=== PATIENT | female | born 1950 | race Caucasian/White ===

== ENCOUNTER → 2017-07-01 13:29 | Outpatient (CLI) | payer MEDICARE, SELFPAY ==
--- NOTE | 2017-07-01 11:08 | HPBD_ITS ---
STUDY: DUAL ENERGY X-RAY ABSORPTIOMETRY / DXA REASON FOR EXAM: Female, 67 years old. The patient is postmenopausal. Loss of height. TECHNIQUE: Bone Mineral Density (BMD) measurements of lumbar spine and bilateral hips were obtained. COMPARISON: None. FINDINGS: Lumbar Spine (L1-L4): g/cm2 (1.145) / T-score (-0.3) / Z-score (1.4) Findings are suggestive of normal bone density with a low fracture risk. Left Femur Total: g/cm2 (0.936) / T-score (-0.6) / Z-score (0.8) Left Femoral Neck: g/cm2 (0.854) / T-score (-1.3) / Z-score (0.3) Right Femur Total: g/cm2 (0.902) / T-score (-0.8) / Z-score (0.6) Right Femoral Neck: g/cm2 (0.827) / T-score (-1.5) / Z-score (0.1) HPBD/Dexa Bone Density Study (HP) IMPRESSION: The patient is considered osteopenic as outlined below according to World Ha Organization (WHO) criteria with a moderate fracture risk. Reference Information: The T-score is the number of standard deviations above or below the standard which is normal for young adults at their peak bone mineral density. The World Health Organization (WHO) interprets the T-scores as follows: Above -1 Normal bone density Between -1 and -2.5 Osteopenia Equal to / or below -2.5 Osteoporosis As a practical clinical guideline, osteopenia may be graded as follows: Mild -1 through -1.5 Moderate -1.6 through -2.0 Severe -2.1 through -2.4 The Z-score is the number of standard deviations above or below age-matched controls. A Z-score of less than -1.5 would be considered abnormal. References: 1. NIH Osteoporosis and Related Bone Diseases http://www.osteo.org 2. International Society for Clinical Densitometry http://www.iscd.org 3. National Osteoporosis Foundation http://www.nof.org Electronically Signed: Mario Moura MD at 15:24 EST Tel [phone], Service support ,
--- OUTSIDE RECORDS SUMMARY | 2017-08-12 13:31 | XMS RPT_ITS ---
:1950 Author Organization OHIP Care Team Providers Name Role Phone HARINI MAHMOOD (BREAD AND PASTRY BAKER) Attending Unavailable Harini Mahmood MULE RIDER-C Attending Unavailable Talampas, Lalo Primary Care Unavailable TalampLalo cruz Attending Unavailable Talampas, Lalo Primary Care Unavailable Harini Mahmood MULE RIDER-C Attending Unavailable Talampas, Lalo Primary Care Unavailable Harini Mahmood MULE RIDER-C Attending Unavailable Malys, Annamarie Primary Care Unavailable PROBLEMS PROBLEMS DATE TYPE CONDITION / CODE ATTENDING STATUS SOURCE 08/12/2017 Unknown Z13.820 - Harini Mahmood Encounter for MULE RIDER-C Community screening for Hospital osteoporosis / Repository Z13.820(ICD-10) 08/12/2017 Unknown M81.0 - Harini Mahmood Age-related MULE RIDER-C Community osteoporosis Hospital without current Repository pathological fracture / M81.0(ICD-10) 08/06/2017 Unknown Z12.31 - Encounter Harini Mahmood for screening MULE RIDER-C Community mammogram for Hospital malignant neoplasm Repository of breast / Z12.31(ICD-10) 05/12/2017 Active Unknown / HARINI MHAMOOD Active [facility] UNK(Medicity (BREAD AND PASTRY BAKER) Main [place] Unknown) Repository PROCEDURES PROCEDURES No Procedure Records FoundRESULTS RESULTS DEXA BONE DENSITY Observed: 07/01/2017 Status: F Source: [place] STUDY () 11:09 AM [facility] REPOSITORY [facility] [id number] [place] [address]Ugrx Bone Density Study ()MR#: [id number] Acct: [id number]: STARR MATAMOROS Rep #: [id number]: 1950 F 67 From: Mario Moura MDPCP: Annamarie Bauman DO Status: PRE CLIStudy: Dexa Bone Density Study () Date of Exam: 07/01/17Exam# [id number] Ordering Dr: Harini Mahmood MULE RIDER-CSTUDY: DUAL ENERGY X-RAY ABSORPTIOMETRY / DXAREASON FOR EXAM: Female, 67 years old. The patient is postmenopausal.Loss of height.TECHNIQUE: Bone Mineral Density (BMD) measurements of lumbar spine andbilateral hips were obtained.COMPARISON: None. FINDINGS:Lumbar Spine (L1-L4): g/cm2 (1.145) / T-score (-0.3) / Z-score (1.4)Findings are suggestive of normal bone density with a low fracture risk.Left Femur Total: g/cm2 (0.936 ) / T-score (-0.6) / Z-score (0.8)Left Femoral Neck: g/cm2 (0.854) / T-score ( -1.3) / Z-score (0.3)Right Femur Total: g/cm2 (0.902) / T-score (-0.8) / Z- score (0.6)Right Femoral Neck: g/cm2 (0.827) / T-score (-1.5) / Z-score (0.1) ORDER #: [id number] HPBD/Dexa Bone Density Study ()IMPRESSION:The patient is considered osteopenic as outlined below according to WorldHeath Organization (WHO) criteria with a moderate fracture risk. Reference Information:The T-score is the number of standard deviations above or below thestandard which is normal for young adults at their peak bone mineraldensity. The World Health Organization (WHO) interprets the T-scores asfollows:Above -1 Normal bone densityBetween -1 and -2.5 OsteopeniaEqual to / or below -2.5 OsteoporosisAs a practical clinical guideline, osteopenia may be graded as follows:Mild -1 through -1.5Moderate - 1.6 through -2.0Severe -2.1 through -2.4The Z-score is the number of standard deviations above or below age-matchedcontrols. A Z-score of less than -1.5 would be considered abnormal.References:1. NIH Osteoporosis and Related Bone Diseases http://www.osteo.org2. International Society for Clinical Densitometry http://www.iscd.org3. National Osteoporosis Foundation http://www.nof.orgElectronically Signed:Mario Moura MD at 15: 24 ESTTe [phone], Service support , US: Harini Mahmood; Annamarie Bauman DO Plastics Spreading Machine Operator:Signed BREAST LIMITED Observed: 06/26/2017 Status: F Source: [place]AL 2:35 PM [facility] REPOSITORY [facility] [id number] [facility] [place], [place] [address]Asgtpr Limited UnilateralMR#: [id number] Acct: [id number]: STARR MATAMOROS Rep #: [id number]: 1950 F 67 From: Mario Moura MDPCP: Lalo Smith MD Status: REG CLIStudy: Breast Limited Unilateral Date of Exam: 06/26/17Exam# [id number] Ordering Dr: Lalo Smith MDSTUDY: ULTRASOUND BREAST - LEFTREASON FOR EXAM: Female, 67 years old. Abnormal mammogram.TECHNIQUE: Axial and longitudinal images of the LEFT breast wereperformed with a high resolution ultrasound transducer.COMPARISON: Comparison is made with prior mammogram dated June. FINDINGS:LEFT Breast:There is a 4 mm x 5 mm x 4 mm cyst at the 11:00 position in the breast at 2cm from the nipple. This corresponds to the mammographic finding. US/Breast Limited UnilateralIMPRESSION:The mammographic finding corresponds to a small cyst. Routine mammographicfollow-up is recommended. ASSESSMENT CATEGORY:BIRADS Category 2: Benign. A letter regarding these results will be sentto the patient by the facility within 30 days.Electronically Signed:Mario Moura MD at 15:27 ESTTel [phone], Service support , PS: Lalo Smith MD Plastics Spreading Machine Operator:Signed CNPLázaro Observed: 06/25/2017 Status: COMPLETED Source: [place] 12:00 AM [facility] REPOSITORY Telephone (INTMWS) ---------STARR MATAMOROS ([id number]) 1950 FDate Time Provider Xckqiqbjqn67/21/17 LALO SMITH INTLeandroWS During your visit today, we recorded the following information about you:Ofe Monk Cma 06/25/2017 9:52 AM AddendumResults received from [facility] at [facility] for review, [facility] states pt needs additionalimaging. Please advise.Order completed and ready for signature.Ofe Monk Cma 06/25/2017 10:22 AM SignedOrder signed and faxed.Allergies As of Date: 06/25/2017 Noted Allergy ReactionNIACIN 10/07 5 - Intolerance Comments: sweats and hot flashesSIMVASTATIN 03/26/2016 5 - Intolerance Comments: myalgias--severe; resolved after stopped but still with leg painDate Reviewed: 05/12/2017Reviewed by: Olga Mehta POWDERED SUGAR SUPERVISOR - Fully AssessedReason for Visit: Diagnostic mammogram [Other]Prescriptions as of 06/25/2017 Sig: BIOTIN 5 MG CAPSULE Take 5 mg by mouth once daily. VITAMIN B-12 ORAL Take 3,000 mg by mouth. PYRIDOXINE (VITAMIN B6) ER 20* Take by mouth. WOMEN'S DAILY MULTIVITAMIN OR* Take by mouth. IBUPROFEN 200 MG TABLET Take 800 mg by mouth every 6 * PROPRANOLOL XL 120 MG CAPSULE* Take 1 capsule by mouth once * CHOLECALCIFEROL (VITAMIN D3) * Take 1 capsule by mouth once * AMLODIPINE 10 MG TABLET Take 1 tablet by mouth once d* NORTRIPTYLINE 75 MG CAPSULE Take 1 capsule by mouth daily* EXCEDRIN MIGRAINE 250 MG-250 * as necessaryProblem List As Of Date 06/25/2017 Noted Resolved INGROWING NAIL [L60.0] INVALID FOR*11/16/2006 PALPITATIONS [R00.2] INVALID FOR*11/16/2006 Essential hypertension [I10] INVALID FOR* GENERAL OSTEOARTHROSIS [M15.9] MIXED HYPERLIPIDEMIA [E78.2] INVALID FOR* DIARRHEA NOS [R19.7] 11/16/2006 DIVERTICULOSIS OF COLON W/O BLEED [K57.30] TINNITUS NOS [H93.19] INVALID FOR* More... COMMON MIGRAINE INTRACTABLE [G43.019] INVALID FOR* PAIN IN JOINT, LOWER LEG [M25.569] INVALID FOR * ABDOMINAL PAIN OTHER SPEC SITE [R10.9] INVALID FOR* Calculus of Kidney [N20.0] INVALID FOR* Lumbar Spondylosis [M47.816] Status:Closed by OFE MONK CMA on 06/25/17 SCREENING MAMM (CAD), Observed: 06/23/2017 Status: F Source: [place] BIL 3:28 PM [facility] REPOSITORY [facility] [id number] [address]WPDEOLOYH MAMM (CAD), BILATMR#: [id number] Acct: [id number]: STARR MATAMOROS Rep #: [id number]: 1950 F 67 From: Mario Moura MDPCP: Lalo Smith MD Status: REG CLIStudy: SCREENING MAMM (CAD) , BILAT Date of Exam: 06/23/17Exam# [id number] Ordering Dr: Harini Mahmood MULE RIDER-CMAMMOGRAPHY - BILATERAL SCREENINGREASON FOR EXAM: Female, 67 years old. Routine annual screeningexamination.PERTINENT HISTORY: Sister with breast cancer. Remote left stereotacticbiopsy.TECHNIQUE: Digital bilateral breast byron (3D mammographic acquisition) inthe CC and MLO projections. 2-D mediolateral oblique (MLO) and craniocaudad(CC) views of both breasts were obtained. CAD: Full Field DigitalMammography with Computer Added Detection was performed.COMPARISON : Comparison is made with prior study dated February 26, 2015 andDecember 28, 2013. FINDINGS:Breast Composition: There are scattered areas of fibroglandular density.There is a 5.4 mm x 6.0 mm well- defined nodule in the superior retroareolarregion of the left breast. Correlation with ultrasound is recommended.Stable appearance of the benign axillary lymph nodes. A Sterotactic tissueclip marker is seen in the upper lateral portion of the left breast.No other significant abnormalities are identified. There has been nosignificant change since the prior study. HPBI/SCREENING MAMM (CAD), BILATIMPRESSION:Subcentimeter well- defined nodule in the left breast as described.Correlation with ultrasound is recommended. ASSESSMENT CATEGORY:BIRADS Category 0: Incomplete. Need additional imaging evaluation. Aletter regarding these results will be sent to the patient by the facilitywithin 30 days.Approximately 10% of breast cancers are not detected by mammography. Anormal mammogram should not delay biopsy of a clinically suspiciousabnormality.[id number] Signed:Mario Moura MD at 8:31 ESTTel [phone], Service support , XW: Harini Mahmood; Lalo Smith MD Plastics Spreading Machine Operator:Signed PROGRESS Observed: 05/12/2017 Status: COMPLETED Source: [place] 2:33 PM [facility] REPOSITORY HNO ID: [id number]: Harini (Thoracic Surgeon) JAKE MahmoodService: (none)Author Type: Nurse SpecialistType: Progress NotesFiled: 05/12/2017 3:28 PMNote Text:OUTPATIENT VISIT DATE May 12, 2017OUTPATIENT VISIT TYPEESTABLISHEDPRIMARY CARE PHYSICIAN:Lalo Smith [facility] COMPLAINT:Patient presents with:Follow Up: 8 monthsHistory of Present Illness:Starr Matamoros is a 67 year old female who was last seen July2015.She has been seen in the past forACTIVE PROBLEM LISTUnspecified Essential HypertensionGeneralized Osteoarthrosis, Unspecified SiteMixed HyperlipidemiaDiverticulosis of Colon (Without Mention of Hemorrhage)Unspecified TinnitusMigraine Without Aura, With Intractable Migraine , So Stated, WithoutMention of Status MigrainosusPain in Joint, Lower LegAbdominal Pain, Other Specified SiteCalculus of KidneyLumbar SpondylosisHEPATITIS C SCREENING due on 1992COLORECTAL CANCER SCREENING,SEE MODIFIER due on 10/10/2007ZOSTAVAX due on 2008TETANUS due on 12/07/2008MAMMOGRAM due on 10/22/2011ONE DENSITY due on 2013DULT PREVNAR-13 due on 2013PNEUMOVAX AGE 65 AND OVER WITH 5YR LOOKBACK(1) due on 2013INFLUENZA(1) due on 03/06/2017Since the last visit , she states that she's been her usual state ofhealth.She reports no chest pain shortness of breath dizziness lightheadednesspalpitations. Consistently taking medications for blood pressure. Theseare working well for her. No adverse effects noted.Reports activity is decreased since retiring.Has gained about 20 poundsChronic knee pain, has seen orthopedic doctor previously for this prefersnot to return to see her. Has also seen orthopedic physician for to pugh. She would like eventually to follow-up with this but nottoday.No recent hospital or ED visits.No new medical problems or medications.Able to obtain medications.No problems with taking medications or note side effects.PAST MEDICAL HISTORYDiagnosis Date- Achilles bursitis or tendinitis right shoulder- Acute peptic ulcer, unspecified site, without mention of hemorrhage,perforation, or obstruction 10/06- Diarrhea- Diverticulosis of colon (without mention of hemorrhage)- External hemorrhoids without mention of complication- Family history of malignant neoplasm of gastrointestinal tract family history of colon cancer- Fibrosclerosis of breast fibrocystic breast disease- Generalized osteoarthrosis, unspecified site- Hemorrhage of gastrointestinal tract, unspecified- Internal hemorrhoids without mention of complication- Lumbar spondylosis Dr. 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 Bearden at [facility]- Unspecified essential hypertension- Unspecified hemorrhoids without mention of complication internal and externaldjd- Unspecified tinnitus 11/16/2006 Left ear- Urinary calculus, unspecified Renal stonesPAST SURGICAL HISTORYProcedure Laterality Date- APPENDECTOMY- COLONOS VIA STOMA W/ ABLATION- COLONOSCOP W/ OR W/O [facility] SPEC 10/09/06- PAST SURGICAL HISTORY OF Ultrasound kidney stones- REMOVAL OF TONSILS,& lt;10 Y/O As child Tonsillectomy- SIGMOIDOSCOPY FLEX DIAG 10/13/02 Sigmoidoscopy, flexibleFAMILY HISTORYProblem Relation Age of Onset- Colon Cancer Mother of colon cancer- Breast Cancer Sister- Hypertension Father- Headache Mother- Headache Son migraine- Headache Daughter migraine- Headache Daughter migraineSocial HistorySubstance Use Topics- Smoking status: Former Smoker Years: 10.00 Quit date: 07/06/1979- Smokeless tobacco: Not on file- Alcohol use Yes Comment: rarelyALLERGIES:ALLERGIESAllergen Reactions- Niacin Intolerance sweats and hot flashes- Simvastatin Intolerance myalgias--severe; resolved after stopped but still with leg painMEDICATIONSPropranolol HCl 120 mg 24 hr capsule Take 1 capsule by mouth once daily.cholecalciferol, Vitamin D3, (VITAMIN D3) 50,000 unit cap capsule Take 1capsule by mouth once each week.amLODIPine (NORVASC) 10 mg tablet Take 1 tablet by mouth once daily.nortriptyline (PAMELOR) 75 mg capsule Take 1 capsule by mouth daily atbedtime.EXCEDRIN MIGRAINE 250 MG-250 MG-65 MG TAB as necessaryREVIEW OF SYSTEMS:GENERAL: Negative for: Weight loss or gain, Fever or Chills, Weakness andSleep difficulties.Physical Examination:BP 120/72 Pulse 72 Resp 16 Wt 213 lb (96.6kg) LMP 07/11/2003Extended Vitals not filed for this encounter.General appearance: Well appearing, alert, in no acute distress,well-hydrated, well nourished.Skin: Skin color, texture, turgor normal, no suspicious rashes or lesionsNeck: Supple, no adenopathy; thyroid symmetric, normal size, no bruitsLungs: Lungs clear to auscultation. No wheezing, rhonchi, ralesHeart: RRR without murmur, gallop, or rubs.Abdomen: Abdomen soft, non-tender. Bowel sounds normal. No masses,organomegalyExtremities: No d edema, skin discoloration, clubbing or cyanosis. Goodcapillary refill.Musculoskeletal: Hammertoe deformity left foot, swelling and inwardmisplacement bilateral kneesPeripheral pulses: NormalNeuro: Gait ataxic. Sensation grossly intact.Reviewed chart, outside records, testsI personally interviewed, confirmed and edited the above information ifobtained by others.TESTING:Glucose (mg/dL)Date Value05/16/2016 Test sent to [facility]. Potassium (mmol/L)Date Value05/16/2016 Test sent to [facility]. Sodium (mmol/L)Date Value05/16/2016 Test sent to [facility]. Chloride (mmol/L)Date Value05/16/2016 Test sent to [facility]. CO2 (mmol/L)Date Value05/16/2016 Test sent to [facility]. Creatinine (mg/dL)Date Value05/16/2016 Test sent to [facility]. BUN (mg/dL)Date Value05/16/2016 Test sent to [facility]. Anion Gap (mmol/L)Date Value05/16/2016 Test sent to [facility]. Calcium (mg/dL)Date Value05/16/2016 Test sent to [facility]. Glucose (mg/dL)Date Value05/16/2016 Test sent to [facility]. Potassium (mmol/L)Date Value05/16/2016 Test sent to [facility]. Sodium (mmol/L)Date Value2015 Test sent to [facility]. Chloride (mmol/L)Date Value2015 Test sent to [facility]. CO2 (mmol/L)Date Value2015 Test sent to [facility]. Creatinine (mg/dL)Date Value05/16/2016 Test sent to [facility]. BUN (mg/dL) Date Value05/16/2016 Test sent to [facility]. Anion Gap (mmol/L)Date Value05/16/2016 Test sent to [facility]. Calcium (mg/dL)Date Value05/16/2016 Test sent to [facility]. Protein, Total (g/dL)Date Value05/16/2016 Test sent to [facility]. Albumin (g/dL)Date Value05/16/2016 Test sent to [facility]. Bilirubin, Total (mg/dL)Date Value05/16/2016 Test sent to [facility]. Alkaline Phosphatase (U/L)Date Value05/16/2016 Test sent to [facility]. AST (U/L)Date Value05/16/2016 Test sent to [facility]. ALT (U/L)Date Value05/16/2016 Test sent to [facility]. Hemoglobin (g/dL)Date Value05/16/2016 Test sent to [facility]. Hematocrit (%)Date Value05/16/2016 Test sent to [facility]. WBC (k/uL)Date Value05/16/2016 Test sent to [facility]. Cholesterol (mg/dL)Date Value05/16/2016 Test sent to [facility]. HDL Cholesterol (mg/dL)Date Value05/16/2016 Test sent to [facility]. LDL Cholesterol (mg/dL)Date Value2015 Test sent to [facility]. Triglyceride (mg/dL)Date Value05/2016 Test sent to [facility]. No results found for: [id number] Fraction: No results foundIMPRESSION:Ms. Matamoros is a 67 year old woman presents for routine follow up.After my examination and review of data, I make the followingrecommendations.PLAN AND RECOMMENDATIONS:1. Need for vaccination - ICD9: V05.9, ICD10: Z23 (primary diagnosis)Prevnar 132. Visit for screening mammogram - ICD9: V76.12, ICD10: Z12.31Would like completed health point- MULU SCREENING3. Encounter for screening for osteoporosis - ICD9: V82.81, ICD10: Z13.820Would like completed health point- DXA-AXIAL SKELETON4. Pain of toe of left foot - ICD9: 729.5, ICD10: M79.675Hammertoe deformity, pain of toes, declines podiatry visit today- CONSULT TO PODIATRY5. Essential hypertension - ICD9: 401.9, ICD10: [id number]. Continue with medications unchanged.6. Arthritis of knee - ICD9: 716.96, ICD10: M17.10Follow-up with orthopedic when she so desires. Declines today. Pleaseconsult if she so desires. Prefers not to see previous physician.Advised to go to ER if develops chest pain, shortness of breath, or severeworsening of symptoms.Discussed risks, benefits, alternatives, and potential side effects ofmedications.Ms. Matamoros expressed understanding and agreed with the plan.JAKE Dugan CNOV Observed: 05/12/2017 Status: COMPLETED Source: [place] 2:20 PM [facility] REPOSITORY Office Visit (INTMWS) ---------STARR MATAMOROS ([id number]) 1950 [facility] Time Provider Umhawfocge57/7/17 2:20 PM HARINI MAHMOOD (JAKE) INTMWS During your visit today, we recorded the following information about you: Pulse Respiration Blood pressure Weight 72/minute 16/minute 120/72 96.6 kgJAKE Dugan, BREAD AND PASTRY BAKER 2016 3:28 PM SignedOUTPATIENT VISIT DATE May 12, 2017OUTPATIENT VISIT TYPEESTABLCHILTON [facility] CARE PHYSICIAN:Lalo Smith [facility] COMPLAINT:Patient presents with:Follow Up: 8 monthsHistory of Present Illness:Starr Matamoros is a 67 year old female who was last seen July 2015.She has been seen in the past forACTIVE PROBLEM LISTUnspecified Essential HypertensionGeneralized Osteoarthrosis, Unspecified SiteMixed HyperlipidemiaDiverticulosis of Colon (Without Mention of Hemorrhage) Unspecified TinnitusMigraine Without Aura, With Intractable Migraine, So Stated, Without Mention ofStatus MigrainosusPain in Joint, Lower LegAbdominal Pain, Other Specified SiteCalculus of KidneyLumbar SpondylosisHEPATITIS C SCREENING due on 1992COLORECTAL CANCER SCREENING,SEE MODIFIER due on 10/10/2007ZOSTAVAX due on 2008TETANUS due on 12/07/2008MAMMOGRAM due on 10/22/2011ONE DENSITY due on 2013DULT PREVNAR-13 due on 2013PNEUMOVAX AGE 65 AND OVER WITH 5YR LOOKBACK(1) due on 2012INFLUENZA(1) due on 03/06/2017Since the last visit, she states that she's been her usual state of health.She reports no chest pain shortness of breath dizziness lightheadednesspalpitations. Consistently taking medications for blood pressure. These areworking well for her. No adverse effects noted.Reports activity is decreased since retiring.Has gained about 20 poundsChronic knee pain, has seen orthopedic doctor previously for this prefers notto return to see her. Has also seen orthopedic physician for toe pain,to. She would like eventually to follow-up with this but not today.No recent hospital or ED visits.No new medical problems or medications.Able to obtain medications.No problems with taking medications or note side effects.PAST MEDICAL HISTORYDiagnosis Date- Achilles bursitis or tendinitis right shoulder- Acute peptic ulcer, unspecified site, without mention of hemorrhage,perforation, or obstruction 10/06- Diarrhea- Diverticulosis of colon (without mention of hemorrhage)- External hemorrhoids without mention of complication- Family history of malignant neoplasm of gastrointestinal tract family history of colon cancer- Fibrosclerosis of breast fibrocystic breast disease- Generalized osteoarthrosis, unspecified site- Hemorrhage of gastrointestinal tract, unspecified- Internal hemorrhoids without mention of complication- Lumbar spondylosis Dr. Bearden at [facility]- Migraine without aura- Obesity , unspecified- Osteopenia- Other and unspecified hyperlipidemia- PMH - PAST MEDICAL HISTORY OF Torn ligament in right hand of middle finger[facility]- Thoracic or lumbosacral neuritis or radiculitis, unspecified Dr. Bearden at [facility]- Unspecified essential hypertension- Unspecified hemorrhoids without mention of complication internal and externaldjd- Unspecified tinnitus 11/16/2006 Left ear- Urinary calculus, unspecified Renal stonesPAST SURGICAL HISTORYProcedure Laterality Date- APPENDECTOMY- COLONOS VIA STOMA W/ ABLATION- [facility]- PAST SURGICAL HISTORY OF Ultrasound kidney stones- REMOVAL OF TONSILS,ANDlt;10 Y/O As child Tonsillectomy- SIGMOIDOSCOPY FLEX DIAG 10/13/02 Sigmoidoscopy, flexibleFAMILY HISTORYProblem Relation Age of Onset- Colon Cancer Mother of colon cancer- Breast Cancer Sister- Hypertension Father- Headache Mother- Headache Son migraine- Headache Daughter migraine- Headache Daughter migraineSocial HistorySubstance Use Topics- Smoking status: Former Smoker Years: 10.00 Quit date: 07/06/1979- Smokeless tobacco: Not on file- Alcohol use Yes Comment: rarelyALLERGIES:ALLERGIESAllergen Reactions- Niacin Intolerance sweats and hot flashes- Simvastatin Intolerance myalgias--severe; resolved after stopped but still with leg painMEDICATIONSPropranolol HCl 120 mg 24 hr capsule Take 1 capsule by mouth once daily.cholecalciferol, Vitamin D3, (VITAMIN D3) 50,000 unit cap capsule Take 1capsule by mouth once each week.amLODIPine (NORVASC) 10 mg tablet Take 1 tablet by mouth once daily.nortriptyline (PAMELOR ) 75 mg capsule Take 1 capsule by mouth daily at bedtime.EXCEDRIN MIGRAINE 250 MG-250 MG-65 MG TAB as necessaryREVIEW OF SYSTEMS:GENERAL: Negative for: Weight loss or gain, Fever or Chills, Weakness and Sleepdifficulties.Physical Examination:BP 120/72 Pulse 72 Resp 16 Wt 213 lb (96.6kg) LMP 07/11/2003Extended Vitals not filed for this encounter.General appearance: Well appearing, alert, in no acute distress, well-hydrated,well nourished.Skin: Skin color, texture, turgor normal, no suspicious rashes or lesionsNeck: Supple, no adenopathy; thyroid symmetric, normal size, no bruitsLungs: Lungs clear to auscultation. No wheezing, rhonchi, ralesHeart: RRR without murmur, gallop , or rubs.Abdomen: Abdomen soft, non-tender. Bowel sounds normal. No masses, organomegalyExtremities: No d edema, skin discoloration, clubbing or cyanosis. Goodcapillary refill.Musculoskeletal: Hammertoe deformity left foot, swelling and inwardmisplacement bilateral kneesPeripheral pulses: NormalNeuro: Gait ataxic. Sensation grossly intact.Reviewed chart, outside records, testsI personally interviewed, confirmed and edited the above information ifobtained by others.TESTING:Glucose (mg/dL)Date Value05/16/2016 Test sent to [facility]. Potassium (mmol/L)Date Value05/16/2016 Test sent to [facility]. Sodium (mmol/L)Date Value05/16/2016 Test sent to [facility]. Chloride (mmol/L)Date Value05/16/2016 Test sent to [facility]. CO2 (mmol/L)Date Value05/16/2016 Test sent to [facility]. Creatinine (mg/dL)Date Value05/16/2016 Test sent to [facility]. BUN (mg/dL)Date Value05/16/2016 Test sent to [facility]. Anion Gap (mmol/L)Date Value05/16/2016 Test sent to [facility].------ ----Calcium (mg/dL)Date Value05/16/2016 Test sent to [facility]. Glucose (mg/ dL)Date Value05/16/2016 Test sent to [facility]. Potassium (mmol/L)Date Value2015 Test sent to [facility]. Sodium (mmol/L)Date Value05/16/2016 Test sent to [facility]. Chloride (mmol/L)Date Value05/16/2016 Test sent to [facility]. CO2 (mmol/L)Date Value05/16/2016 Test sent to [facility]. Creatinine (mg/dL)Date Value05/16/2016 Test sent to [facility]. BUN (mg/dL)Date Value05/16/2016 Test sent to [facility]. Anion Gap (mmol/L)Date Value05/16/2016 Test sent to [facility].------ ----Calcium (mg/dL)Date Value05/16/2016 Test sent to [facility]. Protein, Total (g/dL)Date Value05/16/2016 Test sent to [facility]. Albumin (g/dL )Date Value05/16/2016 Test sent to [facility]. Bilirubin, Total (mg/dL)Date Value05/16/2016 Test sent to [facility]. Alkaline Phosphatase (U/L)Date Value2015 Test sent to [facility]. AST (U/L)Date Value05/16/2016 Test sent to [facility]. ALT (U/L)Date Value05/16/2016 Test sent to [facility]. Hemoglobin (g/dL)Date Value05/16/2016 Test sent to [facility]. Hematocrit (%)Date Value05/16/2016 Test sent to [facility]. WBC (k/uL)Date Value05/16/2016 Test sent to [facility]. Cholesterol (mg/dL)Date Value05/16/2016 Test sent to [facility]. HDL Cholesterol (mg/dL)Date Value05/16/2016 Test sent to [facility]. LDL Cholesterol (mg/dL)Date Value05/16/2016 Test sent to [facility]. Triglyceride (mg/dL)Date Value05/16/2016 Test sent to [facility]. No results found for: ZMA3EWifmyury Fraction: No results foundIMPRESSION:Ms. Matamoros is a 67 year old woman presents for routine follow up.After my examination and review of data, I make the following recommendations.PLAN AND RECOMMENDATIONS:1. Need for vaccination - ICD9: V05.9, ICD10: Z23 (primary diagnosis)Prevnar 132. Visit for screening mammogram - ICD9: V76.12, ICD10: Z12.31Would like completed health point- MULU SCREENING3. Encounter for screening for osteoporosis - ICD9: V82.81, ICD10: Z13.820Would like completed health point- DXA-AXIAL SKELETON4. Pain of toe of left foot - ICD9: 729.5, ICD10: M79.675Hammertoe deformity, pain of toes, declines podiatry visit today - CONSULT TO PODIATRY5. Essential hypertension - ICD9: 401.9, ICD10: [id number]. Continue with medications unchanged.6. Arthritis of knee - ICD9: 716.96, ICD10: M17.10Follow-up with orthopedic when she so desires. Declines today. Please consultif she so desires. Prefers not to see previous physician.Advised to go to ER if develops chest pain, shortness of breath, or severeworsening of symptoms.Discussed risks, benefits, alternatives, and potential side effects ofmedications.Ms. Matamoros expressed understanding and agreed with the plan.Ryan Dugan, JAKE, BREAD AND PASTRY BAKER 05/12/2017 2:59 PM SignedBONE MINERAL DENSITY PATIENT INSTRUCTIONS Bone mineral density testing measures the amount of calcium in certain parts ofyour bones. This information determines how strong your bones are. The testis used to detect osteoporosis, a disease in which the bone's mineral contentand density are low, increasing a person's risk of fractures. The lumbar spine(lower back) and the hip are the skeletal sites usually examined.For the test, remember that:1. You cannot take this test if you are .2. Eat a normal diet on the day of the test.3. Take your medications as you normally would.4. DO NOT take calcium supplements (such as Tums) for 24 hours before the test.5. On the day of the test, leave valuables (jewelry or credit cards) at home.6. The test should be performed prior to oral , rectal or IV contrast studies,or at least 7 days after any of these studies.For the test, you may be asked to wear a hospital gown. You will lie on yourback, on a padded table, in a comfortable position. Generally, you can resumeyour usual activities immediately.Referring Provider: SELF [200] Allergies As of Date: 05/12/2017 Noted Allergy ReactionNIACIN 10/07/2010 5 - Intolerance Comments: sweats and hot flashesSIMVASTATIN 03/26/2016 5 - Intolerance Comments: myalgias--severe; resolved after stopped but still with leg painDate Reviewed: 05/12/2017Reviewed by: Olga Mehta LPN - Fully AssessedReason for Visit: Follow Up [171] Cmt: 8 months Imm/Inj [58] Cmt: Flu VaccineReason For Visit History RecordedPrimary Visit Diagnosis:Need for vaccination [Z23] Other Visit Diagnoses:Visit for screening mammogram [Z12.31] Encounter for screening for osteoporosis [Z13.820] Pain of toe of left foot [M79.675 ] Essential hypertension [I10] Arthritis of knee [M17.10] Order(s):PNEUMOCOCCAL-13 VACCINE PCV-13 [53644CJY] Order #: [id number] MULU SCREENING [[id number]] Order #: [id number] FUTURE DXA-AXIAL SKELETON [[id number]] Order #: [id number] FUTURE Propranolol HCl 120 mg 24 hr capsuleTake 1 capsule by mouth once daily.Disp: 30 capsuleRfl: 11 cholecalciferol, Vitamin D3, (VITAMIN D3) 50,000 unit cap capsuleTake 1 capsule by mouth once each week.Disp: 4 capsuleRfl: 11 amLODIPine (NORVASC) 10 mg tabletTake 1 tablet by mouth once daily.Disp: 30 tabletRfl: 11 nortriptyline (PAMELOR) 75 mg capsuleTake 1 capsule by mouth daily at bedtime.Disp: 30 capsuleRfl: 11 CONSULT TO PODIATRY [9034] Order #: [id number]: 1Prescriptions as of 05/12/2017 Sig: BIOTIN 5 MG CAPSULE Take 5 mg by mouth once daily. VITAMIN B-12 ORAL Take 3,000 mg by mouth. PYRIDOXINE (VITAMIN B6) ER 20* Take by mouth. WOMEN'S DAILY MULTIVITAMIN OR* Take by mouth. IBUPROFEN 200 MG TABLET Take 800 mg by mouth every 6 * PROPRANOLOL XL 120 MG CAPSULE* Take 1 capsule by mouth once * CHOLECALCIFEROL (VITAMIN D3) * Take 1 capsule by mouth once * AMLODIPINE 10 MG TABLET Take 1 tablet by mouth once d* NORTRIPTYLINE 75 MG CAPSULE Take 1 capsule by mouth daily* EXCEDRIN MIGRAINE 250 MG- 250 * as necessaryMedication notes this encounter EXCEDRIN MIGRAINE 250 MG-250 MG-65 MG TABLET >> Olga Mehta LPN 05/12/2017 2:33 PM >> OLGA MEHTA LPN May 12, 2017 2:33 PM Not takingProblem List As Of Date 05/12/2017 Noted Resolved INGROWING NAIL [L60.0] INVALID FOR*11/16/2006 PALPITATIONS [R00.2] INVALID FOR* Essential hypertension [I10] INVALID FOR* GENERAL OSTEOARTHROSIS [ M15.9] MIXED HYPERLIPIDEMIA [E78.2] INVALID FOR* DIARRHEA NOS [R19.7] 11/16/2006 DIVERTICULOSIS OF COLON W/O BLEED [K57.30] TINNITUS NOS [H93.19] INVALID FOR* More... COMMON MIGRAINE INTRACTABLE [G43.019] INVALID FOR* PAIN IN JOINT, LOWER LEG [M25.569] INVALID FOR* ABDOMINAL PAIN OTHER SPEC SITE [ R10.9] INVALID FOR* Calculus of Kidney [N20.0] INVALID FOR* Lumbar Spondylosis [M47.816] Other instructions from your clinician: BONE MINERAL DENSITY PATIENT INSTRUCTIONS Bone mineral density testing measures the amount of calcium in certain parts of your bones. This information determines how strong your bones are. The test is used to detect osteoporosis, a disease in which the bone's mineral content and density are low, increasing a person's risk of fractures. The lumbar spine (lower back) and the hip are the skeletal sites usually examined. For the test, remember that: 1. You cannot take this test if you are . 2. Eat a normal diet on the day of the test. 3. Take your medications as you normally would. 4. DO NOT take calcium supplements (such as Tums) for 24 hours before the test. 5. On the day of the test, leave valuables (jewelry or credit cards) at home. 6. The test should be performed prior to oral, rectal or IV contrast studies, or at least 7 days after any of these studies. For the test, you may be asked to wear a hospital gown. You will lie on your back, on a padded table, in a comfortable position. Generally, you can resume your usual activities immediately.Prescriptions ordered this encounter Disp Refills Start End PROPRANOLOL XL 120 MG CAPSULE,EXTEND* 30 c* 05/12/2017 Route: ORAL Sig: Take 1 capsule by mouth once daily. CHOLECALCIFEROL (VITAMIN D3) 50,000 * 4 ca* 05/12/2017 Route: ORAL Sig: Take 1 capsule by mouth once each week. AMLODIPINE 10 MG TABLET 30 t* 05/12/2017 Route: ORAL Sig: Take 1 tablet by mouth once daily. NORTRIPTYLINE 75 MG CAPSULE 30 c* 11 05/12/2017 Route : ORAL Sig: Take 1 capsule by mouth daily at bedtime.Medications Discontinued During This Encounter Propranolol HCl 120 mg 24 hr capsule 30 c* 3 04/14/2017 05/12/2017 Route: ORAL Sig: Take 1 capsule by mouth once daily. Disc: Reason for discontinue is not on file. cholecalciferol, Vitamin D3, (VITAMI* 4 ca* 3 04/14/2017 05/12/2017 Route: ORAL Sig: Take 1 capsule by mouth once each week. Disc: Reason for discontinue is not on file. amLODIPine (NORVASC) 10 mg tablet 30 t* 3 04/14/2017 05/12/2017 Route: ORAL Sig: Take 1 tablet by mouth once daily. Disc: Reason for discontinue is not on file. nortriptyline (PAMELOR) 75 mg capsule 30 c* 3 04/14/2017 05/12/2017 Route: ORAL Sig: Take 1 capsule by mouth daily at bedtime. Disc: Reason for discontinue is not on file. Status:Closed by HARINI ORONA on 05/12/17 ROGERS Observed: 04/17/2017 Status: COMPLETED Source: [place] 12:00 AM [facility] REPOSITORY Telephone (INTMWS) ---------STARR MATAMOROS ([id number]) 1950 [facility] Time Provider Aetikjyuby04/13/17 LALO SMITH INTMWS During your visit today, we recorded the following information about you:Giselle Goodson Psr 04/17/2017 1:09 PM Mihai is calling into the office to schedule a Mammogram. Please place theorder and then call patient to schedule. She would like to schedule at [facility]. Please call patient when the order has been sent..Ofe Monk Cma 06/24/2017 2:21 PM SignedOrder faxed.Allergies As of Date: 04/17/2017 Noted Allergy ReactionNIACIN 10/07/2010 5 - Intolerance Comments: sweats and hot flashesSIMVASTATIN 03/26/2016 5 - Intolerance Comments: myalgias--severe; resolved after stopped but still with leg painDate Reviewed: 07/23/2016Reviewed by: Pamela Lechuga Field Evidence Technician - Fully AssessedReason for Visit: mammorgram order [Other]Prescriptions as of 04/17/2017 Sig:X PROPRANOLOL XL 120 MG CAPSULE* Take 1 capsule by mouth once *X CHOLECALCIFEROL (VITAMIN D3) * Take 1 capsule by mouth once *X AMLODIPINE 10 MG TABLET Take 1 tablet by mouth once d*X NORTRIPTYLINE 75 MG CAPSULE Take 1 capsule by mouth daily* EXCEDRIN MIGRAINE 250 MG-250 * as necessaryProblem List As Of Date 04/17/2017 Noted Resolved INGROWING NAIL [L60.0] INVALID FOR*11/16/2006 PALPITATIONS [R00.2] INVALID FOR*11/16/2006 HYPERTENSION NOS [I10] INVALID FOR* GENERAL OSTEOARTHROSIS [M15.9] MIXED HYPERLIPIDEMIA [E78.2] INVALID FOR* DIARRHEA NOS [R19.7] 11/16 DIVERTICULOSIS OF COLON W/O BLEED [K57.30] TINNITUS NOS [H93.19] INVALID FOR* More... COMMON MIGRAINE INTRACTABLE [G43.019] INVALID FOR* PAIN IN JOINT, LOWER LEG [M25.569] INVALID FOR* ABDOMINAL PAIN OTHER SPEC SITE [R10.9] INVALID FOR* Calculus of Kidney [N20.0] INVALID FOR* Lumbar Spondylosis [M47.816] Status:Closed by GISELLE SEN on 04/30/17 CNCO Observed: 11/12/2016 Status: COMPLETED Source: [place] 12:00 AM [facility] REPOSITORY Letter TextPhone: Cyntnkechi Nassar [id number] [facility] [id number] #: [id number] ,Due to a change in the provider's schedule it has been necessary toreschedule your Appointment.Your original appointment was scheduled for 01/19/17 at 11:40 AM with .Your new appointment is now scheduled on 01/20/17 at 1:40 PM with Ruby.If this new appointment is not convenient for you, please contact our officeat [phone].Thank you for choosing the [facility] as your Healthcare Provider.Sincerely,Internal MedicineAppointment Office ALLERGIES ALLERGIES DATE TYPE / NAME / CODE REACTION SEVERITY SOURCE CODE 03/26/2016 DRUG SIMVASTATIN INTOLERANCE [address] [id number](SN Repository OMED CT) 08/01/2014 Drug No Known Unknown [place] Allergy/41 Allergies/[id number] [facility] [id number](SN 388(RXNORM) Hospital OMED [facility]) Repository 10/07/2010 DRUG NIACIN INTOLERANCE [address] [id number](SN Repository OMED CT) ENCOUNTERS ENCOUNTERS ADMIT/DISCHARGE ACCOUNT ADMITTING ENCOUNTER LOCATION SOURCE NUMBER CLASS 07/01/2017 [id number] [facility] ing:BD Repository 06/26/2017 [id number] [facility] ing:[facility] Repository 06/23/2017 [id number] [facility] ing:[place] Repository 06/23/2017 [id number] [facility] ing:BD Repository 05/12/2017/05/13/[id number] Repository PAYERS PAYERS ENCOUNTER GUARANTOR PAYER SUBSCRIBER SOURCE 07/01/2017 Starr L Primary Starr L [place] [id number] Insurance:ENOC Camara: [id number] Number: Repository [id number]: [phone] [id number] [phone] () Date:7133-83-20ZV [address] [place] [id number]: 07/01/2017 Secondary NOT GIVENUNK [place] Insurance:SELF PAY [facility] Number: Effective Repository Date:2017-06-23 06/26/2017 Starr L Primary Starr L [place] [id number] Insurance:ENOC NirB: [facility] [id number] Number: Repository [id number]: 330 [id number] [phone] () Date:7100-16-47XY [address] [place] [phone]: 06/26/2017 Secondary NOT GIVENUNK [place] Insurance:SELF PAY [facility] Number: Effective Repository Date:2017-06-25 06/23/2017 Starr L Primary Starr L [place] [id number] Insurance:MASSENA [facility] [id number] Number: Repository [id number]: [phone] [id number] [phone] () Date:1650-25-59[address] [phone]: 06/23/2017 Secondary NOT GIVENUNK [place] Insurance:SELF PAY [facility] Number: Effective Repository Date:2017-06-06 06/23/2017 Starr L Primary Starr L [place] [id number] Insurance:[facility]: [facility] [id number] Number: Repository [id number]: [phone] [id number] [phone] (HP) Date:7984-43-88HU [address] [phone]: 06/23/2017 Secondary NOT GIVENUNK [place] Insurance:SELF PAY [facility] Number: Effective Repository Date:2017-05-22
== END ==
PROVIDERS: Family Provider Internal Medicine; PCP Internal Medicine; Visit Provider Clinical Nurse Specialist
DX: Z13.820 Encounter for screening for osteoporosis (principal); Z78.0 Asymptomatic menopausal state; M85.80 Other specified disorders of bone density and structure, unspecified site
CPT/HCPCS: 77080

== ENCOUNTER → 2017-11-12 11:01 | Outpatient (CLI) | payer MEDICARE, SELFPAY ==
[2017-11-12 13:06] LABS: Anion Gap 11 (5-15); BUN 18 mg/dL (7-18); BUN/Creat Ratio 17.1 RATIO (10-20); Calcium,Total 9.2 mg/dL (8.5-10.1); Chloride 110 mmol/L (98-107); Cholesterol 207 mg/dL (200); Creatinine, Serum 1.05 mg/dL (0.55-1.02); EST Glomerular Filtration Rate 55 mL/min (>60); Est Glom Filt Rate - Afr Amer 67 mL/min (>60); Glucose 93 mg/dL (74-106); High Density Lipoprotein 62 mg/dL; Potassium 3.9 mmol/L (3.5-5.1); Sodium Level 143 mmol/L (136-145); Triglycerides 127 mg/dL; Very Low Density Lipoprotein 25 mg/dL (5-40)
== END ==
PROVIDERS: Family Provider Internal Medicine; PCP Internal Medicine; Visit Provider Internal Medicine
DX: Z79.899 Other long term (current) drug therapy (principal)
CPT/HCPCS: 36415; 80048; 80061

== ENCOUNTER 2018-03-12 14:00 | Outpatient (RCR) | payer MEDICARE, SELFPAY ==
--- NOTE | 2018-01-27 15:54 | HP.PTEVAL_ITS ---
Patient's Visit Information ELIU MATAMOROS is a 67 year old F referred to Physical Therapy by Kobi Hudson MD with a diagnosis of R TKA. Date of Evaluation: 01/27/18 Physical Therapist: Sd Tabor PT, - Visit Plan Frequency: 2-3x /Week Duration: 4-6 Weeks Plan: R knee PROM/mobs, stretching and strengthening, balance and proprio, core stab, nustep, and HEP - Subjective Subjective: DOS: 01/01/18. Pt reports a chronic Hx of R knee pain prior to having this surgery. Pt had R TKA performed at that time. Pt reports she is doing better now at this time. Pt notes she had to use a walker at first, but now only needs a cane. Pt reports No T or N in R LE except for her second toe. Pt reports she had sleep diff at first, but doesnt think so any more. Pt reports 2 stairs into house, which she negotiates 1 at a time. Pt notes she had home health after her surgery, but doesnt beleive it helped. 2/10 at rest, 7/10 at worst (trying to get comfortable at night time) - Pain R knee Pain Intensity (Out of 10): 2 Pain Intensity Range: 7 - Objective R knee girth at joint line: R knee 41 cm, L knee 44 cm. Neuro: B LE sensation is WNL to light touch. B achilles reflex= 1/5. Observation: Incision is still healing. No obvious signs of infection. ROM: R knee 0-8-88. MMT: L knee 4-/5 throughout. R knee 3/5 throughout. Gait: Pt was able to ambulate from the waiting room to treatment room approximately 120 until needing to rest. - Goals Goal 1:: Decrease R knee pain x 50% to aid with ambulation Goal Time Frame: 4-6 Weeks Goal 2:: Increase R knee ROM x 30 degrees to aid with restoring a more normal gait pattern Goal Time Frame: 4-6 Weeks Goal 3:: Increase R knee strength x 1 grade to aid with stair negotiation Goal Time Frame: 4-6 Weeks Goal 4:: I with HEP Goal Time Frame: 4-6 Weeks - Rehabilitation Potential Physical Therapy Diagnosis: R knee pain, weakness, and limited ROM secondary to R TKA Rehabilitation Potential: Good - Anticipated Interventions Patient/Client Instruction: Educate patient on: Condition, Plan of Care For the Purpose of:: To improve self management Therapeutic Exercise to Include: Strength training, Endurance training, Balance training, Flexibilty training, Gait and locomotor training, Passive ROM, Dynamic Lumbar Stabilization For the Purpose of:: To decrease pain, To increase ROM, To improve muscle performance and motor function Cryotherapy (ice pack, ice massage): Yes For the Purpose of:: To decrease pain Thank you for the opportunity to evaluate your patient. For Medicare and Medicare HMO plans, please review the plan of care and approve it. It will need to be FAXED BACK to us at [phone] for Medicare purposes. Please let me know if there are questions or concerns regarding this plan of care. Physician Signature: Date:
--- NOTE | 2018-03-12 14:40 | HP.PTDCSUM ---
HP - PT D/C Summary It has been my pleasure to treat ELIU MATAMOROS under orders from Kobi Hudson MD, for the diagnosis of R TKA for a total of 17 visit(s). Discharge Date: Please see the following information for a summary of their discharge status. - Subjective Subjective: No pain this date. Ready for discharge - Pain R knee Pain Intensity (Out of 10): 0 - Objective Objective/Function: R knee pain 0/10. R knee ROM: 0-10-110. R knee MMT: 5/5 throughout. I with HEP. Rx goals achieved - Goals Goal 1:: Decrease R knee pain x 50% to aid with ambulation Goal 2:: Increase R knee ROM x 30 degrees to aid with restoring a more normal gait pattern Goal 3:: Increase R knee strength x 1 grade to aid with stair negotiation Goal 4:: I with HEP - Plan Plan: discharge - D/C Information If there are questions or concerns regarding this patient's physical therapy, please feel free to call me at [phone]. Thank you for the referral of this patient. Sincerely, Sd Tabor, PT,
== END 2018-03-12 14:56 | disposition home or self-care (01) ==
LOC: PT 14:00
PROVIDERS: Family Provider Internal Medicine; PCP Internal Medicine; Visit Provider Orthopaedic Surgery
DX: M17.11 Unilateral primary osteoarthritis, right knee (principal); Z47.1 Aftercare following joint replacement surgery
CPT/HCPCS: 97110; 97161; 97530

== ENCOUNTER → 2018-05-26 10:21 | Outpatient (CLI) | payer MEDICARE, SELFPAY ==
[2018-05-26 12:25] LABS: Hematocrit 41.2 % (37-47); Hemoglobin 13.6 g/dl (12.0-15.0); Mean Corpuscular Hgb 33.5 pg (27.0-32.0); Mean Corpuscular Volume 101.5 fL (81-99); Mean Platelet Vol. 11.1 fl (6.2-12.0); Platelet Count 251 K/mm3 (150-450); RBC Distribution Width CV 13.7 % (11.6-14.6); RBC Distribution Width SD 50.5 fl (35.1-43.9); Red Blood Count 4.06 M/mm3 (4.2-5.4); White Blood Count 7.1 K/mm3 (4.4-11.0)
[2018-05-26 12:34] LABS: AST(SGOT) 24 U/L (15-37); Alanine Aminotransfer ALT/SGPT 31 U/L (13-56); Albumin, Serum 3.9 g/dL (3.2-5.0); Alkaline Phosphatase 76 U/L (45-117); Anion Gap 12 (5-15); BUN 15 mg/dL (7-18); BUN/Creat Ratio 13.9 RATIO (10-20); Calcium,Total 9.4 mg/dL (8.5-10.1); Chloride 108 mmol/L (98-107); Cholesterol 275 mg/dL (200); Creatinine, Serum 1.08 mg/dL (0.55-1.02); EST Glomerular Filtration Rate 53 mL/min (>60); Est Glom Filt Rate - Afr Amer 65 mL/min (>60); Globulin 3.8 g/dL (2.2-4.2); Glucose 91 mg/dL (74-106); High Density Lipoprotein 61 mg/dL; Potassium 3.7 mmol/L (3.5-5.1); Protein, Total 7.7 g/dL (6.4-8.2); Sodium Level 143 mmol/L (136-145); Triglycerides 235 mg/dL; Very Low Density Lipoprotein 47 mg/dL (5-40)
[2018-05-26 12:36] LABS: Scan Indicated on CBC? Y/N NO
[2018-05-26 12:40] LABS: Vitamin D,25 Hydroxy 36.4 ng/mL (29.95-100.01)
== END ==
PROVIDERS: Family Provider Internal Medicine; PCP Internal Medicine; Referring Provider Internal Medicine; Visit Provider Internal Medicine
DX: I10 Essential (primary) hypertension (principal); E78.2 Mixed hyperlipidemia; E55.9 Vitamin D deficiency, unspecified; Z79.899 Other long term (current) drug therapy
CPT/HCPCS: 36415; 80053; 80061; 82306; 85027

== ENCOUNTER → 2018-07-30 09:29 | Outpatient (CLI) | payer MEDICARE, SELFPAY ==
--- NOTE | 2018-07-30 09:31 | BI_ITS ---
MAMMOGRAPHY - BILATERAL SCREENING REASON FOR EXAM: Female, 68 years old. Routine annual screening examination. PERTINENT HISTORY: Sister with breast cancer. Remote left stereotactic and ultrasound breast biopsies. TECHNIQUE: Digital bilateral breast byron (3D mammographic acquisition) in the CC and MLO projections. 2-D mediolateral oblique (MLO) and craniocaudad (CC) views of both breasts were obtained. CAD: Full Field Digital Mammography with Computer Added Detection was performed. COMPARISON: Comparison is made with prior study dated June 23, 2017 and February 26, 2015. FINDINGS: Breast Composition: There are scattered areas of fibroglandular density. There are no dominant masses or suspicious calcifications. A tissue clip marker is once again seen in the upper lateral portion of the left breast. Stable 5 mm well-defined nodule in the superior retroareolar region of the left breast. Stable appearance of the bilateral axillary lymph nodes. No other significant abnormalities are identified. There has been no significant change since the prior study. BI/SCREENING MAMM (CAD), BILAT IMPRESSION: Stable bilateral screening mammogram. Yearly follow-up mammogram recommended. (A) ASSESSMENT CATEGORY: BIRADS Category 2: Benign. A letter regarding these results will be sent to the patient by the facility within 30 days. Approximately 10% of breast cancers are not detected by mammography. A normal mammogram should not delay biopsy of a clinically suspicious abnormality. [id number] Electronically Signed: Mario Moura MD at 10:57 EST , Service support ,
--- OUTSIDE RECORDS SUMMARY | 2018-09-28 16:21 | XMS RPT_ITS ---
:1950 Author Organization [facility] Address [address] [place] [address] [place] [address] Phone Care Team Providers Name Role Phone Becca MCGRATH, Kobi Reeves Unavailable Reason for Visit Reason For Visit Description Start Date Postop - subsequent visit Preliminary reason for visit data, not yet signed by the author as of right knee post right total knee arthroplasty on 01/01/2018 Preliminary reason for visit data, not yet signed by the author as of Chief Complaint Chief Complaint Description Start Date right knee post right total knee arthroplasty on 01/01/2018 Preliminary chief complaint data, not yet signed by the author as of Instructions Instruction Description Start Date Completed Plan of Care Type Date Detail Appointment 02:00 PM Kobi Hudson MD, [address] [facility], [address], [place], [address], Appointment 11:00 AM Elvis López PA-C, [address] [facility], [address], [place], [address], Medications Medication Instructions Start Stop Generic Name NDC Provider Date Date PERCOCET 5-325 one to two / OXYCODONE-ACETAMI [id number] Kobi M MG TABS tablets every 19 ANTOINETTE Hudson six hours as MD needed FLUCONAZOLE TABS one tablet / FLUCONAZOLE TABS [id number] Kobi M daily 07 [place] IBUPROFEN 200 MG as directed as / IBUPROFEN [id number] Terena Ross TABS needed 14 RN (sometimes 4 tablets daily) MULTI VITAMIN 1 tablet once / MULTIPLE VITAMIN 14296203910 Terena Ross TABS daily 14 RN BIOTIN 5000 MCG 1 tablet once / BIOTIN 43169979683 Terena Ross TABS daily 14 RN CALCIUM + D3 1 tablet once / CALCIUM 83016777512 Terena Ross TABS daily 14 CARB-CHOLECALCIFE RN ROL TABS B-6 100 MG TABS 1 tablet once / PYRIDOXINE HCL 66324527016 Terena Ross daily 14 RN B-12 5000 MCG 1 capsule once / CYANOCOBALAMIN 44524566097 Terena Ross CAPS daily 14 RN VITAMIN D3 92937 1 capsule once / CHOLECALCIFEROL 98317566760 Terena Ross UNIT CAPS weekly as 14 RN directed NORTRIPTYLINE 1 capsule once / NORTRIPTYLINE HCL 24385008061 Terena Ross HCL 75 MG CAPS daily 14 RN AMLODIPINE 1 tablet once / AMLODIPINE 81947749207 Terena Ross BESYLATE 10 MG daily 14 BESYLATE RN TABS PROPRANOLOL HCL 1 capsule once / PROPRANOLOL HCL 33144553294 Terena Ross ER 120 MG daily 14 RN [id number] Conditions or Problems Problem Name Problem Onset Status Entry Provider Comment Standard Annotate Code Date Date Description Aftercare Z47.1 Active Kobi Reeves Aftercare following joint (ICD-10-C /19 /19 Gradisar following replacement M) joint surgery replacement surgery Unilateral M17.11 Active Chance W Unilateral primary (ICD-10-C /17 /17 Mitan primary osteoarthritis M) PA-C osteoarthrit right knee is, right knee Allergies, Adverse Reactions, Alerts Observed no known allergies at Social History No information available. Vital Signs Date Name Value Unit Description BMI (Body Mass 38.92 kg/m2 Body Mass Index Index) [Ratio] Preliminary vital sign data, not yet signed by the author as of BP Diastolic 76 mm[Hg] blood pressure, diastolic Preliminary vital sign data, not yet signed by the author as of BP Systolic 123 mm[Hg] blood pressure, systolic Preliminary vital sign data, not yet signed by the author as of Heart Rate 77 /min pulse rate E&M Preliminary vital sign data, not yet signed by the author as of Height 62 [in_us] height E&M Preliminary vital sign data, not yet signed by the author as of Height 157 cm height in centimeters E&M Preliminary vital sign data, not yet signed by the author as of Weight Measured 212 [lb_av] weight E&M Preliminary vital sign data, not yet signed by the author as of Weight Measured 96 kg weight in kilograms E&M Preliminary vital sign data, not yet signed by the author as of Results Date Name Value Unit Range Flag Description Office Visit: Postop - subsequent visit, Rm: 5 MEDS REVIEW Done Documentation of current medications (procedure) Preliminary observation data, not yet signed by the author as of Preliminary observation data, not yet signed by the author as of Clinical Summary: [facility] OOP account number Procedures Code Procedure Name Date Entry Date CPT-01991 Physical Therapy G8730 Pain assessment documented as positive - follow-up documented G8427 Current medications documented 1036F Tobacco screening was negative - non user G8419 BMI outside of normal parameters - no follow-up plan/reason not given G8783 Blood pressure within normal parameters - no follow-up required 1006F Osteoarthritis symptoms and functional status assessed [facility]-[id number] Patient Encounter Medications Administered No information available. Immunizations No information available. Advance Directives There may be information available, but it has not been provided by the sender. Assessments There may be information available, but it has not been provided by the sender. Review of Systems There may be information available, but it has not been provided by the sender. Family History There may be information available, but it has not been provided by the sender. History of Past Illness There may be information available, but it has not been provided by the sender. History of Present Illness There may be information available, but it has not been provided by the sender.
--- OUTSIDE RECORDS SUMMARY | 2018-09-28 16:21 | XMS RPT_ITS ---
:1950 Author Organization OHIP Care Team Providers Name Role Phone LALO SMITH Attending Unavailable TALAMPAS, LALO D Referring Unavailable PODSEBASTIAN TURK (NAVY MATERIAL INSPECTOR) Attending Unavailable HARINI MAHMOOD (CORPORATE DEVELOPMENT MANAGER) Attending Unavailable PODLOGSEBASTIAN JANG (NAVY MATERIAL INSPECTOR) Attending Unavailable TALAMPAS, LALO D Attending Unavailable TALAMPAS, LALO D Referring Unavailable RAJESH HUITRON, DR. BEASLEY Attending Unavailable MARION HUITRON, DR. MAY Primary Care Unavailable Talampas, Lalo Attending Unavailable Talampas, Lalo Primary Care Unavailable Talampas, Lalo Referring Unavailable Talampas, Lalo Attending Unavailable Talampas, Lalo Primary Care Unavailable Talampas, Lalo Referring Unavailable Kobi Hudson Attending Unavailable Talampas, Lalo Primary Care Unavailable Kobi Hudson Referring Unavailable Talampas, Lalo Attending Unavailable Talampas, Lalo Referring Unavailable Talampas, Lalo Primary Care Unavailable PROBLEMS PROBLEMS DATE TYPE CONDITION / CODE ATTENDING STATUS SOURCE 07/30/2018 Unknown - Encounter Lalo Smith Active [place] for screening Community mammogram for [facility] malignant neoplasm Repository of breast / Z12.31(ICD-10) 03/12/2018 Unknown M17.11 - Unilateral Kobi Hudson Active [place] [facility] M17.11(ICD-10) 11/28/2017 Active Vitamin D LALO SMITH Active [place] deficiency, [facility] unspecified / [place] E55.9(ICD-10) Repository 05/12/2017 Active Essential (primary) TALAMPLALO HERMOSILLO Active [place] hypertension / [facility] I10(ICD-10) [place] Repository 08/03/2006 Active Mixed hyperlipidemia TALAMPASHUSSEINA Active [facility] / E78.2(ICD-10) [facility] [place] Repository 11/28/2017 Active Encounter for other TALAMPASLALO Active [place] preprocedural [facility] examination / [place] Z01.818(ICD-10) Repository 11/28/2017 Active Candidiasis of skin TALAMPAS, LALO Active [place] and nail / [facility] B37.2(ICD-10) [place] Repository 11/28/2017 Active Unilateral primary TALAMPHUSSEIN HERMOSILLOA Active [place] osteoarthritis, [facility] right knee / [place] M17.11(ICD-10) Repository 11/28/2017 Active Other group home TALAMPASLALO Active [place] (current) drug [facility] therapy / [place] Z79.899(ICD-10) Repository 11/28/2017 Active Other specified TALAMPAS LALO Active [place] disorders of bone [facility] density and [place] structure, Repository unspecified site / M85.80(ICD-10) PROCEDURES PROCEDURES No Procedure Records FoundRESULTS RESULTS SCREENING MAMM (CAD), Observed: 07/30/2018 Status: F Source: [facility]ON BILAT 9:31 AM [facility] REPOSITORY [facility] Imaging Services [address] [place] [address] SCREENING MAMM (CAD), BILAT MR#: [id number] Acct: [id number] Name: STARR MATAMOROS Rep #: [id number] : 1950 F 68 From: Mario Moura MD PCP: Lalo Smith MD Status: [facility] CLI Study: SCREENING MAMM (CAD), BILAT Date of Exam: 07/30/18 Exam# [id number] Ordering Dr: Lalo Smith MD MAMMOGRAPHY - BILATERAL SCREENING REASON FOR EXAM: Female, 68 years old. Routine annual screening examination. PERTINENT HISTORY: Sister with breast cancer. Remote left stereotactic and ultrasound breast biopsies. TECHNIQUE: Digital bilateral breast byron (3D mammographic acquisition) in the CC and MLO projections. 2-D mediolateral oblique (MLO) and craniocaudad (CC) views of both breasts were obtained. CAD: Full Field Digital Mammography with Computer Added Detection was performed. COMPARISON: Comparison is made with prior study dated June 23, 2017 and February 26, 2015. FINDINGS: Breast Composition: There are scattered areas of fibroglandular density. There are no dominant masses or suspicious calcifications. A tissue clip marker is once again seen in the upper lateral portion of the left breast. Stable 5 mm well-defined nodule in the superior retroareolar region of the left breast. Stable appearance of the bilateral axillary lymph nodes. No other significant abnormalities are identified. There has been no significant change since the prior study. BI/SCREENING MAMM (CAD), BILAT IMPRESSION: Stable bilateral screening mammogram. Yearly follow-up mammogram recommended. (A) ASSESSMENT CATEGORY: BIRADS Category 2: Benign. A letter regarding these results will be sent to the patient by the facility within 30 days. Approximately 10% of breast cancers are not detected by mammography. A normal mammogram should not delay biopsy of a clinically suspicious abnormality. [id number] Electronically Signed: Mario Moura MD at 10:57 EST , Service support , CC: Lalo Smith MD Insurance Account Assistant: Signed PROGRESS Observed: 06/02/2018 Status: COMPLETED Source: [place] 12:31 PM [facility] REPOSITORY HNO ID: [id number] Author: Lalo Smith Service: (none) Author Type: Physician Type: Progress Notes Filed: 06/20/2018 5:07 PM Note Text: Patient presents with: F/U 6 months SUBJECTIVE: Starr Matamoros is a 68 year old year old lady here today for 6 month follow up appointment for review of medical conditions. Wraps at night for CTS. Using for 30 years. Does work. No red flag symptoms.such as weakness or persistent pain or numbness. Declines flu shot. Labs done at [facility]. Blood pressure controlled without adverse effects from medications. PAST MEDICAL HISTORY Diagnosis Date - Achilles bursitis or tendinitis right shoulder - Acute peptic ulcer, unspecified site, without mention of hemorrhage, perforation, or obstruction 10/06 - Diarrhea - Diverticulosis of colon (without mention of hemorrhage) - External hemorrhoids without mention of complication - Family history of malignant neoplasm of gastrointestinal tract family history of colon cancer - Fibrosclerosis of breast fibrocystic breast disease - Generalized osteoarthrosis, unspecified site - Hemorrhage of gastrointestinal tract, unspecified - Internal hemorrhoids without mention of complication - Lumbar spondylosis Dr. 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 Bearden at [facility] - Unspecified essential hypertension - Unspecified hemorrhoids without mention of complication internal and externaldjd - Unspecified tinnitus 11/16/2006 Left ear - Urinary calculus, unspecified Renal stones Current Outpatient Prescriptions: amLODIPine (NORVASC) 10 mg tablet TAKE ONE TABLET BY MOUTH ONCE DAILY propranolol ER (INDERAL LA) 120 mg 24 hr capsule TAKE ONE CAPSULE BY MOUTH ONCE DAILY cholecalciferol, Vitamin D3, (VITAMIN D3) 50,000 unit cap capsule TAKE ONE CAPSULE BY MOUTH ONCE EACH WEEK nortriptyline (PAMELOR) 75 mg capsule TAKE ONE CAPSULE BY MOUTH DAILY AT BEDTIME ketoconazole (NIZORAL) 2 % cream Apply 1 application to affected area once daily. Continue to use 1 week after rash resolves then as needed biotin 5 mg caspule Take 5 mg by mouth once daily. CYANOCOBALAMIN, VITAMIN B-12, (VITAMIN B-12 ORAL) Take 3,000 mg by mouth. Pyridoxine HCl (VITAMIN B-6) 200 mg TbER Take by mouth. MULTIVIT WITH CALCIUM,IRON,MIN (WOMEN'S DAILY MULTIVITAMIN ORAL) Take by mouth. No current facility-administered medications for this visit. OBJECTIVE: BP 126/58 (BP Site: Left Arm, BP Position: Sitting, BP Cuff Size: Regular Adult) Pulse 72 Resp 8 Wt 98 kg (216 lb) LMP 07/11/2003 BMI 38.88 kg/m? Patient is alert, oriented times 3, no apparent distress, affect is bright, reactive. Heart: Regular rate, rhythm, no murmurs, gallops, rubs. Lungs: Clear to auscultation, bilaterally, breathing non labored. Ext: No cyanosis, clubbing, or edema. COMPREHENSIVE METABOLIC PROFIL Collected: 05/26/2018 10:42 AM Status: F Source: [facility] REPOSITORY TYPE CODE TESTS RESULT OUT OF RANGE REFERENCE UNITS LAB L501.0100 GLU 91 Normal 74-106 mg/dL Result Comment: Please note revised GLUCOSE reference range effective 2017. LAB L501.1000 BUN 15 Normal 7-18 mg/dL LAB L501.1100 CREAT,SERUM 1.08 High 0.55-1.02 mg/dL Result Comment: The validity of the calculated GFR AND GFRAA in patients over 70 years has not been determined. Clinical correlation is essential. LAB L501.1110 EST GFR 53 Low >60 mL/min Result Comment: Non- GFR Calc LAB L501.1115 EST GFR - AA 65 Normal >60 mL/min Result Comment: GFR Calc LAB L501.1300 BUN/CRE 13.9 Normal 10-20 RATIO LAB L501.1500 T PROT 7.7 Normal 6.4-8.2 g/dL LAB L501.1800 ALB 3.9 Normal 3.2-5.0 g/dL LAB L501.1950 GLOB 3.8 Normal 2.2-4.2 g/dL LAB L501.2000 A/G 1.0 Normal 0.9-2.4 RATIO LAB L501.2200 CA 9.4 Normal 8.5-10.1 mg/dL LAB L501.4100 AST 24 Normal 15-37 U/L LAB L501.4305 ALK P 76 Normal 45-117 U/L LAB L501.4405 ALT 31 Normal 13-56 U/L LAB L501.4600 T BILI 0.60 Normal 0.20-1.00 mg/dL LAB L501.5300 NA 143 Normal 136-145 mmol/L LAB L501.5600 K 3.7 Normal 3.5-5.1 mmol/L LAB L501.5900 CL 108 High 98-107 mmol/L LAB L501.6100 CO2 23.0 Normal 21.0-32.0 mmol/L LAB L501.6200 GAP 12 Normal 5-15 ? Performed By:#### L500.4050, L500.4100 #### [facility] [address] [place], [place], [id number] LIPID PROFILE Collected: 05/26/2018 10:42 AM Status: F Source: [facility] REPOSITORY TYPE CODE TESTS RESULT OUT OF RANGE REFERENCE UNITS LAB L501.4900 CHOL 275 High 200 mg/dL Result Comment: <200 mg/dL Desirable 200-240 mg/dL Borderline >240 mg/dL High Risk LAB L501.5000 TRIG 235 High ? mg/dL Result Comment: The drugs N-Acetylcysteine and Metamizole may falsely depress this assay. Serum Triglycerides Reference Interval Normal <150 mg/dL Borderline high 150 - 199 mg/dL High 200 - 499 mg/dL Very High > or = 500 mg/dL LAB L501.6400 HDL 61 Normal ? mg/dL Result Comment: The drugs N-Acetylcysteine and Metamizole may falsely depress this assay. Reference Range HDL <40 mg/dL Low HDL Cholesterol HDL >or= 60 mg/dL High HDL Cholesterol LAB L501.6500 LDL 167 High 0-130 mg/dL LAB L501.6600 VLDL 47 High 5-40 mg/dL Performed By:#### L500.4050, L500.4100 #### [facility] [address] [place], [address] CBC-COMPLETE BLOOD CNT NO DIFF Collected: 05/26/2018 10:42 AM Status: F Source: [facility] REPOSITORY TYPE CODE TESTS RESULT OUT OF RANGE REFERENCE UNITS LAB L100.1000 WBC 7.1 Normal 4.4-11.0 K/mm3 LAB L100.1200 RBC 4.06 Low 4.2-5.4 M/mm3 LAB L100.1300 HGB 13.6 Normal 12.0-15.0 g/dl LAB L100.1400 HCT 41.2 Normal 37-47 % LAB L100.1500 MCV 101.5 High 81-99 fL LAB L100.1600 MCH 33.5 High 27.0-32.0 pg LAB L100.1700 MCHC 33.0 Normal 32-36 g/gl LAB L100.1810 RDW CV 13.7 Normal 11.6-14.6 % LAB L100.1820 RDW SD 50.5 High 35.1-43.9 fl LAB L100.1900 PLT 251 Normal 150-450 K/mm3 LAB L100.2000 MPV 11.1 Normal 6.2-12.0 fl Performed By:#### L100.0500 #### [facility] [address] [place], [place] [address], [address] VITAMIN D,25 HYDROXY Collected: 05/26/2018 10:42 AM Status: F Source: [facility] REPOSITORY TYPE CODE TESTS RESULT OUT OF RANGE REFERENCE UNITS LAB L506.1000 Vitamin D 25-OH 36.4 Normal 29.95-100.01 ng/mL Result Comment: Vitamin D 25(OH) Status Range Deficiency <20 ng/mL (50nmol/L) Insuffciency 20 - 30 ng/mL (50 - 75 nmol/L) Sufficiency 30 - 100 ng/mL (75 - 250 nmol/L) Toxicity >100 ng/mL (>250 nmol/L) LIPID PROFILE Collected: 11/12/2017 11:07 AM Status: F Source: [facility] REPOSITORY TYPE CODE TESTS RESULT OUT OF RANGE REFERENCE UNITS LAB L501.4900 CHOL 207 High 200 mg/dL Result Comment: <200 mg/dL Desirable 200-240 mg/dL Borderline >240 mg/dL High Risk LAB L501.5000 TRIG 127 Normal ? mg/dL Result Comment: The drugs N-Acetylcysteine and Metamizole may falsely depress this assay. Serum Triglycerides Reference Interval Normal <150 mg/dL Borderline high 150 - 199 mg/dL High 200 - 499 mg/dL Very High > or = 500 mg/dL LAB L501.6400 HDL 62 Normal ? mg/dL Result Comment: The drugs N-Acetylcysteine and Metamizole may falsely depress this assay. Reference Range HDL <40 mg/dL Low HDL Cholesterol HDL >or= 60 mg/dL High HDL Cholesterol LAB L501.6500 LDL 120 Normal 0-130 mg/dL LAB L501.6600 VLDL 25 Normal 5-40 mg/dL Performed By:#### L500.2500, L500.4100 #### [facility] [address] [place], [address] ASSESSMENT AND PLAN: Encounter Diagnosis ICD-10-CM 1. Essential hypertension I10 COMP METABOLIC PANEL CBC 2. Mixed hyperlipidemia E78.2 LIPID PANEL BASIC 3. Class 2 obesity due to excess calories without serious comorbidity with body mass index (BMI) of 38.0 to 38.9 in adult E66.09 Z68.38 4. Vitamin D deficiency E55.9 VITAMIN D 25 HYDROXY 5. Need for vaccination Z23 PNEUMOCOCCAL IMMUNIZATION PPSV 23 6. Screening for breast cancer Z12.31 MULU SCREENING 7. Encounter for long-term current use of medication Z79.899 COMP METABOLIC PANEL CBC Above issues addressed with patient. Patient involved in shared decision making for management of medical issues. History and medications reviewed. Epic updated as needed Refills taken care of and meds adjusted as indicated after reviewed history, exam and labs. Health Maintenance reviewed. Updated record and/or ordered tests as recorded. Encouraged on efforts at healthy diet and regular exercise and adequate sleep. Needs to keep working on diet and exercise with lifestyle changes for effective weight loss as well as improved LDL and glucose and BP. Vitamin D level good. Continue present management. The majority of the visit was spent counseling and/or coordinating care for the patient. Ksrt-oc-zuny time was at least 25 minutes. Lalo Smith MD CNOV Observed: 06/02/2018 Status: COMPLETED Source: [place] 11:40 AM [facility] REPOSITORY Office Visit (INTMWS) STARR MATAMOROS ([id number]) 1950 F Date Time Provider Department 06/02/18 11:40 AM LALO SMITH During your visit today, we recorded the following information about you: Pulse Respiration Blood pressure Weight 72/minute 8/minute 126/58 98 kg Lalo Smith MD 06/20/2018 5:07 PM Signed Patient presents with: F/U 6 months SUBJECTIVE: Starr Matamoros is a 68 year old year old lady here today for 6 month follow up appointment for review of medical conditions. Wraps at night for CTS. Using for 30 years. Does work. No red flag symptoms.such as weakness or persistent pain or numbness. Declines flu shot. Labs done at [facility]. Blood pressure controlled without adverse effects from medications. PAST MEDICAL HISTORY Diagnosis Date - Achilles bursitis or tendinitis right shoulder - Acute peptic ulcer, unspecified site, without mention of hemorrhage, perforation, or obstruction 10/06 - Diarrhea - Diverticulosis of colon (without mention of hemorrhage) - External hemorrhoids without mention of complication - Family history of malignant neoplasm of gastrointestinal tract family history of colon cancer - Fibrosclerosis of breast fibrocystic breast disease - Generalized osteoarthrosis, unspecified site - Hemorrhage of gastrointestinal tract, unspecified - Internal hemorrhoids without mention of complication - Lumbar spondylosis Dr. 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 Bearden at [facility] - Unspecified essential hypertension - Unspecified hemorrhoids without mention of complication internal and externaldjd - Unspecified tinnitus 11/16/2006 Left ear - Urinary calculus, unspecified Renal stones Current Outpatient Prescriptions: amLODIPine (NORVASC) 10 mg tablet TAKE ONE TABLET BY MOUTH ONCE DAILY propranolol ER (INDERAL LA) 120 mg 24 hr capsule TAKE ONE CAPSULE BY MOUTH ONCE DAILY cholecalciferol, Vitamin D3, (VITAMIN D3) 50,000 unit cap capsule TAKE ONE CAPSULE BY MOUTH ONCE EACH WEEK nortriptyline (PAMELOR) 75 mg capsule TAKE ONE CAPSULE BY MOUTH DAILY AT BEDTIME ketoconazole (NIZORAL) 2 % cream Apply 1 application to affected area once daily. Continue to use 1 week after rash resolves then as needed biotin 5 mg caspule Take 5 mg by mouth once daily. CYANOCOBALAMIN, VITAMIN B-12, (VITAMIN B-12 ORAL) Take 3,000 mg by mouth. Pyridoxine HCl (VITAMIN B-6) 200 mg TbER Take by mouth. MULTIVIT WITH CALCIUM,IRON,MIN (WOMEN'S DAILY MULTIVITAMIN ORAL) Take by mouth. No current facility-administered medications for this visit. OBJECTIVE: BP 126/58 (BP Site: Left Arm, BP Position: Sitting, BP Cuff Size: Regular Adult) Pulse 72 Resp 8 Wt 98 kg (216 lb) LMP 07/11/2003 BMI 38.88 kg/m? Patient is alert, oriented times 3, no apparent distress, affect is bright, reactive. Heart: Regular rate, rhythm, no murmurs, gallops, rubs. Lungs: Clear to auscultation, bilaterally, breathing non labored. Ext: No cyanosis, clubbing, or edema. COMPREHENSIVE METABOLIC PROFIL Collected: 05/26/2018 10:42 AM Status: F Source: [facility] REPOSITORY TYPE CODE TESTS RESULT OUT OF RANGE REFERENCE UNITS LAB L501.0100 GLU 91 Normal 74-106 mg/dL Result Comment: Please note revised GLUCOSE reference range effective 2017. LAB L501.1000 BUN 15 Normal 7-18 mg/dL LAB L501.1100 CREAT,SERUM 1.08 High 0.55-1.02 mg/dL Result Comment: The validity of the calculated GFR AND GFRAA in patients over 70 years has not been determined. Clinical correlation is essential. LAB L501.1110 EST GFR 53 Low >60 mL/min Result Comment: Non- GFR Calc LAB L501.1115 EST GFR - AA 65 Normal >60 mL/min Result Comment: GFR Calc LAB L501.1300 BUN/CRE 13.9 Normal 10-20 RATIO LAB L501.1500 T PROT 7.7 Normal 6.4-8.2 g/dL LAB L501.1800 ALB 3.9 Normal 3.2-5.0 g/dL LAB L501.1950 GLOB 3.8 Normal 2.2-4.2 g/dL LAB L501.2000 A/G 1.0 Normal 0.9-2.4 RATIO LAB L501.2200 CA 9.4 Normal 8.5-10.1 mg/dL LAB L501.4100 AST 24 Normal 15-37 U/L LAB L501.4305 ALK P 76 Normal 45-117 U/L LAB L501.4405 ALT 31 Normal 13-56 U/L LAB L501.4600 T BILI 0.60 Normal 0.20-1.00 mg/dL LAB L501.5300 NA 143 Normal 136-145 mmol/L LAB L501.5600 K 3.7 Normal 3.5-5.1 mmol/L LAB L501.5900 CL 108 High 98-107 mmol/L LAB L501.6100 CO2 23.0 Normal 21.0-32.0 mmol/L LAB L501.6200 GAP 12 Normal 5-15 ? Performed By:#### L500.4050, L500.4100 #### [facility] [address], [address] LIPID PROFILE Collected: 05/26/2018 10:42 AM Status: F Source: [facility] REPOSITORY TYPE CODE TESTS RESULT OUT OF RANGE REFERENCE UNITS LAB L501.4900 CHOL 275 High 200 mg/dL Result Comment: <200 mg/dL Desirable 200-240 mg/dL Borderline >240 mg/dL High Risk LAB L501.5000 TRIG 235 High ? mg/dL Result Comment: The drugs N-Acetylcysteine and Metamizole may falsely depress this assay. Serum Triglycerides Reference Interval Normal <150 mg/dL Borderline high 150 - 199 mg/dL High 200 - 499 mg/dL Very High > or = 500 mg/dL LAB L501.6400 HDL 61 Normal ? mg/dL Result Comment: The drugs N-Acetylcysteine and Metamizole may falsely depress this assay. Reference Range HDL <40 mg/dL Low HDL Cholesterol HDL >or= 60 mg/dL High HDL Cholesterol LAB L501.6500 LDL 167 High 0-130 mg/dL LAB L501.6600 VLDL 47 High 5-40 mg/dL Performed By:#### L500.4050, L500.4100 #### [facility] [address] [place], [address] CBC-COMPLETE BLOOD CNT NO DIFF Collected: 05/26/2018 10:42 AM Status: F Source: [facility] REPOSITORY TYPE CODE TESTS RESULT OUT OF RANGE REFERENCE UNITS LAB L100.1000 WBC 7.1 Normal 4.4-11.0 K/mm3 LAB L100.1200 RBC 4.06 Low 4.2-5.4 M/mm3 LAB L100.1300 HGB 13.6 Normal 12.0-15.0 g/dl LAB L100.1400 HCT 41.2 Normal 37-47 % LAB L100.1500 MCV 101.5 High 81-99 fL LAB L100.1600 MCH 33.5 High 27.0-32.0 pg LAB L100.1700 MCHC 33.0 Normal 32-36 g/gl LAB L100.1810 RDW CV 13.7 Normal 11.6-14.6 % LAB L100.1820 RDW SD 50.5 High 35.1-43.9 fl LAB L100.1900 PLT 251 Normal 150-450 K/mm3 LAB L100.2000 MPV 11.1 Normal 6.2-12.0 fl Performed By:#### L100.0500 #### [facility] [address], [address] VITAMIN D,25 HYDROXY Collected: 05/26/2018 10:42 AM Status: F Source: [facility] REPOSITORY TYPE CODE TESTS RESULT OUT OF RANGE REFERENCE UNITS LAB L506.1000 Vitamin D 25-OH 36.4 Normal 29.95-100.01 ng/mL Result Comment: Vitamin D 25(OH) Status Range Deficiency <20 ng/mL (50nmol/L) Insuffciency 20 - 30 ng/mL (50 - 75 nmol/L) Sufficiency 30 - 100 ng/mL (75 - 250 nmol/L) Toxicity >100 ng/mL (>250 nmol/L) LIPID PROFILE Collected: 11/12/2017 11:07 AM Status: F Source: [facility] REPOSITORY TYPE CODE TESTS RESULT OUT OF RANGE REFERENCE UNITS LAB L501.4900 CHOL 207 High 200 mg/dL Result Comment: <200 mg/dL Desirable 200-240 mg/dL Borderline >240 mg/dL High Risk LAB L501.5000 TRIG 127 Normal ? mg/dL Result Comment: The drugs N-Acetylcysteine and Metamizole may falsely depress this assay. Serum Triglycerides Reference Interval Normal <150 mg/dL Borderline high 150 - 199 mg/dL High 200 - 499 mg/dL Very High > or = 500 mg/dL LAB L501.6400 HDL 62 Normal ? mg/dL Result Comment: The drugs N-Acetylcysteine and Metamizole may falsely depress this assay. Reference Range HDL <40 mg/dL Low HDL Cholesterol HDL >or= 60 mg/dL High HDL Cholesterol LAB L501.6500 LDL 120 Normal 0-130 mg/dL LAB L501.6600 VLDL 25 Normal 5-40 mg/dL Performed By:#### L500.2500, L500.4100 #### [facility] [address], [address] ASSESSMENT AND PLAN: Encounter Diagnosis ICD-10-CM 1. Essential hypertension I10 COMP METABOLIC PANEL CBC 2. Mixed hyperlipidemia E78.2 LIPID PANEL BASIC 3. Class 2 obesity due to excess calories without serious comorbidity with body mass index (BMI) of 38.0 to 38.9 in adult E66.09 Z68.38 4. Vitamin D deficiency E55.9 VITAMIN D 25 HYDROXY 5. Need for vaccination Z23 PNEUMOCOCCAL IMMUNIZATION PPSV 23 6. Screening for breast cancer Z12.31 MULU SCREENING 7. Encounter for long-term current use of medication Z79.899 COMP METABOLIC PANEL CBC Above issues addressed with patient. Patient involved in shared decision making for management of medical issues. History and medications reviewed. Epic updated as needed Refills taken care of and meds adjusted as indicated after reviewed history, exam and labs. Health Maintenance reviewed. Updated record and/or ordered tests as recorded. Encouraged on efforts at healthy diet and regular exercise and adequate sleep. Needs to keep working on diet and exercise with lifestyle changes for effective weight loss as well as improved LDL and glucose and BP. Vitamin D level good. Continue present management. The majority of the visit was spent counseling and/or coordinating care for the patient. Jfzo-fo-yded time was at least 25 minutes. Lalo Smith MD Referring Provider: LALO SMITH [[id number]] Allergies As of Date: 06/02/2018 Noted Allergy Reaction NIACIN 10/07/2010 5 - Intolerance Comments: sweats and hot flashes SIMVASTATIN 03/26/2016 5 - Intolerance Comments: myalgias--severe; resolved after stopped but still with leg pain Date Reviewed: 06/02/2018 Reviewed by: Asaf Ricardo - Fully Assessed Reason for Visit: F/U 6 months [1177] Primary Visit Diagnosis:Essential hypertension [I10] Other Visit Diagnoses:Mixed hyperlipidemia [E78.2] Class 2 obesity due to excess calories without serious comorbidity with body mass index (BMI) of 38.0 to 38.9 in adult [E66.09, Z68.38] Vitamin D deficiency [E55.9] Need for vaccination [Z23] Screening for breast cancer [Z12.31] Encounter for long-term current use of medication [Z79.899] Order(s):PNEUMOCOCCAL IMMUNIZATION PPSV 23 [[id number]] Order #: [id number] MULU SCREENING [[id number]] Order #: [id number] FUTURE LIPID PANEL BASIC [SQLIPB] Order #: [id number] FUTURE COMP METABOLIC PANEL [SQCMP] Order #: [id number] FUTURE CBC [SQCBC] Order #: [id number] FUTURE VITAMIN D 25 HYDROXY [SQVITD] Order #: [id number] FUTURE Prescriptions as of 06/02/2018 Sig: AMLODIPINE 10 MG TABLET TAKE ONE TABLET BY MOUTH ONCE* BIOTIN 5 MG CAPSULE Take 5 mg by mouth once daily. CHOLECALCIFEROL (VITAMIN D3) * TAKE ONE CAPSULE BY MOUTH ONC* VITAMIN B-12 ORAL Take 3,000 mg by mouth. KETOCONAZOLE 2 % TOPICAL CREAM Apply 1 application to affect* WOMEN'S DAILY MULTIVITAMIN OR* Take by mouth. NORTRIPTYLINE 75 MG CAPSULE TAKE ONE CAPSULE BY MOUTH LUCIA* PROPRANOLOL ER 120 MG CAPSULE* TAKE ONE CAPSULE BY MOUTH ONC* PYRIDOXINE (VITAMIN B6) ER 20* Take by mouth. Medication notes this encounter IBUPROFEN 200 MG TABLET >> Asaf Ricardo 06/02/2018 12:08 PM >> ASAF RICARDO ThuJun 02, 2018 12:08 PM Takes acetaminophen Problem List As Of Date 06/02/2018 Noted Resolved INGROWING NAIL [L60.0] INVALID FOR*11/16/2006 [...] Kidney [N20.0] INVALID FOR* Lumbar Spondylosis [M47.816] Vitamin D deficiency [E55.9] INVALID FOR* Status post total right knee replacement [Z96.6*INVALID FOR* Medications Discontinued During This Encounter EXCEDRIN MIGRAINE 250 MG-250 MG-65 M* 0 02/17/2006 06/02/2018 Class: Historical Med Route: ORAL Sig: as necessary Disc: Discontinued by Patient ibuprofen (MOTRIN) 200 mg tablet 06/02/2018 Class: Historical Med Route: ORAL Sig: Take 800 mg by mouth every 6 hours as needed. Disc: Patient chooses alternative therapy Disposition: Return in about 6 months (around 11/30/2018) for 6 months follow up. Follow-up and Disposition History Recorded Encounter Status:Closed by LALO SMITH MD on 06/20/18 COMPREHENSIVE METABOLIC Collected: 05/26/2018 Status: F Source: AJSON [place] 10:42 AM [facility] [place] REPOSITORY TYPE CODE TESTS RESULT OUT OF RANGE REFERENCE UNITS LAB L501.0100 74-106 mg/dL Normal GLU 91 Result Comment: Please note revised GLUCOSE reference range effective 2017. LAB L501.1000 7-18 mg/dL Normal BUN 15 LAB L501.1100 0.55-1.02 mg/dL High CREAT,SERUM 1.08 Result Comment: The validity of the calculated GFR AND GFRAA in patients over 70 years has not been determined. Clinical correlation is essential. LAB L501.1110 >60 mL/min Low EST GFR 53 Result Comment: Non- GFR Calc LAB L501.1115 >60 mL/min Normal EST GFR - AA 65 Result Comment: GFR Calc LAB L501.1300 10-20 RATIO Normal BUN/CRE 13.9 LAB L501.1500 6.4-8.2 g/dL T Normal PROT 7.7 LAB L501.1800 3.2-5.0 g/dL Normal ALB 3.9 LAB L501.1950 2.2-4.2 g/dL Normal GLOB 3.8 LAB L501.2000 0.9-2.4 RATIO Normal A/G 1.0 LAB L501.2200 8.5-10.1 mg/dL CA Normal 9.4 LAB L501.4100 15-37 U/L Normal AST 24 LAB L501.4305 45-117 U/L Normal ALK P 76 LAB L501.4405 13-56 U/L Normal ALT 31 LAB L501.4600 0.20-1.00 mg/dL T Normal BILI 0.60 LAB L501.5300 136-145 mmol/L NA Normal 143 LAB L501.5600 3.5-5.1 mmol/L K Normal 3.7 LAB L501.5900 98-107 mmol/L High CL 108 LAB L501.6100 21.0-32.0 mmol/L Normal CO2 23.0 LAB L501.6200 5-15 Normal GAP 12 Performed By: #### L500.4050, L500.4100 #### [facility] [address] [place], [place], [address] LIPID PROFILE Collected: 05/26/2018 Status: F Source: [place] 10:42 AM [facility] [place] REPOSITORY TYPE CODE TESTS RESULT OUT OF RANGE REFERENCE UNITS LAB L501.4900 200 mg/dL High CHOL 275 Result Comment: <200 mg/dL Desirable 200-240 mg/dL Borderline >240 mg/dL High Risk LAB L501.5000 mg/dL High TRIG 235 Result Comment: The drugs N-Acetylcysteine and Metamizole may falsely depress this assay. Serum Triglycerides Reference Interval Normal <150 mg/dL Borderline high 150 - 199 mg/dL High 200 - 499 mg/dL Very High > or = 500 mg/dL LAB L501.6400 mg/dL Normal HDL 61 Result Comment: The drugs N-Acetylcysteine and Metamizole may falsely depress this assay. Reference Range HDL <40 mg/dL Low HDL Cholesterol HDL >or= 60 mg/dL High HDL Cholesterol LAB L501.6500 0-130 mg/dL High LDL 167 LAB L501.6600 5-40 mg/dL High VLDL 47 Performed By: #### L500.4050, L500.4100 #### [facility] [address] [facility], [place], [address] CBC-COMPLETE BLOOD CNT Collected: 05/26/2018 Status: F Source: JASON NO DIFF 10:42 AM [facility] [place] REPOSITORY TYPE CODE TESTS RESULT OUT OF RANGE REFERENCE UNITS LAB L100.1000 4.4-11.0 K/mm3 Normal WBC 7.1 LAB L100.1200 4.2-5.4 M/mm3 Low RBC 4.06 LAB L100.1300 12.0-15.0 g/dl Normal HGB 13.6 LAB L100.1400 37-47 % Normal HCT 41.2 LAB L100.1500 81-99 fL High MCV 101.5 LAB L100.1600 27.0-32.0 pg High MCH 33.5 LAB L100.1700 32-36 g/gl Normal MCHC 33.0 LAB L100.1810 11.6-14.6 % Normal RDW CV 13.7 LAB L100.1820 35.1-43.9 fl High RDW SD 50.5 LAB L100.1900 150-450 K/mm3 Normal PLT 251 LAB L100.2000 6.2-12.0 fl Normal MPV 11.1 Performed By: #### L100.0500 #### [facility] [place], [place], [address] VITAMIN D,25 HYDROXY Collected: 05/26/2018 Status: F Source: JASON 10:42 AM [facility] [place] REPOSITORY TYPE CODE TESTS RESULT OUT OF RANGE REFERENCE UNITS LAB L506.1000 29.95-100.01 ng/mL Normal Vitamin D 36.4 25-OH Result Comment: Vitamin D 25(OH) Status Range Deficiency <20 ng/mL (50nmol/L) Insuffciency 20 - 30 ng/mL (50 - 75 nmol/L) Sufficiency 30 - 100 ng/mL (75 - 250 nmol/L) Toxicity >100 ng/mL (>250 nmol/L) Performed By: #### L506.1000 #### [facility] [address] [place], [address] PT D/C SUMMARY (1) Observed: 03/12/2018 Status: F Source: [place] 2:41 PM [facility] [place] REPOSITORY [facility] [address] [place] [address] Fax REHABILITATION SERVICES DISCHARGE SUMMARY MR#: [id number] Acct: [id number] Name: STARR MATAMOROS Rep #: [id number] : 1950 67 From: Sd Tabor PT, ATC Referring Dr.: Kobi Hudson MD Status: REG RCR Insurance: [place] [employer] SELF PAY INSURANCE HP - PT D/C Summary It has been my pleasure to treat STARR MATAMOROS under orders from Kobi Hudson MD, for the diagnosis of R TKA for a total of 17 visit(s). Discharge Date: Please see the following information for a summary of their discharge status. - Subjective Subjective: No pain this date. Ready for discharge - Pain R knee Pain Intensity (Out of 10): 0 - Objective Objective/Function: R knee pain 0/10. R knee ROM: 0-10-110. R knee MMT: 5/5 throughout. I with HEP. Rx goals achieved - Goals Goal 1:: Decrease R knee pain x 50% to aid with ambulation Goal 2:: Increase R knee ROM x 30 degrees to aid with restoring a more normal gait pattern Goal 3:: Increase R knee strength x 1 grade to aid with stair negotiation Goal 4:: I with HEP - Plan Plan: discharge - D/C Information If there are questions or concerns regarding this patient's physical therapy, please feel free to call me at [phone]. Thank you for the referral of this patient. Sincerely, Sd Tabor PT, <Electronically signed by Sd Tabor PT, ATC> 03/12/18 1441 CC: Kobi Hudson MD; Lalo Smith MD [facility] Signed PROGRESS Observed: 03/09/2018 Status: COMPLETED Source: [place] 2:47 PM [facility] [place] REPOSITORY HNO ID: [id number] Author: Sebastian (Jaswant) Podlogar Service: (none) Author Type: Nurse Practitioner Type: Progress Notes Filed: 03/10/2018 7:37 AM Note Text: 03/09/2018 Patient presents with: check spider bite: bacak of right knee SUBJECTIVE: This is a 67 year old that is here today for Above Complaints. On 02/26 felt sting to back of left calf. Was seen on 03/02/2018 by Eric Mahmood CNP. Advised to monitor for signs of infection. Returns today for follow-up. Concerned that redness continues and is getting larger. Has used OTC hydrocortisone cream for some mild inching. Denies tenderness, fever, chills, red streaking, drainage from area. positive for redness and warmth. Very concerned because had right knee replacement 2 month ago and doesn't want infection spreading to her knee. PAST MEDICAL HISTORY Diagnosis Date - Achilles bursitis or tendinitis right shoulder - Acute peptic ulcer, unspecified site, without mention of hemorrhage, perforation, or obstruction 10/06 - Diarrhea - Diverticulosis of colon (without mention of hemorrhage) - External hemorrhoids without mention of complication - Family history of malignant neoplasm of gastrointestinal tract family history of colon cancer - Fibrosclerosis of breast fibrocystic breast disease - Generalized osteoarthrosis, unspecified site - Hemorrhage of gastrointestinal tract, unspecified - Internal hemorrhoids without mention of complication - Lumbar spondylosis Dr. 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 Bearden at [facility] - Unspecified essential hypertension - Unspecified hemorrhoids without mention of complication internal and externaldjd - Unspecified tinnitus 11/16/2006 Left ear - Urinary calculus, unspecified Renal stones ALLERGIES Niacin; Simvastatin MEDICATIONS Current Outpatient Prescriptions: ketoconazole (NIZORAL) 2 % cream Apply 1 application to affected area once daily. Continue to use 1 week after rash resolves then as needed biotin 5 mg caspule Take 5 mg by mouth once daily. CYANOCOBALAMIN, VITAMIN B-12, (VITAMIN B-12 ORAL) Take 3,000 mg by mouth. Pyridoxine HCl (VITAMIN B-6) 200 mg TbER Take by mouth. MULTIVIT WITH CALCIUM,IRON,MIN (WOMEN'S DAILY MULTIVITAMIN ORAL) Take by mouth. ibuprofen (MOTRIN) 200 mg tablet Take 800 mg by mouth every 6 hours as needed. Propranolol HCl 120 mg 24 hr capsule Take 1 capsule by mouth once daily. cholecalciferol, Vitamin D3, (VITAMIN D3) 50,000 unit cap capsule Take 1 capsule by mouth once each week. amLODIPine (NORVASC) 10 mg tablet Take 1 tablet by mouth once daily. nortriptyline (PAMELOR) 75 mg capsule Take 1 capsule by mouth daily at bedtime. EXCEDRIN MIGRAINE 250 MG-250 MG-65 MG TAB as necessary No current facility-administered medications for this visit. Medications and allergies reviewed by this provider. SOCIAL HISTORY Social History Marital status: Spouse name: Years of education: Number of children: 3 Occupational History Occupation Employer Comment [employer] Social History Main Topics Smoking status: Former Smoker Packs/day: 0.00 Years: 10.00 Quit date: 07/06/1979 Smokeless tobacco: Never Used Alcohol use: Yes Comment: rarely Drug use: No Sexual activity: No REVIEW OF SYSTEMS All other reviewed and negative other than HPI. OBJECTIVE: BP 130/78 (BP Site: Left Arm, BP Position: Sitting, BP Cuff Size: Regular Adult) Pulse 74 Wt 96.2 kg (212 lb 1.3 oz) LMP 07/11/2003 SpO2 98% BMI 38.17 kg/m? . Vital signs reviewed by this provider. APPEARANCE Well appearing, alert, in no acute distress, well-hydrated, well nourished. HEART RRR with normal S1 and S2, no murmurs, no gallops, no JVD appreciated LUNG clear to auscultation EXTREMITIES No deformities, No edema and Normal pulses bilaterally. SKIN 3 inch X 2 inch erythematous area. No drainage, tenderness, or warmth. Are without fluctuance or induration. Healed incision line to right knee- without swelling, erythema, or warmth. No red streaking. ASSESSMENT/PLAN: 1. Cellulitis of skin - ICD9: 682.9, ICD10: L03.90 - no red flag symptoms - red flag symptoms discussed, verbalizes understanding - Begin treatment with doxycycline 100 mg twice daily - No lymphangetic streaking, this was defined for patient to watch for and to seek medical care immediately if appears - Area of cellulitis defined with pen, seek further attention if this area continues to enlarge - DOXYCYCLINE MONOHYDRATE 100 MG CAPSULE - follow-up with discussed symptoms, to ER with red flag symptoms, patient verbalizes understanding Sebastian Foley APRN.CNP Prescription instructions reviewed with patient as applicable. Patient advised if symptoms do not improve or if symptoms worsen sooner, to contact their primary care physician. Potential red flag symptoms discussed with the patient. Reviewed appropriate action plan to take if red flag symptoms occur. Patient agreeable to treatment plan. CNOV Observed: 03/09/2018 Status: COMPLETED Source: [place] 2:40 PM [facility] REPOSITORY [facility] STARR MATAM[facility]OS ([id number]) 1950 F Date Time Provider Department 03/09/18 2:40 PM SEBASTIAN FOLEY ([facility]WANT[facility] During your visit today, we recorded the following information about you: Pulse Blood pressure Weight 74/minute 130/78 96.2 kg Sebastain Foley APRN.CNP 03/10/2018 7:37 AM Signed 03/09/2018 Patient presents with: check spider bite: bacak of right knee SUBJECTIVE: This is a 67 year old that is here today for Above Complaints. On 02/26 felt sting to back of left calf. Was seen on 03/02/2018 by Eric Mahmood CNP. Advised to monitor for signs of infection. Returns today for follow-up. Concerned that redness continues and is getting larger. Has used OTC hydrocortisone cream for some mild inching. Denies tenderness, fever, chills, red streaking, drainage from area. positive for redness and warmth. Very concerned because had right knee replacement 2 month ago and doesn't want infection spreading to her knee. PAST MEDICAL HISTORY Diagnosis Date - Achilles bursitis or tendinitis right shoulder - Acute peptic ulcer, unspecified site, without mention of hemorrhage, perforation, or obstruction 10/06 - Diarrhea - Diverticulosis of colon (without mention of hemorrhage) - External hemorrhoids without mention of complication - Family history of malignant neoplasm of gastrointestinal tract family history of colon cancer - Fibrosclerosis of breast fibrocystic breast disease - Generalized osteoarthrosis, unspecified site - Hemorrhage of gastrointestinal tract, unspecified - Internal hemorrhoids without mention of complication - Lumbar spondylosis Dr. 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 Bearden at [facility] - Unspecified essential hypertension - Unspecified hemorrhoids without mention of complication internal and externaldjd - Unspecified tinnitus 11/16/2006 Left ear - Urinary calculus, unspecified Renal stones ALLERGIES Niacin; Simvastatin MEDICATIONS Current Outpatient Prescriptions: ketoconazole (NIZORAL) 2 % cream Apply 1 application to affected area once daily. Continue to use 1 week after rash resolves then as needed biotin 5 mg caspule Take 5 mg by mouth once daily. CYANOCOBALAMIN, VITAMIN B-12, (VITAMIN B-12 ORAL) Take 3,000 mg by mouth. Pyridoxine HCl (VITAMIN B-6) 200 mg TbER Take by mouth. MULTIVIT WITH CALCIUM,IRON,MIN (WOMEN'S DAILY MULTIVITAMIN ORAL) Take by mouth. ibuprofen (MOTRIN) 200 mg tablet Take 800 mg by mouth every 6 hours as needed. Propranolol HCl 120 mg 24 hr capsule Take 1 capsule by mouth once daily. cholecalciferol, Vitamin D3, (VITAMIN D3) 50,000 unit cap capsule Take 1 capsule by mouth once each week. amLODIPine (NORVASC) 10 mg tablet Take 1 tablet by mouth once daily. nortriptyline (PAMELOR) 75 mg capsule Take 1 capsule by mouth daily at bedtime. EXCEDRIN MIGRAINE 250 MG-250 MG-65 MG TAB as necessary No current facility-administered medications for this visit. Medications and allergies reviewed by this provider. SOCIAL HISTORY Social History Marital status: Spouse name: Years of education: Number of children: 3 Occupational History Occupation Employer Comment [employer] Social History Main Topics Smoking status: Former Smoker Packs/day: 0.00 Years: 10.00 Quit date: 07/06/1979 Smokeless tobacco: Never Used Alcohol use: Yes Comment: rarely Drug use: No Sexual activity: No REVIEW OF SYSTEMS All other reviewed and negative other than HPI. OBJECTIVE: BP 130/78 (BP Site: Left Arm, BP Position: Sitting, BP Cuff Size: Regular Adult) Pulse 74 Wt 96.2 kg (212 lb 1.3 oz) LMP 07/11/2003 SpO2 98% BMI 38.17 kg/m? . Vital signs reviewed by this provider. APPEARANCE Well appearing, alert, in no acute distress, well- hydrated, well nourished. HEART RRR with normal S1 and S2, no murmurs, no gallops, no JVD appreciated LUNG clear to auscultation EXTREMITIES No deformities, No edema and Normal pulses bilaterally. SKIN 3 inch X 2 inch erythematous area. No drainage, tenderness, or warmth. Are without fluctuance or induration. Healed incision line to right knee- without swelling, erythema, or warmth. No red streaking. ASSESSMENT/PLAN: 1. Cellulitis of skin - ICD9: 682.9, ICD10: L03.90 - no red flag symptoms - red flag symptoms discussed, verbalizes understanding - Begin treatment with doxycycline 100 mg twice daily - No lymphangetic streaking, this was defined for patient to watch for and to seek medical care immediately if appears - Area of cellulitis defined with pen, seek further attention if this area continues to enlarge - DOXYCYCLINE MONOHYDRATE 100 MG CAPSULE - follow-up with discussed symptoms, to ER with red flag symptoms, patient verbalizes understanding Sebastian Foley APRN.CNP Prescription instructions reviewed with patient as applicable. Patient advised if symptoms do not improve or if symptoms worsen sooner, to contact their primary care physician. Potential red flag symptoms discussed with the patient. Reviewed appropriate action plan to take if red flag symptoms occur. Patient agreeable to treatment plan. Sebastian Foley APRN.CNP 03/09/2018 2:58 PM Signed If you develop fever, chills, increased redness, swelling, or pain return to office If you develop red streaking go to ER Referring Provider: SELF [200] Allergies As of Date: 03/09/2018 Noted Allergy Reaction NIACIN 10/07/2010 5 - Intolerance Comments: sweats and hot flashes SIMVASTATIN 03/26/2016 5 - Intolerance Comments: myalgias--severe; resolved after stopped but still with leg pain Date Reviewed: 03/09/2018 Reviewed by: Davida Bonilla LPN - Fully Assessed Reason for Visit: check spider bite [Other] Cmt: bacak of right knee Primary Visit Diagnosis:Cellulitis of skin [L03.90] Order(s):doxycycline monohydrate (MONODOX) 100 mg capsuleTake 1 capsule by mouth twice daily for 7 days.Disp: 14 capsuleRfl: 0 Prescriptions as of 03/09/2018 Sig: DOXYCYCLINE MONOHYDRATE 100 M* Take 1 capsule by mouth twice* KETOCONAZOLE 2 % TOPICAL CREAM Apply 1 application to affect* BIOTIN 5 MG CAPSULE Take 5 mg [...] daily* EXCEDRIN MIGRAINE 250 MG-250 * as necessary Problem List As Of Date 03/09/2018 Noted Resolved INGROWING NAIL [L60.0] INVALID FOR*11/16/2006 [...] Kidney [N20.0] INVALID FOR* Lumbar Spondylosis [M47.816] Vitamin D deficiency [E55.9] INVALID FOR* Status post total right knee replacement [Z96.6*INVALID FOR* Other instructions from your clinician: If you develop fever, chills, increased redness, swelling, or pain return to office If you develop red streaking go to ER Prescriptions ordered this encounter Disp Refills Start End DOXYCYCLINE MONOHYDRATE 100 MG CAPSU* 14 c* 0 03/09/2018 03/16/2018 Route: ORAL Sig: Take 1 capsule by mouth twice daily for 7 days. Follow-up and Disposition History Recorded Encounter Status:Closed by SEBASTIAN FOLEY CNP on 03/10/18 [place] Observed: 03/02/2018 Status: COMPLETED Source: [place] 8:20 AM [facility] REPOSITORY Office Visit ([facility]) STARR MATAMOROS ([id number]) 1950 F Date Time Provider Department 03/02/18 8:20 AM HARINI MAHMOOD (JAKE) [facility] During your visit today, we recorded the following information about you: Pulse Respiration Blood pressure Weight 76/minute 16/minute 132/72 95.7 kg Harini Mahmood APRN.CNS 03/02/2018 8:57 AM Signed OUTPATIENT VISIT DATE March 02, 2018 OUTPATIENT VISIT TYPE ESTABLISHED PRIMARY CARE PHYSICIAN: Lalo Smith MD CHIEF COMPLAINT: Patient presents with: Insect Bite History of Present Illness: Starr Nassar Maitecinthia is a 67 year old female who was last seen 11/2017 by Lalo Smith MD. She has been seen in the past for ACTIVE PROBLEM LIST Essential Hypertension Generalized Osteoarthrosis, Unspecified Site Mixed Hyperlipidemia Diverticulosis of Colon (Without Mention of Hemorrhage) Unspecified Tinnitus Migraine Without Aura, With Intractable Migraine, So Stated, Without Mention of Status Migrainosus Pain in Joint, Lower Leg Abdominal Pain, Other Specified Site Calculus of Kidney Lumbar Spondylosis Vitamin D Deficiency Presents today for bug bite. She is status post total knee replacement and is concerned about possible infection. The area is currently red but no warmth or swelling. No drainage. Reports the area hurts at times. Is not pruritic. She thinks she may have been bitten by a horse fly here. She also has a mole on her right hip that she just recently noticed, wonders if she should see a safety advisor for this No recent hospital or ED visits. No new medical problems or medications. Able to obtain medications. No problems with taking medications or note side effects. PAST MEDICAL HISTORY Diagnosis Date - Achilles bursitis or tendinitis right shoulder - Acute peptic ulcer, unspecified site, without mention of hemorrhage, perforation, or obstruction 10/06 - Diarrhea - Diverticulosis of colon (without mention of hemorrhage) - External hemorrhoids without mention of complication - Family history of malignant neoplasm of gastrointestinal tract family history of colon cancer - Fibrosclerosis of breast fibrocystic breast disease - Generalized osteoarthrosis, unspecified site - Hemorrhage of gastrointestinal tract, unspecified - Internal hemorrhoids without mention of complication - Lumbar spondylosis Dr. 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 Bearden at [facility] - Unspecified essential hypertension - Unspecified hemorrhoids without mention of complication internal and externaldjd - Unspecified tinnitus 11/16/2006 Left ear - Urinary calculus, unspecified Renal stones PAST SURGICAL HISTORY Procedure Laterality Date - APPENDECTOMY - COLONOS VIA STOMA W/ ABLATION - COLONOSCOP W/ OR W/O [facility] SPEC 10/09/06 - PAST SURGICAL HISTORY OF Ultrasound kidney stones - REMOVAL OF TONSILS,<10 Y/O As child Tonsillectomy - SIGMOIDOSCOPY FLEX DIAG 10/13/02 Sigmoidoscopy, flexible FAMILY HISTORY Problem Relation Age of Onset - Colon Cancer Mother of colon cancer - Breast Cancer Sister - Hypertension Father - Headache Mother - Headache Son migraine - Headache Daughter migraine - Headache Daughter migraine Social History Substance Use Topics - Smoking status: Former Smoker Years: 10.00 Quit date: 07/06/1979 - Smokeless tobacco: Never Used - Alcohol use Yes Comment: rarely ALLERGIES: ALLERGIES Allergen Reactions - Niacin Intolerance sweats and hot flashes - Simvastatin Intolerance myalgias--severe; resolved after stopped but still with leg pain MEDICATIONS ketoconazole (NIZORAL) 2 % cream Apply 1 application to affected area once daily. Continue to use 1 week after rash resolves then as needed biotin 5 mg caspule Take 5 mg by mouth once daily. CYANOCOBALAMIN, VITAMIN B-12, (VITAMIN B-12 ORAL) Take 3,000 mg by mouth. Pyridoxine HCl (VITAMIN B-6) 200 mg TbER Take by mouth. MULTIVIT WITH CALCIUM,IRON,MIN (WOMEN'S DAILY MULTIVITAMIN ORAL) Take by mouth. Propranolol HCl 120 mg 24 hr capsule Take 1 capsule by mouth once daily. cholecalciferol, Vitamin D3, (VITAMIN D3) 50,000 unit cap capsule Take 1 capsule by mouth once each week. amLODIPine (NORVASC) 10 mg tablet Take 1 tablet by mouth once daily. nortriptyline (PAMELOR) 75 mg capsule Take 1 capsule by mouth daily at bedtime. ibuprofen (MOTRIN) 200 mg tablet Take 800 mg by mouth every 6 hours as needed. EXCEDRIN MIGRAINE 250 MG-250 MG-65 MG TAB as necessary REVIEW OF SYSTEMS: GENERAL: Negative for: Weight loss or gain, Fever or Chills, Weakness and Sleep difficulties. Physical Examination: BP 132/72 Pulse 76 Resp 16 Wt 211 lb (95.7kg) LMP 07/11/2003 General appearance: Well appearing, alert, in no acute distress, well-hydrated, well nourished. Skin: Skin color, texture, turgor normal, + erythema ~2 diameter posterior calf on right. No warmth, swelling or induration. Small mole right hip ~1/4 diameter, red in color with surrounding red halo. Musculoskeletal: Well healed incision TKR right Neuro: Gait normal. Sensation grossly intact. Reviewed chart, outside records, tests I personally interviewed, confirmed and edited the above information if obtained by others. TESTING: Glucose (mg/dL) Date Value 05/16/2016 Test sent to [facility]. Potassium (mmol/L) Date Value 05/16/2016 Test sent to [facility]. Sodium (mmol/L) Date Value 05/16/2016 Test sent to [facility]. Chloride (mmol/L) Date Value 05/16/2016 Test sent to [facility]. CO2 (mmol/L) Date Value 05/16/2016 Test sent to [facility]. Creatinine (mg/dL) Date Value 05/16/2016 Test sent to [facility]. BUN (mg/dL) Date Value 05/16/2016 Test sent to [facility]. Anion Gap (mmol/L) Date Value 05/16/2016 Test sent to [facility]. Calcium (mg/dL) Date Value 05/16/2016 Test sent to [facility]. Glucose (mg/dL) Date Value 05/16/2016 Test sent to [facility]. Potassium (mmol/L) Date Value 05/16/2016 Test sent to [facility]. Sodium (mmol/L) Date Value 05/16/2016 Test sent to [facility]. Chloride (mmol/L) Date Value 05/16/2016 Test sent to [facility]. CO2 (mmol/L) Date Value 05/16/2016 Test sent to [facility]. Creatinine (mg/dL) Date Value 05/16/2016 Test sent to [facility]. BUN (mg/dL) Date Value 05/16/2016 Test sent to [facility]. Anion Gap (mmol/L) Date Value 05/16/2016 Test sent to [facility]. Calcium (mg/dL) Date Value 05/16/2016 Test sent to [facility]. Protein, Total (g/dL) Date Value 05/16/2016 Test sent to [facility]. Albumin (g/dL) Date Value 05/16/2016 Test sent to [facility]. Bilirubin, Total (mg/dL) Date Value 05/16/2016 Test sent to [facility]. Alkaline Phosphatase (U/L) Date Value 05/16/2016 Test sent to [facility]. AST (U/L) Date Value 05/16/2016 Test sent to [facility]. ALT (U/L) Date Value 05/16/2016 Test sent to [facility]. Hemoglobin (g/dL) Date Value 05/16/2016 Test sent to [facility]. Hematocrit (%) Date Value 05/16/2016 Test sent to [facility]. WBC (k/uL) Date Value 05/16/2016 Test sent to [facility]. Cholesterol, Total (mg/dL) Date Value 05/16/2016 Test sent to [facility]. HDL Cholesterol (mg/dL) Date Value 05/16/2016 Test sent to [facility]. LDL Cholesterol (mg/dL) Date Value 05/16/2016 Test sent to [facility]. Triglyceride (mg/dL) Date Value 05/16/2016 Test sent to [facility]. No results found for: HBA1C Ejection Fraction: No results found IMPRESSION: Ms. Matamoros is a 67 year old woman presents with bug bite, skinlesion. After my examination and review of data, I make the following recommendations. PLAN AND RECOMMENDATIONS: 1. Skin lesion - ICD9: 709.9, ICD10: L98.9 (primary diagnosis) She will follow up with Dr. Hernández - CONSULT TO DERMATOLOGY 2. Bug bite, initial encounter - ICD9: 919.4, ICD10: W57.XXXA Not pruritic. Declines cream. 3. S/P TKR Discussed signs of infection to watch for Advised to go to ER if develops chest pain, shortness of breath, or severe worsening of symptoms. Discussed risks, benefits, alternatives, and potential side effects of medications. Ms. Matamoros expressed understanding and agreed with the plan. Harini Mahmood APRN.CORPORATE DEVELOPMENT MANAGER Referring Provider: SELF [[id number]] Allergies As of Date: 03/02/2018 Noted Allergy Reaction NIACIN 10/07/2010 5 - Intolerance Comments: sweats and hot flashes SIMVASTATIN 03/26/2016 5 - Intolerance Comments: myalgias--severe; resolved after stopped but still with leg pain Date Reviewed: 03/02/2018 Reviewed by: Olga Mehta LPN - Fully Assessed Reason for Visit: Insect Bite [929] Primary Visit Diagnosis:Skin lesion [L98.9] Other Visit Diagnoses:Bug bite, initial encounter [W57.XXXA] Status post total right knee replacement [Z96.651] Order(s):CONSULT TO DERMATOLOGY [9006] Order #: [id number]: 1 Prescriptions as of 03/02/2018 Sig: KETOCONAZOLE 2 % TOPICAL CREAM Apply 1 application to affect* BIOTIN 5 MG CAPSULE Take 5 mg by mouth once daily. VITAMIN B-12 ORAL Take 3,000 mg by mouth. PYRIDOXINE (VITAMIN B6) ER 20* Take by mouth. WOMEN'S DAILY MULTIVITAMIN OR* Take by mouth. PROPRANOLOL XL 120 MG CAPSULE* Take 1 capsule by mouth once * CHOLECALCIFEROL (VITAMIN D3) * Take 1 capsule by mouth once * AMLODIPINE 10 MG TABLET Take 1 tablet by mouth once d* NORTRIPTYLINE 75 MG CAPSULE Take 1 capsule by mouth daily* IBUPROFEN 200 MG TABLET Take 800 mg by mouth every 6 * EXCEDRIN MIGRAINE 250 MG-250 * as necessary Problem List As Of Date 03/02/2018 Noted Resolved INGROWING NAIL [L60.0] INVALID FOR*11/16/2006 [...] Kidney [N20.0] INVALID FOR* Lumbar Spondylosis [M47.816] Vitamin D deficiency [E55.9] INVALID FOR* Status post total right knee replacement [Z96.6*INVALID FOR* Encounter Status:Closed by HARINI ORONA on 03/02/18 PROGRESS Observed: 03/02/2018 Status: COMPLETED Source: [place] 7:44 AM [facility] REPOSITORY HNO ID: [id number] Author: Harini (Jake) Timoteo Service: (none) Author Type: Nurse Specialist Type: Progress Notes Filed: 03/02/2018 8:57 AM Note Text: OUTPATIENT VISIT DATE March 02, 2018 OUTPATIENT VISIT TYPE ESTABLISHED PRIMARY CARE PHYSICIAN: Lalo Smith MD CHIEF COMPLAINT: Patient presents with: Insect Bite History of Present Illness: Starr Matamoros is a 67 year old female who was last seen 11/2017 by Lalo Smith MD. She has been seen in the past for ACTIVE PROBLEM LIST Essential Hypertension Generalized Osteoarthrosis, Unspecified Site Mixed Hyperlipidemia Diverticulosis of Colon (Without Mention of Hemorrhage) Unspecified Tinnitus Migraine Without Aura, With Intractable Migraine, So Stated, Without Mention of Status Migrainosus Pain in Joint, Lower Leg Abdominal Pain, Other Specified Site Calculus of Kidney Lumbar Spondylosis Vitamin D Deficiency Presents today for bug bite. She is status post total knee replacement and is concerned about possible infection. The area is currently red but no warmth or swelling. No drainage. Reports the area hurts at times. Is not pruritic. She thinks she may have been bitten by a horse fly here. She also has a mole on her right hip that she just recently noticed, wonders if she should see a safety advisor for this No recent hospital or ED visits. No new medical problems or medications. Able to obtain medications. No problems with taking medications or note side effects. PAST MEDICAL HISTORY Diagnosis Date - Achilles bursitis or tendinitis right shoulder - Acute peptic ulcer, unspecified site, without mention of hemorrhage, perforation, or obstruction 10/06 - Diarrhea - Diverticulosis of colon (without mention of hemorrhage) - External hemorrhoids without mention of complication - Family history of malignant neoplasm of gastrointestinal tract family history of colon cancer - Fibrosclerosis of breast fibrocystic breast disease - Generalized osteoarthrosis, unspecified site - Hemorrhage of gastrointestinal tract, unspecified - Internal hemorrhoids without mention of complication - Lumbar spondylosis Dr. 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 Bearden at [facility] - Unspecified essential hypertension - Unspecified hemorrhoids without mention of complication internal and externaldjd - Unspecified tinnitus 11/16/2006 Left ear - Urinary calculus, unspecified Renal stones PAST SURGICAL HISTORY Procedure Laterality Date - APPENDECTOMY - COLONOS VIA STOMA W/ ABLATION - COLONOSCOP W/ OR W/O [facility] SPEC 10/09/06 - PAST SURGICAL HISTORY OF Ultrasound kidney stones - REMOVAL OF TONSILS,<10 Y/O As child Tonsillectomy - SIGMOIDOSCOPY FLEX DIAG 10/13/02 Sigmoidoscopy, flexible FAMILY HISTORY Problem Relation Age of Onset - Colon Cancer Mother of colon cancer - Breast Cancer Sister - Hypertension Father - Headache Mother - Headache Son migraine - Headache Daughter migraine - Headache Daughter migraine Social History Substance Use Topics - Smoking status: Former Smoker Years: 10.00 Quit date: 07/06/1979 - Smokeless tobacco: Never Used - Alcohol use Yes Comment: rarely ALLERGIES: ALLERGIES Allergen Reactions - Niacin Intolerance sweats and hot flashes - Simvastatin Intolerance myalgias--severe; resolved after stopped but still with leg pain MEDICATIONS ketoconazole (NIZORAL) 2 % cream Apply 1 application to affected area once daily. Continue to use 1 week after rash resolves then as needed biotin 5 mg caspule Take 5 mg by mouth once daily. CYANOCOBALAMIN, VITAMIN B-12, (VITAMIN B-12 ORAL) Take 3,000 mg by mouth. Pyridoxine HCl (VITAMIN B-6) 200 mg TbER Take by mouth. MULTIVIT WITH CALCIUM,IRON,MIN (WOMEN'S DAILY MULTIVITAMIN ORAL) Take by mouth. Propranolol HCl 120 mg 24 hr capsule Take 1 capsule by mouth once daily. cholecalciferol, Vitamin D3, (VITAMIN D3) 50,000 unit cap capsule Take 1 capsule by mouth once each week. amLODIPine (NORVASC) 10 mg tablet Take 1 tablet by mouth once daily. nortriptyline (PAMELOR) 75 mg capsule Take 1 capsule by mouth daily at bedtime. ibuprofen (MOTRIN) 200 mg tablet Take 800 mg by mouth every 6 hours as needed. EXCEDRIN MIGRAINE 250 MG-250 MG-65 MG TAB as necessary REVIEW OF SYSTEMS: GENERAL: Negative for: Weight loss or gain, Fever or Chills, Weakness and Sleep difficulties. Physical Examination: BP 132/72 Pulse 76 Resp 16 Wt 211 lb (95.7kg) LMP 07/11/2003 General appearance: Well appearing, alert, in no acute distress, well-hydrated, well nourished. Skin: Skin color, texture, turgor normal, + erythema ~2 diameter posterior calf on right. No warmth, swelling or induration. Small mole right hip ~1/4 diameter, red in color with surrounding red halo. Musculoskeletal: Well healed incision TKR right Neuro: Gait normal. Sensation grossly intact. Reviewed chart, outside records, tests I personally interviewed, confirmed and edited the above information if obtained by others. TESTING: Glucose (mg/dL) Date Value 05/16/2016 Test sent to [facility]. Potassium (mmol/L) Date Value 05/16/2016 Test sent to [facility]. Sodium (mmol/L) Date Value 05/16/2016 Test sent to [facility]. Chloride (mmol/L) Date Value 05/16/2016 Test sent to [facility]. CO2 (mmol/L) Date Value 05/16/2016 Test sent to [facility]. Creatinine (mg/dL) Date Value 05/16/2016 Test sent to [facility]. BUN (mg/dL) Date Value 05/16/2016 Test sent to [facility]. Anion Gap (mmol/L) Date Value 05/16/2016 Test sent to [facility]. Calcium (mg/dL) Date Value 05/16/2016 Test sent to [facility]. Glucose (mg/dL) Date Value 05/16/2016 Test sent to [facility]. Potassium (mmol/L) Date Value 05/16/2016 Test sent to [facility]. Sodium (mmol/L) Date Value 05/16/2016 Test sent to [facility]. Chloride (mmol/L) Date Value 05/16/2016 Test sent to [facility]. CO2 (mmol/L) Date Value 05/16/2016 Test sent to [facility]. Creatinine (mg/dL) Date Value 05/16/2016 Test sent to [facility]. BUN (mg/dL) Date Value 05/16/2016 Test sent to [facility]. Anion Gap (mmol/L) Date Value 05/16/2016 Test sent to [facility]. Calcium (mg/dL) Date Value 05/16/2016 Test sent to [facility]. Protein, Total (g/dL) Date Value 05/16/2016 Test sent to [facility]. Albumin (g/dL) Date Value 05/16/2016 Test sent to [facility]. Bilirubin, Total (mg/dL) Date Value 05/16/2016 Test sent to [facility]. Alkaline Phosphatase (U/L) Date Value 05/16/2016 Test sent to [facility]. AST (U/L) Date Value 05/16/2016 Test sent to [facility]. ALT (U/L) Date Value 05/16/2016 Test sent to [facility]. Hemoglobin (g/dL) Date Value 05/16/2016 Test sent to [facility]. Hematocrit (%) Date Value 05/16/2016 Test sent to [facility]. WBC (k/uL) Date Value 05/16/2016 Test sent to [facility]. Cholesterol, Total (mg/dL) Date Value 05/16/2016 Test sent to [facility]. HDL Cholesterol (mg/dL) Date Value 05/16/2016 Test sent to [facility]. LDL Cholesterol (mg/dL) Date Value 05/16/2016 Test sent to [facility]. Triglyceride (mg/dL) Date Value 05/16/2016 Test sent to [facility]. No results found for: HBA1C Ejection Fraction: No results found IMPRESSION: Ms. Matamoros is a 67 year old woman presents with bug bite, skinlesion. After my examination and review of data, I make the following recommendations. PLAN AND RECOMMENDATIONS: 1. Skin lesion - ICD9: 709.9, ICD10: L98.9 (primary diagnosis) She will follow up with Dr. Hernández - CONSULT TO DERMATOLOGY 2. Bug bite, initial encounter - ICD9: 919.4, ICD10: W57.XXXA Not pruritic. Declines cream. 3. S/P TKR Discussed signs of infection to watch for Advised to go to ER if develops chest pain, shortness of breath, or severe worsening of symptoms. Discussed risks, benefits, alternatives, and potential side effects of medications. Ms. Matamoros expressed understanding and agreed with the plan. Harini Mahmood APRN.CORPORATE DEVELOPMENT MANAGER INITAL EVALUATION (1) Observed: 01/27/2018 Status: F Source: [place] - PT 3:54 PM [facility] REPOSITORY [facility] [address] [place] [address]. [address] [place], [place] [address] Fax REHABILITATION SERVICES INITIAL EVALUATION MR#: [id number] Acct: [id number] Name: STARR MATAMOROS Rep #: [id number] : 1950 67 From: Sd Tabor PT, ATC Referring Dr.: Kobi Hudson MD Status: REG RCR Insurance: [facility] HMO SELF PAY INSURANCE Patient's Visit Information STARR MATAMOROS is a 67 year old F referred to Physical Therapy by Kobi Hudson MD with a diagnosis of R TKA. Date of Evaluation: 01/27/18 Physical Therapist: Sd Tabor PT, - Visit Plan Frequency: 2-3x /Week Duration: 4-6 Weeks Plan: R knee PROM/mobs, stretching and strengthening, balance and proprio, core stab, nustep, and HEP - Subjective Subjective: DOS: 01/01/18. Pt reports a chronic Hx of R knee pain prior to having this surgery. Pt had R TKA performed at that time. Pt reports she is doing better now at this time. Pt notes she had to use a walker at first, but now only needs a cane. Pt reports No T or N in R LE except for her second toe. Pt reports she had sleep diff at first, but doesnt think so any more. Pt reports 2 stairs into house, which she negotiates 1 at a time. Pt notes she had home health after her surgery, but doesnt beleive it helped. 2/10 at rest, 7/10 at worst (trying to get comfortable at night time) - Pain R knee Pain Intensity (Out of 10): 2 Pain Intensity Range: 7 - Objective R knee girth at joint line: R knee 41 cm, L knee 44 cm. Neuro: B LE sensation is WNL to light touch. B achilles reflex= 1/5. Observation: Incision is still healing. No obvious signs of infection. ROM: R knee 0-8-88. MMT: L knee 4-/5 throughout. R knee 3/5 throughout. Gait: Pt was able to ambulate from the waiting room to treatment room approximately 120 until needing to rest. - Goals Goal 1:: Decrease R knee pain x 50% to aid with ambulation Goal Time Frame: 4-6 Weeks Goal 2:: Increase R knee ROM x 30 degrees to aid with restoring a more normal gait pattern Goal Time Frame: 4-6 Weeks Goal 3:: Increase R knee strength x 1 grade to aid with stair negotiation Goal Time Frame: 4-6 Weeks Goal 4:: I with HEP Goal Time Frame: 4-6 Weeks - Rehabilitation Potential Physical Therapy Diagnosis: R knee pain, weakness, and limited ROM secondary to R TKA Rehabilitation Potential: Good - Anticipated Interventions Patient/Client Instruction: Educate patient on: Condition, Plan of Care For the Purpose of:: To improve self management Therapeutic Exercise to Include: Strength training, Endurance training, Balance training, Flexibilty training, Gait and locomotor training, Passive ROM, Dynamic Lumbar Stabilization For the Purpose of:: To decrease pain, To increase ROM, To improve muscle performance and motor function Cryotherapy (ice pack, ice massage): Yes For the Purpose of:: To decrease pain Thank you for the opportunity to evaluate your patient. For Medicare and Medicare HMO plans, please review the plan of care and approve it. It will need to be FAXED BACK to us at [phone] for Medicare purposes. Please let me know if there are questions or concerns regarding this plan of care. Physician Signature: Date: <Electronically signed by Sd Tabor PT, ATC> 01/27/18 1554 CC: Kobi Hudson MD; Lalo Smith MD [facility] Signed For Medicare only, by signing this I certify the plan of care. Physicians Signature Date PROGRESS Observed: 12/15/2017 Status: COMPLETED Source: [place] 2:46 PM [facility] REPOSITORY HNO ID: [id number] Author: Sebastian Garcia) Podlogar Service: (none) Author Type: Nurse Practitioner Type: Progress Notes Filed: 12/15/2017 4:28 PM Note Text: 12/15/2017 Patient presents with: Rash: recheck groin area still red SUBJECTIVE: This is a 67 year old that is here today for Above Complaints. Saw Dr. Smith on 11/28/2017 for preop clearance. At that time complained of rash to groin area. Was placed on Diflucan 100 mg for 5 days and ketoconazole cream. Rash persisted and patient reports she called in and was given additional 5 days worth of diflucan. Last dose of diflucan was on Thursday. Is still using cream. Today patient presents because she is concerned rash has not completely resolved. She is worried because she has total knee replacement surgery on 01/01 and believes they will not perform surgery with this rash. Patient report rash has much improved since treatment. Denies fever or chills. PAST MEDICAL HISTORY Diagnosis Date - Achilles bursitis or tendinitis right shoulder - Acute peptic ulcer, unspecified site, without mention of hemorrhage, perforation, or obstruction 10/06 - Diarrhea - Diverticulosis of colon (without mention of hemorrhage) - External hemorrhoids without mention of complication - Family history of malignant neoplasm of gastrointestinal tract family history of colon cancer - Fibrosclerosis of breast fibrocystic breast disease - Generalized osteoarthrosis, unspecified site - Hemorrhage of gastrointestinal tract, unspecified - Internal hemorrhoids without mention of complication - Lumbar spondylosis Dr. 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 Bearden at [facility] - Unspecified essential hypertension - Unspecified hemorrhoids without mention of complication internal and externaldjd - Unspecified tinnitus 11/16/2006 Left ear - Urinary calculus, unspecified Renal stones ALLERGIES Niacin; Simvastatin MEDICATIONS Current Outpatient Prescriptions: ketoconazole (NIZORAL) 2 % cream Apply 1 application to affected area once daily. Continue to use 1 week after rash resolves then as needed biotin 5 mg caspule Take 5 mg by mouth once daily. CYANOCOBALAMIN, VITAMIN B-12, (VITAMIN B-12 ORAL) Take 3,000 mg by mouth. Pyridoxine HCl (VITAMIN B-6) 200 mg TbER Take by mouth. MULTIVIT WITH CALCIUM,IRON,MIN (WOMEN'S DAILY MULTIVITAMIN ORAL) Take by mouth. ibuprofen (MOTRIN) 200 mg tablet Take 800 mg by mouth every 6 hours as needed. Propranolol HCl 120 mg 24 hr capsule Take 1 capsule by mouth once daily. cholecalciferol, Vitamin D3, (VITAMIN D3) 50,000 unit cap capsule Take 1 capsule by mouth once each week. amLODIPine (NORVASC) 10 mg tablet Take 1 tablet by mouth once daily. nortriptyline (PAMELOR) 75 mg capsule Take 1 capsule by mouth daily at bedtime. EXCEDRIN MIGRAINE 250 MG-250 MG-65 MG TAB as necessary No current facility-administered medications for this visit. Medications and allergies reviewed by this provider. SOCIAL HISTORY Social History Marital status: Spouse name: Years of education: Number of children: 3 Occupational History Occupation Employer Comment [employer]* Social History Main Topics Smoking status: Former Smoker Packs/day: 0.00 Years: 10.00 Quit date: 07/06/1979 Smokeless tobacco: Never Used Alcohol use: Yes Comment: rarely Drug use: No Sexual activity: No REVIEW OF SYSTEMS All other reviewed and negative other than HPI. OBJECTIVE: BP 130/62 (BP Site: Left Arm, BP Position: Sitting, BP Cuff Size: Regular Adult) Pulse 68 Resp 16 Wt 96.7 kg (213 lb 1.3 oz) LMP 07/11/2003 BMI 38.35 kg/m? . Vital signs reviewed by this provider. APPEARANCE Well appearing, alert, in no acute distress, well-hydrated, well nourished. SKIN: slightly pinked area to bilateral groins. Left with small amount of maceration. ASSESSMENT/PLAN: 1. Candidal intertrigo - ICD9: 112.3, ICD10: B37.2 - improving - no red flag exam findings - red flag symptoms discussed, patient verbalizes understanding - continue to keep area clean and dry. - Continue ketoconazole cream until clear, then 1 week after clearing - report to office if not resolving or becoming more reddened Sebastian Podlogar, ENGINEERING PROJECT DESIGNER.NAVY MATERIAL INSPECTOR Prescription instructions reviewed with patient as applicable. Patient advised if symptoms do not improve or if symptoms worsen sooner, to contact their primary care physician. Potential red flag symptoms discussed with the patient. Reviewed appropriate action plan to take if red flag symptoms occur. Patient agreeable to treatment plan. ROCAEL Observed: 12/15/2017 Status: COMPLETED Source: [place] 2:20 PM [facility] REPOSITORY [facility] STARR MATAMOROS ([id number]) 1950 F Date Time Provider Department 12/15/17 2:20 PM SEBASTIAN FOLEY ([facility] During your visit today, we recorded the following information about you: Pulse Respiration Blood pressure Weight 68/minute 16/minute 130/62 96.7 kg Sebastian Foley APRN.CNP 12/15/2017 4:28 PM Signed 12/15/2017 Patient presents with: Rash: recheck groin area still red SUBJECTIVE: This is a 67 year old that is here today for Above Complaints. Saw Dr. Smith on 11/28/2017 for preop clearance. At that time complained of rash to groin area. Was placed on Diflucan 100 mg for 5 days and ketoconazole cream. Rash persisted and patient reports she called in and was given additional 5 days worth of diflucan. Last dose of diflucan was on Thursday. Is still using cream. Today patient presents because she is concerned rash has not completely resolved. She is worried because she has total knee replacement surgery on 01/01 and believes they will not perform surgery with this rash. Patient report rash has much improved since treatment. Denies fever or chills. PAST MEDICAL HISTORY Diagnosis Date - Achilles bursitis or tendinitis right shoulder - Acute peptic ulcer, unspecified site, without mention of hemorrhage, perforation, or obstruction 10/06 - Diarrhea - Diverticulosis of colon (without mention of hemorrhage) - External hemorrhoids without mention of complication - Family history of malignant neoplasm of gastrointestinal tract family history of colon cancer - Fibrosclerosis of breast fibrocystic breast disease - Generalized osteoarthrosis, unspecified site - Hemorrhage of gastrointestinal tract, unspecified - Internal hemorrhoids without mention of complication - Lumbar spondylosis Dr. 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 Bearden at [facility] - Unspecified essential hypertension - Unspecified hemorrhoids without mention of complication internal and externaldjd - Unspecified tinnitus 11/16/2006 Left ear - Urinary calculus, unspecified Renal stones ALLERGIES Niacin; Simvastatin MEDICATIONS Current Outpatient Prescriptions: ketoconazole (NIZORAL) 2 % cream Apply 1 application to affected area once daily. Continue to use 1 week after rash resolves then as needed biotin 5 mg caspule Take 5 mg by mouth once daily. CYANOCOBALAMIN, VITAMIN B-12, (VITAMIN B-12 ORAL) Take 3,000 mg by mouth. Pyridoxine HCl (VITAMIN B-6) 200 mg TbER Take by mouth. MULTIVIT WITH CALCIUM,IRON,MIN (WOMEN'S DAILY MULTIVITAMIN ORAL) Take by mouth. ibuprofen (MOTRIN) 200 mg tablet Take 800 mg by mouth every 6 hours as needed. Propranolol HCl 120 mg 24 hr capsule Take 1 capsule by mouth once daily. cholecalciferol, Vitamin D3, (VITAMIN D3) 50,000 unit cap capsule Take 1 capsule by mouth once each week. amLODIPine (NORVASC) 10 mg tablet Take 1 tablet by mouth once daily. nortriptyline (PAMELOR) 75 mg capsule Take 1 capsule by mouth daily at bedtime. EXCEDRIN MIGRAINE 250 MG-250 MG-65 MG TAB as necessary No current facility-administered medications for this visit. Medications and allergies reviewed by this provider. SOCIAL HISTORY Social History Marital status: Spouse name: Years of education: Number of children: 3 Occupational History Occupation Employer Comment [employer]* Social History Main Topics Smoking status: Former Smoker Packs/day: 0.00 Years: 10.00 Quit date: 07/06/1979 Smokeless tobacco: Never Used Alcohol use: Yes Comment: rarely Drug use: No Sexual activity: No REVIEW OF SYSTEMS All other reviewed and negative other than HPI. OBJECTIVE: BP 130/62 (BP Site: Left Arm, BP Position: Sitting, BP Cuff Size: Regular Adult) Pulse 68 Resp 16 Wt 96.7 kg (213 lb 1.3 oz) LMP 07/11/2003 BMI 38.35 kg/m? . Vital signs reviewed by this provider. APPEARANCE Well appearing, alert, in no acute distress, well- hydrated, well nourished. SKIN: slightly pinked area to bilateral groins. Left with small amount of maceration. ASSESSMENT/PLAN: 1. Candidal intertrigo - ICD9: 112.3, ICD10: B37.2 - improving - no red flag exam findings - red flag symptoms discussed, patient verbalizes understanding - continue to keep area clean and dry. - Continue ketoconazole cream until clear, then 1 week after clearing - report to office if not resolving or becoming more reddened Sebastian Podlogar, ENGINEERING PROJECT DESIGNER.JASWANT Prescription instructions reviewed with patient as applicable. Patient advised if symptoms do not improve or if symptoms worsen sooner, to contact their primary care physician. Potential red flag symptoms discussed with the patient. Reviewed appropriate action plan to take if red flag symptoms occur. Patient agreeable to treatment plan. Sebastian Podlogar, ENGINEERING PROJECT DESIGNERRUFUS 12/15/2017 2:58 PM Signed Continue to keep area to clean and dry and use cream as ordered Referring Provider: SELF [[id number]] Allergies As of Date: 12/15/2017 Noted Allergy Reaction NIACIN 10/07/2010 5 - Intolerance Comments: sweats and hot flashes SIMVASTATIN 03/26/2016 5 - Intolerance Comments: myalgias--severe; resolved after stopped but still with leg pain Date Reviewed: 12/15/2017 Reviewed by: Fransisca Galdamez LPN - Fully Assessed Reason for Visit: Rash [1087] Cmt: recheck groin area still red Primary Visit Diagnosis:Candidal intertrigo [B37.2] Order(s):ketoconazole (NIZORAL) 2 % creamApply 1 application to affected area once daily. Continue to use 1 week after rash resolves then as neededDisp: 30 gRfl: 0 Prescriptions as of 12/15/2017 Sig: KETOCONAZOLE 2 % TOPICAL CREAM Apply 1 application to affect* BIOTIN 5 MG CAPSULE Take 5 mg [...] daily* EXCEDRIN MIGRAINE 250 MG-250 * as necessary Problem List As Of Date 12/15/2017 Noted Resolved INGROWING NAIL [L60.0] INVALID FOR*11/16/2006 [...] Kidney [N20.0] INVALID FOR* Lumbar Spondylosis [M47.816] Vitamin D deficiency [E55.9] INVALID FOR* Other instructions from your clinician: Continue to keep area to clean and dry and use cream as ordered Prescriptions ordered this encounter Disp Refills Start End KETOCONAZOLE 2 % TOPICAL CREAM 30 g 0 12/15/2017 Route: TOPICAL Sig: Apply 1 application to affected area once daily. Continue to use 1 week after rash resolves then as needed Medications Discontinued During This Encounter ketoconazole (NIZORAL) 2 % cream 30 g 0 11/28/2017 12/15/2017 Route: TOPICAL Sig: Apply 1 application to affected area once daily. Continue to use 1 week after rash resolves then as needed Disc: Reason for discontinue is not on file. Follow-up and Disposition History Recorded Encounter Status:Closed by PODLOGSEBASTIAN JANG CNP on 12/15/17 PROGRESS Observed: 11/28/2017 Status: COMPLETED Source: [place] 9:55 AM [facility] [place] REPOSITORY HNO ID: [id number] Author: Lalo Smith Service: (none) Author Type: Physician Type: Progress Notes Filed: 12/09/2017 12:31 AM Note Text: HISTORY Starr Matamoros is a 67 year old lady here for pre-op evaluation as requested by Dr. Hudson. Starr Matamoros has surgery scheduled on January 01 for right TKR at [place]. Will have PAT done prior to surgery. Biking--exercise bike 15 minutes daily. Rash noted in groin area. No other signs of infection. No problems with CP or signs of angina. PAST MEDICAL HISTORY Diagnosis Date - Achilles bursitis or tendinitis right shoulder - Acute peptic ulcer, unspecified site, without mention of hemorrhage, perforation, or obstruction 10/06 - Diarrhea - Diverticulosis of colon (without mention of hemorrhage) - External hemorrhoids without mention of complication - Family history of malignant neoplasm of gastrointestinal tract family history of colon cancer - Fibrosclerosis of breast fibrocystic breast disease - Generalized osteoarthrosis, unspecified site - Hemorrhage of gastrointestinal tract, unspecified - Internal hemorrhoids without mention of complication - Lumbar spondylosis Dr. 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 Bearden at [facility] - Unspecified essential hypertension - Unspecified hemorrhoids without mention of complication internal and externaldjd - Unspecified tinnitus 11/16/2006 Left ear - Urinary calculus, unspecified Renal stones PAST SURGICAL HISTORY Procedure Laterality Date - APPENDECTOMY - COLONOS VIA STOMA W/ ABLATION - COLONOSCOP W/ OR W/O [facility] SPEC 10/09/06 - PAST SURGICAL HISTORY OF Ultrasound kidney stones - REMOVAL OF TONSILS,<12 Y/O As child Tonsillectomy - SIGMOIDOSCOPY FLEX DIAG 10/13/02 Sigmoidoscopy, flexible ALLERGIES Allergen Reactions - Niacin Intolerance sweats and hot flashes - Simvastatin Intolerance myalgias--severe; resolved after stopped but still with leg pain Current Outpatient Prescriptions: biotin 5 mg caspule Take 5 mg by mouth once daily. CYANOCOBALAMIN, VITAMIN B-12, (VITAMIN B-12 ORAL) Take 3,000 mg by mouth. Pyridoxine HCl (VITAMIN B-6) 200 mg TbER Take by mouth. MULTIVIT WITH CALCIUM,IRON,MIN (WOMEN'S DAILY MULTIVITAMIN ORAL) Take by mouth. ibuprofen (MOTRIN) 200 mg tablet Take 800 mg by mouth every 6 hours as needed. Propranolol HCl 120 mg 24 hr capsule Take 1 capsule by mouth once daily. cholecalciferol, Vitamin D3, (VITAMIN D3) 50,000 unit cap capsule Take 1 capsule by mouth once each week. amLODIPine (NORVASC) 10 mg tablet Take 1 tablet by mouth once daily. nortriptyline (PAMELOR) 75 mg capsule Take 1 capsule by mouth daily at bedtime. EXCEDRIN MIGRAINE 250 MG-250 MG-65 MG TAB as necessary No current facility-administered medications for this visit. FAMILY HISTORY Problem Relation Age of Onset - Colon Cancer Mother of colon cancer - Breast Cancer Sister - Hypertension Father - Headache Mother - Headache Son migraine - Headache Daughter migraine - Headache Daughter migraine Social History Marital status: Spouse name: Years of education: Number of children: 3 Occupational History Occupation Employer Comment [employer]* Social History Main Topics Smoking status: Former Smoker Packs/day: 0.00 Years: 10.00 Quit date: 07/06/1979 Smokeless tobacco: Never Used Alcohol use: Yes Comment: rarely Drug use: No Sexual activity: No REVIEW OF SYSTEMS GENERAL: No weight loss, malaise or fevers HEENT: Negative for frequent or significant headaches, No changes in hearing or vision, no nose bleeds or other nasal problems NECK: Negative for lumps, goiter, pain and significant neck swelling RESPIRATORY: Negative for cough, hemoptysis, wheezing, COPD, dyspnea or shortness of breath CARDIOVASCULAR: Negative for chest pain, leg swelling, hypertension, CHF or palpitations GI: No nausea, vomiting, or diarrhea : No history of dysuria, frequency or incontinence FAST BRIM POUNCER: Negative for abnormal vaginal bleeding, abnormal vaginal discharge MUSCULOSKELETAL: Knee pain SKIN: See HPI HEMATOLOGY/LYMPHOLOGY: Negative for prolonged bleeding, bruising easily or swollen nodes ENDOCRINE: Negative for cold or heat intolerance, polyuria, polydipsia and goiter NEURO: No history of headaches, syncope, paralysis, seizures or tremors PHYSICAL EXAMINATION: Blood pressure 108/56, pulse 64, temperature 36.7 ?C (98.1 ?F), temperature source Temporal Artery, resp. rate 16, weight 96.6 kg (213 lb), last menstrual period 07/11/2003. Body mass index is 38.34 kg/m?. Last 5 Encounter BP Readings: Date: BP: 11/28/2017 108/56 05/12/2017 120/72 07/23/2016 118/78 07/14/2016 120/68 03/29/2016 110/62 Last 5 Encounter Wt Readings: Date: Wt: 11/28/2017 96.6 kg (213 lb) 05/12/2017 96.6 kg (213 lb) 07/14/2016 88.9 kg (196 lb) 03/29/2016 88 kg (194 lb) 03/26/2016 86.6 kg (191 lb) General appearance: well appearing, in no acute distress, well-hydrated, well nourished Skin: Skin color, texture, turgor normal. No significant rashes or lesions except red rash groin area medially with skin raw. Head: Normal Eyes: Anicteric sclera. Pupils are equally round and reactive to light. Extraocular movements are intact. Ears: External ears normal. Canals clear. TM's unremarkable. Nose/Sinuses: negative Oropharynx: Lips, mucosa, and tongue normal. Teeth and gums normal. Oropharynx normal. Neck: Neck supple, no adenopathy; thyroid symmetric, normal size, no bruits. Lungs: Lungs clear to auscultation Heart: negative. RRR without murmur, gallop, or rubs. No ectopy. Abdomen: Abdomen soft, non-tender. Bowel sounds normal. No masses, organomegaly Extremities: Extremities normal. No deformities, edema, or skin discoloration. Good capillary refill. Musculoskeletal: DJD changes bilateral knees. Peripheral pulses: Normal Neuro: Gait normal. Reflexes normal and symmetric. Sensation grossly intact. No gross focal neurological deficits. Labs from [facility] reviewed. BASIC METABOLIC PROFILE (BMP) Collected: 11/12/2017 11:07 AM Status: F Source: [facility] REPOSITORY TYPE CODE TESTS RESULT OUT OF RANGE REFERENCE UNITS LAB L501.0100 GLU 93 Normal 74-106 mg/dL Result Comment: Please note revised GLUCOSE reference range effective 2017. LAB L501.1000 BUN 18 Normal 7-18 mg/dL LAB L501.1100 CREAT,SERUM 1.05 High 0.55-1.02 mg/dL Result Comment: The validity of the calculated GFR AND GFRAA in patients over 70 years has not been determined. Clinical correlation is essential. LAB L501.1110 EST GFR 55 Low >60 mL/min Result Comment: Non- GFR Calc LAB L501.1115 EST GFR - AA 67 Normal >60 mL/min Result Comment: GFR Calc LAB L501.1300 BUN/CRE 17.1 Normal 10-20 RATIO LAB L501.2200 CA 9.2 Normal 8.5-10.1 mg/dL LAB L501.5300 NA 143 Normal 136-145 mmol/L LAB L501.5600 K 3.9 Normal 3.5-5.1 mmol/L LAB L501.5900 CL 110 High 98-107 mmol/L LAB L501.6100 CO2 22.0 Normal 21.0-32.0 mmol/L LAB L501.6200 GAP 11 Normal 5-15 ? Performed By: #### L500.2500, L500.4100 #### [facility] [address] [place], [address] LIPID PROFILE Collected: 11/12/2017 11:07 AM Status: F Source: [facility] REPOSITORY TYPE CODE TESTS RESULT OUT OF RANGE REFERENCE UNITS LAB L501.4900 CHOL 207 High 200 mg/dL Result Comment: <200 mg/dL Desirable 200-240 mg/dL Borderline >240 mg/dL High Risk LAB L501.5000 TRIG 127 Normal ? mg/dL Result Comment: The drugs N-Acetylcysteine and Metamizole may falsely depress this assay. Serum Triglycerides Reference Interval Normal <150 mg/dL Borderline high 150 - 199 mg/dL High 200 - 499 mg/dL Very High > or = 500 mg/dL LAB L501.6400 HDL 62 Normal ? mg/dL Result Comment: The drugs N-Acetylcysteine and Metamizole may falsely depress this assay. Reference Range HDL <40 mg/dL Low HDL Cholesterol HDL >or= 60 mg/dL High HDL Cholesterol LAB L501.6500 LDL 120 Normal 0-130 mg/dL LAB L501.6600 VLDL 25 Normal 5-40 mg/dL Performed By: #### L500.2500, L500.4100 #### [facility] [address] [place], [address] ASSESSMENT AND PLAN See diagnoses and orders. Encounter Diagnosis ICD-10-CM 1. Preop examination Z01.818 2. Candidal intertrigo B37.2 fluconazole (DIFLUCAN) 100 mg tablet 3. Essential hypertension I10 4. Mixed hyperlipidemia E78.2 5. Primary osteoarthritis of right knee M17.11 Patient stable for planned surgical procedure. She is considered at low risk for cardiac complications and having a procedure that is not considered high risk for cardiac complications. No indication for cardiac stress testing prior to surgery. Candidal intertrigo should be resolved prior to planned surgery--patient will contact me if not resolving so can make sure this has resolved. She is aware that obesity does place her at higher risk for complications. Needs to keep working on diet and exercise with lifestyle changes for effective weight loss. She knows to stop any NSAIDs and supplements as instructed by surgeon prior to surgery. Should stay on antihypertensives perioperatively. She may proceed with planned surgical procedure assuming PAT as planned through her orthopedist does not reveal any new issues that need addressed before having surgery as planned on January 01. Prevention of post op VTE to be managed by her orthopedist. Above issues addressed with patient. Patient involved in shared decision making for management of her medical issues. History and medications reviewed. Epic updated as needed Refills taken care of and meds adjusted as indicated after reviewed history, exam and labs. Health Maintenance reviewed. Updated record and/or ordered tests as recorded. Encouraged on efforts at healthy diet and regular exercise and adequate sleep. Will communicate preop evaluation recommendations with Dr. Hudson via fax of this HANDP as well as form from their office once we verify with patient that candidal intertrigo has resolved. Lalo Smith MD CNOV Observed: 11/28/2017 Status: COMPLETED Source: [place] 9:00 AM [facility] REPOSITORY Office Visit (INTMWS) STARR MATAMOROS ([id number]) 1950 F Date Time Provider Department 11/28/17 9:00 AM LALO SMITH During your visit today, we recorded the following information about you: Temperature Pulse Respiration Blood pressure 98.1 degrees 64/minute 16/minute 108/56 Weight 96.6 kg Lalo Smith MD 12/09/2017 12:31 AM Signed HISTORY Starr Matamoros is a 67 year old lady here for pre-op evaluation as requested by Dr. Hudson. Starr Matamoros has surgery scheduled on January 01 for right TKR at [facility]. Will have PAT done prior to surgery. Biking--exercise bike 15 minutes daily. Rash noted in groin area. No other signs of infection. No problems with CP or signs of angina. PAST MEDICAL HISTORY Diagnosis Date - Achilles bursitis or tendinitis right shoulder - Acute peptic ulcer, unspecified site, without mention of hemorrhage, perforation, or obstruction 10/06 - Diarrhea - Diverticulosis of colon (without mention of hemorrhage) - External hemorrhoids without mention of complication - Family history of malignant neoplasm of gastrointestinal tract family history of colon cancer - Fibrosclerosis of breast fibrocystic breast disease - Generalized osteoarthrosis, unspecified site - Hemorrhage of gastrointestinal tract, unspecified - Internal hemorrhoids without mention of complication - Lumbar spondylosis Dr. 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 Bearden at [facility] - Unspecified essential hypertension - Unspecified hemorrhoids without mention of complication internal and externaldjd - Unspecified tinnitus 11/16/2006 Left ear - Urinary calculus, unspecified Renal stones PAST SURGICAL HISTORY Procedure Laterality Date - APPENDECTOMY - COLONOS VIA STOMA W/ ABLATION - COLONOSCOP W/ OR W/O [facility] SPEC 10/09/06 - PAST SURGICAL HISTORY OF Ultrasound kidney stones - REMOVAL OF TONSILS,<10 Y/O As child Tonsillectomy - SIGMOIDOSCOPY FLEX DIAG 10/13/02 Sigmoidoscopy, flexible ALLERGIES Allergen Reactions - Niacin Intolerance sweats and hot flashes - Simvastatin Intolerance myalgias--severe; resolved after stopped but still with leg pain Current Outpatient Prescriptions: biotin 5 mg caspule Take 5 mg by mouth once daily. CYANOCOBALAMIN, VITAMIN B-12, (VITAMIN B-12 ORAL) Take 3,000 mg by mouth. Pyridoxine HCl (VITAMIN B-6) 200 mg TbER Take by mouth. MULTIVIT WITH CALCIUM,IRON,MIN (WOMEN'S DAILY MULTIVITAMIN ORAL) Take by mouth. ibuprofen (MOTRIN) 200 mg tablet Take 800 mg by mouth every 6 hours as needed. Propranolol HCl 120 mg 24 hr capsule Take 1 capsule by mouth once daily. cholecalciferol, Vitamin D3, (VITAMIN D3) 50,000 unit cap capsule Take 1 capsule by mouth once each week. amLODIPine (NORVASC) 10 mg tablet Take 1 tablet by mouth once daily. nortriptyline (PAMELOR) 75 mg capsule Take 1 capsule by mouth daily at bedtime. EXCEDRIN MIGRAINE 250 MG-250 MG-65 MG TAB as necessary No current facility-administered medications for this visit. FAMILY HISTORY Problem Relation Age of Onset - Colon Cancer Mother of colon cancer - Breast Cancer Sister - Hypertension Father - Headache Mother - Headache Son migraine - Headache Daughter migraine - Headache Daughter migraine Social History Marital status: Spouse name: Years of education: Number of children: 3 Occupational History Occupation Employer Comment [employer]* Social History Main Topics Smoking status: Former Smoker Packs/day: 0.00 Years: 10.00 Quit date: 07/06/1979 Smokeless tobacco: Never Used Alcohol use: Yes Comment: rarely Drug use: No Sexual activity: No REVIEW OF SYSTEMS GENERAL: No weight loss, malaise or fevers HEENT: Negative for frequent or significant headaches, No changes in hearing or vision, no nose bleeds or other nasal problems NECK: Negative for lumps, goiter, pain and significant neck swelling RESPIRATORY: Negative for cough, hemoptysis, wheezing, COPD, dyspnea or shortness of breath CARDIOVASCULAR: Negative for chest pain, leg swelling, hypertension, CHF or palpitations GI: No nausea, vomiting, or diarrhea : No history of dysuria, frequency or incontinence FAST BRIM POUNCER: Negative for abnormal vaginal bleeding, abnormal vaginal discharge MUSCULOSKELETAL: Knee pain SKIN: See HPI HEMATOLOGY/LYMPHOLOGY: Negative for prolonged bleeding, bruising easily or swollen nodes ENDOCRINE: Negative for cold or heat intolerance, polyuria, polydipsia and goiter NEURO: No history of headaches, syncope, paralysis, seizures or tremors PHYSICAL EXAMINATION: Blood pressure 108/56, pulse 64, temperature 36.7 ?C (98.1 ?F), temperature source Temporal Artery, resp. rate 16, weight 96.6 kg (213 lb), last menstrual period 07/11/2003. Body mass index is 38.34 kg/m?. Last 5 Encounter BP Readings: Date: BP: 11/28/2017 108/56 05/12/2017 120/72 07/23/2016 118/78 07/14/2016 120/68 03/29/2016 110/62 Last 5 Encounter Wt Readings: Date: Wt: 11/28/2017 96.6 kg (213 lb) 05/12/2017 96.6 kg (213 lb) 07/14/2016 88.9 kg (196 lb) 03/29/2016 88 kg (194 lb) 03/26/2016 86.6 kg (191 lb) General appearance: well appearing, in no acute distress, well-hydrated, well nourished Skin: Skin color, texture, turgor normal. No significant rashes or lesions except red rash groin area medially with skin raw. Head: Normal Eyes: Anicteric sclera. Pupils are equally round and reactive to light. Extraocular movements are intact. Ears: External ears normal. Canals clear. TM's unremarkable. Nose/Sinuses: negative Oropharynx: Lips, mucosa, and tongue normal. Teeth and gums normal. Oropharynx normal. Neck: Neck supple, no adenopathy; thyroid symmetric, normal size, no bruits. Lungs: Lungs clear to auscultation Heart: negative. RRR without murmur, gallop, or rubs. No ectopy. Abdomen: Abdomen soft, non-tender. Bowel sounds normal. No masses, organomegaly Extremities: Extremities normal. No deformities, edema, or skin discoloration. Good capillary refill. Musculoskeletal: DJD changes bilateral knees. Peripheral pulses: Normal Neuro: Gait normal. Reflexes normal and symmetric. Sensation grossly intact. No gross focal neurological deficits. Labs from [facility] reviewed. BASIC METABOLIC PROFILE (BMP) Collected: 11/12/2017 11:07 AM Status: F Source: [facility] REPOSITORY TYPE CODE TESTS RESULT OUT OF RANGE REFERENCE UNITS LAB L501.0100 GLU 93 Normal 74-106 mg/dL Result Comment: Please note revised GLUCOSE reference range effective 2017. LAB L501.1000 BUN 18 Normal 7-18 mg/dL LAB L501.1100 CREAT,SERUM 1.05 High 0.55-1.02 mg/dL Result Comment: The validity of the calculated GFR AND GFRAA in patients over 70 years has not been determined. Clinical correlation is essential. LAB L501.1110 EST GFR 55 Low >60 mL/min Result Comment: Non- GFR Calc LAB L501.1115 EST GFR - AA 67 Normal >60 mL/min Result Comment: GFR Calc LAB L501.1300 BUN/CRE 17.1 Normal 10-20 RATIO LAB L501.2200 CA 9.2 Normal 8.5-10.1 mg/dL LAB L501.5300 NA 143 Normal 136-145 mmol/L LAB L501.5600 K 3.9 Normal 3.5-5.1 mmol/L LAB L501.5900 CL 110 High 98-107 mmol/L LAB L501.6100 CO2 22.0 Normal 21.0-32.0 mmol/L LAB L501.6200 GAP 11 Normal 5-15 ? Performed By: #### L500.2500, L500.4100 #### [facility] [address] [place], [place], [address] LIPID PROFILE Collected: 11/12/2017 11:07 AM Status: F Source: [facility] REPOSITORY TYPE CODE TESTS RESULT OUT OF RANGE REFERENCE UNITS LAB L501.4900 CHOL 207 High 200 mg/dL Result Comment: <200 mg/dL Desirable 200-240 mg/dL Borderline >240 mg/dL High Risk LAB L501.5000 TRIG 127 Normal ? mg/dL Result Comment: The drugs N-Acetylcysteine and Metamizole may falsely depress this assay. Serum Triglycerides Reference Interval Normal <150 mg/dL Borderline high 150 - 199 mg/dL High 200 - 499 mg/dL Very High > or = 500 mg/dL LAB L501.6400 HDL 62 Normal ? mg/dL Result Comment: The drugs N-Acetylcysteine and Metamizole may falsely depress this assay. Reference Range HDL <40 mg/dL Low HDL Cholesterol HDL >or= 60 mg/dL High HDL Cholesterol LAB L501.6500 LDL 120 Normal 0-130 mg/dL LAB L501.6600 VLDL 25 Normal 5-40 mg/dL Performed By: #### L500.2500, L500.4100 #### [facility] [address] [place], [address] ASSESSMENT AND PLAN See diagnoses and orders. Encounter Diagnosis ICD-10-CM 1. Preop examination Z01.818 2. Candidal intertrigo B37.2 fluconazole (DIFLUCAN) 100 mg tablet 3. Essential hypertension I10 4. Mixed hyperlipidemia E78.2 5. Primary osteoarthritis of right knee M17.11 Patient stable for planned surgical procedure. She is considered at low risk for cardiac complications and having a procedure that is not considered high risk for cardiac complications. No indication for cardiac stress testing prior to surgery. Candidal intertrigo should be resolved prior to planned surgery--patient will contact me if not resolving so can make sure this has resolved. She is aware that obesity does place her at higher risk for complications. Needs to keep working on diet and exercise with lifestyle changes for effective weight loss. She knows to stop any NSAIDs and supplements as instructed by surgeon prior to surgery. Should stay on antihypertensives perioperatively. She may proceed with planned surgical procedure assuming PAT as planned through her orthopedist does not reveal any new issues that need addressed before having surgery as planned on January 01. Prevention of post op VTE to be managed by her orthopedist. Above issues addressed with patient. Patient involved in shared decision making for management of her medical issues. History and medications reviewed. Epic updated as needed Refills taken care of and meds adjusted as indicated after reviewed history, exam and labs. Health Maintenance reviewed. Updated record and/or ordered tests as recorded. Encouraged on efforts at healthy diet and regular exercise and adequate sleep. Will communicate preop evaluation recommendations with Dr. Hudson via fax of this HANDP as well as form from their office once we verify with patient that candidal intertrigo has resolved. MD Lalo Vang MD 11/28/2017 10:36 AM Addendum Check with insurance about coverage for TDAP ( tetanus shot with whooping cough coverage) and Shingrix (shingles vaccines--2 shots) Bone density showed osteopenia (T-score less than -1.0) DEXA BONE DENSITY STUDY (HP) Observed: 07/01/2017 11:09 AM Status: F Source: [facility] REPOSITORY [facility] Imaging Services [address] [place] [address] Dexa Bone Density Study (HP) MR#: [id number] Acct: [id number] Name: STARR MATAMOROS Rep #: [id number] : 1950 F 67 From: Mario Moura MD PCP: Annamarie Bauman DO Status: PRE CLI Study: Dexa Bone Density Study (HP) Date of Exam: 07/01/17 Exam# [id number] Ordering Dr: Harini Mahmood SCARFER OPERATOR-Howard STUDY: DUAL ENERGY X-RAY ABSORPTIOMETRY / DXA REASON FOR EXAM: Female, 67 years old. The patient is postmenopausal. Loss of height. TECHNIQUE: Bone Mineral Density (BMD) measurements of lumbar spine and bilateral hips were obtained. COMPARISON: None. FINDINGS: Lumbar Spine (L1-L4): g/cm2 (1.145) / T-score (-0.3) / Z-score (1.4) Findings are suggestive of normal bone density with a low fracture risk. Left Femur Total: g/cm2 (0.936) / T-score (-0.6) / Z-score (0.8) Left Femoral Neck: g/cm2 (0.854) / T-score (-1.3) / Z-score (0.3) Right Femur Total: g/cm2 (0.902) / T-score (-0.8) / Z-score (0.6) Right Femoral Neck: g/cm2 (0.827) / T-score (-1.5) / Z-score (0.1) HPBD/Dexa Bone Density Study (HP) IMPRESSION: The patient is considered osteopenic as outlined below according to World Ha Organization (WHO) criteria with a moderate fracture risk. Reference Information: The T-score is the number of standard deviations above or below the standard which is normal for young adults at their peak bone mineral density. The World Health Organization (WHO) interprets the T-scores as follows: Above -1 Normal bone density Between -1 and -2.5 Osteopenia Equal to / or below -2.5 Osteoporosis As a practical clinical guideline, osteopenia may be graded as follows: Mild -1 through -1.5 Moderate -1.6 through -2.0 Severe -2.1 through -2.4 The Z-score is the number of standard deviations above or below age-matched controls. A Z-score of less than -1.5 would be considered abnormal. References: 1. NIH Osteoporosis and Related Bone Diseases http://www.osteo.org 2. International Society for Clinical Densitometry http://www.iscd.org 3. National Osteoporosis Foundation http://www.nof.org Electronically Signed: Mario Moura MD at 15:24 EST Tel [phone], Service support , CC: Harini Mahmood; Annamarie Bauman DO Insurance Account Assistant: Signed Referring Provider: LALO SMITH [[id number]] Allergies As of Date: 11/28/2017 Noted Allergy Reaction NIACIN 10/07/2010 5 - Intolerance Comments: sweats and hot flashes SIMVASTATIN 03/26/2016 5 - Intolerance Comments: myalgias--severe; resolved after stopped but still with leg pain Date Reviewed: 05/12/2017 Reviewed by: Olga Mehta LPN - Fully Assessed Reason for Visit: Recheck [92] Primary Visit Diagnosis:Preop examination [Z01.818] Other Visit Diagnoses:Candidal intertrigo [B37.2] Essential hypertension [I10] Mixed hyperlipidemia [E78.2] Primary osteoarthritis of right knee [M17.11] Vitamin D deficiency [E55.9] Encounter for long-term current use of medication [Z79.899] Osteopenia, unspecified location [M85.80] Order(s):ketoconazole (NIZORAL) 2 % creamApply 1 application to affected area once daily. Continue to use 1 week after rash resolves then as neededDisp: 30 gRfl: 0 COMP METABOLIC PANEL [SQCMP] Order #: [id number] FUTURE CBC [SQCBC] Order #: [id number] FUTURE LIPID PANEL BASIC [SQLIPB] Order #: [id number] FUTURE VITAMIN D 25 HYDROXY [SQVITD] Order #: [id number] FUTURE Prescriptions as of 11/28/2017 Sig: BIOTIN 5 MG CAPSULE Take 5 [...] CAPSULE Take 1 capsule by mouth daily* KETOCONAZOLE 2 % TOPICAL CREAM Apply 1 application to affect* X FLUCONAZOLE 100 MG TABLET Take 1 tablet by mouth once d* EXCEDRIN MIGRAINE 250 MG-250 * as necessary Problem List As Of Date 11/28/2017 Noted Resolved INGROWING NAIL [L60.0] INVALID FOR*11/16/2006 [...] Kidney [N20.0] INVALID FOR* Lumbar Spondylosis [M47.816] Vitamin D deficiency [E55.9] INVALID FOR* Other instructions from your clinician: Check with insurance about coverage for TDAP ( tetanus shot with whooping cough coverage) and Shingrix (shingles vaccines--2 shots) Bone density showed osteopenia (T-score less than -1.0) DEXA BONE DENSITY STUDY () Observed: 07/01/2017 11:09 AM Status: F Source: [facility] REPOSITORY [facility] Imaging Services [address] [place] [address] Dexa Bone Density Study () MR#: [id number] Acct: [id number] Name: STARR MATAMOROS Rep #: [id number] : 1950 F 67 From: Mario Moura MD PCP: Annamarie Bauman DO Status: PRE CLI Study: Dexa Bone Density Study () Date of Exam: 07/01/17 Exam# [id number] Ordering Dr: Harini Mahmood SCARFER OPERATOR-C STUDY: DUAL ENERGY X-RAY ABSORPTIOMETRY / DXA REASON FOR EXAM: Female, 67 years old. The patient is postmenopausal. Loss of height. TECHNIQUE: Bone Mineral Density (BMD) measurements of lumbar spine and bilateral hips were obtained. COMPARISON: None. FINDINGS: Lumbar Spine (L1-L4): g/cm2 (1.145) / T-score (-0.3) / Z-score (1.4) Findings are suggestive of normal bone density with a low fracture risk. Left Femur Total: g/cm2 (0.936) / T-score (-0.6) / Z-score (0.8) Left Femoral Neck: g/cm2 (0.854) / T-score (-1.3) / Z-score (0.3) Right Femur Total: g/cm2 (0.902) / T-score (-0.8) / Z-score (0.6) Right Femoral Neck: g/cm2 (0.827) / T-score (-1.5) / Z-score (0.1) 0004 HPBD/Dexa Bone Density Study (HP) IMPRESSION: The patient is considered osteopenic as outlined below according to World Ha Organization (WHO) criteria with a moderate fracture risk. Reference Information: The T-score is the number of standard deviations above or below the standard which is normal for young adults at their peak bone mineral density. The World Health Organization (WHO) interprets the T-scores as follows: Above -1 Normal bone density Between -1 and -2.5 Osteopenia Equal to / or below -2.5 Osteoporosis As a practical clinical guideline, osteopenia may be graded as follows: Mild - 1 through -1.5 Moderate -1.6 through -2.0 Severe -2.1 through -2.4 The Z-score is the number of standard deviations above or below age-matched controls. A Z-score of less than -1.5 would be considered abnormal. References: 1. NIH Osteoporosis and Related Bone Diseases http://www.osteo.org 2. International Society for Clinical Densitometry http://www.iscd.org 3. National Osteoporosis Foundation http://www.nof.org Electronically Signed: Mario Moura MD at 15:24 EST Tel [phone], Service support , CC: Harini Bauman DO Insurance Account Assistant: Signed Prescriptions ordered this encounter Disp Refills Start End FLUCONAZOLE 100 MG TABLET 5 ta* 0 11/28/2017 12/02/2017 Route: ORAL Sig: Take 1 tablet by mouth once daily for 5 days. KETOCONAZOLE 2 % TOPICAL CREAM 30 g 0 11/28/2017 Route: TOPICAL Sig: Apply 1 application to affected area once daily. Continue to use 1 week after rash resolves then as needed Disposition: Return in about 6 months (around 05/31/2018) for 6 months follow up, With labs prior. Follow-up and Disposition History Recorded Encounter Status:Closed by LALO SMITH MD on 12/09/17 BASIC METABOLIC Collected: 11/12/2017 Status: F Source: [place] PROFILE (BMP) 11:07 AM [facility] REPOSITORY TYPE CODE TESTS RESULT OUT OF RANGE REFERENCE UNITS LAB L501.0100 74-106 mg/dL Normal GLU 93 Result Comment: Please note revised GLUCOSE reference range effective 2017. LAB L501.1000 7-18 mg/dL Normal BUN 18 LAB L501.1100 0.55-1.02 mg/dL High CREAT,SERUM 1.05 Result Comment: The validity of the calculated GFR AND GFRAA in patients over 70 years has not been determined. Clinical correlation is essential. LAB L501.1110 >60 mL/min Low EST GFR 55 Result Comment: Non- GFR Calc LAB L501.1115 >60 mL/min Normal EST GFR - AA 67 Result Comment: GFR Calc LAB L501.1300 10-20 RATIO Normal BUN/CRE 17.1 LAB L501.2200 8.5-10.1 mg/dL CA Normal 9.2 LAB L501.5300 136-145 mmol/L NA Normal 143 LAB L501.5600 3.5-5.1 mmol/L K Normal 3.9 LAB L501.5900 98-107 mmol/L High CL 110 LAB L501.6100 21.0-32.0 mmol/L Normal CO2 22.0 LAB L501.6200 5-15 Normal GAP 11 Performed By: #### L500.2500, L500.4100 #### [facility] [address] [place], [address] LIPID PROFILE Collected: 11/12/2017 Status: F Source: [place] 11:07 AM [facility] REPOSITORY TYPE CODE TESTS RESULT OUT OF RANGE REFERENCE UNITS LAB L501.4900 200 mg/dL High CHOL 207 Result Comment: <200 mg/dL Desirable 200-240 mg/dL Borderline >240 mg/dL High Risk LAB L501.5000 mg/dL Normal TRIG 127 Result Comment: The drugs N-Acetylcysteine and Metamizole may falsely depress this assay. Serum Triglycerides Reference Interval Normal <150 mg/dL Borderline high 150 - 199 mg/dL High 200 - 499 mg/dL Very High > or = 500 mg/dL LAB L501.6400 mg/dL Normal HDL 62 Result Comment: The drugs N-Acetylcysteine and Metamizole may falsely depress this assay. Reference Range HDL <40 mg/dL Low HDL Cholesterol HDL >or= 60 mg/dL High HDL Cholesterol LAB L501.6500 0-130 mg/dL Normal LDL 120 LAB L501.6600 5-40 mg/dL Normal VLDL 25 Performed By: #### L500.2500, L500.4100 #### [facility] [address] [place], [address] [facility] Observed: 09/29/2017 Status: COMPLETED Source: [place] 12:00 AM [facility] REPOSITORY Patient Outreach (INTMWH) STARR MATAMOROS ([id number]) 1950 F Date Time Provider Department 09/29/17 LALO SIMTH [facility] During your visit today, we recorded the following information about you: Allergies As of Date: 09/29/2017 Noted Allergy Reaction NIACIN 10/07/2010 5 - Intolerance Comments: sweats and hot flashes SIMVASTATIN 03/26/2016 5 - Intolerance Comments: myalgias--severe; resolved after stopped but still with leg pain Date Reviewed: 05/12/2017 Reviewed by: Olga Mehta LPN - Fully Assessed Visit Diagnosis:Medication management [Z79.899] Order(s):BASIC METABOLIC PNL [SQBMP] Order #: [id number] FUTURE LIPID PANEL BASIC [SQLIPB] Order #: [id number] FUTURE Prescriptions as of 09/29/2017 Sig: BIOTIN 5 MG CAPSULE Take 5 [...] daily* EXCEDRIN MIGRAINE 250 MG-250 * as necessary Problem List As Of Date 09/29/2017 Noted Resolved INGROWING NAIL [L60.0] INVALID FOR*11/16/2006 [...] Kidney [N20.0] INVALID FOR* Lumbar Spondylosis [M47.816] Encounter Status:Closed by Wheely, PRODUSER on 04/16/18 ALLERGIES ALLERGIES DATE TYPE / NAME / CODE REACTION SEVERITY SOURCE CODE 03/26/2016 DRUG SIMVASTATIN INTOLERANCE [facility]/[address] [place] [address] [id number](SN Repository OMED CT) 08/01/2014 Drug No Known Unknown [place] Allergy/41 Allergies/[id number] [facility] [id number]( 388(RXNORM) [facility] OMED CT) Repository 10/07/2010 DRUG NIACIN INTOLERANCE [address] [id number]( Repository OMED CT) ENCOUNTERS ENCOUNTERS ADMIT/DISCHARGE ACCOUNT NUMBER ADMITTING ENCOUNTER LOCATION SOURCE CLASS 07/30/2018 [id number] [facility] ding:OPBI Repository 06/02/2018/06/21/20 [id number] Ambulatory [address] Repository 05/26/2018 [id number] [facility] ding:MTLAB Repository 03/12/2018/03/12/[id number] ding:PT Repository 03/09/2018/03/10/20 [id number] Ambulatory [address] Repository 03/02/2018/03/03/20 [id number] Ambulatory [address] Repository 01/05/2018/01/23/20 [id number] Ambulatory RBuilding: [address] Repository 12/15/2017/12/18/19 [id number] Ambulatory [address] Repository 11/28/2017/12/10/19 [id number] Ambulatory [address] Repository 11/12/2017 [id number] Ambulatory [place] [facility] ding:LAB.FUT Repository URE PAYERS PAYERS ENCOUNTER GUARANTOR PAYER SUBSCRIBER SOURCE 07/30/2018 STARR L Primary STARR L Jason [id number] Insurance:ENOC [facility]: [address] Repository [address]Dnm: (330) Number: [phone] () [id number] Date:3928-86-72[address] [address]ZD: 07/30/2018 Secondary NOT GIVENUNK Jason Insurance:SELF PAY [facility] Number: Effective Repository Date:2018-07-27 05/26/2018 Starr L Primary Starr L Jason [id number] Insurance:ENOC [facility] [address] Repository [address]Qsr: (330) Number: [phone] () [id number] Date:3361-16-56[address], [place] [address]NI: 05/26/2018 Secondary NOT GIVENUNK [place] Insurance:SELF PAY [facility] Number: Effective Repository Date:2018-05-26 03/12/2018 Starr L Primary Starr L Jason [id number] Insurance:ENOC [facility] [address] Repository [address]Jdm: 330) Number: [phone] () [id number] Date:3719-82-18[address], [place] [address]AY: 03/12/2018 Secondary NOT GIVENUNK Jason Insurance:SELF PAY [facility] Number: Effective Repository Date:2018-01-21 01/05/2018 STARR L Primary [facility] L [facility]:SELF [facility]: [facility] [id number] [facility] Number: [id number] Repository [place], [place] Date:2018-01-04 - [place], [place] [address]Mvd: [phone]) [id number]: () Name:[phone] () () 11/12/2017 Starr L Primary Starr L Jason [id number] Insurance:[facility]: [id number] Rep[facility] [address]Jhm: 330) Number: [phone] () [id number] Date:7746-86-11[address], [place] [address]VF: 11/12/2017 Secondary NOT GIVENUNK [place] Insurance:SELF PAY [facility] Number: Effective Repository Date:2017-10-21
--- OUTSIDE RECORDS SUMMARY | 2018-09-28 16:21 | XMS RPT_ITS ---
:1950 Author Organization [facility] Address [facility] [facility] [place] [address] Phone Care Team Providers Name Role Phone Elvis López PA-C Unavailable Reason for Visit Reason For Visit [...] Plan of Care Type Date Detail Appointment 11:00 AM Elvis López PA-C, [address] [facility], [address], [place], [address], Appointment 01:00 PM Elvis López PA-C, [address] [facility], [address], [place], [address], Patient education \cps-[email or web address]\CPS_PtEducation\CD [email or web address].pdf Medications Medication Instructions Start Stop Generic Name NDC Provider Date Date PERCOCET 5-325 one to two / OXYCODONE-ACETAMI [id number] Kobi M MG TABS tablets every 19 NOPHEN Gradisar six hours as MD needed FLUCONAZOLE TABS one tablet / FLUCONAZOLE TABS 68060577581 Kobi M daily 07 Gradisar IBUPROFEN 200 MG as directed as 2018/05/ IBUPROFEN [id number] Terena Ross TABS needed 14 RN (sometimes 4 tablets daily) MULTI VITAMIN 1 tablet once / MULTIPLE VITAMIN 16978968460 Terena Ross TABS daily 14 RN BIOTIN 5000 MCG 1 tablet once / BIOTIN 54444569215 Terena Ross TABS daily 14 RN CALCIUM + D3 1 tablet once / CALCIUM 51135584197 Terena Ross TABS daily 14 CARB-CHOLECALCIFE RN ROL TABS B-6 100 MG TABS 1 tablet once / PYRIDOXINE HCL 91289243182 Terena Ross daily 14 RN B-12 5000 MCG 1 capsule once / CYANOCOBALAMIN 43974773041 Terena Ross CAPS daily 14 RN VITAMIN D3 43192 1 capsule once / CHOLECALCIFEROL 98747662542 Terena Ross UNIT CAPS weekly as 14 RN directed NORTRIPTYLINE 1 capsule once / NORTRIPTYLINE HCL 98060284380 Terena Ross HCL 75 MG CAPS daily 14 RN AMLODIPINE 1 tablet once / AMLODIPINE 46336774589 Terena Ross BESYLATE 10 MG daily 14 BESYLATE RN TABS PROPRANOLOL HCL 1 capsule once / PROPRANOLOL HCL 10856756446 Terena Ross ER 120 MG daily 14 RN [id number] Conditions or Problems Problem Name Problem Onset Status Entry Provider Comment Standard Annotate Code Date Date Description Presence of Z96.651 Active Chance W Presence of right artificial (ICD-10-C / Mitan right knee joint M) PA-C artificial knee joint Aftercare Z47.1 Active Kobi Reeves Aftercare following [...] by the author as of BP Diastolic 72 mm[Hg] blood pressure, diastolic Preliminary vital sign data, not yet signed by the author as of BP Systolic 104 mm[Hg] blood pressure, systolic Preliminary vital sign data, not yet signed by the author as of Heart Rate 81 /min pulse rate E&M Preliminary vital sign [...] Office Visit: Postop - subsequent visit, Rm: 19 MEDS REVIEW Done Documentation of current medications (procedure) Preliminary observation data, not yet signed by the author as of Preliminary observation data, not yet signed by the author as of Clinical Summary: HMSPatientID OOP account number Procedures Code Procedure Name Date Entry Date CPT-76337 XR KNEE 3VWS-RT G8731 Pain assessment documented as negative - follow-up not required G8427 Current medications documented 1036F Tobacco screening was negative - non user G8419 BMI outside of normal parameters - no follow-up plan/reason not given G8783 Blood pressure within normal parameters - no follow-up required 1006F Osteoarthritis symptoms and functional status assessed 1100F Fallen more than twice or injured themselves from a fall documented 3288F Falls risk assessment documented 0518F Falls plan of care documented [facility]-[id number] Patient Encounter Medications Administered No information available. [...]
== END ==
PROVIDERS: Family Provider Internal Medicine; PCP Internal Medicine; Referring Provider Internal Medicine; Visit Provider Internal Medicine
DX: Z12.31 Encounter for screening mammogram for malignant neoplasm of breast (principal)
CPT/HCPCS: 77063; 77067

== ENCOUNTER → 2018-12-08 11:12 | Outpatient (CLI) | payer MEDICARE, SELFPAY ==
[2018-12-08 14:17] LABS: Hematocrit 41.4 % (37-47); Hemoglobin 14.1 g/dl (12.0-15.0); Mean Corp Hgb Conc 34.1 g/gl (32-36); Mean Corpuscular Hgb 34.2 pg (27.0-32.0); Mean Corpuscular Volume 100.5 fL (81-99); Mean Platelet Vol. 11.4 fl (6.2-12.0); Platelet Count 191 K/mm3 (150-450); RBC Distribution Width CV 13.1 % (11.6-14.6); RBC Distribution Width SD 49.3 fl (35.1-43.9); Red Blood Count 4.12 M/mm3 (4.2-5.4); White Blood Count 4.2 K/mm3 (4.4-11.0)
[2018-12-08 14:21] LABS: Scan Indicated on CBC? Y/N NO
[2018-12-08 14:28] LABS: Vitamin D,25 Hydroxy 47.8 ng/mL (29.95-100.01)
[2018-12-08 14:36] LABS: ALB/GLOB Ratio 1.1 RATIO (0.9-2.4); AST(SGOT) 19 U/L (15-37); Alanine Aminotransfer ALT/SGPT 33 U/L (13-56); Alkaline Phosphatase 62 U/L (45-117); Anion Gap 10 (5-15); BUN 20 mg/dL (7-18); BUN/Creat Ratio 22.8 RATIO (10-20); Calcium,Total 9.2 mg/dL (8.5-10.1); Chloride 110 mmol/L (98-107); Cholesterol 218 mg/dL (200); Creatinine, Serum 0.88 mg/dL (0.55-1.02); EST Glomerular Filtration Rate 68 mL/min (>60); Est Glom Filt Rate - Afr Amer 82 mL/min (>60); Globulin 3.5 g/dL (2.2-4.2); Glucose 85 mg/dL (74-106); High Density Lipoprotein 63 mg/dL; Potassium 3.8 mmol/L (3.5-5.1); Protein, Total 7.5 g/dL (6.4-8.2); Sodium Level 145 mmol/L (136-145); Triglycerides 116 mg/dL; Very Low Density Lipoprotein 23 mg/dL (5-40)
== END ==
PROVIDERS: Family Provider Internal Medicine; PCP Internal Medicine; Referring Provider Internal Medicine; Visit Provider Internal Medicine
DX: I10 Essential (primary) hypertension (principal); E78.2 Mixed hyperlipidemia; E55.9 Vitamin D deficiency, unspecified; Z79.899 Other long term (current) drug therapy
CPT/HCPCS: 36415; 80053; 80061; 82306; 85027

== ENCOUNTER → 2018-12-24 10:58 | Outpatient (CLI) | payer MEDICARE, SELFPAY ==
--- NOTE | 2018-12-24 11:04 | CT_ITS ---
STUDY: CT ABDOMEN AND PELVIS WITH CONTRAST REASON FOR EXAM: Female, 68 years old. Pelvic mass on physical exam RADIATION DOSAGE (If Supplied By Facility): CTDIvol = ( 15.15 ) mGy, DLP = ( 873.05 ) mGycm TECHNIQUE: Transaxial images were obtained from the dome of the diaphragm to the symphysis pubis with oral contrast. 100ml ml of Isovue 300 contrast was administered. Sagittal and coronal images were reconstructed. Individualized dose optimization techniques were used for this CT. COMPARISON: None. FINDINGS: There is elevation of the right hemidiaphragm with overlying atelectasis. The visualized portions of the heart and pericardium are within normal limits. There are no calcified gallstones present. The liver is within normal limits. There are no suspicious hepatic lesions. The spleen is normal in size. The pancreas is within normal limits. The adrenal glands are within normal limits. There are no renal or ureteral stones. There is no hydronephrosis. There are no focal renal lesions. Normal visualized stomach. There is no bowel obstruction or inflammation. There is a large amount of stool in the colon, consistent with constipation. The patient is status post appendectomy. The uterus is prominent which may be due to fibroids. There is no abnormal soft tissue mass identified in the pelvis. The aorta is normal in caliber. There is no abdominal or pelvic free air, free fluid, fluid collection or lymphadenopathy. There are no destructive osseous lesions. CT/Abdomen/Pelvis WITH Contrast IMPRESSION: Prominent uterus for patient's age. This may be due to fibroids. If indicated, further evaluation with ultrasound can be performed. No abnormal soft tissue mass identified in the pelvis. No bowel obstruction or inflammation. Constipation. Elevation of the right hemidiaphragm with overlying atelectasis. Electronically Signed: Bear Grossman, at 14:26 EDT Tel , Service support ,
== END ==
PROVIDERS: Family Provider Internal Medicine; PCP Internal Medicine; Referring Provider Clinical Nurse Specialist; Visit Provider Clinical Nurse Specialist
DX: R19.00 Intra-abdominal and pelvic swelling, mass and lump, unspecified site (principal); R10.32 Left lower quadrant pain
CPT/HCPCS: 74177; Q9967

== ENCOUNTER → 2019-07-11 11:49 | Outpatient (CLI) | payer MEDICARE, SELFPAY ==
[2019-07-11 14:10] LABS: BUN 24 mg/dL (7-18); BUN/Creat Ratio 25.8 RATIO (10-20); Creatinine, Serum 0.93 mg/dL (0.55-1.30); Glucose 81 mg/dL (74-106)
[2019-07-11 14:11] LABS: Anion Gap 3 (5-15); Calcium,Total 9.3 mg/dL (8.5-10.1); Chloride 110 mmol/L (98-107); Cholesterol 237 mg/dL (200); Hemoglobin A1c 5.1 % (4.2-6.3); High Density Lipoprotein 62 mg/dL; Potassium 3.8 mmol/L (3.5-5.1); Sodium Level 140 mmol/L (136-145); Triglycerides 176 mg/dL; Very Low Density Lipoprotein 35 mg/dL (5-40)
== END ==
PROVIDERS: Family Provider Internal Medicine; PCP Internal Medicine; Referring Provider Internal Medicine; Visit Provider Internal Medicine
DX: R10.32 Left lower quadrant pain (principal); R19.00 Intra-abdominal and pelvic swelling, mass and lump, unspecified site; I10 Essential (primary) hypertension; E78.2 Mixed hyperlipidemia; Z79.899 Other long term (current) drug therapy
CPT/HCPCS: 36415; 80048; 80061; 83036

== ENCOUNTER → 2019-08-02 10:04 | Outpatient (CLI) | payer MEDICARE, SELFPAY ==
--- NOTE | 2019-08-02 10:06 | BI_ITS ---
MAMMOGRAPHY - BILATERAL SCREENING REASON FOR EXAM: Female, 69 years old. Routine annual screening examination. PERTINENT HISTORY: Non-contributory. TECHNIQUE: Digital bilateral breast christian (3D mammographic acquisition) in the CC and MLO projections. 2-D mediolateral oblique (MLO) and craniocaudad (CC) views of both breasts were obtained. CAD: Full Field Digital Mammography with Computer Added Detection was performed. COMPARISON: Comparison is made with prior examination dated July 30, 2018 and June 23, 2017. FINDINGS: Breast Composition: There are scattered areas of fibroglandular density. There are no dominant masses or suspicious calcifications. A tissue clip marker is once again seen in the upper lateral portion of the left breast. Stable 5 mm well-defined nodule in the superior retroareolar region of the left breast. Stable benign-appearing bilateral axillary lymph nodes. No other significant abnormalities are identified. There has been no significant change since the prior study. BI/SCREEN MAMM (CAD) W/CHRISTIAN BILAT IMPRESSION: Stable bilateral screening mammogram. Yearly follow-up mammogram recommended. (A) ASSESSMENT CATEGORY: BIRADS Category 2: Benign. A letter regarding these results will be sent to the patient by the facility within 30 days. Approximately 10% of breast cancers are not detected by mammography. A normal mammogram should not delay biopsy of a clinically suspicious abnormality. [id number] Electronically Signed: Mario Moura, at 11:17 EST , Service support ,
== END ==
PROVIDERS: Family Provider Internal Medicine; PCP Internal Medicine; Referring Provider Internal Medicine; Visit Provider Internal Medicine
DX: Z12.31 Encounter for screening mammogram for malignant neoplasm of breast (principal)
CPT/HCPCS: 77063; 77067

== ENCOUNTER 2020-05-21 02:04 | Observation (INO) | payer MEDICARE, SELFPAY ==
[2020-05-21 02:06] VITALS: BP 175/66; PULSE 73; RESP 14; TEMP 36.7; O2SAT 99; BMI 33.5
--- NOTE | 2020-05-21 02:15 | CT_ITS ---
STUDY: CT ABDOMEN AND PELVIS WITHOUT CONTRAST REASON FOR EXAM: Female, 70 years old. LT SIDED ABDOMEN PAIN,SIMILAR RECENT EPISODES -- HX:HLD,HTN,KIDNEY STONES WITH LITHOTRIPSY -- SURG:APPENDECTOMY, X 3 RADIATION DOSAGE (If Supplied By Facility): CTDIvol = ( 8.70 ) mGy, DLP = ( 469.50 ) mGycm TECHNIQUE: Transaxial images were obtained from the dome of the diaphragm to the symphysis pubis without oral contrast, and without intravenous contrast. Sagittal and coronal images were reconstructed. Individualized dose optimization techniques were used for this CT. COMPARISON: None. FINDINGS: Mild right basilar atelectasis. Borderline cardiomegaly with coronary artery calcifications. Normal liver. Normal gallbladder and extrahepatic biliary system. Normal spleen. Normal pancreas. Normal bilateral adrenal glands. Normal right kidney. Normal left kidney. Normal visualized stomach. Multiple loops of small bowel slightly distended within the distal portion with foamy debris which may indicate mild obstruction versus ileus. Size in diameter of distal ileal loops are for early small bowel obstruction not entirely excluded. Increased fecal debris within the colon suggestive of constipation. Surgical sutures at the level of the cecum with nonvisualized appendix suggestive of previous appendectomy. There is diffuse atherosclerotic calcification of the abdominal aorta, without a demonstrated aneurysm. Normal inferior vena cava. Normal retroperitoneum. Normal urinary bladder. The uterus is retroflexed. Normal abdominal wall. There are diffuse degenerative changes of the visualized lumbar spine. CT/Abdomen/Pelvis without Cont IMPRESSION: No obstruction versus small bowel ileus versus distal small bowel obstruction not entirely excluded. Clinical correlation recommended. Unremarkable abdominal viscera. Electronically Signed: Mallory Santiago MD at 2:57 EST , Service support ,
[2020-05-21] MEDS: Ondansetron 4 MG/2 ML Vial IV (02:22)
[2020-05-21] MEDS: Morphine 4 MG/ML Syringe IV (02:23)
[2020-05-21 02:27] LABS: Absolute Lymphocyte Count 2.26 X10^3/uL (0.83-4.51); Absolute Neutrophil Count 3.3 X10^3/uL (2.0-7.7); Basophil# 0.05 X10^3/uL; Basophil% 0.8 % (0-1); Eosinophil# 0.35 X10^3/uL; Eosinophils% 5.4 % (0-5); Hematocrit 43.1 % (37-47); Hemoglobin 14.1 g/dL (12.0-15.0); Lymphocyte # 2.26 X10^3/ul (4.0); Mean Corp Hgb Conc 32.7 g/dL (32-36); Mean Corpuscular Volume 106.9 fL (81-99); Monocyte# 0.47 X10^3/uL; Monocyte% 7.3 % (0-10); NRBC Flagged by Analyzer 0 % (0-5); Neutrophil # 3.31 X10^3/uL (2.7-7.7); Neutrophil % 51.3 % (47-70); Platelet Count 180 K/mm3 (150-450); RBC Distribution Width CV 12.9 % (11.6-14.6); RBC Distribution Width SD 50.9 fl (35.1-43.9); Red Blood Count 4.03 M/mm3 (4.2-5.4); White Blood Count 6.5 K/mm3 (4.4-11.0)
[2020-05-21 02:48] LABS: ALB/GLOB Ratio 1.1 RATIO (0.9-2.4); AST(SGOT) 24 U/L (15-37); Alanine Aminotransfer ALT/SGPT 36 U/L (13-56); Albumin, Serum 4.1 g/dL (3.2-5.0); Alkaline Phosphatase 66 U/L (45-117); Anion Gap 8 (5-15); BUN 22 mg/dL (7-18); BUN/Creat Ratio 25.5 RATIO (10-20); Calcium,Total 9.4 mg/dL (8.5-10.1); Chloride 107 mmol/L (98-107); Creatinine, Serum 0.86 mg/dL (0.55-1.02); EST Glomerular Filtration Rate 69 mL/min (>60); Est Glom Filt Rate - Afr Amer 83 mL/min (>60); Estimated Creatinine Clearance 44.62 ml/min; Globulin 3.6 g/dL (2.2-4.2); Glucose 104 mg/dL (74-106); Lipase 143 U/L (73-393); Protein, Total 7.7 g/dL (6.4-8.2); Sodium Level 141 mmol/L (136-145)
[2020-05-21 03:23] LABS: Bacteria 0 SEEN /hpf (None Seen); Mucous, Urine 0 SEEN /hpf (<or=2+); Red Blood Cells-Urine 0 SEEN /hpf (0-5); White Blood Cells 0 SEEN /hpf (0-5)
[2020-05-21 03:27] LABS: Color, Urine Yellow (Yellow); Glucose, Dipstick Normal (Normal); Ketone-Dipstick Negative (Negative); Leukocyte Esterase-Dipstick Negative /ul (Negative); Nitrite-Dipstick Negative (Negative); Occult Blood-Urine Negative /ul (Negative); Protein-Dipstick Negative (Negative); Urine Bilirubin Dipstick Negative (Negative); Urine Clarity Clear (Clear); Urine Urobilinogen Normal (Normal)
[2020-05-21 03:32] LABS: Squamous Epithelial Cells - UA 0-5 SEEN /hpf (5-10)
--- NOTE | 2020-05-21 03:42 | ED.DCSUM_ITS ---
- ER Visit Summary Date of Service: 05/21/20 Chief Complaint: Abdominal pain History of Present Illness: The patient is a 70 F with abdominal pain that started this evening. This is in her left lower quadrant. She has had this intermittently over the last several days. The pain is 10 out of 10. Does not radiate. Associated with constipation. History of C-sections and appendectomy. Physical Examination: Hypertensive but otherwise vitals unremarkable. Patient appears very uncomfortable. Heart regular. Lungs clear. Left lower quadrant tender to palpation without guarding or rebound. No distention. Normal bowel sounds. Skin appears normal without jaundice or pallor. Lower extremities unremarkable. Patient is alert and oriented, tearful. Test Results: CBC normal. CMP and lipase unremarkable. Urinalysis normal. CT of her abdomen and pelvis showed a mild obstruction versus ileus pattern with constipation. Emergency Department Course and Treatment: Patient treated with morphine, Zofran, IV fluids. Laboratory studies and urinalysis were unremarkable. CT did show mild obstruction versus ileus pattern. Because of her severe symptoms and her findings on CT, will contact the hospitalist for further care. At this point there is no indication for surgery. Treatment Plan: As above Disposition: Admission Impression: Abdominal pain, ileus This note was generated with [employer] dictation software. It may contain incorrect words, spelling, and punctuation that were not noted in review of the chart prior to signing ED Disposition - Plan for ED Patient: Referrals: Chandni Smith MD [Primary Care Provider] -
[2020-05-21 04:13] VITALS: BP 142/79; PULSE 74; RESP 16; TEMP 36.6; O2SAT 100
[2020-05-21 04:16] VITALS: BP 142/79
--- NOTE | 2020-05-21 04:27 | PCM.HP.STD ---
Problem List (1) Ileus Status: Acute (2) Hyperlipidemia Status: Chronic (3) Hypertension Status: Chronic History of Present Illness Date of Admission: 05/21/20 Chief Complaint: abdominal pain The patient is a 70 year old F with a significant history of hypertension; and depression who presents emergency department with sudden onset left lower quadrant pain that started when she was getting ready to sleep for the night. Her symptoms occurred night of 05/20/2020 to [employer] house [employer] 05/21/2020. She describes her pain as sharp and excruciating. She denies any ameliorating or aggravating factors to the pain. She denies any nausea or vomiting. In the last 24 hours she had 2 soft bowel movements. She reported her left lower quadrant abdominal pain has been going on for about 15 years but in the last 2 to 3 months it has worsened. Past Medical History Past Medical History (Chronic Problems): Chronic Problems Hypertension (Chronic) Hyperlipidemia (Chronic) Allergies No Known Allergies Allergy (Verified 05/21/20 02:04) Home Medications: Ambulatory Orders Medication Instructions Recorded Amlodipine [Norvasc] 5 mg PO DAILY 08/01/14 Nortriptyline HCl [Pamelor] 75 mg PO QHS 08/01/14 Atenolol 25 mg PO BID 05/21/20 Biotin 10,000 mcg PO DAILY 05/21/20 Calcium Phosphate Dibas/Vit D3 1 ea PO DAILY 05/21/20 [Vitamin C4-Ixntztg-Dghl Tablet] Melatonin 30 mg PO QHS 05/21/20 Multivitamin with Minerals 1 ea PO DAILY 05/21/20 [Multiple Vitamin] Psyllium Husk/Aspartame [Metamucil 283 gm PO BID 05/21/20 Sugar-Free Powder] Surgical History: - - Appendectomy, x3 Smoking Status: Former smoker Alcohol: Occasional - *Family History Maternal History Items: Cancer Paternal History Items: Stroke Review of Systems Constitutional: Denies: Chills, Fever, Weight Change HEENT: Denies: Head Aches, Sinus Congestion, Sinus Drainage Cardiovascular: Denies: Chest Pain, Palpitations Respiratory: Denies: Cough, Shortness of breath at rest, Sputum production Gastrointestinal: Reports: Abdominal Pain. Denies: Nausea, Vomiting Genitourinary: Denies: Dysuria Musculoskeletal: Denies: Joint Pain, Joint Tenderness Skin: Denies: Rash, Wounds Neurological: Denies: Numbness, Tingling, Focal weakness Psychiatric: Denies: Anxiety, Depression, Homicidal Ideations, Suicidal Ideations Hematologic/ Lymphatic: Denies: Easy Bruising, Easy Bleeding VTE Information - Inpt Only VTE Present on Admission: No VTE Mechan Device Prophylaxis: SCD's VTE Pharm Prophylaxis ordered?: No Patient Problems: Active and Suspected Problems Ileus (Acute) - Physical Exam Vitals/I&O's: Vital Signs Temp Pulse Resp BP Pulse Ox 98 F 74 16 142/79 H 100 05/21/20 04:13 05/21/20 04:13 05/21/20 04:13 05/21/20 04:16 05/21/20 04:13 Oxygen Delivery Method Room Air Weight: 80.5 kg Body Mass Index (BMI) 33.5 General: Alert, Oriented x3, Cooperative HEENT: Atraumatic, PERRLA, EOMI, Normocephalic Neck: Supple, No JVD, Negative Carotid Bruits Lungs: Clear to auscultation, Normal air movement Cardiovascular: Regular rate, No murmurs Abdomen: Bowel Sounds Present, Soft, Non Tender Extremities: No edema, Capillary Refill Less than 3 Seconds Skin: No rashes, No breakdown Musculoskeletal: No Tenderness to Palpation of Joints or Extremities Neurological: Cranial nerves II-XII grossly intact Psych/Mental Status: Normal Affect, Appropriate Laboratory Results 05/21/20 02:18: WBC 6.5, RBC 4.03 L, Hgb 14.1, Hct 43.1, MCV 106.9 H, MCH 35.0 H, MCHC 32.7, RDW Std Deviation 50.9 H, RDW Coeff of Dena 12.9, Plt Count 180, MPV 10.0, Immature Gran % (Auto) 0.200, Neut % (Auto) 51.3, Lymph % (Auto) 35.0, [place] % (Auto) 7.3, Eos % (Auto) 5.4 H, Baso % (Auto) 0.8, Absolute Neuts (auto) 3.3, Absolute Lymphs (auto) 2.26, Nucleated RBC % 0 05/21/20 02:18: Sodium 141, Potassium 4.0, Chloride 107, Carbon Dioxide 26.0, Anion Gap 8, BUN 22 H, Creatinine 0.86, Estim Creat Clear Calc 44.62, Est GFR (MDRD) Af Amer 83, Est GFR (MDRD) Non-Af 69, BUN/Creatinine Ratio 25.5 H, Glucose 104, Calcium 9.4, Total Bilirubin 0.50, AST 24, ALT 36, Alkaline Phosphatase 66, Total Protein 7.7, Albumin 4.1, Globulin 3.6, Albumin/Globulin Ratio 1.1, Lipase 143 05/21/20 03:10: Urine Color Yellow, Urine Clarity Clear, Urine pH 7.0, Ur Specific [place] 1.010, Urine Protein Negative, Urine Glucose (UA) Normal, Urine Ketones Negative, Urine Occult Blood Negative, Urine Nitrite Negative, Urine Bilirubin Negative, Urine Urobilinogen Normal, Ur Leukocyte Esterase Negative, Urine RBC 0 SEEN, Urine WBC 0 SEEN, Ur Squamous Epith Cells 0-5 SEEN, Urine Bacteria 0 SEEN, Urine Mucus 0 SEEN Assessment/Plan All Active Problems Ileus (Acute) Ileus Abdominal/pelvis CT of small bowel ileus versus distal small bowel obstruction not entirely excluded. Received morphine IV at emergency department. Morphine IV as needed ordered. Antiemetics IV as needed ordered. We will keep n.p.o. except medications with sips. Hold aspirin for now. General surgery consult. Hypertension Blood pressure was elevated on presentation. Likely pain contributing Atenolol and amlodipine continued As needed hydralazine ordered. Depression Yaima continued Insomnia Melatonin nightly continued. DVT Prophylaxis: SCD ordered while we follow the clinical course of her ileus. Miscellaneous: Patient has a follow-up appointment with her private wealth advisor at [place] and she is hoping to honor that appointment. Reportedly the appointment is for medications review. OBSV E&M: [id number] Initial observation care L2
[2020-05-21 04:35] VITALS: BMI 31.0
[2020-05-21 04:44] VITALS: BP 138/72; PULSE 67; RESP 16; TEMP 36.8; O2SAT 100
[2020-05-21 04:46] VITALS: BMI 31.0
[2020-05-21] MEDS: Lactated Ringers 1,000 ML 75 ML IV (05:18)
[2020-05-21] MEDS: 0.9% Saline Lock 10 ML Syringe IV (05:19)
--- NOTE | 2020-05-21 07:31 | CON.PCM_ITS ---
Problem List (1) Constipation Status: Acute Qualifiers: Constipation type: unspecified constipation type Qualified Code(s): K59.00 - Constipation, unspecified Reason for Consult Date of Consultation: 05/21/20 History of Present Illness: The patient is a 70 year old F who presented with abdominal pain yesterday. The patient reports that last night around midnight she started having extreme left lower quadrant pain. She has been having intermittent left lower quadrant pain for about a year. She reports her last colonoscopy was 1 year ago. She says it was normal. She says she has daily bowel movements and they are soft. Patient is not having any nausea or vomiting and this morning she is not having any pain. Past Medical History Past Medical History (Chronic Problems): Chronic Problems Hypertension (Chronic) Hyperlipidemia (Chronic) Allergies No Known Allergies Allergy (Verified 05/21/20 02:04) Home Medications: Ambulatory Orders Medication Instructions Recorded Amlodipine [Norvasc] 5 mg PO DAILY 08/01/14 Nortriptyline HCl [Pamelor] 75 mg PO QHS 08/01/14 Atenolol 25 mg PO BID 05/21/20 Biotin 10,000 mcg PO DAILY 05/21/20 Calcium Phosphate Dibas/Vit D3 1 ea PO DAILY 05/21/20 [Vitamin P4-Fkxdxto-Zwsl Tablet] Melatonin 30 mg PO QHS 05/21/20 Multivitamin with Minerals 1 ea PO DAILY 05/21/20 [Multiple Vitamin] Psyllium Husk/Aspartame [Metamucil 283 gm PO BID 05/21/20 Sugar-Free Powder] Surgical History: - - Appendectomy, x3 Smoking Status: Former smoker Alcohol: Occasional - *Family History Paternal History Items: Stroke Maternal History Items: Cancer Review of Systems Constitutional: Denies: Anorexia, Fever HEENT: Denies: Difficulty Swallowing Cardiovascular: Denies: Chest Pain Respiratory: Denies: Cough Gastrointestinal: Reports: Abdominal Pain. Denies: Diarrhea, Nausea, Vomiting Genitourinary: Denies: Dysuria Musculoskeletal: Denies: Joint Tenderness Neurological: Denies: Blurred vision Psychiatric: Denies: Anxiety, Depression Endocrine: Denies: Change in Body Habitus Hematologic/ Lymphatic: Denies: Adenopathy Patient Problems: Active and Suspected Problems Ileus (Acute) - Physical Exam Vitals/I&O's: Vital Signs Temp Pulse Resp BP Pulse Ox 98.2 F 67 16 138/72 H 100 05/21/20 04:44 05/21/20 04:44 05/21/20 04:44 05/21/20 04:44 05/21/20 04:44 Oxygen Delivery Method Room Air Weight: 164 lb 3.91 oz Body Mass Index (BMI) 31.0 Intake and Output for Last 24 Hours 05/19/20 05/20/20 05/21/20 23:59 23:59 23:59 Intake Total 500 / 500 Balance 500 / 500 General: Alert, Oriented x3 Neck: No JVD Lungs: Normal air movement Cardiovascular: Regular rate, Regular Rhythm Abdomen: Soft, Non Tender, Non-Distended Laboratory Results 05/21/20 02:18: WBC 6.5, RBC 4.03 L, Hgb 14.1, Hct 43.1, MCV 106.9 H, MCH 35.0 H , MCHC 32.7, RDW Std Deviation 50.9 H, RDW Coeff of Dena 12.9, Plt Count 180, MPV 10.0, Immature Gran % (Auto) 0.200, Neut % (Auto) 51.3, Lymph % (Auto) 35.0, [place] % (Auto) 7.3, Eos % (Auto) 5.4 H, Baso % (Auto) 0.8, Absolute Neuts (auto) 3.3, Absolute Lymphs (auto) 2.26, Nucleated RBC % 0 05/21/20 02:18: Sodium 141, Potassium 4.0, Chloride 107, Carbon Dioxide 26.0, Anion Gap 8, BUN 22 H, Creatinine 0.86, Estim Creat Clear Calc 44.62, Est GFR (MDRD) Af Amer 83, Est GFR (MDRD) Non-Af 69, BUN/Creatinine Ratio 25.5 H, Glucose 104, Calcium 9.4, Total Bilirubin 0.50, AST 24, ALT 36, Alkaline Phosphatase 66, Total Protein 7.7, Albumin 4.1, Globulin 3.6, Albumin/Globulin Ratio 1.1, Lipase 143 05/21/20 03:10: Urine Color Yellow, Urine Clarity Clear, Urine pH 7.0, Ur Specific [place] 1.010, Urine Protein Negative, Urine Glucose (UA) Normal, Urine Ketones Negative, Urine Occult Blood Negative, Urine Nitrite Negative, Urine Bilirubin Negative, Urine Urobilinogen Normal, Ur Leukocyte Esterase Negative, Urine RBC 0 SEEN, Urine WBC 0 SEEN, Ur Squamous Epith Cells 0-5 SEEN, Urine Bacteria 0 SEEN, Urine Mucus 0 SEEN Current Medications Amlodipine Besylate (Amlodipine 5 Mg Tablet) 5 mg PO DAILY [facility] Atenolol (Atenolol 25 Mg Tablet) 25 mg PO BID [facility] Bisacodyl (Bisacodyl 10 Mg Suppository) 10 mg RECTAL X1 ONE Stop: 05/21/20 07:27 Hydralazine HCl (Hydralazine 20 Mg/Ml Vial) 10 mg IV Q4H PRN PRN PRN Reason: SBP > 160 OR DBP > 120 Lactated Ringer's () 1,000 mls @ 75 mls/hr IV .[id number] [facility] Last Admin: 05/21/20 05:18 Dose: 75 mls/hr Documented by: Magnesium Citrate (Magnesium Citrate 300 Ml) 300 ml PO X1 ONE Stop: 05/21/20 07:27 Melatonin (Melatonin 10 Mg Tablet) 20 mg PO QHS [facility] Morphine Sulfate (Morphine 2 Mg/Ml Syringe) 2 mg IV Q3H PRN PRN PRN Reason: Pain Score 6-10 Nortriptyline HCl (Nortriptyline 25 Mg Capsule) 75 mg PO QHS [facility] Ondansetron HCl (Ondansetron 4 Mg/2 Ml Vial) 4 mg IV Q8H PRN PRN PRN Reason: NAUSEA/VOMITING Sodium Chloride (0.9% Saline Lock 10 Ml Syringe) 10 - 40 ml IV UD PRN PRN Reason: SALINE FLUSH Last Admin: 05/21/20 05:19 Dose: 10 ml Documented by: Assessment/Plan All Active Problems Ileus (Acute) Constipation (Acute) 70-year-old female with left lower quadrant pain 1. The patient had a CT scan which showed a large amount of stool in the colon. She has not had a bowel movement since CT scan. She reports had a bowel movement yesterday and she has been having daily bowel movements but she reports that she has not had much water intake over the last few days. I believe the pain might be related to constipation as there is a large amount of stool in the colon and no appreciable small bowel dilation. There is some mild dilation of the distal small bowel but this may be due to the constipation backing up stool. 2. I will start patient on clear liquid diet and order her magnesium citrate as well as Dulcolax suppository and see if this helps relieve the issue. The patient also be started on Colace and may need to go home on Colace. At this time there is no surgical indication. Niko Correia MD Pager: [facility] [address] [place] [address], [address] [place] [address] Office:
[2020-05-21] MEDS: Bisacodyl 10 MG Suppository RECTAL (07:54)
[2020-05-21] MEDS: Magnesium Citrate 300 ML PO (07:55)
[2020-05-21 08:02] VITALS: BP 115/62; PULSE 66; RESP 18; TEMP 37.1; O2SAT 98
--- NOTE | 2020-05-21 08:46 | PCM.PN.HOSP ---
Patient Problems: Active and Suspected Problems Ileus (Acute) Constipation (Acute) Reason for Visit: Abdominal pain secondary to obstipation Subjective: Patient is a 70-year-old lady who presented with abdominal pain CT of the abdomen was treated large amount of stool in the colon admitted to regular nursing floor for further management Objective: GENERAL: cooperative HEENT: Atraumatic; EYES; Anicteric, Normal Conjunctiva NECK; supple, normal thyroid, RESPIRATORY: Diminished to auscultation CARDIOVASCULAR: Regular S1 S2, GI: soft, normoactive bowel sounds, : No Renal angle tenderness; EXTREMITIES: No edema, no clubbing, MUSCULOSKELETAL: no muscle waisting NEURO: Awake; no lateralizing signs. SKIN: No Rash PSYCH; Flat affect Vitals/I&O's: Vital Signs Temp Pulse Resp BP Pulse Ox 98.8 F 66 18 115/62 98 05/21/20 08:02 05/21/20 08:02 05/21/20 08:02 05/21/20 08:02 05/21/20 08:02 Oxygen Delivery Method Room Air Weight: 74.5 kg Body Mass Index (BMI) 31.0 Intake and Output for Last 24 Hours 05/19/20 05/20/20 05/21/20 23:59 23:59 23:59 Intake Total 500 / 500 Balance 500 / 500 Laboratory Results 05/21/20 02:18: WBC 6.5, RBC 4.03 L, Hgb 14.1, Hct 43.1, MCV 106.9 H, MCH 35.0 H, MCHC 32.7, RDW Std Deviation 50.9 H, RDW Coeff of Dena 12.9, Plt Count 180, MPV 10.0, Immature Gran % (Auto) 0.200, Neut % (Auto) 51.3, Lymph % (Auto) 35.0, [place] % (Auto) 7.3, Eos % (Auto) 5.4 H, Baso % (Auto) 0.8, Absolute Neuts (auto) 3.3, Absolute Lymphs (auto) 2.26, Nucleated RBC % 0 05/21/20 02:18: Sodium 141, Potassium 4.0, Chloride 107, Carbon Dioxide 26.0, Anion Gap 8, BUN 22 H, Creatinine 0.86, Estim Creat Clear Calc 44.62, Est GFR (MDRD) Af Amer 83, Est GFR (MDRD) Non-Af 69, BUN/Creatinine Ratio 25.5 H, Glucose 104, Calcium 9.4, Total Bilirubin 0.50, AST 24, ALT 36, Alkaline Phosphatase 66, Total Protein 7.7, Albumin 4.1, Globulin 3.6, Albumin/Globulin Ratio 1.1, Lipase 143 05/21/20 03:10: Urine Color Yellow, Urine Clarity Clear, Urine pH 7.0, Ur Specific [place] 1.010, Urine Protein Negative, Urine Glucose (UA) Normal, Urine Ketones Negative, Urine Occult Blood Negative, Urine Nitrite Negative, Urine Bilirubin Negative, Urine Urobilinogen Normal, Ur Leukocyte Esterase Negative, Urine RBC 0 SEEN, Urine WBC 0 SEEN, Ur Squamous Epith Cells 0-5 SEEN, Urine Bacteria 0 SEEN, Urine Mucus 0 SEEN Current Medications Amlodipine Besylate (Amlodipine 5 Mg Tablet) 5 mg PO DAILY [facility] Atenolol (Atenolol 25 Mg Tablet) 25 mg PO BID [facility] Docusate Sodium (Docusate Sodium 100 Mg Capsule) 100 mg PO BID [facility] Hydralazine HCl (Hydralazine 20 Mg/Ml Vial) 10 mg IV Q4H PRN PRN PRN Reason: SBP > 160 OR DBP > 120 Lactated Ringer's () 1,000 mls @ 75 mls/hr IV .[id number] [facility] Last Admin: 05/21/20 05:18 Dose: 75 mls/hr Documented by: Melatonin (Melatonin 10 Mg Tablet) 20 mg PO QHS [facility] Morphine Sulfate (Morphine 2 Mg/Ml Syringe) 2 mg IV Q3H PRN PRN PRN Reason: Pain Score 6-10 Nortriptyline HCl (Nortriptyline 25 Mg Capsule) 75 mg PO QHS [facility] Ondansetron HCl (Ondansetron 4 Mg/2 Ml Vial) 4 mg IV Q8H PRN PRN PRN Reason: NAUSEA/VOMITING Sodium Chloride (0.9% Saline Lock 10 Ml Syringe) 10 - 40 ml IV UD PRN PRN Reason: SALINE FLUSH Last Admin: 05/21/20 05:19 Dose: 10 ml Documented by: STROKE Vital Signs/Narrative: Vital Signs Temp Pulse Resp BP Pulse Ox 05/21/20 08:02 98.8 F 66 18 115/62 98 Medical Necessity - Tobacco Use Smoking Status: Former smoker Assessment/Plan All Active Problems Ileus (Acute) Constipation (Acute) Patient is a 70-year-old lady who presented with abdominal pain CT of the abdomen was treated large amount of stool in the colon admitted to regular nursing floor for further management 1. Abdominal pain ?Secondary to obstipation ?Admitted to regular nursing floor for symptomatic treatment with consultation placed to general surgery 2. Hypertension - Blood pressure controlled, home medications continued with dose adjustment as needed 3. Depression ?On SSRI did continue 4. Insomnia patient is on melatonin at night 5. DVT prophylaxis ?SCDs Clinical Impression(s) from Imaging Studies Abdomen/Pelvis CT 05/21/20 02:15 IMPRESSION: No obstruction versus small bowel ileus versus distal small bowel obstruction not entirely excluded. Clinical correlation recommended. Unremarkable abdominal viscera. Electronically Signed: Mallory Santiago MD at 2:57 EST , Service support , OBSV E&M: [id number] Subsequent observation care L2
[2020-05-21] MEDS: Docusate Sodium 100 MG Capsule PO (10:13)
[2020-05-21] MEDS: Atenolol 25 MG Tablet PO (10:13)
--- NOTE | 2020-05-21 12:28 | DCINST_ITS ---
- Discharge Diagnoses Current Active Problems: Current Active and Chronic Problems Ileus (Acute) Constipation (Acute) Hypertension (Chronic) Hyperlipidemia (Chronic) You will use the following diet at home:: No restrictions Discharge Activity: Return to Normal Activity Allergies/Adverse Reactions: Allergies No Known Allergies Allergy (Verified 05/21/20 02:04) Medications to take at Discharge Amlodipine [Norvasc] 5 mg PO DAILY 08/01/14 Nortriptyline HCl [Pamelor] 75 mg PO QHS 08/01/14 Atenolol 25 mg PO BID 05/21/20 Biotin 10,000 mcg PO DAILY 05/21/20 Calcium Phosphate Dibas/Vit D3 [Vitamin T4-Tpvfzup-Fire Tablet] 1 ea PO DAILY 05/21/20 Docusate Sodium [Colace] 100 mg PO BID #120 cap 05/21/20 Melatonin 30 mg PO QHS 05/21/20 Multivitamin with Minerals [Multiple Vitamin] 1 ea PO DAILY 05/21/20 Psyllium Husk/Aspartame [Metamucil Sugar-Free Powder] 283 gm PO BID 05/21/20 The following prescriptions were given: Docusate Sodium [Colace] 100 mg PO BID #120 cap Transmission Status: Pending to [id number] Primary Care Physician: Chandni Smith MD [Primary Care Provider] - Please follow up with your Primary Care Physician in: in 1-2 weeks Test Results: Test results from this visit will be discussed in further detail at your follow- up appointment, if applicable. Proposed Discharge Date: 05/21/20
--- NOTE | 2020-05-21 12:30 | PCM.DC.SUM ---
Discharge Date and Diagnosis - Problem List Patient Problems: Active and Suspected Problems Ileus (Acute) Constipation (Acute) Date of Admission: 05/21/20 Date of Discharge: 05/21/20 - Primary Discharge Diagnosis Acute Problems: Active Problems Ileus (Acute) Constipation (Acute) - Secondary Discharge Diagnosis Chronic Problems: Chronic Problems Hypertension (Chronic) Hyperlipidemia (Chronic) Hospital Course and Treatment Imaging Results: Clinical Impression(s) from Imaging Studies Abdomen/Pelvis CT 05/21/20 02:15 IMPRESSION: No obstruction versus small bowel ileus versus distal small bowel obstruction not entirely excluded. Clinical correlation recommended. Unremarkable abdominal viscera. Electronically Signed: Mallory Santiago MD at 2:57 EST , Service support , Summary of Care Provided: Patient is a 70-year-old lady who presented with abdominal pain CT of the abdomen was treated large amount of stool in the colon admitted to regular nursing floor for further management 1. Abdominal pain ?Secondary to obstipation ?Admitted to regular nursing floor for symptomatic treatment with consultation placed to general surgery -Patient did respond to conservative management and she did request to be discharged once she had a bowel movement. Prescription was written for Colace and a milligram p.o. twice daily on discharge 2. Hypertension - Blood pressure controlled, home medications continued with dose adjustment as needed 3. Depression ?On SSRI did continue 4. Insomnia patient is on melatonin at night 5. DVT prophylaxis ?SCDs Patient Problems: Active and Suspected Problems Ileus (Acute) Constipation (Acute) Objective: GENERAL: cooperative HEENT: Atraumatic; EYES; Anicteric, Normal Conjunctiva NECK; supple, normal thyroid, RESPIRATORY: Diminished to auscultation CARDIOVASCULAR: Regular S1 S2, GI: soft, normoactive bowel sounds, : No Renal angle tenderness; EXTREMITIES: No edema, no clubbing, MUSCULOSKELETAL: no muscle waisting NEURO: Awake; no lateralizing signs. SKIN: No Rash PSYCH; Flat affect - Physical Exam Vitals/I&O's: Vital Signs Temp Pulse Resp BP Pulse Ox 98.8 F 66 18 115/62 98 05/21/20 08:02 05/21/20 08:02 05/21/20 08:02 05/21/20 08:02 05/21/20 08:02 Oxygen Delivery Method Room Air Weight: 74.5 kg Body Mass Index (BMI) 31.0 Intake and Output for Last 24 Hours 05/19/20 05/20/20 05/21/20 23:59 23:59 23:59 Intake Total 500 / 500 Balance 500 / 500 Laboratory Results 05/21/20 02:18: WBC 6.5, RBC 4.03 L, Hgb 14.1, Hct 43.1, MCV 106.9 H, MCH 35.0 H, MCHC 32.7, RDW Std Deviation 50.9 H, RDW Coeff of Dena 12.9, Plt Count 180, MPV 10.0, Immature Gran % (Auto) 0.200, Neut % (Auto) 51.3, Lymph % (Auto) 35.0, [place] % (Auto) 7.3, Eos % (Auto) 5.4 H, Baso % (Auto) 0.8, Absolute Neuts (auto) 3.3, Absolute Lymphs (auto) 2.26, Nucleated RBC % 0 05/21/20 02:18: Sodium 141, Potassium 4.0, Chloride 107, Carbon Dioxide 26.0, Anion Gap 8, BUN 22 H, Creatinine 0.86, Estim Creat Clear Calc 44.62, Est GFR (MDRD) Af Amer 83, Est GFR (MDRD) Non-Af 69, BUN/Creatinine Ratio 25.5 H, Glucose 104, Calcium 9.4, Total Bilirubin 0.50, AST 24, ALT 36, Alkaline Phosphatase 66, Total Protein 7.7, Albumin 4.1, Globulin 3.6, Albumin/Globulin Ratio 1.1, Lipase 143 05/21/20 03:10: Urine Color Yellow, Urine Clarity Clear, Urine pH 7.0, Ur Specific [place] 1.010, Urine Protein Negative, Urine Glucose (UA) Normal, Urine Ketones Negative, Urine Occult Blood Negative, Urine Nitrite Negative, Urine Bilirubin Negative, Urine Urobilinogen Normal, Ur Leukocyte Esterase Negative, Urine RBC 0 SEEN, Urine WBC 0 SEEN, Ur Squamous Epith Cells 0-5 SEEN, Urine Bacteria 0 SEEN, Urine Mucus 0 SEEN Current Medications Amlodipine Besylate (Amlodipine 5 Mg Tablet) 5 mg PO DAILY [facility] Last Admin: 05/21/20 10:16 Dose: Not Given Documented by: Atenolol (Atenolol 25 Mg Tablet) 25 mg PO BID [facility] Last Admin: 05/21/20 10:13 Dose: 25 mg Documented by: Docusate Sodium (Docusate Sodium 100 Mg Capsule) 100 mg PO BID [facility] Last Admin: 05/21/20 10:13 Dose: 100 mg Documented by: Hydralazine HCl (Hydralazine 20 Mg/Ml Vial) 10 mg IV Q4H PRN PRN PRN Reason: SBP > 160 OR DBP > 120 Lactated Ringer's () 1,000 mls @ 75 mls/hr IV .[id number] [facility] Last Admin: 05/21/20 05:18 Dose: 75 mls/hr Documented by: Melatonin (Melatonin 10 Mg Tablet) 20 mg PO QHS [facility] Morphine Sulfate (Morphine 2 Mg/Ml Syringe) 2 mg IV Q3H PRN PRN PRN Reason: Pain Score 6-10 Nortriptyline HCl (Nortriptyline 25 Mg Capsule) 75 mg PO QHS [facility] Ondansetron HCl (Ondansetron 4 Mg/2 Ml Vial) 4 mg IV Q8H PRN PRN PRN Reason: NAUSEA/VOMITING Sodium Chloride (0.9% Saline Lock 10 Ml Syringe) 10 - 40 ml IV UD PRN PRN Reason: SALINE FLUSH Last Admin: 05/21/20 05:19 Dose: 10 ml Documented by: Discharge Diet: No Restrictions Discharge Activity: Return to Normal Activity Home Medications: Medications to take at Discharge Amlodipine [Norvasc] 5 mg PO DAILY 08/01/14 Nortriptyline HCl [Pamelor] 75 mg PO QHS 08/01/14 Atenolol 25 mg PO BID 05/21/20 Biotin 10,000 mcg PO DAILY 05/21/20 Calcium Phosphate Dibas/Vit D3 [Vitamin I6-Bxzbbie-Ktwr Tablet] 1 ea PO DAILY 05/21/20 Docusate Sodium [Colace] 100 mg PO BID #120 cap 05/21/20 Melatonin 30 mg PO QHS 05/21/20 Multivitamin with Minerals [Multiple Vitamin] 1 ea PO DAILY 05/21/20 Psyllium Husk/Aspartame [Metamucil Sugar-Free Powder] 283 gm PO BID 05/21/20 Following Prescriptions Were Given to Patient: Docusate Sodium [Colace] 100 mg PO BID #120 cap Transmission Status: Pending to [id number] Primary Care Physician: Chandni Smith MD [Primary Care Provider] - Please follow up with your Primary Care Physician in: in 1-2 weeks Disposition: Home Minutes spent on discharge:: 35 Patient Condition:: Stable Medical Necessity - Tobacco Use Smoking Status: Former smoker Meaningful Use Info Meaningful Use Diagnoses (Choose all that apply): None applicable OBSV E&M: 97909 Observation care discharge
[2020-05-21 13:03] VITALS: BP 117/66; PULSE 67; RESP 18; TEMP 36.8; O2SAT 99
== END 2020-05-21 13:09 | disposition home or self-care (01) ==
LOC: ED 03:28 → MS3 04:22
PROVIDERS: Admitting Provider Hospitalist; Emergency Provider Emergency Medicine; PCP Internal Medicine; Visit Provider Internal Medicine
DX: K56.7 Ileus, unspecified (principal); I10 Essential (primary) hypertension; E78.5 Hyperlipidemia, unspecified; Z79.899 Other long term (current) drug therapy; F32.9 Major depressive disorder, single episode, unspecified; Z87.891 Personal history of nicotine dependence; G47.00 Insomnia, unspecified
CPT/HCPCS: 74176; 80053; 81001; 83690; 85025; 96361; 96374; 96375; 99218; 99284; J7040; J7120; A4216; G0378; J2405

== ENCOUNTER 2020-05-22 21:33 | Emergency (ER) | payer MEDICARE, SELFPAY ==
[2020-05-21 04:35] VITALS: BMI 31.0
[2020-05-22 21:34] VITALS: BP 173/94; PULSE 71; RESP 16; TEMP 36.3; O2SAT 100; BMI 32.1
--- NOTE | 2020-05-22 21:52 | CT_ITS ---
STUDY: CT ABDOMEN AND PELVIS WITH CONTRAST REASON FOR EXAM: Female, 70 years old. LLQ PAIN,CONSTIPATION,SEEN FOR SAME YESTERDAY -- HX:HLD,HTN,KIDNEY STONES WITH LITHOTRIPSY -- SURGERY:3 C-SECTIONS,APPENDECTOMY RADIATION DOSAGE (If Supplied By Facility): CTDIvol = ( 14.88 ) mGy, DLP = ( 1077.46 ) mGycm TECHNIQUE: Transaxial images were obtained from the dome of the diaphragm to the symphysis pubis without oral contrast. Oral and amp; IV Gastrografin and amp; 100mL Isovue-370 was administered. Sagittal and coronal images were reconstructed. Individualized dose optimization techniques were used for this CT. COMPARISON: 05/21/2020. FINDINGS: The visualized lung bases are unremarkable. The visualized portions of the heart are within normal limits. Normal liver. Normal gallbladder and extrahepatic biliary system. Normal spleen. Normal pancreas. Normal bilateral adrenal glands. Multiple small low-attenuation structures within the right kidney, largest seen within the lower pole and measuring 5 mm, too small to be characterize and statistically consistent with cysts. Otherwise normal right kidney. Small low-attenuation structure within the lower pole of the left kidney measuring 7 mm, too small to characterize and statistically consistent with a cyst. Otherwise normal left kidney. Normal visualized stomach. Few loops of small bowel mildly distended within the right abdomen, cannot exclude mild ileus. Increased fecal debris within the colon suggestive of constipation. There are surgical clips in the region of the appendix consistent with a prior appendectomy. Mild diverticulosis with no signs of diverticulitis. There is diffuse atherosclerotic calcification of the abdominal aorta, without a demonstrated aneurysm. Normal inferior vena cava. Normal retroperitoneum. Normal urinary bladder. Retroflexed uterus with calcification suggestive of sequela of calcified uterine fibroid. Normal abdominal wall. There are diffuse degenerative changes of the visualized lumbar spine. CT/Abdomen/Pelvis WITH Contrast IMPRESSION: Constipation. No focal inflammatory process rather gastrointestinal tract. No bowel obstruction. Small bilateral renal cysts, remainder of abdominal viscera are unremarkable. Electronically Signed: Mallory Santiago MD at 0:21 EST , Service support ,
--- NOTE | 2020-05-22 21:54 | ED.DCSUM_ITS ---
- ER Visit Summary Date of Service: 05/22/20 Chief Complaint: Abdominal pain History of Present Illness: The patient is a 70 F who presents with abdominal pain that became worse again today. Patient states she was seen here recently and was admitted to the hospital for observation. Patient states that she was feeling better after she had a bowel movement. Patient states that at that time they discharged her home. Patient states her pain came back today. Patient states she tried an zedb-kel-fzceoej enema. Patient states she had a moderate sized bowel movement but her pain has been persistent. Patient describes the pain as sharp and aching. Patient states the pain is over the left lower quadra nt. Patient states nothing makes the pain better or worse. Patient denies any nausea or vomiting. Patient denies any melena or hematochezia. Patient denies any dysuria or hematuria. Physical Examination: Vital signs are stable. Patient is afebrile. Patient is in no acute distress. Oral mucosa is pink and moist. Neck is supple. Trachea is midline. There is no JVD. Heart was regular rate and rhythm. Lungs are clear and equal bilaterally. Abdomen is soft. Bowel sounds are slightly hypoactive. There is left lower quadrant tenderness. There is some voluntary guarding noted. There is questionable rebound. Cranial nerves II through XII are intact. There are no focal motor or sensory deficits noted. Extremities are intact. There is no calf tenderness or edema. Test Results: CBC and comprehensive metabolic profile were obtained were within normal limits. Lipase was normal. Urinalysis does not show any evidence of urinary tract infection. CT scan of the abdomen and pelvis with oral and IV contrast was ordered. Emergency Department Course and Treatment: Patient was given IV fluids, Zofran, morphine, and Bentyl. Disposition: Care of the patient was turned over to the oncoming physician pending CT scanning of the abdomen pelvis. Impression: 1. Left lower quadrant abdominal pain This note was generated with [employer] dictation software. It may contain incorrect words, spelling, and punctuation that were not noted in review of the chart prior to signing ED Disposition - Plan for ED Patient: Referrals: Chandni Smith MD [Primary Care Provider] -
[2020-05-22] MEDS: Ondansetron 4 MG/2 ML Vial IV (22:00)
[2020-05-22] MEDS: Dicyclomine 20 MG/2 ML Vial IM (22:00)
[2020-05-22] MEDS: 0.9% Normal Saline 1,000 ML 1000 ML IV (22:00)
[2020-05-22] MEDS: Morphine 4 MG/ML Syringe IV (22:00)
[2020-05-22 22:13] LABS: Absolute Lymphocyte Count 2.04 X10^3/uL (0.83-4.51); Basophil# 0.04 X10^3/uL; Basophil% 0.6 % (0-1); Eosinophil# 0.21 X10^3/uL; Eosinophils% 3.1 % (0-5); Hematocrit 45.2 % (37-47); Hemoglobin 14.7 g/dL (12.0-15.0); Lymphocyte # 2.04 X10^3/ul (4.0); Lymphocyte % 29.9 % (19-41); Mean Corp Hgb Conc 32.5 g/dL (32-36); Mean Corpuscular Hgb 34.8 pg (27.0-32.0); Mean Corpuscular Volume 107.1 fL (81-99); Mean Platelet Vol. 10.4 fl (6.2-12.0); Monocyte# 0.49 X10^3/uL; Monocyte% 7.2 % (0-10); NRBC Flagged by Analyzer 0 % (0-5); Neutrophil # 4.04 X10^3/uL (2.7-7.7); Neutrophil % 59.1 % (47-70); Platelet Count 211 K/mm3 (150-450); RBC Distribution Width SD 51.5 fl (35.1-43.9); Red Blood Count 4.22 M/mm3 (4.2-5.4); White Blood Count 6.8 K/mm3 (4.4-11.0)
[2020-05-22 22:29] LABS: ALB/GLOB Ratio 1.3 RATIO (0.9-2.4); AST(SGOT) 24 U/L (15-37); Alanine Aminotransfer ALT/SGPT 37 U/L (13-56); Albumin, Serum 4.6 g/dL (3.2-5.0); Alkaline Phosphatase 70 U/L (45-117); Anion Gap 4 (5-15); BUN 21 mg/dL (7-18); BUN/Creat Ratio 20.8 RATIO (10-20); Calcium,Total 9.9 mg/dL (8.5-10.1); Chloride 105 mmol/L (98-107); Creatinine, Serum 1.01 mg/dL (0.55-1.02); EST Glomerular Filtration Rate 57 mL/min (>60); Est Glom Filt Rate - Afr Amer 69 mL/min (>60); Estimated Creatinine Clearance 37.99 ml/min; Globulin 3.6 g/dL (2.2-4.2); Glucose 107 mg/dL (74-106); Lipase 135 U/L (73-393); Potassium 4.4 mmol/L (3.5-5.1); Protein, Total 8.2 g/dL (6.4-8.2); Sodium Level 139 mmol/L (136-145)
[2020-05-22 22:37] VITALS: BP 153/73; PULSE 78; RESP 16; TEMP 36.3; O2SAT 98
[2020-05-22 22:48] LABS: Bacteria 0 SEEN /hpf (None Seen); Mucous, Urine 0 SEEN /hpf (<or=2+); Red Blood Cells-Urine 0 SEEN /hpf (0-5); White Blood Cells 0 SEEN /hpf (0-5)
[2020-05-22 22:51] LABS: Color, Urine Yellow (Yellow); Glucose, Dipstick Normal (Normal); Ketone-Dipstick Negative (Negative); Leukocyte Esterase-Dipstick Negative /ul (Negative); Nitrite-Dipstick Negative (Negative); Occult Blood-Urine Negative /ul (Negative); Protein-Dipstick Negative (Negative); Urine Bilirubin Dipstick Negative (Negative); Urine Clarity Sl. Cloudy (Clear); Urine Urobilinogen Normal (Normal)
[2020-05-22 23:01] LABS: Squamous Epithelial Cells - UA 0-5 SEEN /hpf (5-10)
--- NOTE | 2020-05-23 02:10 | DCINST.ED_ITS ---
ED Disposition - Plan for ED Patient: Disposition: Home or Assisted Living Diagnosis: LLQ abdominal pain, Constipation Instructions: ED Constipation Referrals: Chandni Smith MD [Primary Care Provider] - 3-5 Days if not improving Additional Instructions: In the morning, drink half the bottle of magnesium citrate. Make sure you drink plenty of water along with it. In at least 5 or 6 hours, it hopefully will r esult in a good bowel movement. If you do not have one after 24 hours, repeat with the other half of the bottle. In addition to this, take at least 1 capful of MiraLAX once daily in addition to plenty of water/beverage. Trying an occasional enema once or twice daily along with these treatments may also help you to get your colon cleaned out. Follow-up with your doctor.
[2020-05-23] MEDS: Magnesium Citrate 300 ML PO (02:27)
[2020-05-23 02:32] VITALS: BP 140/79; PULSE 90; RESP 18
== END 2020-05-23 02:32 | disposition home or self-care (01) ==
PROVIDERS: Emergency Provider Emergency Medicine; PCP Internal Medicine
DX: K59.00 Constipation, unspecified (principal); R10.32 Left lower quadrant pain; Z79.899 Other long term (current) drug therapy; Z87.11 Personal history of peptic ulcer disease
CPT/HCPCS: 74177; 80053; 81001; 83690; 85025; 96361; 96372; 96374; 96375; 99284; J7030; Q9967; A4216; J2405

== ENCOUNTER 2020-06-26 12:24 | Inpatient (IN) | payer MEDICARE, SELFPAY ==
[2020-06-26 12:26] VITALS: BP 142/79; PULSE 84; RESP 16; TEMP 37; O2SAT 100; BMI 32.1
--- NOTE | 2020-06-26 12:42 | CT_ITS ---
STUDY: CT ABDOMEN AND PELVIS WITHOUT CONTRAST REASON FOR EXAM: Female, 70 years old. ABD PAIN, IMPACTION, ILEUS, PREV APPY, X 3 RADIATION DOSAGE (If Supplied By Facility): CTDIvol = ( 10.10 ) mGy, DLP = ( 573.37 ) mGycm TECHNIQUE: Transaxial images were obtained from the dome of the diaphragm to the symphysis pubis without oral contrast, and without intravenous contrast. Sagittal and coronal images were reconstructed. Individualized dose optimization techniques were used for this CT. COMPARISON: Comparison is made with prior examination dated 05/22/2020. FINDINGS: Calcified right hilar lymph node. Coronary artery calcification. Normal liver. Questionable tiny gallstone in the neck of the gallbladder. Normal spleen. Normal pancreas. Normal bilateral adrenal glands. Normal right kidney. 1.2 cm cyst in the medial lower pole of the left kidney. Normal visualized stomach. There are dilated loops of the small intestine with a non-distended colon consistent with a small bowel obstruction. The transition point appears to be in the distal ileum. Normal colon. There are surgical clips in the region of the appendix consistent with a prior appendectomy. There is diffuse atherosclerotic calcification of the abdominal aorta, without a demonstrated aneurysm. Normal inferior vena cava. Normal retroperitoneum. Normal urinary bladder. Normal abdominal wall. There are degenerative changes of the visualized lumbar spine. Mild dextroscoliosis. CT/Abdomen/Pel W ORAL Cont Only IMPRESSION: Findings in keeping with a small bowel obstruction with the transition point in the distal portion of the ileum. Possible tiny gallstone in the neck of the gallbladder. Electronically Signed: Mario Moura, at 14:45 EST , Service support ,
[2020-06-26 13:10] LABS: Absolute Neutrophil Count 9.7 X10^3/uL (2.0-7.7); Basophil# 0.02 X10^3/uL; Basophil% 0.2 % (0-1); Hematocrit 50.3 % (37-47); Hemoglobin 17.1 g/dL (12.0-15.0); Lymphocyte % 6.4 % (19-41); Mean Corpuscular Hgb 35.1 pg (27.0-32.0); Mean Corpuscular Volume 103.3 fL (81-99); Mean Platelet Vol. 10.5 fl (6.2-12.0); Monocyte# 0.58 X10^3/uL; Monocyte% 5.3 % (0-10); NRBC Flagged by Analyzer 0 % (0-5); Neutrophil % 87.9 % (47-70); Platelet Count 242 K/mm3 (150-450); RBC Distribution Width SD 49.9 fl (35.1-43.9); Red Blood Count 4.87 M/mm3 (4.2-5.4)
[2020-06-26 13:23] LABS: ALB/GLOB Ratio 1.2 RATIO (0.9-2.4); AST(SGOT) 22 U/L (15-37); Alanine Aminotransfer ALT/SGPT 29 U/L (13-56); Albumin, Serum 4.8 g/dL (3.2-5.0); Alkaline Phosphatase 79 U/L (45-117); Anion Gap 14 (5-15); BUN 38 mg/dL (7-18); BUN/Creat Ratio 17.6 RATIO (10-20); Calcium,Total 11.1 mg/dL (8.5-10.1); Chloride 98 mmol/L (98-107); Creatinine, Serum 2.16 mg/dL (0.55-1.02); EST Glomerular Filtration Rate 24 mL/min (>60); Est Glom Filt Rate - Afr Amer 29 mL/min (>60); Estimated Creatinine Clearance 17.77 ml/min; Glucose 161 mg/dL (74-106); Lipase 109 U/L (73-393); Protein, Total 8.8 g/dL (6.4-8.2); Sodium Level 141 mmol/L (136-145)
[2020-06-26] MEDS: 0.9% Normal Saline 1,000 ML 125 ML IV ×2 (13:31→18:20)
[2020-06-26] MEDS: Ondansetron 4 MG/2 ML Vial IV (13:31)
[2020-06-26] MEDS: Morphine 4 MG/ML Syringe IV (13:31)
--- NOTE | 2020-06-26 15:01 | ED.DCSUM_ITS ---
- ER Visit Summary Date of Service: 06/26/20 Chief Complaint: [Abdominal pain] History of Present Illness: The patient is a 70 F [presents to the emergency department complaint of abdominal pain that started yesterday. Patient's had multiple episodes of vomiting. She had a small bowel movement this morning that was soft. Patient states that she has had similar pains in the past and last month apparently had 2 CAT scans of the abdomen and pelvis that she states showed impaction. Patient denies any fever. She denies any blood in her stool or black tarry stools. She denies urinary symptoms. Patient has history of hypertension and high cholesterol. Patient's had prior appendectomy.] Physical Examination: [HEENT-PERRLA, EOMI. Cranial nerves II through XII grossly intact. TMs clear. Mucous membranes moist. No adenopathy. Cardiovascular-regular rate and rhythm without murmur or ectopy Lungs-clear to auscultation, chest wall stable without crepitus or subcu emphysema Abdomen-normoactive bowel sounds, soft. Patient has diffuse tenderness palpation but seems to localize somewhat to the left lower quadrant with some guarding. No rebound rigidity or peritoneal signs noted. Extremities-intact ?4, normal range of motion, normal pulses, atraumatic] Test Results: [CBC with differential showed a white count 11.0, hemoglobin 17, hematocrit 50, placed 242. Chemistries unremarkable. BUN was 38 and creatinine 2.16. LFTs were normal. Lipase was 109. CT scan of the abdomen pelvis with p.o. contrast showed a small bowel obstruction with transition point in the distal ileum. Patient also had small gallstones noted.] Emergency Department Course and Treatment: [IV line established on arrival. Patient was medicated morphine and Zofran. After CT interpretation patient had an NG tube placed to low intermittent suction. I discussed case with hospitalist who asked that we consult the surgeon and admit to general surgery.] I spoke with who will admit patient to the hospital. Treatment Plan: [Admit] Disposition: [Admit] Impression: [Small bowel obstruction Acute kidney injury] This note was generated with [employer] dictation software. It may contain incorrect words, spelling, and punctuation that were not noted in review of the chart prior to signing ED Disposition - Plan for ED Patient: Referrals: Chandni Smith MD [Primary Care Provider] -
[2020-06-26 15:21] VITALS: BMI 32.1
--- NOTE | 2020-06-26 15:44 | RAD_ITS ---
STUDY: X-RAY - ABDOMEN/PELVIS REASON FOR EXAM: Female, 70 years old. NG placement TECHNIQUE: Frontal view COMPARISON: None. FINDINGS: Elevated right hemidiaphragm with basilar atelectasis. Mildly distended small bowel loops are noted in the upper abdomen with small air-fluid levels possibly due to a developing obstruction. There is no demonstrated free abdominal air. A nasogastric tube is noted with tip in the stomach. Normal soft tissue structures. Degenerative vertebral changes. RAD/Abdomen Single View (Portable) IMPRESSION: Possible small bowel obstruction. Nasogastric tube in the stomach. Electronically Signed: Lucio Madrigal DO at 16:15 EST Tel [phone], Service support ,
[2020-06-26 15:54] VITALS: BP 127/60; PULSE 79; RESP 16; TEMP 36.6; O2SAT 100
[2020-06-26 16:27] VITALS: BMI 32.1
[2020-06-26 16:30] VITALS: BP 148/66; PULSE 74; RESP 16; TEMP 36.7; O2SAT 98
--- NOTE | 2020-06-26 16:30 | PCS.PANDOC ---
PANDEMIC DOCUMENTATION INITIATED: Date: 06/26/2020 Time: 2665
[2020-06-26 16:42] LABS: Lactic Acid 5.2 mmol/L (0.4-1.9)
[2020-06-26] MEDS: 0.9% Normal Saline 1,000 ML 999 ML IV ×2 (16:44→18:20)
--- NOTE | 2020-06-26 17:17 | HP.PCM_ITS ---
History of Present Illness Date of Admission: 06/26/20 The patient is a 70 year old F presents to the ER due to abdominal pain nausea and vomiting. Patient states she started to have left mid abdomen abdominal pain about 1145 yesterday and just continued to get worse. Patient did have nausea and vomiting with this. Patient was previously admitted for hospitalization on May 21 CT scan at that time was reported constipation with extensive amount of stool throughout the colon. Patient did take get several enemas as well as magnesium citrate. Thus when she had the pain today she did try to take some MiraLAX with prune juice x3 also a bottle of magnesium citrate and an enema and only had a very small bowel movement with this. Previously patient was having bowel movements every day but she was also taking Colace as well as 200 magnesium citrate tablets twice daily as well. Patient states that she did start having this left lower quadrant pain for about 5 or 6 years but has gotten worse over time. Since May patient states she has had 7 attacks she has the pain at a 10/10 and will subside after about 5 to 7 hours she is not previously had nausea and vomiting with these. Patient had colonoscopy a couple years ago by Dr. Cisneros negative per patient her mom did have colon cancer metastatic diagnosed early 70s. Patient does get colonoscopies every [address] abdomen pelvis on admit to the ER shows diffusely dilated small bowel and gastric body, colon is decompressed called a small bowel obstruction likely transition the distal ileum per report. Upon looking at the CT there is noted to be incarcerated loop of bowel in the left spigelian hernia. This was reduced at bedside. Going back and looking at previous CTs from s and this began hernia was also there but there was only a small amount of fat. Past Medical History Past Medical History (Chronic Problems): Chronic Problems Hypertension (Chronic) Hyperlipidemia (Chronic) Allergies No Known Allergies Allergy (Verified 06/26/20 12:27) Home Medications: Ambulatory Orders Medication Instructions Recorded Nortriptyline HCl [Pamelor] 75 mg PO QHS 08/01/14 Atenolol 25 mg PO BID 05/21/20 Biotin 10,000 mcg PO DAILY 05/21/20 Calcium Phosphate Dibas/Vit D3 1 ea PO DAILY 05/21/20 [Vitamin P8-Chrykyj-Ngwt Tablet] Docusate Sodium [Colace] 100 mg PO BID #120 cap 05/21/20 Melatonin 30 mg PO QHS 05/21/20 Multivitamin with Minerals 1 ea PO DAILY 05/21/20 [Multiple Vitamin] Psyllium Husk/Aspartame [Metamucil 283 gm PO BID 05/21/20 Sugar-Free Powder] Amlodipine [Norvasc] 5 mg PO DAILY 06/26/20 Surgical History: - - Appendectomy, x3 Smoking Status: Never smoker Tobacco Use: Cigarettes - *Family History Paternal History Items: Stroke Maternal History Items: Cancer Review of Systems Constitutional: Reports: Anorexia VTE Information - Inpt Only VTE Present on Admission: Yes VTE Mechan Device Prophylaxis: SCD's - Physical Exam Vitals/I&O's: Vital Signs Temp Pulse Resp BP Pulse Ox 98.1 F 74 16 148/66 H 98 06/26/20 16:30 06/26/20 16:30 06/26/20 16:30 06/26/20 16:30 06/26/20 16:30 Oxygen Delivery Method Room Air Weight: 170 lb 1.6 oz Body Mass Index (BMI) 32.1 General: Alert, Oriented x3, Cooperative, No apparent distress HEENT: Atraumatic Lungs: Normal air movement Cardiovascular: Regular rate Abdomen: Soft, Non Tender, Tender, Hernia - To be a bulge in the left mid quadrant, this was able to be reduced at bedside with IV pain meds patient's pain was improved afterwards. Extremities: No clubbing, No cyanosis, No edema Neurological: Cranial nerves II-XII grossly intact Psych/Mental Status: Normal Affect Laboratory Results 06/26/20 12:56: WBC 11.0, RBC 4.87, Hgb 17.1 H, Hct 50.3 H, MCV 103.3 H, MCH 35.1 H, MCHC 34.0, RDW Std Deviation 49.9 H, RDW Coeff of Dena 13.0, Plt Count 242, MPV 10.5, Immature Gran % (Auto) 0.200, Neut % (Auto) 87.9 H, Lymph % (Auto) 6.4 L, Bent % (Auto) 5.3, Eos % (Auto) 0.0, Baso % (Auto) 0.2, Absolute Neuts (auto) 9.7 H, Absolute Lymphs (auto) 0.70 L, Nucleated RBC % 0 06/26/20 12:56: Sodium 141, Potassium 4.0, Chloride 98, Carbon Dioxide 29.0, Anion Gap 14, BUN 38 H, Creatinine 2.16 H, Estim Creat Clear Calc 17.77, Est GFR (MDRD) Af Amer 29 L, Est GFR (MDRD) Non-Af 24 L, BUN/Creatinine Ratio 17.6, Glucose 161 H, Calcium 11.1 H, Total Bilirubin 0.90, AST 22, ALT 29, Alkaline Phosphatase 79, Total Protein 8.8 H, Albumin 4.8, Globulin 4.0, Albumin/Globulin Ratio 1.2, Lipase 109 06/26/20 13:19: Lactic Acid Cancelled 06/26/20 14:00: Lactic Acid Cancelled 06/26/20 14:34: Lactic Acid 5.2 H* Current Medications Amlodipine Besylate (Amlodipine 5 Mg Tablet) 5 mg PO DAILY [facility] Atenolol (Atenolol 25 Mg Tablet) 25 mg PO BID [facility] Sodium Chloride () 1,000 mls @ 125 mls/hr IV .Q8H [facility] Last Admin: 06/26/20 13:31 Dose: 125 mls/hr Documented by: Sodium Chloride () 1,000 mls @ 999 mls/hr IV .Q1H1M [facility] Stop: 06/26/20 17:45 Pantoprazole Sodium 40 mg/ (Sodium Chloride) 110 mls @ 330 mls/hr IV X1 ONE Stop: 06/26/20 17:49 Morphine Sulfate (Morphine 2 Mg/Ml Syringe) 2 - 4 mg IV Q2H PRN PRN PRN Reason: Pain Score 1-10 Non-Formulary Medication (Melatonin) 30 mg PO QHS [facility] Nortriptyline HCl (Nortriptyline 25 Mg Capsule) 75 mg PO QHS [facility] Ondansetron HCl (Ondansetron 4 Mg/2 Ml Vial) 4 mg IV Q8H PRN PRN PRN Reason: NAUSEA Sodium Chloride (0.9% Saline Lock 10 Ml Syringe) 10 - 40 ml IV UD PRN PRN Reason: SALINE FLUSH Throat Lozenges (Benzocaine/Menthol 1 Lozenge) 1 lozenge MUCOUS MEM Q2H PRN PRN PRN Reason: dry mouth Assessment/Plan All Active Problems Ileus (Acute) Constipation (Acute) 70-year-old female with a left spigelian hernia causing small bowel obstruction 1. Left spigelian hernia was reduced at bedside. Patient's pain at that area has improved. Will nurses notify if that pain does recur throughout the night. Patient did start having multiple episodes of diarrhea after hernia was reduced, NG was removed. 2. We will plan for exploratory laparoscopic, repair of left spigelian hernia, possible mesh, possible open, possible small bowel resection tomorrow. Discussed procedure with the patient and her daughter including risk not limited to bleeding, infection, injury to another organ, and anesthesia. They have no further questions this time. 3. Acute kidney injury likely due to dehydration nausea and vomiting. Patient did receive IV fluids we will recheck labs in the morning. Franci Zaragoza M.D. Pager: [phone] [facility] [address] [place] [address] [address] [place] [address] Office: [phone] Procedure Criteria Procedure Type: Elective COVID Risk Discussion: The surgeon/proceduralist and patient have discussed in detail the risk of exposure to and/or potential harm posed by the COVID-19 virus with having a surgery/procedure at this time versus the risk of delaying the s urgery/procedure. It is not possible to know either the risk of delaying the surgery or procedure or chance of getting an infection with perfect accuracy, but a joint decision was made between the patient and the surgeon/proceduralist to proceed at this time with the scheduled surgery/procedure as indicated on the consent form.
[2020-06-26] MEDS: Morphine 2 MG/ML Syringe IV (18:19)
[2020-06-26 18:43] LABS: Reflex Lactate? Y
[2020-06-26 20:54] VITALS: BP 131/58; PULSE 79; RESP 16; TEMP 36.6; O2SAT 100
[2020-06-26] MEDS: Atenolol 25 MG Tablet PO (21:04)
[2020-06-26] MEDS: Nortriptyline 25 MG Capsule 75 MG PO (21:04)
--- NOTE | 2020-06-26 22:31 | NURSING ---
Covid 19 emergency charting in effect.
[2020-06-26 22:38] LABS: Bacteria 0 SEEN /hpf (None Seen); Mucous, Urine 0 SEEN /hpf (<or=2+); Red Blood Cells-Urine 0 SEEN /hpf (0-5)
[2020-06-26] MEDS: MELATONIN 10 MG TABLET 30 MG PO (22:50)
[2020-06-26 22:54] LABS: Color, Urine Yellow (Yellow); Glucose, Dipstick Normal (Normal); Ketone-Dipstick Negative (Negative); Leukocyte Esterase-Dipstick Negative /ul (Negative); Nitrite-Dipstick Negative (Negative); Occult Blood-Urine 10 /ul (Negative); Protein-Dipstick 30 mg/dl (Negative); Urine Bilirubin Dipstick Negative (Negative); Urine Clarity Clear (Clear); Urine Urobilinogen Normal (Normal)
[2020-06-26 23:05] LABS: Hyaline Cast 25-50 SEEN /lpf (0-5); Squamous Epithelial Cells - UA 0-5 SEEN /hpf (5-10); White Blood Cells 0-5 SEEN /hpf (0-5)
[2020-06-27] VITALS (12 sets, daily range): BP systolic 104–143; BP diastolic 50–71; PULSE 49–75; RESP 16–18; TEMP 36.3–36.8; O2SAT 91–99; BMI 31.6; BMI 32.1
[2020-06-27 04:56] LABS: Anion Gap 5 (5-15); BUN 35 mg/dL (7-18); BUN/Creat Ratio 33.3 RATIO (10-20); Chloride 108 mmol/L (98-107); Creatinine, Serum 1.05 mg/dL (0.55-1.02); EST Glomerular Filtration Rate 55 mL/min (>60); Est Glom Filt Rate - Afr Amer 67 mL/min (>60); Estimated Creatinine Clearance 36.55 ml/min; Glucose 104 mg/dL (74-106); Potassium 3.7 mmol/L (3.5-5.1); Sodium Level 141 mmol/L (136-145)
--- NOTE | 2020-06-27 05:00 | EKG12_ITS ---
Test Reason : PRE-OP Blood Pressure : / mmHG Vent. Rate : 074 BPM Atrial Rate : 074 BPM P-R Int : 186 ms QRS Dur : 088 ms QT Int : 394 ms P-R-T Axes : 040 029 004 degrees QTc Int : 437 ms Normal sinus rhythm with sinus arrhythmia Normal ECG When compared with ECG of 01-AUG-2014 15:43, Criteria for Inferior infarct are no longer Present Confirmed by RONNELL MCGRATH, NANCY ([id number]), metropolitan editor AMY NEVAREZ ([id number]) on 07/09/2020 9:37:59 AM Referred By: DR WALTERS Confirmed By:JOSE REYNAGA MD
[2020-06-27 05:20] LABS: Lactic Acid 1.1 mmol/L (0.4-1.9)
[2020-06-27 05:28] LABS: Absolute Lymphocyte Count 1.64 X10^3/uL (0.83-4.51); Absolute Neutrophil Count 6.2 X10^3/uL (2.0-7.7); Basophil# 0.03 X10^3/uL; Basophil% 0.3 % (0-1); Eosinophil# 0.14 X10^3/uL; Eosinophils% 1.6 % (0-5); Hematocrit 38.9 % (37-47); Hemoglobin 12.7 g/dL (12.0-15.0); Lymphocyte # 1.64 X10^3/ul (4.0); Lymphocyte % 18.9 % (19-41); Mean Corp Hgb Conc 32.6 g/dL (32-36); Mean Corpuscular Hgb 34.5 pg (27.0-32.0); Mean Corpuscular Volume 105.7 fL (81-99); Mean Platelet Vol. 10.3 fl (6.2-12.0); Monocyte# 0.65 X10^3/uL; Monocyte% 7.5 % (0-10); NRBC Flagged by Analyzer 0 % (0-5); Neutrophil % 71.5 % (47-70); Platelet Count 162 K/mm3 (150-450); RBC Distribution Width CV 13.3 % (11.6-14.6); Red Blood Count 3.68 M/mm3 (4.2-5.4); White Blood Count 8.7 K/mm3 (4.4-11.0)
--- NOTE | 2020-06-27 06:40 | PCM.PN.SRG ---
Subjective: Patient denies abdominal pain overnight did have multiple bowel movements after reducing the hernia NG was removed last night. - Physical Exam Vitals/I&O's: Vital Signs Temp Pulse Resp BP Pulse Ox 97.8 F 79 16 131/58 H 100 06/26/20 20:54 06/26/20 20:54 06/26/20 20:54 06/26/20 20:54 06/26/20 20:54 Oxygen Delivery Method Room Air Weight: 170 lb 1.6 oz Body Mass Index (BMI) 32.1 Intake and Output for Last 24 Hours 06/25/20 06/26/20 06/27/20 23:59 23:59 23:59 Intake Total 2712.08 / 2712.08 900 / 900 Output Total 250 / 250 Balance 2462.08 / 2462.08 900 / 900 General: Alert, Oriented x3, Cooperative, No apparent distress HEENT: Atraumatic Lungs: Clear to auscultation Cardiovascular: Regular rate Abdomen: Soft, Non Tender, Non-Distended Extremities: No clubbing, No cyanosis, No edema Microbiology Past 72 Hours 06/26/20 20:45 Mucosa - Nasopharyngeal SARS-CoV-2 Antigen (Rapid) - Final Laboratory Results 06/26/20 12:56: WBC 11.0, RBC 4.87, Hgb 17.1 H, Hct 50.3 H, MCV 103.3 H, MCH 35.1 H, MCHC 34.0, RDW Std Deviation 49.9 H, RDW Coeff of Dena 13.0, Plt Count 242, MPV 10.5, Immature Gran % (Auto) 0.200, Neut % (Auto) 87.9 H, Lymph % (Auto) 6.4 L, Becker % (Auto) 5.3, Eos % (Auto) 0.0, Baso % (Auto) 0.2, Absolute Neuts (auto) 9.7 H, Absolute Lymphs (auto) 0.70 L, Nucleated RBC % 0 06/26/20 12:56: Sodium 141, Potassium 4.0, Chloride 98, Carbon Dioxide 29.0, Anion Gap 14, BUN 38 H, Creatinine 2.16 H, Estim Creat Clear Calc 17.77, Est GFR (MDRD) Af Amer 29 L, Est GFR (MDRD) Non-Af 24 L, BUN/Creatinine Ratio 17.6, Glucose 161 H, Calcium 11.1 H, Total Bilirubin 0.90, AST 22, ALT 29, Alkaline Phosphatase 79, Total Protein 8.8 H, Albumin 4.8, Globulin 4.0, Albumin/Globulin Ratio 1.2, Lipase 109 06/26/20 13:19: Lactic Acid Cancelled 06/26/20 14:00: Lactic Acid Cancelled 06/26/20 14:34: Lactic Acid 5.2 H* 06/26/20 19:07: Lactic Acid 4.0 H* 06/26/20 22:28: Urine Color Yellow, Urine Clarity Clear, Urine pH 5.0, Ur Specific [place] 1.020, Urine Protein 30 H, Urine Glucose (UA) Normal, Urine Ketones Negative, Urine Occult Blood 10 H, Urine Nitrite Negative, Urine Bilirubin Negative, Urine Urobilinogen Normal, Ur Leukocyte Esterase Negative, Urine RBC 0 SEEN, Urine WBC 0-5 SEEN, Ur Squamous Epith Cells 0-5 SEEN, Urine Bacteria 0 SEEN, Hyaline Casts 25-50 SEEN, Urine Mucus 0 SEEN 06/27/20 03:30: WBC 8.7, RBC 3.68 L, Hgb 12.7, Hct 38.9, MCV 105.7 H, MCH 34.5 H, MCHC 32.6, RDW Std Deviation 52.0 H, RDW Coeff of Dena 13.3, Plt Count 162, MPV 10.3, Immature Gran % (Auto) 0.200, Neut % (Auto) 71.5 H, Lymph % (Auto) 18.9 L, Becker % (Auto) 7.5, Eos % (Auto) 1.6, Baso % (Auto) 0.3, Absolute Neuts (auto) 6.2, Absolute Lymphs (auto) 1.64, Nucleated RBC % 0 06/27/20 03:30: Sodium 141, Potassium 3.7, Chloride 108 H, Carbon Dioxide 28.0, Anion Gap 5, BUN 35 H, Creatinine 1.05 H, Estim Creat Clear Calc 36.55, Est GFR (MDRD) Af Amer 67, Est GFR (MDRD) Non-Af 55 L, BUN/Creatinine Ratio 33.3 H, Glucose 104, Calcium 8.0 L 06/27/20 03:30: Lactic Acid 1.1 Current Medications Amlodipine Besylate (Amlodipine 5 Mg Tablet) 5 mg PO DAILY FOR[facility]LY [facility], 1928[facility]1983 Atenolol (Atenolol 25 Mg Tablet) 25 mg PO BID FOR[facility]LY [facility], [facility]1983 Last Admin: 06/26/20 21:04 Dose: 25 mg Documented by: Sodium Chloride () 1,000 mls @ 125 mls/hr IV .Q8H FOR[facility], 1928–1983 Last Admin: 06/26/20 18:20 Dose: 125 mls/hr Documented by: Melatonin (Melatonin 10 Mg Tablet) 30 mg PO QHS [facility], [facility]1983 Last Admin: 06/26/20 22:50 Dose: 30 mg Documented by: Morphine Sulfate (Morphine 2 Mg/Ml Syringe) 2 - 4 mg IV Q2H PRN PRN PRN Reason: Pain Score 1-10 Last Admin: 06/26/20 18:19 Dose: 4 mg Documented by: Nortriptyline HCl (Nortriptyline 25 Mg Capsule) 75 mg PO QHS [facility], [facility]1983 Last Admin: 06/26/20 21:04 Dose: 75 mg Documented by: Ondansetron HCl (Ondansetron 4 Mg/2 Ml Vial) 4 mg IV Q8H PRN PRN PRN Reason: NAUSEA Sodium Chloride (0.9% Saline Lock 10 Ml Syringe) 10 - 40 ml IV UD PRN PRN Reason: SALINE FLUSH Throat Lozenges (Benzocaine/Menthol 1 Lozenge) 1 lozenge MUCOUS MEM Q2H PRN PRN PRN Reason: dry mouth Medical Necessity - Tobacco Use Smoking Status: Never smoker Tobacco Use: Cigarettes Assessment/Plan All Active Problems Ileus (Acute) Constipation (Acute) 70-year-old female with a left spigelian hernia causing small bowel obstruction?resolved 1. We will plan for exploratory laparoscopic, repair of left spigelian hernia, possible mesh, possible open, possible small bowel resection today. Patient had no further questions this time. Franci Zaragoza M.D. Pager: [phone] [facility] [address] [place] [address], [facility], [address] [place] [address] Office: [phone]
[2020-06-27] MEDS: 0.9% Normal Saline 1,000 ML 125 ML IV ×2 (06:46→16:06)
[2020-06-27] MEDS: Atenolol 25 MG Tablet PO (08:09)
--- NOTE | 2020-06-27 09:19 | NURSING ---
pt off unit at 0830 via bed
[2020-06-27] MEDS: Lactated Ringers 1,000 ML 75 ML IV ×3 (09:30→12:30)
--- NOTE | 2020-06-27 10:35 | HERN_PTH ---
PATIENT: ELIU MATAMOROS LOC: MS3 U#:[id number] AGE/SX: 70/F ROOM: ME322 RE06/27/[address]: Dr. Franci Zaragoza MD : [id number] BED: 1 DIS: 06/27/2020 SPEC #: [id number] RECD: 06/27/20 12:37 STATUS: BRIEN REAlejandro #: [id number] HAIDER: 06/27/20 10:[address]: Franci Zaragoza DEPT: SURGICAL PATHOLOGY RECD BY: Elyse Cunningham ENTERED: 06/27/20 13:41 SP TYPE: Hernia OTHR DR: Dr. Chandni Smith MD Tissues: HERNIA Procedures: Surgery Specimen Level II HEADER OPERATION: Exploratory laparoscopy, hernia repair PRE-OP DIAGNOSIS: Left Spigelian hernia causing small bowel obstruction TISSUE SUBMITTED: Hernia sac MICROSCOPIC DIAGNOSIS Hernia sac: A piece of adipose tissue, consistent with hernia sac. SJ:stefani 06/28/20 MICROSCOPIC DESCRIPTION Slides are reviewed. GROSS DESCRIPTION Received in fixative is one container labeled with the patient's name and designated hernia sac. The specimen consists of a piece of soft tissue measuring 6 x 4.5 x 2 cm. Sections do not reveal any mass lesion. Assembler Dc Field Ring sections are submitted in one cassette. / MILADIS:stefani 06/27/20 TC:5 CPT: 43805
[2020-06-27] MEDS: Bupiv/Epi 0.5% Mpf 30 ML Vial (11:00)
--- NOTE | 2020-06-27 11:51 | PCM.OPRPT ---
Report of Operation Date of Procedure: 06/27/20 Pre-Operative Diagnosis: Left spigelian hernia, previous causing SBO Post-Operative Diagnosis: same Surgery/Procedure Performed:: Laparoscopic repair of left spigelian hernia technical solutions consultant: Makenzie Garces Type of Anesthesia:: General/Supplemental Anesthesiologist: Danyel Baum Special Medications: Cefotetan 2 g IV x1 Specimen's removed: Hernia sac Estimated Blood Loss (mL): 10 cc Fluids Replaced: 1000 cc Description of Procedure: Indications this is a 70 year-old female who presented with a small bowel obstruction which CT did show incarcerated left spigelian hernia causing obstruction. This was able to be reduced at bedside. Exploratory laparoscopy, repair of left spigelian hernia was elected. Description procedure: The patient was placed on operating table in supine position. General Anesthesia was induced. A timeout was completed verifying correct patient, procedure, site, position and special equipment prior to beginning procedure. The abdomen was prepped and draped in usual sterile fashion. An incision was made in the natural skin line above the umbilicus. The fascia was elevated and incised. The peritoneum was elevated and incised. Entry into the peritoneum was confirmed visually and no bowel was noted in the vicinity of the incision. Sood trocar was placed. The abdomen was insufflated with carbon dioxide to a pressure of 12-15 mmHg. Patient tolerated insufflation well. The laparoscope was then inserted and abdomen inspected. No injuries from initial trocar placement were noted. Additional trochars were then inserted in the following locations 5 mm trocar in the right lower quadrant and other 5 mm trochars pubic. The left spigelian hernia was identified hernia. There were no other pelvic hernias such as femoral or inguinal. The hernia sac was reduced and excised using cautery and scissors. The abdominal pressure was reduced to 10 mmHg. The hernia was closed with interrupted 1-0 Prolene sutures x2 and the peritoneum was closed over the top with additional interrupted Prolene sutures. Secondary trochars removed under direct vision. No bleeding was noted the trocar sites. The laparoscope was withdrawn and umbilical trocar removed. The abdomen was allowed to collapse. The fascia of the 12 mm trocar was closed with a [id number] 0 Vicryl suture. The skin was closed with sutures of 4-0 Monocryl and Steri-Strips. The patient was extubated. The patient tolerated procedure well and was taken to the postanesthesia care unit in stable condition. - Complications none - Admit VTE Documentation VTE Present on Admission: Yes VTE Mechan Device Prophylaxis: SCD's
--- NOTE | 2020-06-27 11:58 | DCINST_ITS ---
Discharge Diet: Light diet - advance as tolerated Discharge Activity: May not drive while taking narcotic pain medications. May shower in (days): 1 Lifting Restrictions: No lifting greater than 20 pounds x 2 weeks Call your doctor if your incision/area has: Continuous Slow Oozing, Sudden Increased Bleeding, Increased Pain/ Swelling, Increased Redness, Foul Smelling Discharge, Swelling at the incision site Call your doctor if you observe: Fever of 101 or Higher Additional Dressing/Incision Instructions:: Okay to remove OpSite's tomorrow, okay to shower tomorrow. No baths or soaking in any body water for a few weeks. If Steri-Strips not follow-up in 7 to 10 days okay to remove. Allergies/Adverse Reactions: Allergies No Known Allergies Allergy (Verified 06/26/20 12:27) Medications to take at Discharge Nortriptyline HCl [Pamelor] 75 mg PO QHS 08/01/14 Atenolol 25 mg PO BID 05/21/20 Biotin 10,000 mcg PO DAILY 05/21/20 Calcium Phosphate Dibas/Vit D3 [Vitamin J8-Mbtrfzm-Fhiz Tablet] 1 ea PO DAILY 05/21/20 Docusate Sodium [Colace] 100 mg PO BID #120 cap 05/21/20 Melatonin 30 mg PO QHS 05/21/20 Multivitamin with Minerals [Multiple Vitamin] 1 ea PO DAILY 05/21/20 Psyllium Husk/Aspartame [Metamucil Sugar-Free Powder] 283 gm PO BID 05/21/20 Amlodipine [Norvasc] 5 mg PO DAILY 06/26/20 Oxycodone HCl/Acetaminophen [Percocet 5/325] 1 - 2 tablet PO Q6H PRN PRN 3 Days #15 tablet 06/27/20 Primary Care Physician: Chandni Smith MD [Primary Care Provider] - Test Results: Test results from this visit will be discussed in further detail at your follow- up appointment, if applicable. Please Follow Up With: Franci Zaragoza MD - After 5 PM and on the weekends call [phone] with any concerns When: Office for follow-up appointment 2 weeks. Proposed Discharge Date: 06/27/20
--- NOTE | 2020-06-27 13:07 | NURSING ---
RNCM Note: Went to patient bedside to complete initial assessment and patient currently not in room and in procedure. Will continue to follow. CARMELA Quevedo
--- NOTE | 2020-06-27 16:10 | NURSING ---
RN CM Assessment Introduced role of RN CM to patient.? Patient is alert, oriented and able?to participate in RN CM Assessment. ?Care providers, pharmacy, and demographics verified. Admit Dx: SBO, GERALDINE Re-Admit: No Admit Barriers/Issues: None PCP: Chandni Smith Specialists: Rayo- Ruben Mckeon Preferred Pharmacy: [facility] Insurance: [employer] Rx Benefit:?Yes ?LNOK: Dtr Donald Fantasma LW/HPOA: Believes she has both, HPOA dtr Donald Living Arrangements:? Lives alone with her two dogs in a H, 1 step to enter ADL?s: Independent with ambulation and ADLs Transportation: Patient drives, Dtr to transport upon DC DME: None HHC: Past, cannot recall agency SNF: None Goal: Home and does not think will have any needs. Patient states that she would like to get OOB and walk right now with the nurse, states she would like to go home today. On a Clear liq diet right now- tolerating. Denies any questions, issues, or concerns with DC planning at this time. Aware RNCM remains available for any emerging needs that may arise. DC PLAN: Home with no anticipated needs identified at this time. CARMELA Quevedo
[2020-06-27] MEDS: Acetaminophen 325 MG Tablet 650 MG PO (16:21)
== END 2020-06-27 18:53 | disposition home or self-care (01) | DRG 354 ==
LOC: ED 12:54 → MS3 15:25
PROVIDERS: Admitting Provider Surgery; Emergency Provider Emergency Medicine; PCP Internal Medicine; Visit Provider Surgery
PROC: 0WQF4ZZ Repair Abdominal Wall, Percutaneous Endoscopic Approach (ICD-10-PCS; CPT 44202; principal; 2020-06-27 10:15)
DX: K43.6 Other and unspecified ventral hernia with obstruction, without gangrene (principal); N17.9 Acute kidney failure, unspecified; E86.0 Dehydration; I10 Essential (primary) hypertension; E78.5 Hyperlipidemia, unspecified; Z79.899 Other long term (current) drug therapy
CPT/HCPCS: 74018; 74176; 80048; 80053; 81001; 83605; 83690; 85025; 87426; 88302; 93005; 99283; J7030; J7040; J7120; A4216; J2405

== ENCOUNTER → 2020-08-28 13:16 | Outpatient (CLI) | payer MEDICARE, SELFPAY ==
[2020-06-27 08:05] VITALS: BMI 31.6
--- NOTE | 2020-08-28 13:18 | BI_ITS ---
MAMMOGRAPHY - BILATERAL SCREENING REASON FOR EXAM: Female, 70 years old. Routine annual screening examination. PERTINENT HISTORY: Sister with breast cancer. Remote left stereotactic breast biopsy. TECHNIQUE: Digital bilateral breast christian (3D mammographic acquisition) in the CC and MLO projections. 2-D mediolateral oblique (MLO) and craniocaudad (CC) views of both breasts were obtained. CAD: Full Field Digital Mammography with Computer Added Detection was performed. COMPARISON: Comparison is made with prior study dated 07/25/2019 and 01/27/2019. FINDINGS: Breast Composition: There are scattered areas of fibroglandular density. There are no dominant masses or suspicious calcifications. Stable benign appearing bilateral axillary lymph nodes. A tissue clip marker is once again seen in the upper lateral portion of the left breast. Stable 5 mm well-defined nodule in the superior retroareolar region of the left breast. No other significant abnormalities are identified. There has been no significant change since the prior study. BI/SCRN MAMM (CAD)W/CHRISTIAN BILAT IMPRESSION: Stable bilateral screening mammogram. Yearly follow-up mammogram recommended. (A) ASSESSMENT CATEGORY: BIRADS Category 2: Benign. A letter regarding these results will be sent to the patient by the facility within 30 days. Approximately 10% of breast cancers are not detected by mammography. A normal mammogram should not delay biopsy of a clinically suspicious abnormality. [id number] Electronically Signed: Mario Moura MD at 14:45 EST , Service support ,
== END ==
PROVIDERS: PCP Internal Medicine; Referring Provider Internal Medicine; Visit Provider Internal Medicine
DX: Z12.31 Encounter for screening mammogram for malignant neoplasm of breast (principal)
CPT/HCPCS: 77063; 77067

== ENCOUNTER 2021-09-12 10:42 | Outpatient (CLI) | payer MEDICARE, SELFPAY ==
--- NOTE | 2021-09-12 10:48 | BI_ITS ---
MAMMOGRAPHY - BILATERAL SCREENING REASON FOR EXAM: Female, 71 years old. Routine annual screening examination. PERTINENT HISTORY: Sister with breast cancer. Remote left stereotactic breast biopsy. TECHNIQUE: Digital bilateral breast christian (3D mammographic acquisition) in the CC and MLO projections. 2-D mediolateral oblique (MLO) and craniocaudad (CC) views of both breasts were obtained. CAD: Full Field Digital Mammography with Computer Added Detection was performed. COMPARISON: Comparison is made with prior study dated 08/28/2020 and 08/02/2019. FINDINGS: Breast Composition: There are scattered areas of fibroglandular density. There are no dominant masses or suspicious calcifications. A tissue clip marker is once again seen in the upper lateral portion of the left breast stable 5 mm well-defined nodule in the superior retroareolar region of the left breast. Stable small benign-appearing bilateral axillary. No other significant abnormalities are identified. There has been no significant change since the prior study. BI/SCRN MAMM (CAD)W/CHRISTIAN BILAT IMPRESSION: Stable bilateral screening mammogram. Yearly follow-up mammogram recommended. (A) ASSESSMENT CATEGORY: BIRADS Category 2: Benign. A letter regarding these results will be sent to the patient by the facility within 30 days. Approximately 10% of breast cancers are not detected by mammography. A normal mammogram should not delay biopsy of a clinically suspicious abnormality. [id number] Electronically Signed: Mario Moura MD at 12:05 EST ,
== END 2021-09-12 23:59 | disposition home or self-care (01) ==
PROVIDERS: PCP Internal Medicine; Visit Provider Internal Medicine
DX: Z12.31 Encounter for screening mammogram for malignant neoplasm of breast (principal); Z80.3 Family history of malignant neoplasm of breast
CPT/HCPCS: 77063; 77067

== ENCOUNTER → 2022-09-16 | Outpatient (CLI) | payer MEDICARE, SELFPAY ==
--- NOTE | 2022-09-16 11:47 | BI_ITS ---
MAMMOGRAPHY - BILATERAL SCREENING 3-D TOMOSYNTHESIS REASON FOR EXAM: Female, 72 years old. Routine screening PERTINENT HISTORY: Sister with breast cancer.. TECHNIQUE: 2-D mammograms and 3-D Tomosynthesis of the breast (s) were performed. CAD was performed. COMPARISON: 09/12/2021 FINDINGS: The breast composition is composed of scattered fibroglandular density. Scattered benign calcifications are seen. No dense spiculated masses or suspicious microcalcifications are identified. No architectural distortion is identified. There is no skin thickening or retraction. There has been no significant change since the prior study. BI/SCRN MAMM (CAD)W/CHRISTIAN BILAT IMPRESSION: No mammographic signs of malignancy. Routine yearly mammograms recommended. ASSESSMENT CATEGORY: BIRADS Category 2: Benign. A letter regarding these results will be sent to the patient by the facility within 30 days. FOLLOW UP RECOMMENDATION: Yearly follow up mammogram recommended. (A) Approximately 10% of breast cancers are not detected by mammography. A normal mammogram should not delay biopsy of a clinically suspicious abnormality. Electronically Signed: Pool Alvarez MD at 12:52 EDT ,
== END | disposition home or self-care (01) ==
LOC: OPBI 11:44
PROVIDERS: PCP Internal Medicine; Visit Provider Internal Medicine
DX: Z12.31 Encounter for screening mammogram for malignant neoplasm of breast (principal)
CPT/HCPCS: 77063; 77067

== ENCOUNTER → 2023-09-30 | Outpatient (CLI) | payer MEDICARE, SELFPAY ==
--- NOTE | 2023-09-30 10:51 | BI_ITS ---
MAMMOGRAPHY - BILATERAL SCREENING REASON FOR EXAM: Female, 73 years old. Routine annual screening examination. PERTINENT HISTORY: Non-contributory. TECHNIQUE: Digital bilateral breast christian (3D mammographic acquisition) in the CC and MLO projections. 2-D mediolateral oblique (MLO) and craniocaudad (CC) views of both breasts were obtained. CAD: Full Field Digital Mammography with Computer Added Detection was performed. COMPARISON: Comparison is made with prior study dated September 16, 2022 and September 12, 2021. FINDINGS: Breast Composition: There are scattered areas of fibroglandular density. There are no dominant masses or suspicious calcifications. There are stable small benign-appearing bilateral axillary lymph nodes. Stable left retroareolar calcifications. A tissue clip marker is seen in the deep upper lateral aspect of the left breast. No other significant abnormalities are identified. There has been no significant change since the prior study. BI/SCRN MAMM (CAD)W/CHRISTIAN BILAT IMPRESSION: Stable bilateral screening mammogram. Yearly follow-up mammogram recommended. (A) ASSESSMENT CATEGORY: BIRADS Category 2: Benign. A letter regarding these results will be sent to the patient by the facility within 30 days. Approximately 10% of breast cancers are not detected by mammography. A normal mammogram should not delay biopsy of a clinically suspicious abnormality. [id number] Electronically Signed: Mario Moura MD at 12:27 EDT ,
== END | disposition home or self-care (01) ==
PROVIDERS: PCP Internal Medicine; Referring Provider Internal Medicine; Visit Provider Internal Medicine
DX: Z12.31 Encounter for screening mammogram for malignant neoplasm of breast (principal)
CPT/HCPCS: 77063; 77067

== ENCOUNTER → 2025-03-23 | Outpatient (CLI) | payer MEDICARE, SELFPAY ==
--- NOTE | 2025-03-23 14:34 | BI_ITS ---
EXAM: SCRN MAMM (CAD)W/CHRISTIAN BILAT DATE: 03/23/2025 CLINICAL HISTORY: F, Age 74 y/o , SCREENING TECHNIQUE: Procedure Code: [id number] Modality: MG Procedure: SCRN MAMM (CAD)W/CHRISTIAN BILAT COMPARISON: Prior exam(s) were compared FINDINGS: TISSUE DENSITY: The breasts are heterogeneously dense, which may obscure small masses. Bilateral Breast Mammographic Findings: Left breast: There is architectural distortion in the slightly upper left breast mid depth (MLO frame 22). Recommend additional imaging with diagnostic left breast mammogram spot compression views and possible ultrasound scanning the upper left breast about 6 cm from the nipple. Right breast: No suspicious masses, calcifications or other abnormalities are identified. BI/SCRN MAMM (CAD)W/CHRISTIAN BILAT IMPRESSION: Additional imaging is recommended of the left breast as described above. OVERALL FINAL ASSESSMENT BI-RADS 0: INCOMPLETE - NEED ADDITIONAL IMAGING EVALUATION. RECOMMENDATION: Additional Views obtained/call backs A letter with findings and recommendations will be mailed to the patient. Reading Location: [id number]
--- OUTSIDE RECORDS SUMMARY | 2025-03-23 18:40 | XMS RPT_ITS | CCD ---
Author Organization [facility] Care Team Providers Care Rivet Thrower Name Role Phone RAMOS MENA Attending Unavailable TALAMPNANCY LALO Primary Care Unavailable NILESH IRVIN Attending Unavailable GLENNAMPNANCY, LALO Primary Care Unavailable KIMBERLYKINDRA SWARTZ Admitting Unavailable KIMBERLYKINDRA PENNY Attending Unavailable KIMBERLYKINDRA PENNY Primary Care Unavailable KIMBERLYKINDRA PENNY Admitting Unavailable KIMBERLYKINDRA Attending Unavailable KIMBERLYKINDRA PENNY Primary Care Unavailable Lalo Schultz MD Primary Care Provider Lalo Schultz MD Primary Care Provider Lalo Schultz MD Primary Care Provider Lalo Schultz MD Primary Care Provider Mahmood RESIDENT SERVICES SUPERVISOR.OPTIC FIBRE DRAWER, Jonelle Unavailable Seble RESIDENT SERVICES SUPERVISOR.ELECTROLYTIC ETCHER, Kayla Unavailable ASHELY MOROCHO Attending Unavailable MARION LALO D Primary Care Unavailable Fransisca Razo Referring Unavailable Seble RESIDENT SERVICES SUPERVISOR.ELECTROLYTIC ETCHER, Kayla Unavailable Seble RESIDENT SERVICES SUPERVISOR.ELECTROLYTIC ETCHER, Kayla Unavailable Seble RESIDENT SERVICES SUPERVISOR.ELECTROLYTIC ETCHER, Kayla Unavailable Mahmood RESIDENT SERVICES SUPERVISOR.OPTIC FIBRE DRAWER, Jonelle Unavailable Marion Lalo Alina Referring Unavailable Talampanncy, Lalo D Attending Unavailable Glennampnancy, Lalo D Primary Care Unavailable TAMEKA MELGAR Referring UnavailYISSEL Patel Attending Unavailable TALAMPNANCY, LALO D Primary Care Unavailable TAMEKA MELGAR Attending Unavailabl e GLENNAMPNANCY, LALO D Primary Care Unavailable TALAMPAS, LALO D Primary Care Unavailable TALAMPAS, LALO D Referring Unavailable TALAMPAS, LALO D Primary Care Unavailable JONELLE MAHMOOD Attending Unavailable FRANSISCA RAZO Attending Unavailable TALAMPAS, LALO D Primary Care Unavailable TALAMPAS, LALO D Referring Unavailable TALAMPAS, LALO D Primary Care Unavailable YISSEL FERRARI Attending Unavailable TALAMPAS, LALO D Primary Care Unavailable TALAMPAS, LALO D Primary Care Unavailable TALAMPAS, LALO D Referring Unavailable Allergies Allergy Classification Reported Allergen(s) Allergy Type Date of Onset Reaction(s) Facility (20 sources) Aspirin; Translations: [ASPIRIN] Drug Allergy 08-16-2021 Contraindicatio n-[facility] (20 sources) Niacin; Translations: [NIACIN] Drug Allergy 10-07-2010 Intolerance [facility] Work Phone: (20 sources) Simvastatin; Translations: [SIMVASTATIN] Drug Allergy 03-26-2016 Intolerance [facility] Work Phone: (20 sources) atorvastatin; Translations: [ATORVASTATIN] Drug Allergy 05-08-2022 Myalgia [facility] Work Phone: Medications Current Medications Medication Drug Class(es) Dates Sig (Normalized) Sig (Original) 8 hr acetaminophen 650 mg extended release oral tablet (20 sources) take 1 tablet by mouth every eight hours as needed acetaminophen 650 mg CR tablet Take 650 mg by mouth every 8 hours as needed. Two tabs twice daily Active Comment on above: Take 650 mg by mouth every 8 hours as needed. Two tabs twice daily amLODIPine 5 mg oral tablet (20 sources) Dihydropyridine Calcium Channel Nanda Start: 06-26-2020 End: 09-12-2025 take 1 tablet by mouth once daily amLODIPine (NORVASC) 5 mg tablet Indications: Essential hypertension Take 1 tablet by mouth once daily. 90 tablet 3 09/20/2024 Active Comment on above: Take 1 tablet by james th once daily. amoxicillin 875 mg / clavulanate 125 mg oral tablet (4 sources) Penicillin-class Antibacterial Start: 10-03-2021 End: 10-08-2021 take 1 tablet by mouth twice daily amoxicillin-clavul anic acid (AUGMENTIN) 875-125 mg per tablet Take 1 tablet by mouth twice daily for 5 days. 10 tablet 0 10/03/2021 10/08/2021 Active Comment on above: Take 1 tablet by jamse twice daily for 5 days. atenolol 50 mg oral tablet (20 sources) beta-Adrenergic Nanda Start: 08-10-2020 End: 09-12-2024 take 1 tablet by mouth twice daily atenolol (TENORMIN) 50 mg tablet Indications: Essential hypertension , SVT (supraventricular tachycardia) ([facility]) Take 1 tablet by mouth two times a day. 180 tablet 3 09/12/2024 Active Start: 05-21-2020 take 25 mg by mouth twice silvana y Atenolol Active 25 MG PO TWICE A DAY May 21, 2020 1:00am Comment on above: Take 1 tablet by james twice daily. Take 1 tablet by james two times a day. biotin 10 mg oral capsule (20 sources) Start: 05-21-2020 take 46654 ug by mouth once daily Biotin Active 36066 MCG PO DAILY May 21, 2020 1:00am take 5 mg by mouth once daily bi otin 5 mg caspule Take 5 mg by mouth once daily. Active Comment on above: Take 5 mg by mouth o nce daily. Calcium Phos,Dibas-Vitamin D3 (3 sources) Start: 05-21-2020 Calcium Phos,Dibas-Vitamin D3 Active 1 EACH PO DAILY May 21, 2020 3:23am Start: 05-21-2020 Calcium Phos,D ibas-Vitamin D3 Active 1 EACH PO DAILY May 21, 2020 1:00am Start: 05-21-2020 Calcium Phos,D ibas-Vitamin D3 Active 1 EACH PO DAILY May 21, 2020 12:00am diclofenac sodium 0.01 mg/mg topical gel (3 sources) Nonsteroidal Anti-inflammatory Drug Start: 01-03-2023 End: 01-17-2023 apply 4 g topically four times daily diclofenac (VOLTAREN ARTHRITIS PAIN) 1 % topical gel Indications: Pain Apply 4 g to affected area four times daily for 14 days. 224 g 0 01/03/2023 01/17/2023 Active Comment on above: Apply 4 g to affected area four times da alonso for 14 days. docusate sodium 100 mg oral capsule (20 sources) Start: 05-21-2020 take 100 mg by mouth twice daily Docusate Sodium Active 100 MG PO TWICE A DAY 120 May 21, 2020 1:00am Comment on above: Take 100 mg by mouth twice daily. Folic Acid (20 sources) take 1 tablet by mouth once daily FOLIC ACID ORAL Take 1 tablet by mouth once daily. Active take 1 tablet by mouth once silvana y FOLIC ACID ORAL Take 1 tablet by mouth once daily. 0 Active Comment on above: Take 1 tablet by james th once daily. Inulin (20 sources) Start: 06-27-2020 take 20 mg by mouth once daily inulin (FIBER GUMMIES ORAL) Take 20 mg by mouth once daily. 06/27/2020 Active Start: 06-27-2020 take 20 mg by mouth once daily inulin (FIBER GUMMIES ORAL) Take 20 mg by mouth once daily. 0 06/27/2020 Active Comment on above: Take 20 mg by mouth once daily. lidocaine 0.05 mg/mg medicated patch (4 sources) Antiarrhythmic, Amide Local Anesthetic Start: 01-03-2023 End: 01-17-2023 lidocaine (LIDODERM) 5 % Indications: Pain Apply 1 Patch as directed every 24 hours for 14 days. Remove old patch prior to placing new patch. Location: Right rib area leave patch on for 12 hours remove patch for 12 hours leave skin open to air for 12 hours before placing a new patch. 14 Patch 0 01/03/2023 01/17/2023 Active Comment on above: Apply 1 Patch as dir ected every 24 hours for 14 days. Remove old patch prior to placing new patch. Location: Right rib area leave patch on for 12 hours remove patch for 12 hours leave skin open to air for 12 hours before placing a new patch. Magnesium (17 sources) Start: 03-21-2024 Magnesium 250 mg tab Magnesium Citrate 1 tablet at bedtime 03/21/2024 Active melatonin 10 mg oral tablet (20 sources) Start: 05-21-2020 take 30 mg by mouth at bedtime Melatonin Active 30 MG PO AT BEDTIME May 21, 2020 1:00am Melatonin 5 mg c ap Take 30 mg by mouth daily at bedtime. Active take 4 capsules by m outh once daily at bedtime Melatonin 5 mg cap Take 20 mg by mouth daily at bedtime. 0 Active Comment on above: Take 20 mg by mouth daily at bedtime. Take 30 mg by mouth daily at bedtime. MULTIVIT WITH CALCIUM,IRON,MIN (WOMEN'S DAILY MULTIVITAMIN ORAL) (20 sources) MULTIVIT WITH CALCIUM,IRON,MIN (WOMEN'S DAILY MULTIVITAMIN ORAL) Take by mouth. Active MULTIVIT WITH CA LCIUM,IRON,MIN (WOMEN'S DAILY MULTIVITAMIN ORAL) Take by mouth. 0 Active Comment on above: Take by mouth. multivit-mins 25-folic acid-D3 3-2,000 mg-unit tab (7 sources) multivit-mins 25 -folic acid-D3 3-2,000 mg-unit tab Take by mouth. Active Multivitamin With Minerals (3 sources) Start: 05-21-2020 Multivitamin With Minerals Active 1 EACH PO DAILY May 21, 2020 3:23am Start: 05-21-2020 Multivitamin W ith Minerals Active 1 EACH PO DAILY May 21, 2020 1:00am Start: 05-21-2020 Multivitamin W ith Minerals Active 1 EACH PO DAILY May 21, 2020 12:00am multivitamin with minerals (HAIR,SKIN AND NAILS) tablet (7 sources) take 1 tablet by mouth once daily multivitamin with minerals (HAIR,SKIN AND NAILS) tablet Take 1 tablet by mouth once daily. Active nortriptyline 50 mg oral capsule (20 sources) Tricyclic Antidepressant Start: 024 End: 025 take 2 capsules by mouth once daily at bedtime nortriptyline (PAMELOR) 50 mg capsule Indications: Persistent disorder of initiating or maintaining sleep Take 2 capsules by mouth daily at bedtime. 180 capsule 3 09/12/2024 Active Start: 08-01-2014 End: 03-21-2024 take 1 capsule by mouth once daily at bedtime nortriptyline (PAMELOR) 75 mg capsule Take 1 capsule by mouth daily at bedtime. 90 capsule 3 03/21/2024 03/21/2024 Discontinued End: 09-12-2024 take 1 capsule by mouth once daily at bedtime nortriptyline (PAMELOR) 50 mg capsule Take 50 mg by mouth daily at bedtime. 09/12/2024 Discontinued Comment on above: Take 1 capsule by mo [facility] daily at bedtime. Pluji-1-VSY-EPA-F gurvinder Oil 1,000 mg (120 mg-180 mg) cap (5 sources) End: 09-15-2022 take 1 capsule by mouth once daily, then take 3 capsules by mouth once daily Ywsyh-1-HWV-EPA-Fish Oil 1,000 mg (120 mg-180 mg) cap Take 2 g by mouth once daily. Takes three daily 0 09/15/2022 Discontinued take 1 capsule by [facility] once daily, then take 3 capsules by mouth once daily Ngteh-0-DLQ-EPA-Fish Oil 1,000 mg (120 m g-180 mg) cap Take 2 g by mouth once daily. Takes three daily 0 Active Comment on above: Take 2 g by mouth on ce daily. Takes three daily psyllium 3400 mg powder for oral suspension (3 sources) Start: 05-21-20 take 283 g by mouth twice daily Psyllium Husk (Aspartame) Active 283 GM PO TWICE A DAY May 21, 2020 1:00am rosuvastatin calcium 5 mg oral tablet (20 sources) HMG-CoA Reductase Inhibitor Start: 03-06-20 End: 03-21-20 24 take 1 tablet by mouth once daily rosuvastatin (CRESTOR) 5 mg tablet Indications: Mixed hyperlipidemia Take 1 tablet by mouth once daily. As directed 90 tablet 1 03/21/2024 Active Comment on above: Take 1 tablet by [facility] once daily. As directed trospium chloride 20 mg oral tablet (10 sources) Cholinergic Muscarinic Antagonist Start: 08-16-19 End: 09-28-19 take 1 tablet by mouth twice daily trospium (SANCTURA) 20 mg tablet Take 1 tablet by mouth two times a day. 180 tablet 3 08/16/2024 Active turmeric/turmeric ext/pepr ext (TURMERIC-TURMERIC EXT-PEPPER) 500-3 mg cap (7 sources) turmeric/turmeri c ext/pepr ext (TURMERIC-TURMERIC EXT-PEPPER) 500-3 mg cap Take by mouth. Active vitamin b12 1 mg oral tablet (12 sources) Vitamin B12 take 1 tablet by mouth once daily cyanocobalamin (VITAMIN B-12) 1,000 mcg tab Take 1,000 mcg by mouth once daily. Active Comment on above: Take 1,000 mcg by [facility] once daily. Completed/Discontinued Medications Medication Drug Class(es) Dates Sig (Normalized) Sig (Original) acetaminophen 325 mg / oxyCODONE hydrochloride 5 mg oral tablet (3 sources) Opioid Agonist Start: 06-27-2020 End: 06-30-2020 take 1 tablet by mouth every six hours as needed Oxycodone-Acetamin ophen Discontinued 1 - 2 TABLET PO EVERY 6 HOURS NEEDED 15 June 27, 2020 June 30, 2020 1:03am atorvastatin 10 mg oral tablet (1 source) HMG-CoA Reductase Inhibitor Start: 02-24-2022 End: 05-08-2022 take 1 tablet by mouth once daily at bedtime for hyperlipidemia atorvastatin (LIPITOR) 10 mg tablet Take 1 tablet by mouth daily at bedtime. For cholesterol. 90 tablet 3 02/24/2022 05/08/2022 Discontinued (Discontinued by Patient) Comment on above: Take 1 tablet by james daily at bedtime. For cholesterol. Calcium Carbonate / vitamin D3 (20 sources) End: 09-08-2023 calcium carbonate/vitamin D3 (CALCIUM 600 + D ORAL) Take by mouth once daily. 0 09/08/2023 Discontinued End: 05-20-2023 take 1 capsule by mouth once daily calcium carbonate/vitamin D3 (CALCIUM 600 + D,3, ORAL) Take 1 capsule by mouth once daily. 0 05/20/2023 Discontinued calcium carbonat e/vitamin D3 (CALCIUM 600 + D ORAL) Take by mouth once daily. 0 Active take 1 capsule by mo ut once daily calcium carbonate/vitamin D3 (CALCIUM 600 + D,3, ORAL) Take 1 capsule by mouth once daily. 0 Active Comment on above: Take 1 capsule by mo uth once daily. Take by mouth once d aily. calcium chloride 0.0014 meq/ml / potassium chloride 0.004 meq/ml / sodium chloride 0.103 meq/ml / sodium lactate 0.028 meq/ml injectable solution (1 source) Start: 5 End: 5 take 30 mL intravenously every hour 30 mL/hr, INTRAVENOUS, CONTINUOUS, Starting on Thu07/13/24 at 0800, Until Thu07/13/24 at 0904, Preprocedure magnesium, aluminum hydroxide (MAG-AL ORAL) (20 sources) End: 4 magnesium, aluminum hydroxide (MAG-AL ORAL) Take by mouth. Magnesium citrate 03/21/2024 Discontinued magnesium, alumi num hydroxide (MAG-AL ORAL) Take by mouth. Magnesium citrate Active magnesium, alumi num hydroxide (MAG-AL ORAL) Take by mouth. Magnesium citrate 0 Active Comment on above: Take by mouth. Magne sium citrate 24 hr mirabegron 25 mg extended release oral tablet (4 sources) beta3-Adrenergic Agonist Start: 08-16-2024 End: 08-16-2024 take 1 tablet by mouth once daily mirabegron (MYRBETRIQ) 25 mg Tb24 Indications: Urge incontinence Take 1 tablet by mouth once daily. 10 tablet 08/16/2024 08/16/2024 Discontinued (Cost of medication) multivit-minerals/fo lic acid (DAILY GUMMIES ORAL) (6 sources) End: 05-08-2022 multivit-minerals/fol ic acid (DAILY GUMMIES ORAL) Take by mouth. 0 05/08/2022 Discontinued (Discontinued by Patient) multivit-mineral s/folic acid (DAILY GUMMIES ORAL) Take by mouth. 0 Active Comment on above: Take by mouth. Gvgng-8-UML-EPA-Fish Oil (FISH OIL) 1,000 mg (120 mg-180 mg) cap (5 sources) take 1 capsule by mouth once daily, then take 3 capsules by mouth once daily Szvqs-2-WPV-EPA-Fish Oil (FISH OIL) 1,000 mg (120 mg-180 mg) cap Take 2 g by mouth once daily. Takes three daily 0 Active Comment on above: Take 2 g by mouth on ce daily. Takes three daily Problems Active Problems Problem Classification Problem Date Documented Da te Episodic/Chronic Abdominal hernia (3 sources) Spigelian hernia; Translations: [Ventral hernia without obstruction or gangrene] 07-10-2020 Episodic Acquired foot deformities (1 source) Hammer toe; Translations: [Hallux varus (acquired), left foot] Chronic Cardiac dysrhythmias (20 sources) Supraventricular tachycardia; Translations: [Supraventricular tachycardia] Onset: 0 Resolved: 4 04-06-2020 Chronic Disorders of lipid metabolism (20 sources) Hyperlipidemia; Translations: [Mixed hyperlipidemia] Onset: 7 07-03-2021 Chronic Diverticulosis and diverticulitis (20 sources) Diverticulosis of colon; Translations: [Diverticulosis of large intestine without perforation or abscess without bleeding] 10-09-2006 Chronic Essential hypertension (20 sources) Hypertensive disorder; Translations: [Essential hypertension] Onset: 6 05-12-2017 Chronic Gastrointestinal hemorrhage (3 sources) Rectal hemorrhage; Translations: [Hemorrhage of anus and rectum] Onset: 5 05-09-2024 Episodic Genitourinary symptoms and ill-defined conditions (4 sources) Urinary incontinence; Translations: [Unspecified urinary incontinence] Onset: 5 05-25-2024 Chronic Genitourinary symptoms and ill-defined conditions (1 source) Nocturia; Translations: [Nocturia] 03-21-2024 Episodic Intestinal obstruction without hernia (3 sources) Intestinal obstruction co-occurrent and due to decreased peristalsis; Translations: [Ileus, unspecified] 07-10-2020 Episodic Nutritional deficiencies (20 sources) Vitamin D deficiency; Translations: [Vitamin D deficiency, unspecified] Onset: 8 11-28-2017 Chronic Osteoarthritis (20 sources) Degenerative joint disease involving multiple joints; Translations: [Polyosteoarthritis, unspecified] 08-03-2006 Chronic Other aftercare (13 sources) Patient encounter status; Translations: [Other exterminator (current) drug therapy] Episodic Other aftercare (1 source) Long-term current use of drug therapy; Translations: [Other long-term (current) drug therapy] 03-21-2024 Episodic Other aftercare (1 source) Other long-term (current) drug therapy; Translations: [Encounter for long-term current use of medication] Onset: Episodic Other circulatory disease (2 sources) Abnormal foot pulse; Translations: [Other specified symptoms and signs involving the circulatory and respiratory systems] 01-13-2023 Episodic Other connective tissue disease (20 sources) History of total knee arthroplasty; Translations: [Presence of right artificial knee joint] Onset: 8 03-02-2018 Chronic Other connective tissue disease (1 source) Chronic pain of right upper limb; Translations: [Pain in right finger(s)] Episodic Other gastrointestinal disorders (3 sources) Constipation; Translations: [Constipation, unspecified] 07-10-2020 Episodic Other hematologic conditions (4 sources) 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; Translations: [Other specified diseases of blood and blood-forming organs] Chronic Other hematologic conditions (1 source) Other specified diseases of blood and blood-forming organs; Translations: [Macrocytosis without anemia] Onset: 5 Chronic Other non-traumatic joint disorders (2 sources) Disorder of joint of shoulder region; Translations: [Other specified joint disorders, right shoulder] Episodic Other nutritional; endocrine; and metabolic disorders (10 sources) Obesity; Translations: [Other obesity due to excess calories] Onset: 0 07-03-2021 Chronic Other nutritional; endocrine; and metabolic disorders (20 sources) Obesity caused by energy imbalance; Translations: [Other obesity due to excess calories] Onset: 0 07-03-2021 Chronic Other screening for suspected conditions (not mental disorders or infectious disease) (1 source) Encounter for screening mammogram for malignant neoplasm of breast; Translations: [Encounter for screening mammogram for malignant neoplasm of breast] Onset: 5 Episodic Other upper respiratory disease (1 source) Congestion of nasal sinus; Translations: [Nasal congestion] Episodic Prolapse of female genital organs (1 source) Midline cystocele; Translations: [Cystocele, midline] 08-16-2024 Chronic Residual codes; unclassified (2 sources) Family history of malignant neoplasm of digestive organs; Translations: [Family history of malignant neoplasm of digestive organs] Onset: 9 Episodic Residual codes; unclassified (2 sources) Pain; Translations: [Pain, unspecified] Episodic Residual codes; unclassified (3 sources) Persistent insomnia; Translations: [Insomnia, unspecified] 03-21-2024 Episodic Residual codes; unclassified (2 sources) Postmenopausal state; Translations: [Asymptomatic menopausal state] 03-21-2024 Episodic Residual codes; unclassified (1 source) Family history of cancer of colon; Translations: [Family history of malignant neoplasm of digestive organs] 03-21-2024 Episodic Spondylosis; intervertebral disc disorders; other back problems (20 sources) Lumbar spondylosis; Translations: [Spondylosis without myelopathy or radiculopathy, lumbar region] 04-02-2010 Chronic Sprains and strains (1 source) Strain of neck muscle; Translations: [Strain of muscle, fascia and tendon at neck level, sequela] Episodic Past or Other Problems Problem Classification Problem Date Documented Da te Episodic/Chronic Abdominal pain (20 sources) Left lower quadrant pain; Translations: [Left lower quadrant pain] Onset: 11-23-2008 11-23-2008 Episodic Calculus of urinary tract (20 sources) Kidney stone; Translations: [Calculus of kidney] Onset: 03-26-2009 03-26-2009 Episodic Cardiac dysrhythmias (20 sources) Palpitations; Translations: [Palpitations] Onset: 02-17-2006 04-06-2020 Episodic Headache; including migraine (20 sources) Refractory migraine without aura; Translations: [Migraine without aura, intractable, without status migrainosus] Onset: 07-27-2007 Resolved: 08-18-2022 07-27-2007 Chronic Other ear and sense organ disorders (20 sources) Tinnitus; Translations: [Tinnitus, unspecified ear] Onset: 11-16-2006 11-16-2006 Episodic Other gastrointestinal disorders (19 sources) Diarrhea; Translations: [Diarrhea, unspecified] Resolved: 11-16-2006 01-14-2024 Episodic Other non-traumatic joint disorders (20 sources) Pain in lower limb; Translations: [Pain in unspecified knee] Onset: 04-06-2008 04-06-2008 Episodic Other skin disorders (19 sources) Ingrowing nail; Translations: [Ingrowing nail] Onset: 09-26-2005 Resolved: 11-16-2006 01-14-2024 Episodic Residual codes; unclassified (1 source) Asymptomatic menopausal state; Translations: [Asymptomatic postmenopausal status] Onset: 05-02-2024 Episodic Unclassified (1 source) Patient encounter status 03-13-2025 Results Test Name Value Interpretation Reference Range Facility 25(OH)D3 [facility] 2024 25-hydroxyvitamin D3 [Mass/Vol] 51.9 ng/mL Normal 31.0-80.0 [facility] Comment on above: Order Comment: Speci men Type: BLOOD SPECIMENOrdering Facility: [facility] Address: [address] [place] [address] [place] [address] Result Comment: Clas sification of 25 [place] Vitamin D status: Deficiency/Insufficiency: < or = 30 ng/ml. Sufficiency/Optimal Levels: 31-80 ng/mL Toxicity: > 100 ng/mL. Test performed by chemiluminescent immunoassay. Performed By: #### 1 989-3 ####[facility] LABCLIA [id number] [place] [address] [place] CBC panel Auto (Bld)on 03-20 Erythrocyte distribution width (RBC) [Ratio] 12.3 % Normal 11.5-15.0 [facility] Comment on above: Order Comment: Speci men Type: BLOOD SPECIMENOrdering Facility: [facility] Address: [address] [place] [address] Performed By: #### 5 8410-2 ####[facility] [id number] [place] [address] [place] Hematocrit (Bld) [Volume fraction] 43.1 % Normal 36.0-46.0 [facility] Comment on above: Order Comment: Speci men Type: BLOOD SPECIMENOrdering Facility: [facility] Address: [address] [place] [address] Performed By: #### 5 8410-2 ####[facility] [id number] [address] [place] Hemoglobin (Bld) [Mass/Vol] 13.6 g/dL Normal 11.5-15.5 [facility] Comment on above: Order Comment: Speci men Type: BLOOD SPECIMENOrdering Facility: [facility] Address: [address] [place] [address] Performed By: #### 5 8410-2 ####[facility] LABIA [id number] [place] [address] [place] MCH (RBC) [Entitic mass] 34.3 pg High 26.0-34.0 [facility] Comment on above: Order Comment: Speci men Type: BLOOD SPECIMENOrdering Facility: [facility] Address: [address] [place] [address] Performed By: #### 5 8410-2 ####[facility] LABIA [id number] [place] [address] [place] MCHC (RBC) [Mass/Vol] 31.6 g/dL Normal 30.5-36.0 [facility] Comment on above: Order Comment: Speci men Type: BLOOD SPECIMENOrdering Facility: [facility] Address: [address] [place] [address] Performed By: #### 5 8410-2 ####[facility] LABCLIA [id number] [place] [address] [place] MCV (RBC) [Entitic vol] 108.8 fL High 80.0-100.0 [facility] Comment on above: Order Comment: Speci men Type: BLOOD SPECIMENOrdering Facility: [facility] Address: [address] [place] [address] Performed By: #### 5 8410-2 ####[facility] LABIA [id number] [place] [address] [place] Nucleated RBC (Bld) [#/Vol] 10*3/uL Normal <0.01 [facility] Comment on above: Order Comment: Speci men Type: BLOOD SPECIMENOrdering Facility: [facility] Address: [address] [place] [address] Performed By: #### 5 8410-2 ####[facility] LABIA [id number] [place] [address] [place] Platelet mean volume (Bld) [Entitic vol] 10.7 fL Normal 9.0-12.7 [facility] Comment on above: Order Comment: Speci men Type: BLOOD SPECIMENOrdering Facility: [facility] Address: [address] [place] [address] Performed By: #### 5 8410-2 ####[facility] LABIA [id number] [place] [address] [place] Platelets (Bld) [#/Vol] 197 10*3/uL Normal 150-400 [facility] Comment on above: Order Comment: Speci men Type: BLOOD SPECIMENOrdering Facility: [facility] Address: [address] [place] [address] Performed By: #### 5 8410-2 ####[facility] LABIA [id number] [place] [id number] [place] RBC (Bld) [#/Vol] 3.96 10*6/uL Normal 3.90-5.20 [facility] Comment on above: Order Comment: Speci men Type: BLOOD SPECIMENOrdering Facility: [facility] Address: [address] [place] [address] Performed By: #### 5 8410-2 ####[facility] LABIA [id number] [place] [id number] [place] WBC (Bld) [#/Vol] 5.11 10*3/uL Normal 3.70-11.00 [facility] Comment on above: Order Comment: Speci men Type: BLOOD SPECIMENOrdering Facility: [facility] Address: [address] [place] [address] Performed By: #### 5 8410-2 ####[facility] LABIA [id number] [place] [id number] [place] Comprehensive metabolic 2000 panelon 03-20-2025 Albumin [Mass/Vol] 4.5 g/dL Normal 3.9-4.9 [facility] Comment on above: Order Comment: Speci men Type: BLOOD SPECIMENOrdering Facility: [facility] Address: [address] [place] [address] Performed By: #### 1 9123-9, 98232-1, 16240-6 ####[facility] LABIA [id number] [place] [id number] [place] ALP [Catalytic activity/Vol] 70 U/L Normal 34-123 [facility] Comment on above: Order Comment: Speci men Type: BLOOD SPECIMENOrdering Facility: [facility] Address: [address] [place] [address] Performed By: #### 1 9123-9, 69694-1, 98224-8 ####[facility] LABCLIA [id number] [address] [address] [place] ALT [Catalytic activity/Vol] 46 U/L High 7-38 [facility] Comment on above: Order Comment: Speci men Type: BLOOD SPECIMENOrdering Facility: [facility] Address: [address] [place] [address] Performed By: #### 1 9123-9, 51623-9, 40171-5 ####[facility] LABCLIA [id number] [place] [id number] [place] Anion gap [Moles/Vol] 11 mmol/L Normal 8-15 [facility] Comment on above: Order Comment: Speci men Type: BLOOD SPECIMENOrdering Facility: [facility] Address: [address] [place] [address] Performed By: #### 1 9123-9, 82196-5, 04022-1 ####[facility] LABCLIA [id number] [address] [address] [place] AST [Catalytic activity/Vol] 38 U/L High 13-35 [facility] Comment on above: Order Comment: Speci men Type: BLOOD SPECIMENOrdering Facility: [facility] Address: [address] [place] [address] Performed By: #### 1 9123-9, 28453-4, 61667-7 ####[facility] LABCLIA [id number] [address] [address] [place] Bilirubin [Mass/Vol] 0.5 mg/dL Normal 0.2-1.3 [facility] Comment on above: Order Comment: Speci men Type: BLOOD SPECIMENOrdering Facility: [facility] Address: [address] [place] [address] Performed By: #### 1 9123-9, 91222-2, 32469-5 ####[facility] LABCLIA [id number] [address] [place] [address] [place] Calcium [Mass/Vol] 9.4 mg/dL Normal 8.5-10.2 [facility] Comment on above: Order Comment: Speci men Type: BLOOD SPECIMENOrdering Facility: [facility] Address: [address] [place] [address] Performed By: #### 1 9123-9, 61629-4, 92020-8 ####[facility] LABCLIA [id number] [facility] [address] [place] [address] [place] Chloride [Moles/Vol] 105 mmol/L Normal 98-107 [facility] Comment on above: Order Comment: Speci men Type: BLOOD SPECIMENOrdering Facility: [facility] Address: [address] [place] [address] Performed By: #### 1 9123-9, 85310-8, 13281-9 ####[facility] LABCLIA [id number] [place] [id number] [place] CO2 [Moles/Vol] 26 mmol/L Normal 22-30 [facility] Comment on above: Order Comment: Speci men Type: BLOOD SPECIMENOrdering Facility: [facility] Address: [address] [place] [address] Performed By: #### 1 9123-9, 40418-8, 99576-0 ####[facility] LABCLIA [id number] [address] [address] [place] Creatinine [Mass/Vol] 0.78 mg/dL Normal 0.58-0.96 [facility] Comment on above: Order Comment: Speci men Type: BLOOD SPECIMENOrdering Facility: [facility] Address: [address] [place] [address] Performed By: #### 1 9123-9, 80055-0, 10856-5 ####[facility] LABCLIA [id number] [address] [address] [place] eGFRcr SerPlBld CKD-EPI 2020 79 mL/min/1.73m??? Normal >=60 [facility] Comment on above: Order Comment: Vito gonzalez Type: BLOOD SPECIMENOrdering Facility: [facility] Address: [address] [place] [address] Result Comment: Marlys mated Glomerular Filtration Rate (eGFR) is calculated using the 2020 CKD-EPI creatinine equation. This equation utilizes serum creatinine, sex, and age as parameters. The creatinine assay has traceable calibration to isotope dilution-mass spectrometry. Refer to KDIGO guidelines for clinical interpretation. In patients with unstable renal function, e.g. those with acute kidney injury, the eGFR may not accurately reflect actual GFR. Performed By: #### 1 9123-9, 83930-8, 03595-9 ####[facility] LABCLIA [id number] [place] [address] [place] Glucose [Mass/Vol] 84 mg/dL Normal 74-99 [facility] Comment on above: Order Comment: Vito gonzalez Type: BLOOD SPECIMENOrdering Facility: [facility] Address: [address] [place] [address] Result Comment: The [place] Diabetes [employer] (ADA) provides guidance for cutoff values for fasting glucose and random glucose. The ADA defines fasting as no caloric intake for at least 8 hours. Fasting plasma glucose results between 100 to 125 mg/dL indicate increased risk for diabetes (prediabetes). Fasting plasma glucose results greater than or equal to 126 mg/dL meet the criteria for diagnosis of diabetes. In the absence of unequivocal hyperglycemia, results should be confirmed by repeat testing. In a patient with classic symptoms of hyperglycemia or hyperglycemic crisis, random plasma glucose results greater than or equal to 200 mg/dL meet the criteria for diagnosis of diabetes. Reference: Standards of Medical Care in Diabetes 2016, [employer] Association. Diabetes Care. 2016.39(Suppl 1). Performed By: #### 1 9123-9, 58772-1, 70850-7 ####[facility] LABIA [id number] [place] [address] [place] Potassium [Moles/Vol] 4.4 mmol/L Normal 3.7-5.1 [facility] Comment on above: Order Comment: Speci men Type: BLOOD SPECIMENOrdering Facility: [facility] Address: [address] [place], [place] [address] Performed By: #### 1 9123-9, 68304-1, 23498-3 ####[facility] LABCLIA [id number] [address] [address] [place] Protein [Mass/Vol] 7.0 g/dL Normal 6.3-8.0 [facility] Comment on above: Order Comment: Speci men Type: BLOOD SPECIMENOrdering Facility: [facility] Address: [address] [place] [address] Performed By: #### 1 9123-9, 56774-0, 48323-9 ####[facility] LABCLIA [id number] [place] [address] [place] Sodium [Moles/Vol] 142 mmol/L Normal 136-144 [facility] Comment on above: Order Comment: Speci men Type: BLOOD SPECIMENOrdering Facility: [facility] Address: [address] [place] [address] Performed By: #### 1 9123-9, 35121-1, 42627-2 ####[facility] LABCLIA [id number] [place] [address] [place] Urea nitrogen [Mass/Vol] 17 mg/dL Normal 7-21 [facility] Comment on above: Order Comment: Speci men Type: BLOOD SPECIMENOrdering Facility: [facility] Address: [address] [place] [address] Performed By: #### 1 9123-9, 87497-8, 19662-1 ####[facility] LABCLIA [id number] [address] [place] [address] [place] Folate SerPl-ncon 03-20-20 25 Folate [Mass/Vol] ng/mL Normal >4.7 [facility] Comment on above: Order Comment: Speci men Type: BLOOD SPECIMENOrdering Facility: [facility] Address: [address] [place] [address] Result Comment: A re sult of > 20 ng/mL is not necessarily indicative of a pathologic or treatable condition: it reflects a limitation of the test methodology. Assay reference range: 4.8 to 24.2 ng/mL. Suitable for detection of folate deficiency. Reference: Folate III (Folate III) [package insert V 1.0 Peruvian]. William Gudog, [place], [place]: May 2015. Performed By: #### 2 284-8, 2132-9 ####[facility] LABCLIA [id number] [place] [id number] [place] Lipid 1996 panelon 5 Cholesterol [Mass/Vol] 191 mg/dL Normal <200 [facility] Comment on above: Order Comment: Speci men Type: BLOOD SPECIMENOrdering Facility: [facility] Address: [address] [place] [address] Result Comment: <200 mg/dL, Desirable 200-239 mg/dL, Borderline high >239 mg/dL, High Performed By: #### 1 9123-9, 61758-0, 64399-6 ####[facility] LABCLIA [id number] [place] [id number] [place] Cholesterol in HDL [Mass/Vol] 54 mg/dL Normal >39 [facility] Comment on above: Order Comment: Speci men Type: BLOOD SPECIMENOrdering Facility: [facility] Address: [address] [place] [address] Result Comment: 40-5 9 mg/dL, Acceptable >59 mg/dL, High: Negative risk factor for coronary heart disease <40 mg/dL, Low: Positive risk factor for coronary heart disease Performed By: #### 1 9123-9, 99078-5, 48576-3 ####[facility] LABCLIA [id number] [address] [address] [place] Cholesterol in LDL [Mass/Vol] 108 mg/dL High <100 [facility] Comment on above: Order Comment: Speci men Type: BLOOD SPECIMENOrdering Facility: [facility] Address: [address] [place] [address] Result Comment: <100 mg/dL, Optimal 100-129 mg/dL, Near optimal/above optimal 130-159 mg/dL, Borderline high 160-189 mg/dL, High >189 mg/dL, Very high Secondary prevention optimal LDL Cholesterol levels are recommended to be <70 mg/dL LDL cholesterol is calculated using the Brown-NIH equation. Performed By: #### 1 9123-9, 78664-4, 14039-0 ####[facility] LABCLIA [id number] [place] [address] [place] Cholesterol in LDL/Cholesterol in HDL [Mass ratio] 2.00 {ratio} Normal <2.54 [facility] Comment on above: Order Comment: Vito men Type: BLOOD SPECIMENOrdering Facility: [facility] Address: [address] [place] [address] Result Comment: Refe rence: 1. National Cholesterol Education Program ATP III Guideline At-A-Glance Quick Desk Reference: National Heart, Lung, and Blood [place]. National Institutes of Health. 2001: NIH Publication No. 01-3305. 2. An International Atherosclerosis Society position paper: global recommendations for the management of dyslipidemia: executive summary, Atherosclerosis. 2014: 232(2):410-413. Performed By: #### 1 9123-9, 44734-1, 87211-2 ####[facility] LABCLIA [id number] [place] [address] [place] Cholesterol in VLDL [Mass/Vol] 28 mg/dL Normal <30 [facility] Comment on above: Order Comment: Vito gonzalez Type: BLOOD SPECIMENOrdering Facility: [facility] Address: [address] [place] [address] Performed By: #### 1 9123-9, 96368-5, 95398-4 ####[facility] LABCLIA [id number] [place] [address] [place] Cholesterol non HDL [Mass/Vol] 137 mg/dL High <130 [facility] Comment on above: Order Comment: Speci men Type: BLOOD SPECIMENOrdering Facility: [facility] Address: [address] [place] [address] Result Comment: <130 mg/dL, Optimal 130-159 mg/dL, Near optimal/above optimal 160-189 mg/dL, Borderline high 190-219 mg/dL, High >219 mg/dL, Very high Secondary prevention optimal non HDL Cholesterol levels are recommended to be <100 mg/dL Performed By: #### 1 9123-9, 54157-3, 96180-4 ####[facility] LABCLIA [id number] [place] [address] [place] Cholesterol.total/Ch olesterol in HDL [Mass ratio] 3.54 {ratio} Normal <5.10 [facility] Comment on above: Order Comment: Speci men Type: BLOOD SPECIMENOrdering Facility: [facility] Address: [address] [place] [address] Performed By: #### 1 9123-9, 46643-9, 88282-5 ####[facility] LABCLIA [id number] [place] [address] [place] FASTING TIME 12 hrs Normal [facility] Comment on above: Order Comment: Speci men Type: BLOOD SPECIMENOrdering Facility: [facility] Address: [address] [place] [address] Performed By: #### 1 9123-9, 95663-4, 32052-4 ####[facility] LABCLIA [id number] [place] [address] [place] Triglyceride [Mass/Vol] 165 mg/dL High <150 [facility] Comment on above: Order Comment: Speci men Type: BLOOD SPECIMENOrdering Facility: [facility] Address: [address] [place] [address] Result Comment: <150 mg/dL, Normal 150-199 mg/dL, Borderline high 200-499 mg/dL, High >499 mg/dL, Very high Performed By: #### 1 9123-9, 44494-2, 75142-3 ####[facility] LABCLIA [id number] [address] OF [facility] Magnesium [facility] 03-20 Magnesium [Mass/Vol] 2.2 mg/dL Normal 1.7-2.3 [facility] Comment on above: Order Comment: Speci men Type: BLOOD SPECIMENOrdering Facility: [facility] Address: [address] [place] [address] Performed By: #### 1 9123-9, 69528-9, 31736-0 ####[facility] LABIA [id number] [address] [place] Vit B12 [facility] 025 Cobalamin (Vitamin B12) [Mass/Vol] pg/mL High 232-1245 [facility] Comment on above: Order Comment: Speci men Type: BLOOD SPECIMENOrdering Facility: [facility] Address: [address] [place] [address] Performed By: #### 2 284-8, 2132-9 ####[facility] [id number] [address] [place] CNPKelin 03-10-2025 [facility] Telephone (INTMWS) ELIU MATAMOROS ([id number]) 1950 F Date Time Provider Department 03/10/25 LALO SCHULTZ INTWS During your visit today, we recorded the following information about you: Rosemary Ann LPN 03/10/2025 4:24 PM Signed Patient calling needs to get her yearly mamm. Last one done 09/30/2023. Patient gets done at [facility] fax to [phone]. Please call patient when the fax is sent to [facility]. Patient said said can leave a message. Pending order to file. Please advise Lalo Schultz MD 03/13/2025 1:29 AM Signed Filed Fax order as requested Olga Bourgeois LPN 03/13/2025 1:21 PM Signed Patient notified of order has been faxed to [facility] Allergies As of Date: 03/10/2025 Noted Allergy Reaction ASPIRIN 08/16/2021 15 - Contraindication-Medi vani Grayson* Comments: History of ulcer ATORVASTATIN 05/08/2022 17 - Myalgia NIACIN 10/07/2010 5 - Intolerance Comments: sweats and hot flashes SIMVASTATIN 03/26/2016 5 - Intolerance Comments: myalgias--severe; resolved after stopped but still with leg pain Date Reviewed: 09/27/2024 Reviewed by: Yissel Ferrari, RESIDENT SERVICES SUPERVISOR.ELECTROLYTIC ETCHER - Fully Assessed Reason for Visit: Orders [681] Primary Visit Diagnosis:Screening mammogram for breast cancer [Z12.31] Order(s):[facility] [[id number]] Order #: [id number] FUTURE Prescriptions as of 03/13/2025 - amLODIPine (NORVASC) 5 mg tablet Take 1 tablet by mouth once daily. - atenolol (TENORMIN) 50 mg tablet Take 1 tablet by mouth two times a day. - nortriptyline (PAMELOR) 50 mg capsule Take 2 capsules by mouth daily at bedtime. - multivitamin with minerals (HAIR,SKIN AND NAILS) tablet Take 1 tablet by mouth once daily. - cyanocobalamin (VITAMIN B-12) 1,000 mcg tab Take 1,000 mcg by mouth once daily. - turmeric/turmeric ext/pepr ext (TURMERIC-TURMERIC EXT-PEPPER) 500-3 mg cap Take by mouth. - multivit-mins 25-folic acid-D3 3-2,000 mg-unit tab Take by mouth. - trospium (SANCTURA) 20 mg tablet Take 1 tablet by mouth two times a day. - rosuvastatin (CRESTOR) 5 mg tablet Take 1 tablet by mouth once daily. As directed - Magnesium 250 mg tab Magnesium Citrate 1 tablet at bedtime - FOLIC ACID ORAL Take 1 tablet by mouth once daily. - inulin (FIBER GUMMIES ORAL) Take 20 mg by mouth once daily. - acetaminophen 650 mg CR tablet Take 650 mg by mouth every 8 hours as needed. Two tabs twice daily - docusate sodium (COLACE) 100 mg capsule Take 100 mg by mouth twice daily. - Melatonin 5 mg cap Take 30 mg by mouth daily at bedtime. - biotin 5 mg caspule Take 5 mg by mouth once daily. - MULTIVIT WITH CALCIUM,IRON,MIN (WOMEN'S DAILY MULTIVITAMIN ORAL) Take by mouth. Problem List As Of Date 03/10/2025 Noted Resolved INGROWING NAIL [L60.0] 09/26/2005 11/16/2006 Palpitations [R00.2] 02/17/2006 Essential hypertension [I10] 02/17/2006 GENERAL OSTEOARTHROSIS [M15.9] MIXED HYPERLIPIDEMIA [E78.2] 08/03/2006 DIARRHEA NOS [R19.7] 11/16/2006 DIVERTICULOSIS OF COLON W/O BLEED [K57.30] TINNITUS NOS [H93.19] 11/16/2006 Intractable migraine without aura [G43.019] 07/27/2007 08/18/2022 PAIN IN JOINT, LOWER LEG [M25.569] 04/06/2008 ABDOMINAL PAIN OTHER SPEC SITE [R10.9] 11/23/2008 Calculus of Kidney [N20.0] 03/26/2009 Lumbar Spondylosis [M47.816] Vitamin D deficiency [E55.9] 11/28/2017 Status post total right knee replacement [Z96.6*03/02/2018 Class 1 obesity due to excess calories with ser*08/07/2019 SVT (supraventricular tachycardia) (HCC) [I47.1*04/06/2020 Tachy-florencio syndrome (HCC) [I49.5] 04/06/2020 10/09/2023 Encounter Status:Closed by OLGA BOURGEOIS on 03/13/25 [facility] CNOVon 09-27-2024 CNOV Office Visit (UROLMD ) ELIU MATAMOROS ([id number]) 1950 F Date Time Provider Department 09/27/24 2:20 PM YISSEL FERRARI UROWALID During your visit today, we recorded the following information about you: Weight Height 78.9 kg 1.562 m Yaima Peterson LPN 09/27/2024 3:05 PM Signed Bladder scan obtained 0 ml of urine Yissel Ferarri APRN.ELECTROLYTIC ETCHER 09/27/2024 3:05 PM Signed Eliu Matamoros is a 74 year old female who presents today for evaluation of Patient presents with: Follow Up: Urge incontinence CHIEF COMPLAINT AND HISTORY OF PRESENT ILLNESS CC: follow up 74 year old female with a history of htn, nephrolithiasis presents for reports of urinary incontinence while she is sleeping, she was started on trospium 20 mg bid and reports that her leakage at night has stopped and she is feeling well, she does report some constipation. Denies urinary incontinence during the day Denies dysuria, gross hematuria PVR 0 cc DTF: every 3 hours NTF: varies URGENCY:rare UUI:no URIAH:no STRAINING:no COMPLETE EMPTYING: no PADS PER DAY:thin during the day FLUID INTAKE: water Past Urological History: Stones:yes: Surgery:yes: stone surgery Tumors:no Infections:no VITALS: Height 156.2 cm (5' 1.5), weight 78.9 kg (174 lb), last menstrual period 07/11/2003. ALLERGIES: Aspirin, Atorvastatin, Niacin, and Simvastatin MEDICATIONS: Current Outpatient Medications Medication Sig Dispense Refill amLODIPine (NORVASC) 5 mg tablet Take 1 tablet by mouth once daily. 90 tablet 3 atenolol (TENORMIN) 50 mg tablet Take 1 tablet by mouth two times a day. 180 tablet 3 nortriptyline (PAMELOR) 50 mg capsule Take 2 capsules by mouth daily at bedtime. 180 capsule 3 multivitamin with minerals (HAIR,SKIN AND NAILS) tablet Take 1 tablet by mouth once daily. cyanocobalamin (VITAMIN B-12) 1,000 mcg tab Take 1,000 mcg by mouth once daily. turmeric/turmeric ext/pepr ext (TURMERIC-TURMERIC EXT-PEPPER) 500-3 mg cap Take by mouth. multivit-mins 25-folic acid-D3 3-2,000 mg-unit tab Take by mouth. trospium (SANCTURA) 20 mg tablet Take 1 tablet by mouth two times a day. 60 tablet 0 trospium (SANCTURA) 20 mg tablet Take 1 tablet by mouth two times a day. 180 tablet 3 rosuvastatin (CRESTOR) 5 mg tablet Take 1 tablet by mouth once daily. As directed 90 tablet 1 Magnesium 250 mg tab Magnesium Citrate 1 tablet at bedtime FOLIC ACID ORAL Take 1 tablet by mouth once daily. inulin (FIBER GUMMIES ORAL) Take 20 mg by mouth once daily. docusate sodium (COLACE) 100 mg capsule Take 100 mg by mouth twice daily. Melatonin 5 mg cap Take 30 mg by mouth daily at bedtime. biotin 5 mg caspule Take 5 mg by mouth once daily. MULTIVIT WITH CALCIUM,IRON,MIN (WOMEN'S DAILY MULTIVITAMIN ORAL) Take by mouth. acetaminophen 650 mg CR tablet Take 650 mg by mouth every 8 hours as needed. Two tabs twice daily No current facility-administered medications for this visit. SOCIAL HISTORY: Social History Tobacco Use Smoking status: Former Current packs/day: 0.00 Types: Cigarettes Start date: 07/06/1969 Quit date: 07/06/1979 Years since quittin.2 Smokeless tobacco: Never Vaping Use Vaping status: Never Used Substance Use Topics Alcohol use: Not Currently Alcohol/week: 7.0 standard drinks of alcohol Types: 7 Shots of liquor per week Drug use: No PAST MEDICAL HISTORY: PAST MEDICAL HISTORY Diagnosis Date Achilles bursitis or tendinitis right shoulder Acute peptic ulcer, unspecified site, without mention of hemorrhage, perforation, or obstruction 10/06 Diarrhea Diverticulosis of colon (without mention of hemorrhage) External hemorrhoids without mention of complication Family history of malignant neoplasm of gastrointestinal tract family history of colon cancer Fibrosclerosis of breast fibrocystic breast disease Generalized osteoarthrosis, unspecified site Hemorrhage of gastrointestinal tract, unspecified Internal hemorrhoids without mention of complication Intractable migraine without aura 07/27/[address] 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 Bearden at [facility] Unspecified essential hypertension Unspecified hemorrhoids without mention of complication internal and externaldjd Unspecified tinnitus 11/16/2006 Left ear Urinary calculus, unspecified Renal stones PAST SURGICAL HISTORY: PAST SURGICAL HISTORY Procedure Laterality Date APPENDECTOMY ARTHRP INTERCARPAL/CARP/MTCR PL JT INTERPOSITION Right 08/16/2021 Right thumb CMC arthroplasty with trapeciectomy and 1st dorsal compartment release CO (more content not included)... Normal [facility] UA DIP, URINE (POC)on 2024 BILIRUBIN UA (POCT) Negative Negative [facility] CLARITY UA (POCT) Clear [facility] COLOR UA (POCT) Yellow [facility] GLUCOSE UA (POCT) Negative Negative mg/dL [facility] Hemoglobin Ql (U) Negative Negative [facility] KETONE UA (POCT) Negative Negative mg/dL [facility] LEUKOCYTES UA (POCT) Negative Negative [facility] NITRITE UA (POCT) Negative Negative [facility] PH UA (POCT) 7 4.5 - 8.0 [facility] Protein Ql (U) Negative Negative mg/dL [facility] SPECIFIC GRAVITY UA (POCT) 1.02 1.005 - 1.030 [facility] UROBILINOGEN UA (POCT) 0.2 Normal E.U./dL [facility] Location:[facility], [address] [place], [address] [facility] POINT OF CARE [facility] CNOVon 09-12-2024 CNOV Office Visit (INTMWS ) ELIU MATAMOROS ([id number]) 1950 F Date Time Provider Department 09/12/24 10:40 AM OJNELLE MAHMOOD INTMWS During your visit today, we recorded the following information about you: Pulse Respiration Blood pressure Weight 70/minute 16/minute 114/60 79.3 kg Jonelle Mahomod, GLENYS.OPTIC FIBRE DRAWER 09/12/2024 11:26 AM Signed SUBJECTIVE: RSV Vaccine(1 - 1-dose 75+ series) Never done Advance Directive Discussion due on 07/06/2024 HPI Eliu Matamoros is a 74 year old female. PMH significant for ACTIVE PROBLEM LIST Palpitations Essential Hypertension Generalized Osteoarthrosis, Unspecified Site Mixed Hyperlipidemia Diverticulosis of Colon (Without Mention of Hemorrhage) Unspecified Tinnitus Pain in Joint, Lower Leg Abdominal Pain, Other Specified Site Calculus of Kidney Lumbar Spondylosis Vitamin D Deficiency Status Post Total Right Knee Replacement Class 1 Obesity Due to Excess Calories With Serious Comorbidity and Body Mass Index (Bmi) of 30.0 to 30.9 in Adult Svt (Supraventricular Tachycardia) (Hcc) Presents today for routine visit. Notes nortriptyline dose increase helped with insomnia. Fatigued today. Notes tropsium helping a lot with urinary symptoms. She notes some increase of constipation on this medication. Reports that she is taking daily remedies for constipation. OTC remedy is helping, takes as needed.. BM Q2-3 days currently, her usual pattern.. HTN: Without report of headache, chest pain, palpitations, dyspnea, peripheral edema, orthopnea, fatigue, and PND. Last 14 Encounter BP Readings: Date: BP: 09/12/2024 114/60 07/13/2024 116/56 07/13/2024 120/60 05/25/2024 128/62 05/09/2024 122/76 03/21/2024 132/70 09/08/2023 136/78 05/20/2023 120/64 01/03/2023 144/76 11/28/2022 116/62 08/18/2022 138/78 05/08/2022 118/64 02/24/2022 128/70 10/03/2021 124/80 Hyperlipidemia. Ms. Matamoros reports doing well on current therapy. Her most recent lipid panels are: Cholesterol, Total (mg/dL) Date Value 09/05/2024 184 03/14/2024 203 08/14/2021 245 02/21/2021 249 HDL Cholesterol (mg/dL) Date Value 09/05/2024 60 03/14/2024 62 08/14/2021 66 02/21/2021 60 LDL Cholesterol (mg/dL) Date Value 09/05/2024 99 03/14/2024 112 08/14/2021 158 02/21/2021 164 Triglyceride (mg/dL) Date Value 09/05/2024 123 03/14/2024 145 08/14/2021 106 02/21/2021 124 Has trouble falling asleep, much better with nortryptyline. Sleeping through better also. Last night did not sleep well. Review of Systems Constitutional: Negative. Respiratory: Negative. Cardiovascular: Negative. Gastrointestinal: Positive for constipation. Psychiatric/Behaviora l: Positive for sleep disturbance. Objective BP 114/60 Pulse 70 Resp 16 Wt 79.3 kg (174 lb 13.2 oz) LMP 07/11/2003 BMI 32.50 kg/m? Physical Exam Vitals and nursing note reviewed. Constitutional: Appearance: Normal appearance. HENT: Head: Normocephalic and atraumatic. Eyes: Conjunctiva/sclera: Conjunctivae normal. Neck: Thyroid: No thyroid mass or thyromegaly. Vascular: Normal carotid pulses. No JVD. Cardiovascular: Rate and Rhythm: Normal rate and regular rhythm. Pulses: Carotid pulses are 2+ on the right side. Radial pulses are 2+ on the right side and 2+ on the left side. Dorsalis pedis pulses are detected w/ Doppler on the right side. Pulmonary: Effort: Pulmonary effort is normal. Breath sounds: Normal breath sounds. Abdominal: General: Bowel sounds are normal. Palpations: Abdomen is soft. Musculoskeletal: Right lower leg: No edema. Left lower leg: No edema. Skin: General: Skin is warm and dry. Neurological: General: No focal deficit present. Mental Status: She is alert and oriented to person, place, and time. ALLERGIES Allergen Reactions Aspirin Contraindication-Medi vani Surgical History of ulcer Atorvastatin Myalgia Niacin Intolerance sweats and hot flashes Simvastatin Intolerance myalgias--severe; resolved after stopped but still with leg pain Medication multivitamin with minerals (HAIR,SKIN AND NAILS) tablet Take 1 tablet by mouth once daily. cyanocobalamin (VITAMIN B-12) 1,000 mcg tab Take 1,000 mcg by mouth once daily. turmeric/turmeric ext/pepr ext (TURMERIC-TURMERIC EXT-PEPPER) 500-3 mg cap Take by mouth. multivit-mins 25-folic acid-D3 3-2,000 mg-unit tab Take by mouth. nortriptyline (PAMELOR) 50 mg capsule Take 50 mg by mouth daily at bedtime. trospium (SANCTURA) 20 mg tablet Take 1 tablet by mouth two times a day. trospium (SANCTURA) 20 mg tablet Take 1 tablet by mouth two times a day. Magnesium 250 mg tab Magnesium Citrate 1 tablet at bedtime atenolol (TENORMIN) 50 mg tablet Take 1 tablet by mouth two times a day. FOLIC ACID ORAL Take 1 tablet by mouth once daily. inulin (FIBER GUMMIES ORAL) Take 20 mg by mouth once (more content not included)... Normal [facility] 25(OH)D3 [facility] 25-hydroxyvitamin D3 [Mass/Vol] 51.0 ng/mL Normal 31.0-80.0 [facility] Comment on above: Order Comment: Speci men Type: BLOOD SPECIMENOrdering Facility: [facility] Address: [address] [place] [address] Result Comment: Clas sification of 25 [place] Vitamin D status: Deficiency/Insufficiency: < or = 30 ng/ml. Sufficiency/Optimal Levels: 31-80 ng/mL Toxicity: > 100 ng/mL. Test performed by chemiluminescent immunoassay. Performed By: #### 1 989-3 ####[facility] LABCLIA [id number] [place] [address] [place] CBC panel Auto (Bld)on 09-05 Erythrocyte distribution width (RBC) [Ratio] 12.2 % Normal 11.5-15.0 [facility] Comment on above: Order Comment: Speci men Type: BLOOD SPECIMENOrdering Facility: [facility] Address: [address] [place] [address] Performed By: #### 5 8410-2 ####[facility] ELLEN [id number] [address] [place] Hematocrit (Bld) [Volume fraction] 43.5 % Normal 36.0-46.0 [facility] Comment on above: Order Comment: Speci men Type: BLOOD SPECIMENOrdering Facility: [facility] Address: [address] [place] [address] Performed By: #### 5 8410-2 ####[facility]ENTERURBANO [id number] [place] [address] [place] Hemoglobin (Bld) [Mass/Vol] 14.2 g/dL Normal 11.5-15.5 [facility] Comment on above: Order Comment: Speci men Type: BLOOD SPECIMENOrdering Facility: [facility] Address: [address] [place] [address] Performed By: #### 5 8410-2 ####[facility]ENTERUR[facility]O [id number] [place] [address] [place] MCH (RBC) [Entitic mass] 34.4 pg High 26.0-34.0 [facility] Comment on above: Order Comment: Speci men Type: BLOOD SPECIMENOrdering Facility: [facility] Address: [address] [place] [address] Performed By: #### 5 8410-2 ####[facility] CENTERMARTÍNLIRebeca [id number] [place] [address] [place] MCHC (RBC) [Mass/Vol] 32.6 g/dL Normal 30.5-36.0 [facility] Comment on above: Order Comment: Speci men Type: BLOOD SPECIMENOrdering Facility: [facility] Address: [address] [place] [address] Performed By: #### 5 8410-2 ####[facility] ROYALIA [id number] [place] [address] [place] MCV (RBC) [Entitic vol] 105.3 fL High 80.0-100.0 [facility] Comment on above: Order Comment: Speci men Type: BLOOD SPECIMENOrdering Facility: [facility] Address: [address] [place] [address] Performed By: #### 5 8410-2 ####[facility] LOLACOLLEYVILLEMARTÍNLIA [id number] [place] [address] [place] Nucleated RBC (Bld) [#/Vol] 10*3/uL Normal <0.01 [facility] Comment on above: Order Comment: Speci men Type: BLOOD SPECIMENOrdering Facility: [facility] Address: [address] [place] [address] Performed By: #### 5 8410-2 ####[facility] CENTERMARTÍNA [id number] [place] [address] [place] Platelet mean volume (Bld) [Entitic vol] 10.7 fL Normal 9.0-12.7 [facility] Comment on above: Order Comment: Speci men Type: BLOOD SPECIMENOrdering Facility: [facility] Address: [address] [place] [address] Performed By: #### 5 8410-2 ####[facility] CENTERMARTÍNLIA [id number] [place] [address] [place] Platelets (Bld) [#/Vol] 188 10*3/uL Normal 150-400 [facility] Comment on above: Order Comment: Speci men Type: BLOOD SPECIMENOrdering Facility: [facility] Address: [address] [place] [address] Performed By: #### 5 8410-2 ####[facility] CENTERNCLIA [id number] [place] [address] [place] RBC (Bld) [#/Vol] 4.13 10*6/uL Normal 3.90-5.20 [facility] Comment on above: Order Comment: Speci men Type: BLOOD SPECIMENOrdering Facility: [facility] Address: [address] [place] [address] Performed By: #### 5 8410-2 ####[facility] [id number] [place] [address] [place] WBC (Bld) [#/Vol] 4.64 10*3/uL Normal 3.70-11.00 [facility] Comment on above: Order Comment: Speci men Type: BLOOD SPECIMENOrdering Facility: [facility] Address: [address] [place] [address] Performed By: #### 5 8410-2 ####[facility] [id number] [place] [address] [place] COPPER BLOODon 09-05-2024 Copper [Mass/Vol] 117 ug/dL Normal 80-155 [facility] Comment on above: Order Comment: Speci men Type: BLOOD SPECIMENOrdering Facility: [facility] Address: [address] [place] [address] Result Comment: This test was developed, and its performance characteristics determined by the [facility] Department of Pathology and Laboratory Medicine. It has not been cleared or approved by the FDA. The [facility] Department of Pathology and Laboratory Medicine is regulated under CLIA as qualified to perform high-complexity testing. This test is used for clinical purposes. It should not be regarded as investigational or for research. Performed By: #### C OPPER ####[facility] LABCLIA [id number] [address] [place] Comprehensive metabolic 2000 panelon 09-05-2024 Albumin [Mass/Vol] 4.4 g/dL Normal 3.9-4.9 [facility] Comment on above: Order Comment: Speci men Type: BLOOD SPECIMENOrdering Facility: [facility] Address: [address] [place] [address] Performed By: #### 2 4323-8, ####[facility] MILLTOWNCLIA [id number] [place] [address] [place]#### 50983-7 ####[facility]ORATORYCLIA [id number] [address] JASON MILLTOWARLIA [id number] [place] [address] [place] ALP [Catalytic activity/Vol] 69 U/L Normal 34-123 [facility] Comment on above: Order Comment: Speci men Type: BLOOD SPECIMENOrdering Facility: [facility] Address: [address] [place] [address] Performed By: #### 2 8, ####[facility] MILLWNCLIA [id number] [place] [address] [place]#### 71732-0 ####[facility]ORATORYCLIA [id number] [address] STATES [facility] [id number] [place] [address] [place] ALT [Catalytic activity/Vol] 28 U/L Normal 7-38 [facility] Comment on above: Order Comment: Speci men Type: BLOOD SPECIMENOrdering Facility: [facility] Address: [address] [place] [address] Performed By: #### 2 4323-8, 50943-2 ####[facility] MILLTOWNCLIA [id number] [place] [address] [place]#### 74836-1 ####[facility]ORATORYCLIA [id number] [place], [place] [address] [place] [address] STATES OF [facility] [id number] [place] [address] [place] Anion gap [Moles/Vol] 13 mmol/L Normal 8-15 [facility] Comment on above: Order Comment: Speci men Type: BLOOD SPECIMENOrdering Facility: [facility] Address: [address] [place] [address] Performed By: #### 2 4323-8, ####[facility] JASON MILLTOWNCLIA [id number] [place] [address] [place]#### 64103-8 ####[facility]ORATORYCLIA [id number] [address] STATES OF [facility] HOSPITALLIA [id number] [place] [address] [place] AST [Catalytic activity/Vol] 26 U/L Normal 13-35 [facility] Comment on above: Order Comment: Speci men Type: BLOOD SPECIMENOrdering Facility: [facility] Address: [address] [place] [address] Performed By: #### 2 8, ####[facility] MILLTOWNCLIA [id number] [place] [address] [place]#### 79264-8 ####[facility]ORATORYCLIA [id number] [address] STATES OF [facility] JASON MILLTOWNCLIA [id number] [place] [address] [place] Bilirubin [Mass/Vol] 0.6 mg/dL Normal 0.2-1.3 [facility] Comment on above: Order Comment: Speci men Type: BLOOD SPECIMENOrdering Facility: [facility] Address: [address] [place] [address] Performed By: #### 2 4323-8, ####[facility] JASON MILLTOWNCLIA [id number] [place] [address] [place]#### 21040-4 ####[facility]ORATORYCLIA [id number] [place] [address] [place] [facility] JASON MILLTOWNCLIA [id number] [place] [address] [place] Calcium [Mass/Vol] 9.5 mg/dL Normal 8.5-10.2 [facility] Comment on above: Order Comment: Speci men Type: BLOOD SPECIMENOrdering Facility: [facility] Address: [address] [place] [address] Performed By: #### 2 4323-8, ####[facility] CENTERWNCLIA [id number] [place] [address] [place]#### 71044-4 ####[facility]ORATORYCLIA [id number] [place] [address] [place] [facility] JASONST JOHNSBURY HOSPITALWARLIA [id number] [place] [address] [place] Chloride [Moles/Vol] 104 mmol/L Normal 98-107 [facility] Comment on above: Order Comment: Speci men Type: BLOOD SPECIMENOrdering Facility: [facility] Address: [address] [place] [address] Performed By: #### 2 4323-8, ####[facility] MILLTOWNCLIA [id number] [place] [address] [place]#### 60471-1 ####[facility]ORATORYCLIA [id number] [place] [address] [place] [facility] JASON MILLTOWNCLIA [id number] [place] [address] [place] CO2 [Moles/Vol] 24 mmol/L Normal 22-30 [facility] Comment on above: Order Comment: Speci men Type: BLOOD SPECIMENOrdering Facility: [facility] Address: [address] [place] [address] Performed By: #### 2 4323-8, ####[facility] MILLTOWNCLIA [id number] [address]#### 70720-3 ####[facility] LABORATORYCLIA [id number] [address] [id number] [address] STATES OF [facility] Creatinine [Mass/Vol] 0.69 mg/dL Normal 0.58-0.96 [facility] Comment on above: Order Comment: Speci men Type: BLOOD SPECIMENOrdering Facility: [facility] Address: [address] [place] [address] Performed By: #### 2 4323-8, ####[facility] CENTERWARLIA [id number] [address]#### 25546-9 ####[facility] LABORATORYCLIA [id number] [address] [id number] [address] Creatinine and Glomerular filtration rate.predicted panel (S/P/Bld) 90 mL/min/1.73m??? Normal >=60 [facility] Comment on above: Order Comment: Speci men Type: BLOOD SPECIMENOrdering Facility: [facility] Address: [address] [place] [address] Result Comment: Marlys mated Glomerular Filtration Rate (eGFR) is calculated using the 2020 CKD-EPI creatinine equation. This equation utilizes serum creatinine, sex, and age as parameters. The creatinine assay has traceable calibration to isotope dilution-mass spectrometry. Refer to KDIGO guidelines for clinical interpretation. In patients with unstable renal function, e.g. those with acute kidney injury, the eGFR may not accurately reflect actual GFR. Performed By: #### 2 4323-8, ####[facility]OSPITALTOWNCLIA [id number] [address] [place]#### 99635-8 ####[facility] LABORATORYCLIA [id number] [address] [id number] [place] [address] [place] Glucose [Mass/Vol] 81 mg/dL Normal 74-99 [facility] Comment on above: Order Comment: Speci men Type: BLOOD SPECIMENOrdering Facility: [facility] Address: [address] [place] [address] Result Comment: The [place] Diabetes Association (ADA) provides guidance for cutoff values for fasting glucose and random glucose. The ADA defines fasting as no caloric intake for at least 8 hours. Fasting plasma glucose results between 100 to 125 mg/dL indicate increased risk for diabetes (prediabetes). Fasting plasma glucose results greater than or equal to 126 mg/dL meet the criteria for diagnosis of diabetes. In the absence of unequivocal hyperglycemia, results should be confirmed by repeat testing. In a patient with classic symptoms of hyperglycemia or hyperglycemic crisis, random plasma glucose results greater than or equal to 200 mg/dL meet the criteria for diagnosis of diabetes. Reference: Standards of Medical Care in Diabetes 2016, [place] Diabetes Association. Diabetes Care. 2016.39(Suppl 1). Performed By: #### 2 38, ####[facility] CENTERWNCLIA [id number] [place] [address] [place]#### 47587-1 ####[facility] LABORATORYCLIA [id number] [address] [id number] [address] [facility] Potassium [Moles/Vol] 4.3 mmol/L Normal 3.7-5.1 [facility] Comment on above: Order Comment: Speci men Type: BLOOD SPECIMENOrdering Facility: [facility] Address: [address] [place] [address] Performed By: #### 2 4323-8, 72451-9 ####[facility] JASON MILLTOWNCLIA [id number] [place] [address] [place]#### 31579-0 ####[facility] LABORATORYCLIA [id number] [address] [id number] [place] [address] [place] Protein [Mass/Vol] 7.1 g/dL Normal 6.3-8.0 [facility] Comment on above: Order Comment: Speci men Type: BLOOD SPECIMENOrdering Facility: [facility] Address: [address] [place] [address] Performed By: #### 2 4323-8, ####[facility] CENTERWARLIA [id number] [place] [address] [place]#### 58232-6 ####[facility]ORATORYCLIA [id number] [address] JASON MILLTOWNCLIA [id number] [place] [address] [place] Sodium [Moles/Vol] 141 mmol/L Normal 136-144 [facility] Comment on above: Order Comment: Speci men Type: BLOOD SPECIMENOrdering Facility: [facility] Address: [address] [place] [address] Performed By: #### 2 4323-8, 38507-8 ####[facility] JASON MILLTOWNCLIA [id number] [address] [place]#### 53804-1 ####[facility] LABORATORYCLIA [id number] [address] [id number] [place] [address] [place] Urea nitrogen [Mass/Vol] 15 mg/dL Normal 7-21 [facility] Comment on above: Order Comment: Speci men Type: BLOOD SPECIMENOrdering Facility: [facility] Address: [address] [place] [address] Performed By: #### 2 4323-8, 77715-7 ####[facility] [id number] [address] [place]#### 21731-1 ####[facility] CENTERCLIA [id number] [address] [id number] [place] [address] [place] Folate SerPl-ncon 09-06-19 25 Folate [Mass/Vol] ng/mL Normal >4.7 [facility] Comment on above: Order Comment: Speci men Type: BLOOD SPECIMENOrdering Facility: [facility] Address: [address] [place] [address] Result Comment: A re sult of > 20 ng/mL is not necessarily indicative of a pathologic or treatable condition: it reflects a limitation of the test methodology. Assay reference range: 4.8 to 24.2 ng/mL. Suitable for detection of folate deficiency. Reference: Folate III (Folate III) [package insert V 1.0 [place]uvian]. [facility], [place], [place]: May 2015. Performed By: #### 2 132-9, 2284-8 ####[facility] LABORATORYCLIA [id number] [place] [address] [place] Lipid 1996 panelon 5 Cholesterol [Mass/Vol] 184 mg/dL Normal <200 [facility] Comment on above: Order Comment: Speci men Type: BLOOD SPECIMENOrdering Facility: [facility] Address: [address] [place] [address] Result Comment: <200 mg/dL, Desirable 200-239 mg/dL, Borderline high >239 mg/dL, High Performed By: #### 2 4323-8, ####[facility] MILLWNCLIA [id number] [place] [address] [place]#### 34551-6 ####[facility]ORATORYCLIA [id number] [address] [id number] [address] [place] Cholesterol in HDL [Mass/Vol] 60 mg/dL Normal >39 [facility] Comment on above: Order Comment: Speci men Type: BLOOD SPECIMENOrdering Facility: [facility] Address: [address] [place] [address] Result Comment: 40-5 9 mg/dL, Acceptable >59 mg/dL, High: Negative risk factor for coronary heart disease <40 mg/dL, Low: Positive risk factor for coronary heart disease Performed By: #### 2 4323-8, ####[facility] CENTERWNCLIA [id number] [place] [address] [place]#### 40879-9 ####[facility] LABORATORYCLIA [id number] [address] STATES [facility] JASONLAUREATE PSYCHIATRIC CLINIC AND HOSPITAL – TULSALIA [id number] [place] [address] [place] Cholesterol in LDL [Mass/Vol] 99 mg/dL Normal <100 [facility] Comment on above: Order Comment: Speci men Type: BLOOD SPECIMENOrdering Facility: [facility] Address: [address] [place] [address] Result Comment: <100 mg/dL, Optimal 100-129 mg/dL, Near optimal/above optimal 130-159 mg/dL, Borderline high 160-189 mg/dL, High >189 mg/dL, Very high Secondary prevention optimal LDL Cholesterol levels are recommended to be < 70 mg/dL Performed By: #### 2 432-8, ####[facility] INSTITUTELIA [id number] [address]#### 00307-2 ####[facility] LABORATORYCLIA [id number] [address] [id number] [place] [address] [place] Cholesterol in LDL/Cholesterol in HDL [Mass ratio] 1.65 {ratio} Normal <2.54 [facility] Comment on above: Order Comment: Speci men Type: BLOOD SPECIMENOrdering Facility: [facility] Address: [address] [place] [address] Result Comment: Refe rence: 1. National Cholesterol Education Program ATP III Guideline At-A-Glance Quick Desk Reference: National Heart, Lung, and Blood [place]. National Institutes of Health. 2001: NIH Publication No. 01-3305. 2. An International Atherosclerosis Society position paper: global recommendations for the management of dyslipidemia: executive summary, Atherosclerosis. 2014: 232(2):410-413. Performed By: #### 2 8, ####[facility] [id number] [address] [place]#### [address]-7 ####[facility]ORATORYCLIA [id number] [address] [id number] [place] [address] [place] Cholesterol in VLDL [Mass/Vol] 25 mg/dL Normal <30 [facility] Comment on above: Order Comment: Speci men Type: BLOOD SPECIMENOrdering Facility: [facility] Address: [address] [place] [address] Performed By: #### 2 8, ####[facility] [id number] [address] OF [place]#### [address]-1 ####[facility]RAWFORDSVILLEIA [id number] [address] [id number] [address] [place] Cholesterol non HDL [Mass/Vol] 124 mg/dL Normal <130 [facility] Comment on above: Order Comment: Speci men Type: BLOOD SPECIMENOrdering Facility: [facility] Address: [address] [place] [address] Result Comment: <130 mg/dL, Optimal 130-159 mg/dL, Near optimal/above optimal 160-189 mg/dL, Borderline high 190-219 mg/dL, High >219 mg/dL, Very high Secondary prevention optimal non HDL Cholesterol levels are recommended to be <100 mg/dL Performed By: #### 2 4323-02, ####[facility] [id number] [address] STATES [place]#### [address]-7 ####[facility] [id number] [address] [id number] [place] [address] [place] Cholesterol.total/Ch olesterol in HDL [Mass ratio] 3.07 {ratio} Normal <5.10 [facility] Comment on above: Order Comment: Speci men Type: BLOOD SPECIMENOrdering Facility: [facility] Address: [address] [place] [address] Performed By: #### 2 8, ####[facility]UTELIA [id number] [place] [address] [place]#### 72636-4 ####[facility]ATORYCLIA [id number] [address]WNCLIA [id number] [place] [address] [place] FASTING TIME 12 hrs Normal [facility] Comment on above: Order Comment: Speci men Type: BLOOD SPECIMENOrdering Facility: [facility] Address: [address] [place] [address] Performed By: #### 2 4323-8, ####[facility] MILLWNCLIA [id number] [place] [address] [place]#### 36172-0 ####[facility]ORYCLIA [id number] [address] STATES [facility]IT[facility]IA [id number] [place] [address] [place] Triglyceride [Mass/Vol] 123 mg/dL Normal <150 [facility] Comment on above: Order Comment: Speci men Type: BLOOD SPECIMENOrdering Facility: [facility] Address: [address] [place] [address] Result Comment: <150 mg/dL, Normal 150-199 mg/dL, Borderline high 200-499 mg/dL, High >499 mg/dL, Very high Performed By: #### 2 4323-8, 03296-7 ####[facility] MILLTOWNCLIA [id number] [place] [address] [place]#### 49968-0 ####[facility]ATORYCLIA [id number] [address] STATES OF [facility]ACHIL[facility] MILLTOWNCLIA [id number] [address] Magnesium [facility] Magnesium [Mass/Vol] 2.1 mg/dL Normal 1.7-2.3 [facility] Comment on above: Order Comment: Speci men Type: BLOOD SPECIMENOrdering Facility: [facility] Address: [address] [place] [address] Performed By: #### 2 4323-8, 54513-9 ####[facility] [id number] [address] STATES [place]#### [address]7-3 ####[facility] LABORATORYCLIA [id number] [address] STATES OF [facility] [id number] [address] OF [place] Vit B12 [facility] 025 Cobalamin (Vitamin B12) [Mass/Vol] 1115 pg/mL Normal 232-1245 [facility] Comment on above: Order Comment: Speci men Type: BLOOD SPECIMENOrdering Facility: [facility] Address: [facility] [place] [address] Performed By: #### 2 132-9, 2284-8 ####[facility] LABORATORYCLIA [id number] [address] OF [facility] CNOVon 08-16-2024 CNOV Office Visit (UROWALID ) ELIU MATAMOROS ([id number]) 1950 F Date Time Provider Department 08/16/24 1:20 PM YISSEL FERRARI During your visit today, we recorded the following information about you: Weight Height 78 kg 1.562 m Yissel Ferrari, GLENYS.ELECTROLYTIC ETCHER 08/16/2024 3:35 PM Addendum Eliu Matamoros is a 74 year old female who presents today for evaluation of Patient presents with: New Patient: Consult/urinary incontinence Consultation requested by Dr. Melgar for an opinion regarding urinary incontinence. My final recommendations will be communicated back to the requesting physician by way of shared medical record or letter via US mail CHIEF COMPLAINT AND HISTORY OF PRESENT ILLNESS CC: leakage at night 74 year old female with a history of htn, nephrolithiasis presents for reports of urinary incontinence while she is sleeping, some nights she is dry other times she will go through 3 pads per day, she drinks fluids all night long. +UUI on her way to the restroom Denies urinary incontinence during the day Denies dysuria, gross hematuria PVR 0 cc Diarrhea last week Denies vaginal bulge 3 c sections DTF: every 3 hours NTF: varies URGENCY:rare UUI:no URIAH:no STRAINING:no COMPLETE EMPTYING: no PADS PER DAY:thin during the day FLUID INTAKE: water Past Urological History: Stones:yes: Surgery:yes: stone surgery Tumors:no Infections:no VITALS: Height 156.2 cm (5' 1.5), weight 78 kg (172 lb), last menstrual period 07/11/2003. ALLERGIES: Aspirin, Atorvastatin, Niacin, and Simvastatin MEDICATIONS: Current Outpatient Medications Medication Sig Dispense Refill nortriptyline (PAMELOR) 50 mg capsule Take 2 capsules by mouth daily at bedtime for 7 days. 14 capsule 0 rosuvastatin (CRESTOR) 5 mg tablet Take 1 tablet by mouth once daily. As directed 90 tablet 1 nortriptyline (PAMELOR) 50 mg capsule Take 2 capsules by mouth daily at bedtime. 180 capsule 3 Magnesium 250 mg tab Magnesium Citrate 1 tablet at bedtime amLODIPine (NORVASC) 5 mg tablet Take 1 tablet by mouth once daily. 90 tablet 3 atenolol (TENORMIN) 50 mg tablet Take 1 tablet by mouth two times a day. 180 tablet 3 FOLIC ACID ORAL Take 1 tablet by mouth once daily. inulin (FIBER GUMMIES ORAL) Take 20 mg by mouth once daily. acetaminophen 650 mg CR tablet Take 650 mg by mouth every 8 hours as needed. Two tabs twice daily docusate sodium (COLACE) 100 mg capsule Take 100 mg by mouth twice daily. Melatonin 5 mg cap Take 30 mg by mouth daily at bedtime. biotin 5 mg caspule Take 5 mg by mouth once daily. MULTIVIT WITH CALCIUM,IRON,MIN (WOMEN'S DAILY MULTIVITAMIN ORAL) Take by mouth. No current facility-administered medications for this visit. SOCIAL HISTORY: Social History Tobacco Use Smoking status: Former Current packs/day: 0.00 Types: Cigarettes Start date: 07/06/1969 Quit date: 07/06/1979 Years since quittin.1 Smokeless tobacco: Never Vaping Use Vaping status: Never Used Substance Use Topics Alcohol use: Not Currently Alcohol/week: 7.0 standard drinks of alcohol Types: 7 Shots of liquor per week Drug use: No PAST MEDICAL HISTORY: PAST MEDICAL HISTORY Diagnosis Date Achilles bursitis or tendinitis right shoulder Acute peptic ulcer, unspecified site, without mention of hemorrhage, perforation, or obstruction 10/06 Diarrhea Diverticulosis of colon (without mention of hemorrhage) External hemorrhoids without mention of complication Family history of malignant neoplasm of gastrointestinal tract family history of colon cancer Fibrosclerosis of breast fibrocystic breast disease Generalized osteoarthrosis, unspecified site Hemorrhage of gastrointestinal tract, unspecified Internal hemorrhoids without mention of complication Intractable migraine without aura 07/27/[address] 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 Bearden at [facility] Unspecified essential hypertension Unspecified hemorrhoids without mention of complication internal and externaldjd Unspecified tinnitus 11/16/2006 Left ear Urinary calculus, unspecified Renal stones PAST SURGICAL HISTORY: PAST SURGICAL HISTORY Procedure Laterality Date APPENDECTOMY ARTHRP INTERCARPAL/CARP/MTCR PL JT INTERPOSITION Right 08/16/2021 Right thumb CMC arthroplasty with trapeciectomy and 1st dorsal compartment release COLONOS VIA STOMA W/ ABLATION COLONOSCOPY FLX DX W/COLLJ SPEC WHEN PFRMD 10/09/2006 PAST SURGICAL HISTORY OF Ultrasound kidney stones PAST SURGICAL HISTORY OF Right 01/01/2018 total right knee rep (more content not included)... Normal [facility] 08-16-2024 JASWANTN Telephone (UROYENI) SHANELIU BERNSTEIN ([id number]) 1950 F Date Time Provider Department 08/16/24 YISSEL FERRARI During your visit today, we recorded the following information about you: Sue Krishnan, RN 08/16/2024 3:56 PM Signed Patient called in, medication prescribed today is not covered by insurance, patient has cancelled the one at [facility]. Would like another option for medication. Please leave a message for patient regarding new medication. Yissel Ferrari APRN.ELECTROLYTIC ETCHER 08/16/2024 4:59 PM Signed Script sent for trospium 20 mg twice daily. Yissel Ferrari APRN.JASWANT 08/16/2024 4:59 PM Signed Addended by: YISSEL FERRARI on: 08/16/2024 04:59 PM Modules accepted: Orders Allergies As of Date: 08/16/2024 Noted Allergy Reaction ASPIRIN 08/16/2021 15 - Contraindication-Medi vani Grayson* Comments: History of ulcer ATORVASTATIN 05/08/2022 17 - Myalgia NIACIN 10/07/2010 5 - Intolerance Comments: sweats and hot flashes SIMVASTATIN 03/26/2016 5 - Intolerance Comments: myalgias--severe; resolved after stopped but still with leg pain Date Reviewed: 08/16/2024 Reviewed by: Yissel Ferrari APRN.ELECTROLYTIC ETCHER - Fully Assessed Reason for Visit: Returning Patient's Call [408] Order(s):trospium (SANCTURA) 20 mg tabletTake 1 tablet by mouth two times a day.Disp: 60 tabletRfl: 0 trospium (SANCTURA) 20 mg tabletTake 1 tablet by mouth two times a day.Disp: 180 tabletRfl: 3 Prescriptions as of 08/16/2024 - multivitamin with minerals (HAIR,SKIN AND NAILS) tablet Take 1 tablet by mouth once daily. - cyanocobalamin (VITAMIN B-12) 1,000 mcg tab Take 1,000 mcg by mouth once daily. - turmeric/turmeric ext/pepr ext (TURMERIC-TURMERIC EXT-PEPPER) 500-3 mg cap Take by mouth. - multivit-mins 25-folic acid-D3 3-2,000 mg-unit tab Take by mouth. - nortriptyline (PAMELOR) 50 mg capsule Take 50 mg by mouth daily at bedtime. - trospium (SANCTURA) 20 mg tablet Take 1 tablet by mouth two times a day. - trospium (SANCTURA) 20 mg tablet Take 1 tablet by mouth two times a day. - nortriptyline (PAMELOR) 50 mg capsule Take 2 capsules by mouth daily at bedtime for 7 days. - rosuvastatin (CRESTOR) 5 mg tablet Take 1 tablet by mouth once daily. As directed - nortriptyline (PAMELOR) 50 mg capsule Take 2 capsules by mouth daily at bedtime. - Magnesium 250 mg tab Magnesium Citrate 1 tablet at bedtime - amLODIPine (NORVASC) 5 mg tablet Take 1 tablet by mouth once daily. - atenolol (TENORMIN) 50 mg tablet Take 1 tablet by mouth two times a day. - FOLIC ACID ORAL Take 1 tablet by mouth once daily. - inulin (FIBER GUMMIES ORAL) Take 20 mg by mouth once daily. - acetaminophen 650 mg CR tablet Take 650 mg by mouth every 8 hours as needed. Two tabs twice daily - docusate sodium (COLACE) 100 mg capsule Take 100 mg by mouth twice daily. - Melatonin 5 mg cap Take 30 mg by mouth daily at bedtime. - biotin 5 mg caspule Take 5 mg by mouth once daily. - MULTIVIT WITH CALCIUM,IRON,MIN (WOMEN'S DAILY MULTIVITAMIN ORAL) Take by mouth. Problem List As Of Date 08/16/2024 Noted Resolved INGROWING NAIL [L60.0] 09/26/2005 11/16/2006 Palpitations [R00.2] 02/17/2006 Essential hypertension [I10] 02/17/2006 GENERAL OSTEOARTHROSIS [M15.9] MIXED HYPERLIPIDEMIA [E78.2] 08/03/2006 DIARRHEA NOS [R19.7] 11/16/2006 DIVERTICULOSIS OF COLON W/O BLEED [K57.30] TINNITUS NOS [H93.19] 11/16/2006 Intractable migraine without aura [G43.019] 07/27/2007 08/18/2022 PAIN IN JOINT, LOWER LEG [M25.569] 04/06/2008 ABDOMINAL PAIN OTHER SPEC SITE [R10.9] 11/23/2008 Calculus of Kidney [N20.0] 03/26/2009 Lumbar Spondylosis [M47.816] Vitamin D deficiency [E55.9] 11/28/2017 Status post total right knee replacement [Z96.6*03/02/2018 Class 1 obesity due to excess calories with ser*08/07/2019 SVT (supraventricular tachycardia) (HCC) [I47.1*04/06/2020 Tachy-florencio syndrome (HCC) [I49.5] 04/06/2020 10/09/2023 Prescriptions ordered this encounter Disp Refills Start End TROSPIUM 20 MG TABLET 60 t* 0 08/16/2024 Route: ORAL Sig: Take 1 tablet by mouth two times a day. TROSPIUM 20 MG TABLET 180 * 3 08/16/2024 Route: ORAL Sig: Take 1 tablet by mouth two times a day. Medications Discontinued During This Encounter Prescriptions - mirabegron (MYRBETRIQ) 25 mg Tb24 (Discontinued) Take 1 tablet by mouth once daily. - mirabegron (MYRBETRIQ) 25 mg Tb24 (Discontinued) Take 1 tablet by mouth once daily. Encounter Status:Closed by SUE KRISHNAN on 08/16/24 Normal [facility] UA DIP, URINE (POC)on 2024 BILIRUBIN UA (POCT) Small Abnormal Negative [facility] CLARITY UA (POCT) Clear [facility] COLOR UA (POCT) Yellow [facility] GLUCOSE UA (POCT) Negative Negative mg/dL [facility] Hemoglobin Ql (U) Negative Negative [facility] Interpretation and review of laboratory results Abnormal [facility] KETONE UA (POCT) 15 mg/dL Abnormal Negative [facility] LEUKOCYTES UA (POCT) Negative Negative [facility] NITRITE UA (POCT) Negative Negative [facility] PH UA (POCT) 5.5 4.5 - 8.0 [facility] Protein Ql (U) 100 mg/dL Abnormal Negative [facility] SPECIFIC GRAVITY UA (POCT) 1.025 1.005 - 1.030 [facility] UROBILINOGEN UA (POCT) 0.2 Normal E.U./dL [facility] Location:[facility], [address] [place], [address] [facility] POINT OF CARE [facility] CNPNon 07-18-2024 [facility] ELIU MATAMOROS ([id number]) 1950 F Date Time Provider Department 07/18/24 CARMEN ALAMO [facility] During your visit today, we recorded the following information about you: David Barnes 07/18/2024 10:56 AM Signed spoke to patient to make a follow up Colonoscopy appointment to go over pathology stated she can not come in at this time as it cost her $20 and this is not a good time. patient would like to know if there is anything that is needed to please call her? thank you, David Allergies As of Date: 07/18/2024 Noted Allergy Reaction ASPIRIN 08/16/2021 15 - Contraindication-Medi vani Grayson* Comments: History of ulcer ATORVASTATIN 05/08/2022 17 - Myalgia NIACIN 10/07/2010 5 - Intolerance Comments: sweats and hot flashes SIMVASTATIN 03/26/2016 5 - Intolerance Comments: myalgias--severe; resolved after stopped but still with leg pain Date Reviewed: 07/13/2024 Reviewed by: Davida Redman, RN - Fully Assessed Prescriptions as of 09/28/2024 - amLODIPine (NORVASC) 5 mg tablet Take 1 tablet by mouth once daily. - atenolol (TENORMIN) 50 mg tablet Take 1 tablet by mouth two times a day. - nortriptyline (PAMELOR) 50 mg capsule Take 2 capsules by mouth daily at bedtime. - multivitamin with minerals (HAIR,SKIN AND NAILS) tablet Take 1 tablet by mouth once daily. - cyanocobalamin (VITAMIN B-12) 1,000 mcg tab Take 1,000 mcg by mouth once daily. - turmeric/turmeric ext/pepr ext (TURMERIC-TURMERIC EXT-PEPPER) 500-3 mg cap Take by mouth. - multivit-mins 25-folic acid-D3 3-2,000 mg-unit tab Take by mouth. - trospium (SANCTURA) 20 mg tablet Take 1 tablet by mouth two times a day. - rosuvastatin (CRESTOR) 5 mg tablet Take 1 tablet by mouth once daily. As directed - Magnesium 250 mg tab Magnesium Citrate 1 tablet at bedtime - FOLIC ACID ORAL Take 1 tablet by mouth once daily. - inulin (FIBER GUMMIES ORAL) Take 20 mg by mouth once daily. - acetaminophen 650 mg CR tablet Take 650 mg by mouth every 8 hours as needed. Two tabs twice daily - docusate sodium (COLACE) 100 mg capsule Take 100 mg by mouth twice daily. - Melatonin 5 mg cap Take 30 mg by mouth daily at bedtime. - biotin 5 mg caspule Take 5 mg by mouth once daily. - MULTIVIT WITH CALCIUM,IRON,MIN (WOMEN'S DAILY MULTIVITAMIN ORAL) Take by mouth. Problem List As Of Date 07/18/2024 Noted Resolved INGROWING NAIL [L60.0] 09/26/2005 11/16/2006 Palpitations [R00.2] 02/17/2006 Essential hypertension [I10] 02/17/2006 GENERAL OSTEOARTHROSIS [M15.9] MIXED HYPERLIPIDEMIA [E78.2] 08/03/2006 DIARRHEA NOS [R19.7] 11/16/2006 DIVERTICULOSIS OF COLON W/O BLEED [K57.30] TINNITUS NOS [H93.19] 11/16/2006 Intractable migraine without aura [G43.019] 07/27/2007 08/18/2022 PAIN IN JOINT, LOWER LEG [M25.569] 04/06/2008 ABDOMINAL PAIN OTHER SPEC SITE [R10.9] 11/23/2008 Calculus of Kidney [N20.0] 03/26/2009 Lumbar Spondylosis [M47.816] Vitamin D deficiency [E55.9] 11/28/2017 Status post total right knee replacement [Z96.6*03/02/2018 Class 1 obesity due to excess calories with ser*08/07/2019 SVT (supraventricular tachycardia) (HCC) [I47.1*04/06/2020 Tachy-florencio syndrome (HCC) [I49.5] 04/06/2020 10/09/2023 Encounter Status:Closed by DAVID BARNES on 09/28/24 Normal [facility] ANES POSTPROC EVALon 025 ANES POSTPROC EVAL HNO ID: [id number] Author: REN RAMOS MD Service: Anesthesiology Author Type: Anesthesiologist Type: Anesthesia Postprocedure Evaluation Filed: 07/13/2024 14:00 Note Text: POST ANESTHESIA EVALUATION NOTE : 1950 Procedure Summary Date: 07/13/24 Room / Location: [facility] Anesthesia Start: 830 Anesthesia Stop: 905 Procedure: COLONOSCOPY DIAGNOSTIC Diagnosis: Rectal bleeding (Rectal bleeding) Scheduled Providers: Fransisca Razo MD; Ren Ramos MD; Ashely Morocho APRN.PATTERN CHART WRITER Responsible Provider: Ren Ramos MD Anesthesia Type: MAC ASA Status: 2 Anesthesia Type: MAC Last Vitals Vitals Value Taken Time BP 120/60 07/13/24 0915 Temp 36.2 ?C (97.2 ?F) 07/13/24 0905 Pulse 57 07/13/24 0911 Resp 17 07/13/24 0915 SpO2 97 % 07/13/24 0911 Vitals shown include unfiled device data. Post Anesthesia Patient Status Patient Evaluation: PACU. PACU/ICU Patient Condition: stable. Anticipated Disposition: phase 2 then home. Neurological Status: aware and responsive. Pulmonary Status: breathing comfortably on room air Airway Control: returned to baseline unsupported. Cardiovascular Status: stable. Pain Management: clinically adequate - multimodal analgesia pain management approach Postoperative Hydration: acceptable. Intraoperative Events: no significant anesthesia events Recommendation: continue current plan of care. Anesthesia Observations No Documentation SIGNATURE: Ren Ramos MD PATIENT NAME: Eliu Matamoros DATE: July 13, 2024 TIME: 2:00 PM CSN: [id number] Normal [facility] ANES PRE-OPon 07-13-2024 ANES PRE-OP HNO ID: [id number] Author: REN RAMOS MD Service: Anesthesiology Author Type: Anesthesiologist Type: Anesthesia Preprocedure Evaluation Filed: 07/13/2024 08:19 Note Text: ANESTHESIOLOGY DAY OF SURGERY NOTE : 1950 Procedure Information Date/Time: 07/13/24 0900 Scheduled providers: Fransisca Razo MD; Ren Ramos MD; Ashely Morocho APRN.PATTERN CHART WRITER Procedure: COLONOSCOPY DIAGNOSTIC Location: [facility] Estimated body mass index is 32.5 kg/m? as calculated from the following: Height as of this encounter: 154.9 cm (5' 1). Weight as of this encounter: 78 kg (172 lb). Most recent hematocrit and potassium results: Hematocrit 45.7 03/14/2024 Potassium 4.4 03/14/2024 Relevant Problems CARDIO (+) Essential hypertension (+) SVT (supraventricular tachycardia) (HCC) -RENAL (+) Calculus of kidney I - PHYSICAL EVALUATION AIRWAY Patient intubated: No. Tracheostomy tube not present Mallampati: II. TM distance: >3 FB. Neck ROM: full ROM without neurological symptoms. Mouth opening: adequate. DENTAL Dental findings: poor dentition. Additional exam findings: no II - ANESTHESIA PLAN ASA Score: 2 Anesthetic Plan: MAC NPO Status: adequate Beta Nanda Monitoring Plan Monitoring plan: standard ASA. Post Procedure Analgesic Plan Postoperative analgesic plan: parenteral or oral opioids and multimodal analgesia. Patient / Surrogate agrees to blood products: blood products not planned Significant changes in the patient condition since the History and Physical, not otherwise documented in primary service progress note: no. Vitals Value Taken Time BP 159/72 07/13/24 0753 Pulse Resp 16 07/13/24 075 Temp 37.2 ?C (99 ?F) 07/13/24 0753 SpO2 99 % 07/13/24 0753 Outpatient Medications as of 07/13/2024 Medication Sig - nortriptyline (PAMELOR) 50 mg capsule Take 2 capsules by mouth daily at bedtime. - amLODIPine (NORVASC) 5 mg tablet Take 1 tablet by mouth once daily. - atenolol (TENORMIN) 50 mg tablet Take 1 tablet by mouth two times a day. - FOLIC ACID ORAL Take 1 tablet by mouth once daily. - inulin (FIBER GUMMIES ORAL) Take 20 mg by mouth once daily. - acetaminophen 650 mg CR tablet Take 650 mg by mouth every 8 hours as needed. Two tabs twice daily - docusate sodium (COLACE) 100 mg capsule Take 100 mg by mouth twice daily. - Melatonin 5 mg cap Take 30 mg by mouth daily at bedtime. - biotin 5 mg caspule Take 5 mg by mouth once daily. - nortriptyline (PAMELOR) 50 mg capsule Take 2 capsules by mouth daily at bedtime for 7 days. - rosuvastatin (CRESTOR) 5 mg tablet Take 1 tablet by mouth once daily. As directed - Magnesium 250 mg tab Magnesium Citrate 1 tablet at bedtime - MULTIVIT WITH CALCIUM,IRON,MIN (WOMEN'S DAILY MULTIVITAMIN ORAL) Take by mouth. Facility-Administered Medications as of 07/13/2024 Medication Dose Route Frequency - lidocaine (PF) 10 mg/mL (1 %) 1-2 mg injection (XYLOCAINE) 0.1-0.2 mL INTRADERMAL PRN - lactated ringers iv infusion 30 mL/hr INTRAVENOUS CONTINUOUS I have interviewed and examined the patient. I have reviewed the medical record and/or the pre-anesthesia evaluation, pertinent labs, and test results. This contains updated information obtained within 48 hours of Surgery/Procedure. SIGNATURE: Ren Ramos MD PATIENT NAME: Eliu Matamoros DATE: July 13, 2024 TIME: 8:19 AM CSN: [id number] [facility] Colon[facility] Patient Name: Eliu Matamoros Procedure Date: 07/13/2024 8:21 AM Date of : 1950 Admit Type: Outpatient Age: 74 Room: [facility] Gender: Female Note Status: Finalized Attending MD: Fransisca Razo MD, [id number] Procedure: Colonoscopy Indications: Rectal bleeding Providers: Fransisca Razo MD Patient Profile: Refer to note in patient chart for documentation of history and physical. Last Colonoscopy: 2018. Referring Physician: Fransisca Razo MD (Referring MD) Medicines: Monitored Anesthesia Care Complications: No immediate complications. Requesting Provider: Procedure: Pre-Anesthesia Assessment: - Monitored anesthesia care under the supervision of a PATTERN CHART WRITER was determined to be medically necessary for this procedure based on review of the patient's medical history, medications, and prior anesthesia history. After I obtained informed consent, the scope was passed under direct vision. Throughout the procedure, the patient's blood pressure, pulse, and oxygen saturations were monitored continuously. The Colonoscope was introduced through the anus and advanced to the cecum, identified by the appendiceal orifice, IC valve and transillumination. The colonoscopy was performed without difficulty. The patient tolerated the procedure well. The quality of the bowel preparation was adequate to identify polyps greater than 5 mm in size. The appendiceal orifice and the rectum were photographed. Scope Withdrawal Time: 0 hours 14 minutes 23 seconds Moderate Sedation: MAC anesthesia was administered by the anesthesia team. Total Procedure Duration: 0 hours 20 minutes 41 seconds Findings: The perianal and digital rectal examinations were normal. Non-bleeding external and internal hemorrhoids were found. A few small-mouthed diverticula were found in the sigmoid colon. A 2 to 4 mm polyp was found in the recto-sigmoid colon. The polyp was sessile. The polyp was removed with a cold biopsy forceps. Resection and retrieval were complete. Verification of patient identification for the specimen was done by the nurse. Estimated blood loss was minimal. Impression: - Non-bleeding external and internal hemorrhoids. - Diverticulosis in the sigmoid colon. - One 2 to 4 mm polyp at the recto-sigmoid colon, removed with a cold biopsy forceps. Resected and retrieved. Recommendation: - Repeat colonoscopy date to be determined after pending pathology results are reviewed for surveillance based on pathology results. - - Follow up with Germania Alamo NP, may be via televisit for discussion of pathology results and determination of timing of future endoscopies - Patient has a contact number available for emergencies. The signs and symptoms of potential delayed complications were discussed with the patient. Return to normal activities tomorrow. Written discharge instructions were provided to the patient. - Continue present medications. - Resume previous diet. Procedure Code(s): --- Professional --- 43057, Colonoscopy, flexible; with biopsy, single or multiple Diagnosis Code(s): --- Professional --- K57.30, Diverticulosis of large intestine without perforation or abscess without bleeding K62.5, Hemorrhage of anus and rectum D12.7, Benign neoplasm of rectosigmoid junction K64.8, Other hemorrhoids CPT copyright 2020 [employer]. All rights reserved. The codes documented in this report are preliminary and upon county assessor review may be revised to meet current compliance requirements. Attending Participation: I personally performed the entire procedure. Scope In: 8:37:22 AM Scope Out: 8:58:03 AM MD Fransisca Cheek MD 07/13/2024 9:03:21 AM This report has been signed electronically by Fransisca Razo MD Number of Addenda: 0 Note Initiated On: 07/13/2024 8:21 AM Estimated Blood Loss: Estimated blood loss was minimal. Normal [facility] Flexible sigmoidoscopy study on 07-13-2024 [facility] Gastrointestinal Endoscopy Patient Name: Eliu Matamoros Procedure Date: 07/13/2024 8:21 AM Date of : 1950 Admit Type: Outpatient Age: 74 Room: [facility] Gender: Female Note Status: Finalized Attending MD: Fransisca Razo MD, [id number] Procedure: Colonoscopy Indications: Rectal bleeding Providers: Fransisca Razo MD Patient Profile: Refer to note in patient chart for documentation of history and physical. Last Colonoscopy: 2019. Referring Physician: Fransisca Razo MD (Referring MD) Medicines: Monitored Anesthesia Care Complications: No immediate complications. Requesting Provider: Procedure: Pre-Anesthesia Assessment: - Monitored anesthesia care under the supervision of a PATTERN CHART WRITER was determined to be medically necessary for this procedure based on review of the patient's medical history, medications, and prior anesthesia history. After I obtained informed consent, the scope was passed under direct vision. Throughout the procedure, the patient's blood pressure, pulse, and oxygen saturations were monitored continuously. The Colonoscope was introduced through the anus and advanced to the cecum, identified by the appendiceal orifice, IC valve and transillumination. The colonoscopy was performed without difficulty. The patient tolerated the procedure well. The quality of the bowel preparation was adequate to identify polyps greater than 5 mm in size. The appendiceal orifice and the rectum were photographed. Scope Withdrawal Time: 0 hours 14 minutes 23 seconds Moderate Sedation: MAC anesthesia was administered by the anesthesia team. Total Procedure Duration: 0 hours 20 minutes 41 seconds Findings: The perianal and digital rectal examinations were normal. Non-bleeding external and internal hemorrhoids were found. A few small-mouthed diverticula were found in the sigmoid colon. A 2 to 4 mm polyp was found in the recto-sigmoid colon. The polyp was sessile. The polyp was removed with a cold biopsy forceps. Resection and retrieval were complete. Verification of patient identification for the specimen was done by the nurse. Estimated blood loss was minimal. Impression: - Non-bleeding external and internal hemorrhoids. - Diverticulosis in the sigmoid colon. - One 2 to 4 mm polyp at the recto-sigmoid colon, removed with a cold biopsy forceps. Resected and retrieved. Recommendation: - Repeat colonoscopy date to be determined after pending pathology results are reviewed for surveillance based on pathology results. - - Follow up with Germania Alamo NP, may be via televisit for discussion of pathology results and determination of timing of future endoscopies - Patient has a contact number available for emergencies. The signs and symptoms of potential delayed complications were discussed with the patient. Return to normal activities tomorrow. Written discharge instructions were provided to the patient. - Continue present medications. - Resume previous diet. Procedure Code(s): --- Professional --- 77783, Colonoscopy, flexible; with biopsy, single or multiple Diagnosis Code(s): --- Professional --- K57.30, Diverticulosis of large intestine without perforation or abscess without bleeding K62.5, Hemorrhage of anus and rectum D12.7, Benign neoplasm of rectosigmoid junction K64.8, Other hemorrhoids CPT copyright 2020 [employer]. All rights reserved. The codes documented in this report are preliminary and upon county assessor review may be revised to meet current compliance requirements. Attending Participation: I personally performed the entire procedure. Scope In: 8:37:22 AM Scope Out: 8:58:03 AM MD Fransisca Cheek MD 07/13/2024 9:03:21 AM This report has been signed electronically by Fransisca Razo MD (more content not included)... [facility] Radiology Study observation (narrative) [facility] HISTORY PHYSICALon 5 HISTORY PHYSICAL HNO ID: [id number] Author: FRANSISCA RAZO MD Service: General Surgery Author Type: Physician Type: H&P Filed: 07/13/2024 07:56 Note Text: HISTORY AND PHYSICAL Eliu Matamoros 1950 REFERRING PHYSICIAN: No ref. provider found CHIEF COMPLAINT: Consult (Colonoscopy consultation. ) HPI: The patient is a 74 year old female referred for endoscopy. Eliu notes intermittent rectal bleeding. She states that she last had a colonoscopy in 2019. She states that her mother was diagnosed with colon cancer in her 70s and of this. She notes occasional lower abdominal cramping pain. She denies constipation. She denies diarrhea. She states that the rectal bleeding has been going on for a while. PAST MEDICAL HISTORY PAST MEDICAL HISTORY Diagnosis Date Achilles bursitis or tendinitis right shoulder Acute peptic ulcer, unspecified site, without mention of hemorrhage, perforation, or obstruction 10/06 Diarrhea Diverticulosis of colon (without mention of hemorrhage) External hemorrhoids without mention of complication Family history of malignant neoplasm of gastrointestinal tract family history of colon cancer Fibrosclerosis of breast fibrocystic breast disease Generalized osteoarthrosis, unspecified site Hemorrhage of gastrointestinal tract, unspecified Internal hemorrhoids without mention of complication Intractable migraine without aura 07/27/[address] 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 Bearden at [facility] Unspecified essential hypertension Unspecified hemorrhoids without mention of complication internal and externaldjd Unspecified tinnitus 11/16/2006 Left ear Urinary calculus, unspecified Renal stones PAST SURGICAL HISTORY PAST SURGICAL HISTORY Procedure Laterality Date APPENDECTOMY ARTHRP INTERPOS INTERCARPAL/METACARPA L JOINTS Right 08/16/2021 Right thumb CMC arthroplasty with trapeciectomy and 1st dorsal compartment release COLONOS VIA STOMA W/ ABLATION COLONOSCOPY FLX DX W/COLLJ SPEC WHEN PFRMD 10/09/2006 PAST SURGICAL HISTORY OF Ultrasound kidney stones PAST SURGICAL HISTORY OF Right 01/01/2018 total right knee replacement PAST SURGICAL HISTORY OF Left 06/27/2020 inguinal hernai repair SIGMOIDOSCOPY FLX DX W/COLLJ SPEC BR/WA IF PFRMD 10/13/2002 Sigmoidoscopy, flexible TONSILLECTOMY PRIMARY/SECONDARY Tonsillectomy CURRENT MEDICATIONS Current Outpatient Medications Medication Sig nortriptyline (PAMELOR) 50 mg capsule Take 2 capsules by mouth daily at bedtime for 7 days. rosuvastatin (CRESTOR) 5 mg tablet Take 1 tablet by mouth once daily. As directed nortriptyline (PAMELOR) 50 mg capsule Take 2 capsules by mouth daily at bedtime. Magnesium 250 mg tab Magnesium Citrate 1 tablet at bedtime amLODIPine (NORVASC) 5 mg tablet Take 1 tablet by mouth once daily. atenolol (TENORMIN) 50 mg tablet Take 1 tablet by mouth two times a day. FOLIC ACID ORAL Take 1 tablet by mouth once daily. inulin (FIBER GUMMIES ORAL) Take 20 mg by mouth once daily. acetaminophen 650 mg CR tablet Take 650 mg by mouth every 8 hours as needed. Two tabs twice daily docusate sodium (COLACE) 100 mg capsule Take 100 mg by mouth twice daily. Melatonin 5 mg cap Take 30 mg by mouth daily at bedtime. biotin 5 mg caspule Take 5 mg by mouth once daily. MULTIVIT WITH CALCIUM,IRON,MIN (WOMEN'S DAILY MULTIVITAMIN ORAL) Take by mouth. No current facility-administered medications for this visit. ALLERGIES: Aspirin, Atorvastatin, Niacin, and Simvastatin PERSONAL HISTORY: SOCIAL HISTORY Social History Tobacco Use Smoking status: Former Current packs/day: 0.00 Types: Cigarettes Start date: 07/06/1969 Quit date: 07/06/1979 Years since quittin.8 Smokeless tobacco: Never Vaping Use Vaping status: Never Used Substance Use Topics Alcohol use: Not Currently Alcohol/week: 7.0 standard drinks of alcohol Types: 7 Shots of liquor per week Drug use: No FAMILY HISTORY FAMILY HISTORY Problem Relation Age of Onset Colon Cancer Mother of colon cancer Headache Mother Hypertension Father Breast Cancer Sister Headache Son migraine Headache Daughter migraine Headache Daughter migraine REVIEW OF SYSTEMS: General: The patient denies fatigue, denies weight loss, denies weight gain, denies feeling hot, and denies feelings of cold. Eyes: The patient denies glaucoma, denies eye injury/surgery, wears glasses or contacts. Ear/Nose/Throat: The patient NOTES allergies, denies hayfever, denies ear infections, and denies bloody noses. Cardiovascular: The patient denies chest pain, denies heart disease, NOTES high blood pressure,denies (more content not included)... Normal [facility] SURGICAL PATHOLOGYon 025 CASE REPORT Normal [facility] Comment on above: Order Comment: Speci men Type: TISSUE SPECIMEN Ordering Facility: [facility] Address: [address] [place] [address] Result Comment: Surg [facility] Pathology Report Case: [id number] Authorizing Provider: Fransisca Razo MD Collected: 07/13/2024 08:56 AM Ordering Location: [facility] Received: 07/13/2024 10:45 AM Pathologist: Dominic Vu MD Specimen: Colon, Rectosigmoid, Polyp Performed By: #### S #### [facility] CLIA [id number] [address] [place] [address] [place] FINAL DIAGNOSIS Normal [facility] Comment on above: Order Comment: Speci men Type: TISSUE SPECIMEN Ordering Facility: [facility] Address: [address] [place] [address] Result Comment: Rect osigmoid colon polyp, biopsy: - Tubular adenoma. JEL 07/14/2024 Performed By: #### S #### [facility] CLIA [id number] [address] [place] [address] [place] FINAL PERFORMING LAB Normal [facility] Comment on above: Order Comment: Speci men Type: TISSUE SPECIMEN Ordering Facility: [facility] Address: [address] [place] [address] Result Comment: Diag nostic interpretation performed at: [facility], [address] [place] [address] CLIA# [id number] Production Maintenance Mechanic: Immanuel Pacheco MD Performed By: #### S #### [facility] CLIA [id number] [address] [place] [address] OF [facility] GROSS DESCRIPTION Normal [facility] Comment on above: Order Comment: Speci men Type: TISSUE SPECIMEN Ordering Facility: [facility] Address: [address] [place] [address] [place], [place] [address] Result Comment: A. C oltiara, Rectosigmoid, Polyp Received in formalin are two pieces of day-brown, soft tissue aggregating to 0.6 x 0.2 x 0.1 cm. Totally submitted in one cassette. Gross examination performed at [facility], [address] [place] [address], [place] [address] AMS July 13, 2024 2:05 PM Performed By: #### S #### [facility] CLIA [id number] [address] CNOVon 05-25-2024 CNOV Office Visit (CARDMM ) ELIU MATAMOROS ([id number]) 1950 F Date Time Provider Department 05/25/24 10:00 AM TAMEKA MELGAR During your visit today, we recorded the following information about you: Pulse Blood pressure Weight Height 71/minute 128/62 78 kg 1.562 m Tameka Melgar DO 05/25/2024 10:58 AM [facility] [place] Erica Orozco Department of Cardiovascular Medicine SECTION OF [facility] CARDIOLOGY/[facility] OUTPATIENT VISIT DATE May 25, 2024 OUTPATIENT VISIT TYPE ESTABLISHED PATIENT Name: Eliu Nassar Saturnino : 1950 Date: May 25, 2024 PRIMARY CARE PHYSICIAN: Lalo Schultz [address] [place] [address] REFERRING PHYSICIAN: Tameka Melgar [address] [facility] [address] CHIEF COMPLAINT: CARD Follow Up Annual (No new cardiac concerns) IMPRESSION / PLAN: 1. Palpitations secondary to PSVT with evidence of mild tachybradycardia syndrome. Patient continues to do very well on atenolol 50 mg twice a day with only rare palpitations when laying on her right lateral side. If she has any significant recurrences I would consider changing her to nadolol. 2. Hypertension. Patient is doing well with adequate blood pressures on current medications and will continue to monitor her blood pressure with the change to atenolol. 3. Insomnia. Patient is using various products including Tylenol PM and melatonin and did discuss maximal dose of melatonin being 10 mg. Follow Up Instructions Return in about 1 year (around 05/25/2025). ORDERS FOR TODAY'S VISIT: Office Visit on 05/25/24 CONSULT TO UROLOGY ECG COMPLETE HISTORY OF PRESENT ILLNESS: Ms. Matamoros is a 74 year old female with a past history of hypertension, migraine headaches he states over the last year again developing some brief episodes of palpitations and a feeling of a racing heartbeat but nothing lasting longer than 5 or 10 seconds. Interestingly she notices it mostly at night an laying on her right side now. Patient continues to do well on atenolol 50 mg twice a day and has had only rare palpitations particularly when she lays on her left lateral side. She denies any syncope or near syncope, chest pain, shortness of breath, or lower extremity edema. PAST MEDICAL HISTORY Diagnosis Date Achilles bursitis or tendinitis right shoulder Acute peptic ulcer, unspecified site, without mention of hemorrhage, perforation, or obstruction 10/06 Diarrhea Diverticulosis of colon (without mention of hemorrhage) External hemorrhoids without mention of complication Family history of malignant neoplasm of gastrointestinal tract family history of colon cancer Fibrosclerosis of breast fibrocystic breast disease Generalized osteoarthrosis, unspecified site Hemorrhage of gastrointestinal tract, unspecified Internal hemorrhoids without mention of complication Intractable migraine without aura 07/27/[address] 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 Bearden at [facility] Unspecified essential hypertension Unspecified hemorrhoids without mention of complication internal and externaldjd Unspecified tinnitus 11/16/2006 Left ear Urinary calculus, unspecified Renal stones PAST SURGICAL HISTORY Procedure Laterality Date APPENDECTOMY ARTHRP INTERPOS INTERCARPAL/METACARPA L JOINTS Right 08/16/2021 Right thumb CMC arthroplasty with trapeciectomy and 1st dorsal compartment release COLONOS VIA STOMA W/ ABLATION COLONOSCOPY FLX DX W/COLLJ SPEC WHEN PFRMD 10/09/2006 PAST SURGICAL HISTORY OF Ultrasound kidney stones PAST SURGICAL HISTORY OF Right 01/01/2018 total right knee replacement PAST SURGICAL HISTORY OF Left 06/27/2020 inguinal hernai repair SIGMOIDOSCOPY 08/06/2018 Dr. Irvin, [facility] SIGMOIDOSCOPY FLX DX W/COLLJ SPEC BR/WA IF PFRMD 10/13/2002 Sigmoidoscopy, flexible TONSILLECTOMY PRIMARY/SECONDARY Tonsillectomy SOCIAL HISTORY Social History Tobacco Use Smoking status: Former Current packs/day: 0.00 Types: Cigarettes Start date: 07/06/1969 Quit date: 07/06/1979 Years since quittin.9 Smokeless tobacco: Never Vaping Use Vaping status: Never Used Substance Use Topics Alcohol use: Not Currently Alcohol/week: 7.0 standard drinks of alcohol Types: 7 Shots of liquor per week Drug use: No FAMILY HISTORY Problem Relation Age of Onset Colon Cancer Mother of colon cancer Headache Mother Hypertension Father Breast Cancer Sister H (more content not included)... Normal [facility] [id number] 05-25-2024 ECG01 Ventricular Rate : 7 1 BPM Atrial Rate : 71 BPM P-R Interval : 212 ms QRS Duration : 82 ms Q-T Interval : 374 ms QTC Calculation(Bazett) : 406 ms Calculated P [place] : 50 degrees Calculated R [place] : 28 degrees Calculated T [place] : 25 degrees SINUS RHYTHM WITH 1ST DEGREE AV BLOCK OTHERWISE NORMAL ECG Confirmed by TAMEKA MELGAR DO ([id number]) on 05/26/2024 12:09:45 PM NAME : ELIU MATAMOROS PID : [id number] : 1950 Gender : Female Race : ORD : Procedure Date : May 25 2024 10:22:04 Edit Date : May 26 2024 12:09:54 Diagnosis: SINUS RHYTHM WITH 1ST DEGREE AV BLOCK OTHERWISE NORMAL ECG Confirmed by TAMEKA MELGAR DO ([id number]) on 05/26/2024 12:09:45 PM Test Reason : Location : 211 : [facility] Overread By : TAMEKA MELGAR DO Edited By : TAMEKA MELGAR DO Referred By : Tameka Melgar Acquired by : Raymundo perez [facility] CNOVon 05-09-2024 CNOV Office Visit (GENSWS ) SATURNINOELIU Cesario ([id number]) 1950 F Date Time Provider Department 05/09/24 11:45 AM FRANSISCA RAZO During your visit today, we recorded the following information about you: Temperature Pulse Blood pressure Weight 97.8 degrees 80/minute 122/76 79.3 kg Height 1.562 m Fransisca Razo MD 05/13/2024 4:01 PM Signed HISTORY AND PHYSICAL Eliu Matamoros 1950 REFERRING PHYSICIAN: No ref. provider found CHIEF COMPLAINT: Consult (Colonoscopy consultation. ) HPI: The patient is a 74 year old female referred for endoscopy. Eliu notes intermittent rectal bleeding. She states that she last had a colonoscopy in 2019. She states that her mother was diagnosed with colon cancer in her 70s and of this. She notes occasional lower abdominal cramping pain. She denies constipation. She denies diarrhea. She states that the rectal bleeding has been going on for a while. PAST MEDICAL HISTORY Diagnosis Date Achilles bursitis or tendinitis right shoulder Acute peptic ulcer, unspecified site, without mention of hemorrhage, perforation, or obstruction 10/06 Diarrhea Diverticulosis of colon (without mention of hemorrhage) External hemorrhoids without mention of complication Family history of malignant neoplasm of gastrointestinal tract family history of colon cancer Fibrosclerosis of breast fibrocystic breast disease Generalized osteoarthrosis, unspecified site Hemorrhage of gastrointestinal tract, unspecified Internal hemorrhoids without mention of complication Intractable migraine without aura 07/27/[address] 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 Bearden at [facility] main campus Unspecified essential hypertension Unspecified hemorrhoids without mention of complication internal and externaldjd Unspecified tinnitus 11/16/2006 Left ear Urinary calculus, unspecified Renal stones PAST SURGICAL HISTORY Procedure Laterality Date APPENDECTOMY ARTHRP INTERPOS INTERCARPAL/METACARPA L JOINTS Right 08/16/2021 Right thumb CMC arthroplasty with trapeciectomy and 1st dorsal compartment release COLONOS VIA STOMA W/ ABLATION COLONOSCOPY FLX DX W/COLLJ SPEC WHEN PFRMD 10/09/2006 PAST SURGICAL HISTORY OF Ultrasound kidney stones PAST SURGICAL HISTORY OF Right 01/01/2018 total right knee replacement PAST SURGICAL HISTORY OF Left 06/27/2020 inguinal hernai repair SIGMOIDOSCOPY FLX DX W/COLLJ SPEC BR/WA IF PFRMD 10/13/2002 Sigmoidoscopy, flexible TONSILLECTOMY PRIMARY/SECONDARY Tonsillectomy Current Outpatient Medications Medication Sig nortriptyline (PAMELOR) 50 mg capsule Take 2 capsules by mouth daily at bedtime for 7 days. rosuvastatin (CRESTOR) 5 mg tablet Take 1 tablet by mouth once daily. As directed nortriptyline (PAMELOR) 50 mg capsule Take 2 capsules by mouth daily at bedtime. Magnesium 250 mg tab Magnesium Citrate 1 tablet at bedtime amLODIPine (NORVASC) 5 mg tablet Take 1 tablet by mouth once daily. atenolol (TENORMIN) 50 mg tablet Take 1 tablet by mouth two times a day. FOLIC ACID ORAL Take 1 tablet by mouth once daily. inulin (FIBER GUMMIES ORAL) Take 20 mg by mouth once daily. acetaminophen 650 mg CR tablet Take 650 mg by mouth every 8 hours as needed. Two tabs twice daily docusate sodium (COLACE) 100 mg capsule Take 100 mg by mouth twice daily. Melatonin 5 mg cap Take 30 mg by mouth daily at bedtime. biotin 5 mg caspule Take 5 mg by mouth once daily. MULTIVIT WITH CALCIUM,IRON,MIN (WOMEN'S DAILY MULTIVITAMIN ORAL) Take by mouth. No current facility-administered medications for this visit. ALLERGIES: Aspirin, Atorvastatin, Niacin, and Simvastatin PERSONAL HISTORY: Social History Tobacco Use Smoking status: Former Current packs/day: 0.00 Types: Cigarettes Start date: 07/06/1969 Quit date: 07/06/1979 Years since quittin.8 Smokeless tobacco: Never Vaping Use Vaping status: Never Used Substance Use Topics Alcohol use: Not Currently Alcohol/week: 7.0 standard drinks of alcohol Types: 7 Shots of liquor per week Drug use: No FAMILY HISTORY Problem Relation Age of Onset Colon Cancer Mother of colon cancer Headache Mother Hypertension Father Breast Cancer Sister Headache Son migraine Headache Daughter migraine Headache Daughter migraine The review of systems data was entered by the nurse and reviewed by vt Nursing Notes: Liz Wisdom RN 05/09/2024 12:02 PM Signed REVIEW OF SYSTEMS: General: The patient denies fatigue, denies weight loss, denies weight gain, denies feeling hot, a (more content not included)... Normal [facility] CNPKelin 05-09-2024 CNPN Telephone (Velti) ELIU MATAMOROS ([id number]) 1950 F Date Time Provider Department 05/09/24 FRANSISCA RAZO During your visit today, we recorded the following information about you: David Barnes 05/09/2024 3:14 PM Signed 07-13-[address] [facility] [facility] Razo went over all prep and medication information, patient was given direct number to contact David Barnes Allergies As of Date: 05/09/2024 Noted Allergy Reaction ASPIRIN 08/16/2021 15 - Contraindication-Medi vani Grayson* Comments: History of ulcer ATORVASTATIN 05/08/2022 17 - Myalgia NIACIN 10/07/2010 5 - Intolerance Comments: sweats and hot flashes SIMVASTATIN 03/26/2016 5 - Intolerance Comments: myalgias--severe; resolved after stopped but still with leg pain Date Reviewed: 05/09/2024 Reviewed by: Liz Wisdom, RN - Fully Assessed Prescriptions as of 09/28/2024 - amLODIPine (NORVASC) 5 mg tablet Take 1 tablet by mouth once daily. - atenolol (TENORMIN) 50 mg tablet Take 1 tablet by mouth two times a day. - nortriptyline (PAMELOR) 50 mg capsule Take 2 capsules by mouth daily at bedtime. - multivitamin with minerals (HAIR,SKIN AND NAILS) tablet Take 1 tablet by mouth once daily. - cyanocobalamin (VITAMIN B-12) 1,000 mcg tab Take 1,000 mcg by mouth once daily. - turmeric/turmeric ext/pepr ext (TURMERIC-TURMERIC EXT-PEPPER) 500-3 mg cap Take by mouth. - multivit-mins 25-folic acid-D3 3-2,000 mg-unit tab Take by mouth. - trospium (SANCTURA) 20 mg tablet Take 1 tablet by mouth two times a day. - rosuvastatin (CRESTOR) 5 mg tablet Take 1 tablet by mouth once daily. As directed - Magnesium 250 mg tab Magnesium Citrate 1 tablet at bedtime - FOLIC ACID ORAL Take 1 tablet by mouth once daily. - inulin (FIBER GUMMIES ORAL) Take 20 mg by mouth once daily. - acetaminophen 650 mg CR tablet Take 650 mg by mouth every 8 hours as needed. Two tabs twice daily - docusate sodium (COLACE) 100 mg capsule Take 100 mg by mouth twice daily. - Melatonin 5 mg cap Take 30 mg by mouth daily at bedtime. - biotin 5 mg caspule Take 5 mg by mouth once daily. - MULTIVIT WITH CALCIUM,IRON,MIN (WOMEN'S DAILY MULTIVITAMIN ORAL) Take by mouth. Problem List As Of Date 05/09/2024 Noted Resolved INGROWING NAIL [L60.0] 09/26/2005 11/16/2006 Palpitations [R00.2] 02/17/2006 Essential hypertension [I10] 02/17/2006 GENERAL OSTEOARTHROSIS [M15.9] MIXED HYPERLIPIDEMIA [E78.2] 08/03/2006 DIARRHEA NOS [R19.7] 11/16/2006 DIVERTICULOSIS OF COLON W/O BLEED [K57.30] TINNITUS NOS [H93.19] 11/16/2006 Intractable migraine without aura [G43.019] 07/27/2007 08/18/2022 PAIN IN JOINT, LOWER LEG [M25.569] 04/06/2008 ABDOMINAL PAIN OTHER SPEC SITE [R10.9] 11/23/2008 Calculus of Kidney [N20.0] 03/26/2009 Lumbar Spondylosis [M47.816] Vitamin D deficiency [E55.9] 11/28/2017 Status post total right knee replacement [Z96.6*03/02/2018 Class 1 obesity due to excess calories with ser*08/07/2019 SVT (supraventricular tachycardia) (HCC) [I47.1*04/06/2020 Tachy-florencoi syndrome (HCC) [I49.5] 04/06/2020 10/09/2023 Encounter Status:Closed by DAVID BARNES on 09/28/24 Normal [facility] BD DXA - AXIAL SKELETONon BD DXA - AXIAL SKELETON * * *Final Report* * * DATE OF EXAM: May 02 2024 12:56PM [id number] [id number] - BD DXA - AXIAL SKELETON / PROCEDURE REASON: Asymptomatic postmenopausal status * * * * Physician Interpretation * * * * EXAMINATION: DXA BONE DENSITOMETRY BD DXA - AXIAL SKELETON, BD DXA TRABECLR BONE SCORE (TBS) PATIENT DEMOGRAPHICS: Age: 74 years, Gender: Female SCANNER INFORMATION: DXA Model: nubelo - [employer] C [id number] Date Scanned: 05/02/2024 12:56 PM CLINICAL HISTORY: DIAGNOSTIC Asymptomatic postmenopausal status . RISK FACTORS FOR OSTEOPOROSIS AND ASSOCIATED FRACTURES REPORTED BY THIS PATIENT: Please refer to Bone Health Questionnaire in the EMR CURRENT THERAPY: Please refer to Bone Health Questionnaire in the EMR TECHNICAL LIMITATIONS: Degenerative disease of the spine RESULTS: Lumbar spine (L2, L3, L4): 0.992 g/cm2, T-score -0.8, Z-score 1.8 Lumbar spine: 2007: 0.980 g/cm2 No statistically significant change Right Femoral Neck: 0.627 g/cm2, T-score -2.0, Z-score 0.1 Right Femoral Neck: 2007: 0.826 g/cm2 There has been a 24.1% interval decrease in bone mineral density. Right Total Hip: 0.821 g/cm2, T-score -1.0, Z-score 0.8 Right Total Hip: 2007: 1.105 g/cm2 There has been a 25.7% interval decrease in bone mineral density. Left Femoral Neck: 0.583 g/cm2, T-score -2.4, Z-score -0.2 Left Total Hip: 0.821 g/cm2, T-score -1.0, Z-score 0.8 CHANGE IS STATISTICALLY SIGNIFICANT IN THE SPINE OR HIP IF GREATER THAN OR EQUAL TO 0.04 g/cm2 VERTEBRAL FRACTURE ASSESSMENT Not performed. TRABECULAR BONE ASSESSMENT TBS score: 1.299 Bone micro-architecture: Partially degraded (1.231 - 1.310) IMPRESSION: THE LOWEST T-SCORE IS -2.4 IN THE LEFT HIP 1) DIAGNOSIS (based on BMD alone): OSTEOPENIA Caution: Medical conditions other than osteoporosis may cause low bone density, such as osteomalacia or renal osteodystrophy. Clinical correlation is necessary. 2) FRACTURE RISK (Based on TBS adjusted FRAX): 10-year absolute fracture risk: - major osteoporotic fracture = 12 % - hip fracture = 3.2 % - A diagnosis of Osteoporosis, a 10 year probability of hip fracture greater than or equal to 3% or a 10 year probability of any major osteoporosis-related fracture greater than or equal to 20% should be considered for treatment. - DXA scanner generated FRAX calculations may slightly differ from online FRAX calculations due to differences in software versions. - All recommendations and calculations are to be considered as guidelines and should not replace sound clinical judgement - Caution: Fracture risk may be increased independent of BMD in patients with corticosteroid use, age greater than 65 years, or a history of prior fragility fracture. RECOMMENDATIONS: Follow-up in 2 years or as clinically indicated. Patients that are taking corticosteroids, are transplant recipients or have hyperparathyroidism should have annual follow-up. Follow-up scans should always be done on the same machine for accurate comparison. FOR MORE INFORMATION ABOUT DIAGNOSIS AND TREATMENT: [facility]osis and Metabolic Bone Disease:? www.ccf.org/arthritis /osteo National Osteoporosis Foundation:? www.nof.org International Society of Clinical Densitometry www.iscd.org Word Processing Specialist: FERDINAND Transcribe Date/Time: May 09 2024 3:25P Dictated by : PRASANTH MAGUIRE MD This examination was interpreted and the report reviewed and electronically signed by: PRASANTH MAGUIRE MD on May 09 2024 3:28PM EST [id number] N -2.4 Normal [facility] BD DXA TRABECLR BONE SCORE ( TBS)on 05-02-2024 BD DXA TRABECLR BONE SCORE (TBS) * * *Final Report* * * DATE OF EXAM: May 02 2024 12:56PM [id number] - BD DXA TRABECLR BONE SCORE (TBS) / PROCEDURE REASON: Asymptomatic postmenopausal status * * * * Physician Interpretation * * * * EXAMINATION: DXA BONE DENSITOMETRY BD DXA - AXIAL SKELETON, BD DXA TRABECLR BONE SCORE (TBS) PATIENT DEMOGRAPHICS: Age: 74 years, Gender: Female SCANNER INFORMATION: DXA Model: nubelo - [employer] C [id number] Date Scanned: 05/02/2024 12:56 PM CLINICAL HISTORY: DIAGNOSTIC Asymptomatic postmenopausal status . RISK FACTORS FOR OSTEOPOROSIS AND ASSOCIATED FRACTURES REPORTED BY THIS PATIENT: Please refer to Bone Health Questionnaire in the EMR CURRENT THERAPY: Please refer to Bone Health Questionnaire in the EMR TECHNICAL LIMITATIONS: Degenerative disease of the spine RESULTS: Lumbar spine (L2, L3, L4): 0.992 g/cm2, T-score -0.8, Z-score 1.8 Lumbar spine: 2007: 0.980 g/cm2 No statistically significant change Right Femoral Neck: 0.627 g/cm2, T-score -2.0, Z-score 0.1 Right Femoral Neck: 2007: 0.826 g/cm2 There has been a 24.1% interval decrease in bone mineral density. Right Total Hip: 0.821 g/cm2, T-score -1.0, Z-score 0.8 Right Total Hip: 2007: 1.105 g/cm2 There has been a 25.7% interval decrease in bone mineral density. Left Femoral Neck: 0.583 g/cm2, T-score -2.4, Z-score -0.2 Left Total Hip: 0.821 g/cm2, T-score -1.0, Z-score 0.8 CHANGE IS STATISTICALLY SIGNIFICANT IN THE SPINE OR HIP IF GREATER THAN OR EQUAL TO 0.04 g/cm2 VERTEBRAL FRACTURE ASSESSMENT Not performed. TRABECULAR BONE ASSESSMENT TBS score: 1.299 Bone micro-architecture: Partially degraded (1.231 - 1.310) IMPRESSION: THE LOWEST T-SCORE IS -2.4 IN THE LEFT HIP 1) DIAGNOSIS (based on BMD alone): OSTEOPENIA Caution: Medical conditions other than osteoporosis may cause low bone density, such as osteomalacia or renal osteodystrophy. Clinical correlation is necessary. 2) FRACTURE RISK (Based on TBS adjusted FRAX): 10-year absolute fracture risk: - major osteoporotic fracture = 12 % - hip fracture = 3.2 % - A diagnosis of Osteoporosis, a 10 year probability of hip fracture greater than or equal to 3% or a 10 year probability of any major osteoporosis-related fracture greater than or equal to 20% should be considered for treatment. - DXA scanner generated FRAX calculations may slightly differ from online FRAX calculations due to differences in software versions. - All recommendations and calculations are to be considered as guidelines and should not replace sound clinical judgement - Caution: Fracture risk may be increased independent of BMD in patients with corticosteroid use, age greater than 65 years, or a history of prior fragility fracture. RECOMMENDATIONS: Follow-up in 2 years or as clinically indicated. Patients that are taking corticosteroids, are transplant recipients or have hyperparathyroidism should have annual follow-up. Follow-up scans should always be done on the same machine for accurate comparison. FOR MORE INFORMATION ABOUT DIAGNOSIS AND TREATMENT: [facility]osis and Metabolic Bone Disease:? www.ccf.org/arthritis /osteo National Osteoporosis Foundation:? www.nof.org International Society of Clinical Densitometry www.iscd.org Word Processing Specialist: FERDINAND Transcribe Date/Time: May 09 2024 3:25P Dictated by : PRASANTH MAGUIRE MD This examination was interpreted and the report reviewed and electronically signed by: PRASANTH MAGUIRE MD on May 09 2024 3:28PM EST [id number] N -2.4 Normal [facility] PVR ANK/CLIFFORD/TOE JUAN ANTONIO VAS LAB on 02-13-2023 [facility] No Panel Informationon 01-03 Radiology Study observation (narrative) [facility] XR Radius and Ulna - right A P and Lateralon 01-03-2023 IMPRESSION: No acute fractures seen Word Processing Specialist: FERDINAND Transcribe Date/Time: Jan 03 2023 11:33A Dictated by : JUAN PABLO FRENCH MD This examination was interpreted and the report reviewed and electronically signed by: JUAN PABLO FRENCH MD on Jan 03 2023 11:33AM EST DIVISION OF RADIOLOGY * * *Final Report* * * DATE OF EXAM: Jan 03 2023 10:48AM [id number] - XR FOREARM 2V AP/LAT RT / PROCEDURE REASON: Pain * * * * Physician Interpretation * * * * XR FOREARM 2V AP/LAT RT PROVIDED HISTORY: Pain COMPARISON: No previous similar exams are available for comparison TECHNIQUE: 2 views of right forearm RESULT: Bony mineralization is within normal limits. Osseous alignment appears intact. No acute fracture or radiopaque foreign body is seen. DIVISION OF RADIOLOGY [facility] * * *Final Report* * * DATE OF EXAM: Jan 03 2023 10:48AM [id number] - XR FOREARM 2V AP/LAT RT / PROCEDURE REASON: Pain * * * * Physician Interpretation * * * * XR FOREARM 2V AP/LAT RT PROVIDED HISTORY: Pain COMPARISON: No previous similar exams are available for comparison TECHNIQUE: 2 views of right forearm RESULT: Bony mineralization is within normal limits. Osseous alignment appears intact. No acute fracture or radiopaque foreign body is seen. IMPRESSION IMPRESSION: No acute fractures seen Word Processing Specialist: [facility] Transcribe Date/Time: Jan 03 2023 11:33A Dictated by : JUAN PABLO FRENCH MD This examination was interpreted and the report reviewed and electronically signed by: JUAN PABLO FRENCH MD on Jan 03 2023 11:33AM EST [facility] XR Radius and Ulna - right A P and LateralOrdered By: [facility] Provider on 01-03-2023 [facility] XR Ribs - right Views and est PAon 01-03-2023 IMPRESSION: ELEVATED RIGHT HEMIDIAPHRAGM. ATELECTASIS AT THE RIGHT LUNG BASE. POSSIBLE NONDISPLACED FRACTURE OF THE RIGHT LATERAL EIGHTH RIB. NO DISPLACED FRACTURE OR PNEUMOTHORAX Word Processing Specialist: [facility] Transcribe Date/Time: Jan 03 2023 12:28P Dictated by : DIO SILVEIRA MD This examination was interpreted and the report reviewed and electronically signed by: DIO SILVEIRA MD on Jan 03 2023 12:33PM [facility] DIVISION OF RADIOLOGY * * *Final Report* * * DATE OF EXAM: Jan 03 2023 10:48AM [id number] - XR RIB/CHST 3V AP RIB/OBL/CHST R / PROCEDURE REASON: Pain * * * * Physician Interpretation * * * * Examination: XR RIB/CHST 3V AP RIB/OBL/CHST R History: Pain Technique: XR RIB/CHST 3V AP RIB/OBL/CHST R Comparison: 08/21/[address] abdomen of 06/27/2009 RESULT: Stable elevation of the right hemidiaphragm. No pleural fluid or pneumothorax. Stable atelectasis at the right lung base. Right-sided rib films show no displaced fracture. Possible nondisplaced fracture of the lateral right sided 8 rib. No pneumothorax. Degenerative changes throughout the spine. Scoliosis DIVISION OF RADIOLOGY [facility] * * *Final Report* * * DATE OF EXAM: Jan 03 2023 10:48AM [id number] - XR RIB/CHST 3V AP RIB/OBL/CHST R / PROCEDURE REASON: Pain * * * * Physician Interpretation * * * * Examination: XR RIB/CHST 3V AP RIB/OBL/CHST R History: Pain Technique: XR RIB/CHST 3V AP RIB/OBL/CHST R Comparison: 08/21/[address] abdomen of 06/27/2009 RESULT: Stable elevation of the right hemidiaphragm. No pleural fluid or pneumothorax. Stable atelectasis at the right lung base. Right-sided rib films show no displaced fracture. Possible nondisplaced fracture of the lateral right sided 8 rib. No pneumothorax. Degenerative changes throughout the spine. Scoliosis IMPRESSION IMPRESSION: ELEVATED RIGHT HEMIDIAPHRAGM. ATELECTASIS AT THE RIGHT LUNG BASE. POSSIBLE NONDISPLACED FRACTURE OF THE RIGHT LATERAL EIGHTH RIB. NO DISPLACED FRACTURE OR PNEUMOTHORAX Word Processing Specialist: [facility] Transcribe Date/Time: Jan 03 2023 12:28P Dictated by : DIO SILVEIRA MD This examination was interpreted and the report reviewed and electronically signed by: DIO SILVEIRA MD on Jan 03 2023 12:33PM EST [facility] No Panel Informationon 08-21 [facility] FECAL IMMUNOCHEMICAL TEST (F IT)on 07-17-2022 FECAL OCCULT BLOOD Negative [facility] Final Surgical Pathology Rep [facility] 08-09-2018 Final Surgical Pathology Report . Pathology Reports Accession: Collected Date/Time: Received Date/Time: Pathologist: [id number] 08/06/2018 14:58 EST 08/06/2018 14:58 EST CASE TA MD Final Surgical Pathology Report DIAGNOSIS: SIGMOID COLON, POLYPECTOMY -- HYPERPLASTIC POLYP. CLINICAL INFORMATION: FAMILY HISTORY COLON CA SPECIMEN: A SIGMOID POLYP BIOPSIES - R/O ADENOMA GROSS DESCRIPTION: Received in formalin labeled sigmoid polyp biopsies are a few day glistening soft tissues ranging from 0.2-0.3 cm. TS-1. Dictated by Thuy CHRISTENSEN ([facility]) MICROSCOPIC DESCRIPTION: Slides reviewed. Electronically Signed by Pathology Report verified by [facility] Electronically signed by CASE TA Sign out Date: 08/09/2018 13:48 Performing Lab: [facility], [address] [place] [address] ([place]) Comment on above: Performed By: #### S PFR #### [place] [id number] Vital Signs Date Time Vital Sign Value Performing Clinician Robin raya 09-27-2024 14:18-0400 Body height 156.2 cm Yissel Coyner RESIDENT SERVICES SUPERVISOR.ELECTROLYTIC ETCHER Work Phone: [facility] 09-27-2024 14:18-0400 Body mass index (BMI) [Ratio] 32.34 kg/m2 Yissel Coyner RESIDENT SERVICES SUPERVISOR.ELECTROLYTIC ETCHER Work Phone: [facility] 09-27-2024 14:18-0400 Body weight 78.93 kg Yissel Coyner RESIDENT SERVICES SUPERVISOR.ELECTROLYTIC ETCHER Work Phone: [facility] 09-12-2024 10:33-0400 Body mass index (BMI) [Ratio] 32.5 kg/m2 Jonelle Mahmood RESIDENT SERVICES SUPERVISOR.OPTIC FIBRE DRAWER Work Phone: [facility] 09-12-2024 10:33-0400 Body weight 79.3 kg Jonelle Mahmood RESIDENT SERVICES SUPERVISOR.OPTIC FIBRE DRAWER Work Phone: [facility] 09-12-2024 10:33-0400 Diastolic blood pressure 60 mm[Hg] Jonelle Mahmood RESIDENT SERVICES SUPERVISOR.OPTIC FIBRE DRAWER Work Phone: [facility] 09-12-2024 10:33-0400 Heart rate 70 /min Jonelle Mahmood RESIDENT SERVICES SUPERVISOR.OPTIC FIBRE DRAWER Work Phone: [facility] 09-12-2024 10:33-0400 Respiratory rate 16 /min Jonelle Mahmood RESIDENT SERVICES SUPERVISOR.OPTIC FIBRE DRAWER Work Phone: [facility] 09-12-2024 10:33-0400 Systolic blood pressure 114 mm[Hg] Jonelle Mahmood RESIDENT SERVICES SUPERVISOR.OPTIC FIBRE DRAWER Work Phone: [facility] 08-16-2024 13:28-0500 Body height 156.2 cm Yissel Coyner RESIDENT SERVICES SUPERVISOR.ELECTROLYTIC ETCHER Work Phone: [facility] 08-16-2024 13:28-0500 Body mass index (BMI) [Ratio] 31.97 kg/m2 Yissel Coyner RESIDENT SERVICES SUPERVISOR.ELECTROLYTIC ETCHER Work Phone: [facility] 08-16-2024 13:28-0500 Body weight 78.02 kg Yissel Coyner RESIDENT SERVICES SUPERVISOR.ELECTROLYTIC ETCHER Work Phone: [facility] 07-13-2024 09:15-0500 Diastolic blood pressure 60 mm[Hg] Fransisca Razo MD Work Phone: [facility] 07-13-2024 09:15-0500 Respiratory rate 17 /min Fransisca Razo MD Work Phone: [facility] 07-13-2024 09:15-0500 Systolic blood pressure 120 mm[Hg] Fransisca Razo MD Work Phone: [facility] 07-13-2024 09:05-0500 Body temperature 97.2 [degF] Fransisca Razo MD Work Phone: [facility] 07-13-2024 09:05-0500 SaO2% (BldA) [Mass fraction] 98 % Fransisca Razo MD Work Phone: [facility] 07-13-2024 07:53-0500 Body height 154.9 cm Fransisca Razo MD Work Phone: [facility] 07-13-2024 07:53-0500 Body mass index (BMI) [Ratio] 32.5 kg/m2 Fransisca Razo MD Work Phone: [facility] 07-13-2024 07:53-0500 Body weight 78.02 kg Fransisca Razo MD Work Phone: [facility] 05-25-2024 10:19-0500 Body height 156.2 cm Tameka Edwardsburg DO Work Phone: [facility] 05-25-2024 10:19-0500 Body mass index (BMI) [Ratio] 31.97 kg/m2 Tameka Edwardsburg DO Work Phone: [facility] 05-25-2024 10:19-0500 Body weight 78.02 kg Tameka Edwardsburg DO Work Phone: [facility] 05-25-2024 10:19-0500 Diastolic blood pressure 62 mm[Hg] Tameka Edwardsburg DO Work Phone: [facility] 05-25-2024 10:19-0500 Heart rate 71 /min Tameka Edwardsburg DO Work Phone: [facility] 05-25-2024 10:19-0500 SaO2% (BldA) [Mass fraction] 100 % Tameka Edwardsburg DO Work Phone: [facility] 05-25-2024 10:19-0500 Systolic blood pressure 128 mm[Hg] Tameka Edwardsburg DO Work Phone: [facility] 05-09-2024 11:46-0500 Body height 156.2 cm Fransisca Razo MD Work Phone: [facility] 05-09-2024 11:46-0500 Body mass index (BMI) [Ratio] 32.49 kg/m2 Fransisca Razo MD Work Phone: [facility] 05-09-2024 11:46-0500 Body temperature 97.81 [degF] Fransisca Razo MD Work Phone: [facility] 05-09-2024 11:46-0500 Body weight 79.29 kg Fransisca Razo MD Work Phone: [facility] 05-09-2024 11:46-0500 Diastolic blood pressure 76 mm[Hg] Fransisca Razo MD Work Phone: [facility] 05-09-2024 11:46-0500 Heart rate 80 /min Fransisca Razo MD Work Phone: [facility] 05-09-2024 11:46-0500 SaO2% (BldA) [Mass fraction] 98 % Fransisca Razo MD Work Phone: [facility] 05-09-2024 11:46-0500 Systolic blood pressure 122 mm[Hg] Fransisca Razo MD Work Phone: [facility] 03-21-2024 12:01-0400 Diastolic blood pressure 70 mm[Hg] Lalo Schultz MD Work Phone: [facility] 03-21-2024 12:01-0400 Systolic blood pressure 132 mm[Hg] Lalo Schultz MD Work Phone: [facility] 03-21-2024 11:04-0400 Body mass index (BMI) [Ratio] 31.8 kg/m2 Lalo Schultz MD Work Phone: [facility] 03-21-2024 11:04-0400 Body temperature 97.59 [degF] Lalo Schultz MD Work Phone: [facility] 03-21-2024 11:04-0400 Body weight 77.6 kg Lalo Schultz MD Work Phone: [facility] 03-21-2024 11:04-0400 Heart rate 69 /min Lalo Schultz MD Work Phone: [facility] 03-21-2024 11:04-0400 Respiratory rate 18 /min Lalo Schultz MD Work Phone: [facility] 03-21-2024 11:04-0400 SaO2% (BldA) [Mass fraction] 100 % Lalo Schultz MD Work Phone: [facility] 09-08-2023 16:22-0500 Diastolic blood pressure 78 mm[Hg] Lalo Schultz MD Work Phone: [facility] 09-08-2023 16:22-0500 Systolic blood pressure 136 mm[Hg] Lalo Schultz MD Work Phone: [facility] 09-08-2023 15:26-0500 Body weight 78.93 kg Lalo Schultz MD Work Phone: [facility] 09-08-2023 15:26-0500 Heart rate 64 /min Lalo Schultz MD Work Phone: [facility] 09-08-2023 15:26-0500 Respiratory rate 16 /min Lalo Schultz MD Work Phone: [facility] 09-08-2023 15:26-0500 SaO2% (BldA) [Mass fraction] 96 % Lalo Schultz MD Work Phone: [facility] 05-20-2023 09:49-0500 Body height 156.2 cm Tameka Edwardsburg DO Work Phone: [facility] 05-20-2023 09:49-0500 Body weight 78.5 kg Tameka Edwardsburg DO Work Phone: [facility] 05-20-2023 09:49-0500 Diastolic blood pressure 64 mm[Hg] Tameka Edwardsburg DO Work Phone: [facility] 05-20-2023 09:49-0500 Heart rate 70 /min Tameka Edwardsburg DO Work Phone: [facility] 05-20-2023 09:49-0500 SaO2% (BldA) [Mass fraction] 100 % Tameka Edwardsburg DO Work Phone: [facility] 05-20-2023 09:49-0500 Systolic blood pressure 120 mm[Hg] Tameka Edwardsburg DO Work Phone: [facility] 01-03-2023 10:12-0400 Body temperature 98.8 [degF] Virgil Stark APRN.CNP Work Phone: [facility] 01-03-2023 10:12-0400 Diastolic blood pressure 76 mm[Hg] Virgil Stark APRN.ELECTROLYTIC ETCHER Work Phone: [facility] 01-03-2023 10:12-0400 Heart rate 83 /min Virgil Stark APRN.ELECTROLYTIC ETCHER Work Phone: [facility] 01-03-2023 10:12-0400 Respiratory rate 18 /min Virgil Stark APRN.ELECTROLYTIC ETCHER Work Phone: [facility] 01-03-2023 10:12-0400 SaO2% (BldA) [Mass fraction] 99 % Virgil Stark APRN.ELECTROLYTIC ETCHER Work Phone: [facility] 01-03-2023 10:12-0400 Systolic blood pressure 144 mm[Hg] Virgil Stark APRN.ELECTROLYTIC ETCHER Work Phone: [facility] 08-18-2022 17:06-0500 Body temperature 98.01 [degF] Lalo Schultz MD Work Phone: [facility] 08-18-2022 17:06-0500 Body weight 75.75 kg Lalo Schultz MD Work Phone: [facility] 08-18-2022 17:06-0500 Diastolic blood pressure 78 mm[Hg] Lalo Schultz MD Work Phone: [facility] 08-18-2022 17:06-0500 Heart rate 62 /min Lalo Schultz MD Work Phone: [facility] 08-18-2022 17:06-0500 Respiratory rate 18 /min Lalo Schultz MD Work Phone: [facility] 08-18-2022 17:06-0500 SaO2% (BldA) [Mass fraction] 98 % Lalo Schultz MD Work Phone: [facility] 08-18-2022 17:06-0500 Systolic blood pressure 138 mm[Hg] Lalo Schultz MD Work Phone: [facility] 05-08-2022 13:05-0400 Body height 156.2 cm Tameka Melgar DO Work Phone: [facility] 05-08-2022 13:05-0400 Body weight 73.48 kg Tameka Melgar DO Work Phone: [facility] 05-08-2022 13:05-0400 Diastolic blood pressure 64 mm[Hg] Tameka Melgar DO Work Phone: [facility] 05-08-2022 13:05-0400 Heart rate 72 /min Tameka [place] DO Work Phone: [facility] 05-08-2022 13:05-0400 SaO2% (BldA) [Mass fraction] 97 % Taemka Melgar DO Work Phone: [facility] 05-08-2022 13:05-0400 Systolic blood pressure 118 mm[Hg] Tameka Melgar DO Work Phone: [facility] 10-03-2021 09:58-0400 Body temperature 98.01 [degF] Virgil Stark APRN.ELECTROLYTIC ETCHER Work Phone: [facility] 10-03-2021 09:58-0400 Diastolic blood pressure 80 mm[Hg] Virgil Stark APRN.ELECTROLYTIC ETCHER Work Phone: [facility] 10-03-2021 09:58-0400 Heart rate 72 /min Virgil Stark APRN.ELECTROLYTIC ETCHER Work Phone: [facility] 10-03-2021 09:58-0400 Respiratory rate 18 /min Virgil Stark APRN.ELECTROLYTIC ETCHER Work Phone: [facility] 10-03-2021 09:58-0400 SaO2% (BldA) [Mass fraction] 100 % Virgil Stark APRN.ELECTROLYTIC ETCHER Work Phone: [facility] 10-03-2021 09:58-0400 Systolic blood pressure 124 mm[Hg] Virgil Stark APRN.ELECTROLYTIC ETCHER Work Phone: [facility] 08-14-2021 10:35-0500 Body weight 71.22 kg Lalo Schultz MD Work Phone: [facility] 08-14-2021 10:35-0500 Diastolic blood pressure 72 mm[Hg] Lalo Schultz MD Work Phone: [facility] 08-14-2021 10:35-0500 Heart rate 74 /min Lalo Schultz MD Work Phone: [facility] 08-14-2021 10:35-0500 Systolic blood pressure 122 mm[Hg] Lalo Schultz MD Work Phone: [facility] Encounters Encounter Date Encounter Type Care Provider Facility Start: 03-23-2025 ambulatory Lalo Schultz Facilit y:[facility] Start: 03-20-2025 End: 03-20-2025 ambulatory LALO SCHULTZ Facility:[facility] Start: 03-13-2025 End: 03-13-2025 Refill Lalo Schultz MD Work Phone: [facility] Comment on above: Refill Request Start: 03-10-2025 End: 03-13-2025 Telephone encounter Lalo Schultz MD Work Phone: [facility] Comment on above: Orders Start: 09-27-2024 End: 09-27-2024 ambulatory YISSEL FERRARI Facility:[facility] Start: 09-27-2024 End: 09-27-2024 Office outpatient visit 15 minutes Yissel Ferrari RESIDENT SERVICES SUPERVISOR.ELECTROLYTIC ETCHER Work Phone: Urology Comment on above: Urge incontinence (P rimary Dx); Screening for genitourinary condition Start: 09-20-2024 End: 09-20-2024 Refill Lalo Schultz MD Work Phone: [facility] Comment on above: Refill Request Start: 09-12-2024 End: 09-12-2024 ambulatory LALO SCHULTZ Facility:[facility] Start: 09-12-2024 End: 09-12-2024 Office outpatient visit 25 minutes Jonelle Mahmood RESIDENT SERVICES SUPERVISOR.OPTIC FIBRE DRAWER Work Phone: [facility] Comment on above: Essential hypertensi on (Primary Dx); SVT (supraventricular tachycardia) (HCC); Mixed hyperlipidemia; Vitamin D deficiency; Macrocytosis without anemia; Class 1 obesity due to excess calories with serious comorbidity and body mass index (BMI) of 32.0 to 32.9 in adult; Persistent disorder of initiating or maintaining sleep Start: 09-05-2024 End: 09-05-2024 ambulatory LALO SCHULTZ Facility:[facility] Start: 08-16-2024 End: 08-16-2024 Telephone encounter Yissel Ferrari APRN.CNP Work Phone: Urology Comment on above: Returning Patient's Call Start: 08-16-2024 End: 08-16-2024 ambulatory TAMEKA MELGAR Facility:[facility] Start: 08-16-2024 End: 08-16-2024 Office outpatient new 45 minutes Yissel Ferrari APRN.CNP Work Phone: Urology Comment on above: Urge incontinence (P rimary Dx); Screening for genitourinary condition; Cystocele, midline Start: 07-18-2024 End: 07-18-2024 Admission to same day surgery center Carmen Alamo APRN.CNP Work Phone: General Surgery Comment on above: Polyp pathology Start: 07-18-2024 End: 07-18-2024 E-mail encounter from caregiver Carmen Alamo APRN.CNP Work Phone: General Surgery Start: 07-18-2024 End: 09-28-2024 Telephone encounter Carmen Alamo APRN.CNP Work Phone: General Surgery Start: 07-13-2024 ambulatory ASHELY MOROCHO Facility :[facility] Start: 07-13-2024 End: 07-13-2024 Subsequent hospital visit by physician Fransisca Razo MD Work Phone: [facility] Comment on above: Rectal bleeding [K62 .5] Start: 07-04-2024 End: 07-04-2024 Admission to same day surgery center [facility] Provider General Surgery Comment on above: Colonoscopy Prep Ins tructions Start: 07-04-2024 End: 07-04-2024 E-mail encounter from caregiver [facility] Provider General Surgery Start: 05-25-2024 End: 05-25-2024 ambulatory TAMEKA MELGAR Facility:[facility] Start: 05-25-2024 End: 05-25-2024 Patient encounter procedure Tameka Melgar DO Work Phone: Cardiology Comment on above: Urinary incontinence , unspecified type (Primary Dx); Essential hypertension; SVT (supraventricular tachycardia) (HCC) Start: 05-09-2024 End: 09-28-2024 Telephone encounter Fransisca Razo General Surgery Start: 05-09-2024 End: 05-09-2024 ambulatory FRANSISCA RAZO Facility:[facility] Start: 05-09-2024 End: 05-09-2024 Patient encounter procedure Fransisca Razo MD Work Phone: General Surgery Comment on above: Rectal bleeding (Samantha rosa Dx) Start: 05-02-2024 End: 05-02-2024 ambulatory LALO SCHULTZ Facility:[facility] Start: 05-02-2024 End: 05-02-2024 Subsequent hospital visit by physician Bone Density [facility] Work Phone: Radiology Comment on above: Asymptomatic postmen opausal status [Z78.0] Start: 03-22-2024 End: 03-23-2024 Refill Lalo Schultz MD Work Phone: [facility] [place] Comment on above: Refill Request Start: 03-21-2024 End: 03-21-2024 Office outpatient visit 40 minutes Lalo Schultz MD Work Phone: [facility] [place] Comment on above: Persistent disorder of initiating or maintaining sleep (Primary Dx); Macrocytosis without anemia; Essential hypertension; Vitamin D deficiency; Mixed hyperlipidemia; Nocturia more than twice per night; Asymptomatic postmenopausal status; Screening for colon cancer; Family history of colon cancer in mother; Encounter for long-term current use of medication; Screening for depression; Encounter for screening examination for other mental health and behavioral disorders; Encounter for immunization Start: 03-08-2024 End: 03-09-2024 Telephone encounter Lalo Schultz MD Work Phone: [facility] [place] Start: 09-30-2023 End: 09-30-2023 ambulatory [facility] Work Phone: Start: 09-30-2023 End: 09-30-2023 Patient encounter procedure [facility] Work Phone: Start: 09-18-2023 Telephone encounter Lalo rome MD Work Phone: [facility] [place] Comment on above: Order Request Start: 09-08-2023 End: 09-08-2023 Office outpatient visit 25 minutes Lalo Schultz MD Work Phone: [facility] [place] Comment on above: Essential hypertensi on (Primary Dx); SVT (supraventricular tachycardia) (HCC); Vitamin D deficiency; Mixed hyperlipidemia; Macrocytosis without anemia; Encounter for long-term current use of medication Start: 09-03-2023 Telephone encounter Jonelle abrams RESIDENT SERVICES SUPERVISOR.OPTIC FIBRE DRAWER Work Phone: [facility] [place] Comment on above: Lab Orders Start: 05-20-2023 End: 05-20-2023 Patient encounter procedure Tameka Balderas Allen Work Phone: Cardiology Comment on above: SVT (supraventricula r tachycardia) (Primary Dx); Tachy-florencio syndrome (HCC); Essential hypertension; Palpitations Start: 05-15-2023 Telephone encounter Lalo rome MD Work Phone: [facility] [place] Start: 03-06-2023 End: 03-06-2023 Office outpatient visit 25 minutes Lalo Schultz MD Work Phone: [facility] [place] Comment on above: Mixed hyperlipidemia (Primary Dx); Vitamin D deficiency; Essential hypertension; SVT (supraventricular tachycardia) (HCC); Primary osteoarthritis of left knee; Screening for colon cancer Start: 02-13-2023 End: 02-13-2023 Patient encounter procedure [facility] Work Phone: Vasculary Surgery Comment on above: Decreased pedal puls es Start: 01-07-2023 Telephone encounter Virgil Stark APRN.ELECTROLYTIC ETCHER Work Phone: [facility] Comment on above: Patient Question Start: 01-03-2023 End: 01-03-2023 Subsequent hospital visit by physician Xr [facility] Work Phone: Radiology Comment on above: Pain [R52] Start: 01-03-2023 End: 01-03-2023 Patient encounter procedure Virgil Stark APRNDarriusELECTROLYTIC ETCHER Work Phone: [facility] Comment on above: Pain (Primary Dx) Start: 09-03-2022 ambulatory Gabriella (Pss) [facility] Comment on above: Population Health Na vigation Outreach ([employer] [facility] Gaps) Start: 08-21-2022 End: 08-21-2022 Subsequent hospital visit by physician Xr [facility] Mccord Work Phone: Radiology Comment on above: Enlargement of right sternoclavicular joint [M25.811] Start: 08-19-2022 Telephone encounter Lalo rome MD Work Phone: [facility] Comment on above: Mammo order Start: 08-18-2022 End: 08-19-2022 Office outpatient visit 25 minutes Lalo Schultz MD Work Phone: [facility] Comment on above: Essential hypertensi on (Primary Dx); Macrocytosis without anemia; Vitamin D deficiency; Mixed hyperlipidemia; Hallux hammertoe, left; Enlargement of right sternoclavicular joint; Breast cancer screening by mammogram; Strain of neck muscle, sequela; SVT (supraventricular tachycardia) (HCC) Start: 07-17-2022 Telephone encounter Lalo rome MD Work Phone: [facility] [place] Comment on above: Results Start: 05-08-2022 End: 05-08-2022 Patient encounter procedure Tameka Melgar DO Work Phone: Cardiology Comment on above: SVT (supraventricula r tachycardia) (HCC) (Primary Dx); Essential hypertension Start: 10-10-2021 End: 10-10-2021 Patient encounter procedure Pepe Carpio MD Work Phone: Orthopaedics Comment on above: Primary osteoarthrit is of both first carpometacarpal joints (Primary Dx); Chronic pain of right thumb Start: 10-03-2021 Telephone encounter Lalo rome MD Work Phone: [facility] [place] Comment on above: Patient Update Start: 10-03-2021 End: 10-03-2021 ambulatory Kala Barnes OT/L Work Phone: [facility] Comment on above: Primary osteoarthrit is of both first carpometacarpal joints (Primary Dx) Start: 10-03-2021 End: 10-03-2021 Patient encounter procedure Virgil Stakr RESIDENT SERVICES SUPERVISOR.ELECTROLYTIC ETCHER Work Phone: [facility] Comment on above: Sinus congestion (Pr imary Dx) Start: 09-12-2021 End: 09-12-2021 Patient encounter procedure [facility] Start: 08-14-2021 End: 08-14-2021 Patient encounter procedure Lalo Schultz MD Work Phone: [facility] [place] Comment on above: Essential hypertensi on (Primary Dx); Mixed hyperlipidemia; Vitamin D deficiency; Encounter for long-term current use of medication; Breast cancer screening by mammogram Start: 09-25-2020 End: 09-25-2020 Patient encounter procedure [facility] Start: 09-04-2020 End: 09-04-2020 Patient encounter procedure [facility] Start: 08-05-2018 End: 08-10-2018 Patient encounter procedure NILESH IRVIN Facility:[facility] Start: 01-05-2018 End: 01-22-2018 Patient encounter procedure RAMOS MENA Facility:[facility] Procedures Date Procedure Procedure Detail Performing Clinician Start: 09-27-2024 Urnls dip stick/tabl et rgnt auto w/o microscopy Yissel J Coyner RESIDENT SERVICES SUPERVISOR.ELECTROLYTIC ETCHER Work Phone: Start: 08-16-2024 Urnls dip stick/tabl et rgnt auto w/o microscopy Yissel J Coyner RESIDENT SERVICES SUPERVISOR.ELECTROLYTIC ETCHER Work Phone: Start: 07-13-2024 Colonoscopy flx dx w /collj spec when pfrmd Fransisca Razo MD Work Phone: Start: 05-25-2024 Ecg routine ecg w/le ast 12 lds i&r only [facility] Provider Start: 03-21-2024 Adult depression scr eening assessment Lalo Schultz MD Work Phone: Start: 03-14-2024 Lipid 1996 panel - S daniel or Plasma Lalo Schultz MD Work Phone: Start: 09-30-2023 Screening mammography Start: 09-04-2023 Lipid 1996 panel - S daniel or Plasma Lalo Schultz MD Work Phone: Start: 02-26-2023 Lipid 1996 panel - S daniel or Plasma Lalo Schultz MD Work Phone: Start: 02-13-2023 Non-invas physiologi c std extremity art 2 level Jonelle Mahmood RESIDENT SERVICES SUPERVISOR.OPTIC FIBRE DRAWER Work Phone: Start: 01-03-2023 Radex forearm 2 views D demetria Stark APRN.ELECTROLYTIC ETCHER Work Phone: Start: 09-16-2022 Mammography Virgil Stark APRN.ELECTROLYTIC ETCHER Work Phone: Start: 08-21-2022 Radex sternoclavicul ar jt/jts minimum 3 views Lalo Schultz MD Work Phone: Start: 07-01-2022 Hemoglobin.gastroint estinal.l ower [Presence] in Stool by Immunoassay [facility] Provider Start: 09-12-2021 Screening mammography Start: 03-03-2021 Adult depression scr eening assessment Virgil Stark APRN.ELECTROLYTIC ETCHER Work Phone: Start: 08-28-2020 Mammography Virgil Stark APRN.ELECTROLYTIC ETCHER Work Phone: Start: 12-15-2017 Colonoscopy Virgil Stark APRN.ELECTROLYTIC ETCHER Work Phone: Plan of Treatment Date Care Activity Detail Author Start: 11-28-2032 Urine microalbumin profile [facility] Start: 03-14-2029 Lipid panel Lipid Screening [facility] Start: 09-03-2028 Lipid panel Lipid Screening [facility] Start: 02-27-2028 Lipid 1996 panel - S daniel or Plasma Lipid Screening [facility] Start: 02-27-2028 Lipid panel Lipid Screening [facility] Start: 12-16-2027 Urine microalbumin profile DTAP,TDAP,TD (2 - Td or Tdap) [facility] Start: 09-06-2027 Diabetes Screening Diabetes Screenin g [facility] Start: 08-11-2027 LIPID SCREEN LIPID SCREEN [facility] Start: 03-14-2027 Diabetes Screening Diabetes Screenin g [facility] Start: 02-13-2027 LIPID SCREEN LIPID SCREEN [facility] Start: 09-03-2026 Diabetes Screening Diabetes Screenin g [facility] Start: 08-14-2026 LIPID SCREEN LIPID SCREEN [facility] Start: 02-26-2026 Diabetes Screening Diabetes Screenin g [facility] Start: 09-26-2025 End: 09-26-2025 Patient encounter procedure 09/26/2025 1:00 PM EDT Office Visit Urology [address] [address] Yissel Ferrari, RESIDENT SERVICES SUPERVISOR.ELECTROLYTIC ETCHER [address] [place] [place], [place] [id number] 1 year follow up Urology Comment on above: 1 year follow up Start: 09-12-2025 Annual PCP Team Agriculture Laborer valerie Disease Visit Annual PCP Team Chronic Disease Visit [facility] Start: 09-12-2025 BP Controlled (<130/80) BP Controlle d (<130/80) [facility] Start: 08-11-2025 DIABETES SCREEN DIABETES SCREEN [facility] Start: 05-30-2025 End: 05-30-2025 Patient encounter procedure 05/30/2025 1:00 PM EST Office Visit Cardiology [address] [id number] Steph Fletcher MD [address] [place], [place] [id number] Follow up Cardiology Comment on above: Follow up Start: 05-25-2025 BP Controlled (<130/80) BP Controlle d (<130/80) [facility] Start: 05-09-2025 BP Controlled (<130/80) BP Controlle d (<130/80) [facility] Start: 04-03-2025 End: 04-03-2025 Patient encounter procedure 04/03/2025 1:40 PM EDT Office Visit [facility] [place] [address] [place] [address] Lalo Schultz MD [address] [place] [address] 6 month follow up [facility] Comment on above: 6 month follow up Start: 03-21-2025 Annual PCP Team Agriculture Laborer valerie Disease Visit Annual PCP Team Chronic Disease Visit [facility] Start: 03-21-2025 Anxiety Screening Anxiety Screening [facility] Start: 03-21-2025 Covid-19 Vaccine ( season) Covid-19 Vaccine () [facility] Comment on above: Postponed from 03/06 (Not Currently Available) Start: 03-21-2025 Covid-19 Vaccine ( season) Covid-19 Vaccine ( season) [facility] Comment on above: Postponed from 03/06 (Not Currently Available) Start: 03-21-2025 Depression Screening Depression Scre ening [facility] Start: 03-06-2025 Influenza vaccination Influenza Vacc ine (#1) [facility] Start: 02-13-2025 DIABETES SCREEN DIABETES SCREEN [facility] Start: 01-02-2025 Influenza vaccination Influenza Vacc ine (#1) [facility] Comment on above: Postponed from 03/06 (Declined at this time) Start: 09-27-2024 End: 09-27-2024 Patient encounter procedure 09/27/2024 2:20 PM EDT Office Visit Urology [address] [address] Yissel Ferrari, RESIDENT SERVICES SUPERVISOR.ELECTROLYTIC ETCHER [address] [place] [address] follow up Urology Comment on above: follow up Start: 09-18-2024 End: 12-18-2024 COPPER BLOOD COPPER BLOOD Lab Routine Macrocytosis without anemia Expected: 09/18/2024, Expires: 12/18/2024 [facility] Comment on above: Expected: 09/18/2024 , Expires: 12/18/2024 Start: 09-12-2024 End: 09-12-2024 Patient encounter procedure 09/12/2024 11:00 AM EDT Office Visit [facility] [address] [place] [address] Lalo Schultz MD [address] [place] [address] 6 month appointment [facility] Comment on above: 6 month appointment Start: 09-07-2024 Annual PCP Team Agriculture Laborer valerie Disease Visit Annual PCP Team Chronic Disease Visit [facility] Start: 08-16-2024 End: 08-16-2024 Patient encounter procedure 08/16/2024 1:20 PM EST Office Visit Urology [address] [address] Yissel Ferrari, RESIDENT SERVICES SUPERVISOR.ELECTROLYTIC ETCHER [address] [place] [address] Urinary incontinence, unspecified type [R32] Urology Comment on above: Urinary incontinence , unspecified type [R32] Start: 08-14-2024 DIABETES SCREEN DIABETES SCREEN [facility] Start: 07-13-2024 End: 07-13-2024 Patient encounter procedure 07/13/2024 9:00 AM EST Appointment [facility] [address] [place] [address] Fransisca Razo MD [address] [place] [phone] [facility] Start: 07-06-2024 Advance Directive Discussion Advance Directive Discussion [facility] Start: 07-06-2024 Medicare Advantage Annual Wellness Visit Medicare Advantage Annual Wellness Visit [facility] Start: 05-25-2024 End: 05-25-2024 Patient encounter procedure 05/25/2024 10:00 AM EST Office Visit Cardiology [address] [place] [address] Tameka Melgar DO [address] [place] [address] 1 year follow up Cardiology Comment on above: 1 year follow up Start: 05-20-2024 BP Controlled (<130/80) BP Controlle d (<130/80) [facility] Start: 05-09-2024 End: 05-09-2024 Patient encounter procedure 05/09/2024 11:45 AM EST Office Visit General Surgery [address] [place], [place] [address] Fransisca Razo MD [address] [place] [phone] consult for colonoscopy General Surgery Comment on above: consult for colonosc opy Start: 05-02-2024 End: 05-02-2024 Patient encounter procedure 05/02/2024 12:30 PM EDT Appointment Radiology [address] [place] [phone] Asymptomatic postmenopausal status [Z78.0] Radiology Comment on above: Asymptomatic postmen opausal status [Z78.0] Start: 03-21-2024 End: 03-21-2024 Patient encounter procedure 03/21/2024 10:40 AM EDT Office Visit [facility] [place] [address] [place] [address] Lalo Schultz MD [address] [place] [address] 6 month appointment [facility] [place] Comment on above: 6 month appointment Start: 03-10-2024 End: 06-09-2024 25-hydroxyvitamin D3 [Mass/volume] in Serum or Plasma VITAMIN D 25 HYDROXY Lab Routine Vitamin D deficiency Expected: 03/10/2024, Expires: 06/09/2024 [facility] Comment on above: Expected: 03/10/2024 , Expires: 06/09/2024 Start: 03-10-2024 End: 06-09-2024 CBC W Auto Differential panel - Blood COMPLETE BLOOD COUNT AND DIFFERENTIAL Lab Routine Essential hypertension Expected: 03/10/2024, Expires: 06/09/2024 [facility] Comment on above: Expected: 03/10/2024 , Expires: 06/09/2024 Start: 03-10-2024 End: 06-09-2024 Comprehensive metabolic 2000 panel - Serum or Plasma COMPREHENSIVE METABOLIC PANEL Lab Routine Essential hypertension Expected: 03/10/2024, Expires: 06/09/2024 [facility] Comment on above: Expected: 03/10/2024 , Expires: 06/09/2024 Start: 03-10-2024 End: 06-09-2024 Lipid 1996 panel - Serum or Plasma LIPID PANEL BASIC Lab Routine Mixed hyperlipidemia Expected: 03/10/2024, Expires: 06/09/2024 [facility] Work Phone: Comment on above: Expected: 03/10/2024 , Expires: 06/09/2024 Start: 03-06-2024 Annual PCP Team Agriculture Laborer valerie Disease Visit Annual PCP Team Chronic Disease Visit [facility] Start: 03-06-2024 BP Controlled (<130/80) BP Controlle d (<130/80) [facility] Start: 03-06-2024 Covid-19 Vaccine ( season) Covid-19 Vaccine ( season) [facility] Start: 03-06-2024 Influenza vaccination [facility] Start: 09-17-2023 Mammography [facility] Start: 09-08-2023 End: 12-08-2023 25-hydroxyvitamin D3 [Mass/volume] in Serum or Plasma VITAMIN D 25 HYDROXY Lab Routine Vitamin D deficiency Expected: 09/08/2023, Expires: 12/08/2023 [facility] Work Phone: Comment on above: Expected: 09/08/2023 , Expires: 12/08/2023 Start: 09-08-2023 End: 12-08-2023 CBC panel - Blood by Automated count CBC Lab Routine Essential hypertension Encounter for long-term current use of medication Expected: 09/08/2023, Expires: 12/08/2023 [facility] Work Phone: Comment on above: Expected: 09/08/2023 , Expires: 12/08/2023 Start: 09-08-2023 End: 12-08-2023 Cobalamin (Vitamin B12) [Mass/volume] in Serum or Plasma VITAMIN B12 BLOOD Lab Routine Macrocytosis without anemia Expected: 09/08/2023, Expires: 12/08/2023 [facility] Work Phone: Comment on above: Expected: 09/08/2023 , Expires: 12/08/2023 Start: 09-08-2023 End: 12-08-2023 Comprehensive metabolic 2000 panel - Serum or Plasma COMP METABOLIC PANEL Lab Routine Essential hypertension Encounter for long-term current use of medication Expected: 09/08/2023, Expires: 12/08/2023 [facility] Work Phone: Comment on above: Expected: 09/08/2023 , Expires: 12/08/2023 Start: 09-08-2023 End: 12-08-2023 Folate [Mass/volume] in Serum or Plasma FOLATE SERUM Lab Routine Macrocytosis without anemia Expected: 09/08/2023, Expires: 12/08/2023 [facility] Work Phone: Comment on above: Expected: 09/08/2023 , Expires: 12/08/2023 Start: 09-08-2023 End: 12-08-2023 Lipid 1996 panel - Serum or Plasma LIPID PANEL BASIC Lab Routine Mixed hyperlipidemia Expected: 09/08/2023, Expires: 12/08/2023 [facility] Work Phone: Comment on above: Expected: 09/08/2023 , Expires: 12/08/2023 Start: 09-03-2023 End: 12-03-2023 25-hydroxyvitamin D3 [Mass/volume] in Serum or Plasma VITAMIN D 25 HYDROXY Lab Routine Essential hypertension Vitamin D deficiency Expected: 09/03/2023 (Approximate), Expires: 12/03/2023 [facility] Work Phone: Comment on above: Expected: 09/03/2023 (Approximate), Expires: 12/03/2023 Start: 09-03-2023 End: 12-03-2023 CBC W Auto Differential panel - Blood CBC + DIFF Lab Routine Essential hypertension Expected: 09/03/2023, Expires: 12/03/2023 [facility] Work Phone: Comment on above: Expected: 09/03/2023 , Expires: 12/03/2023 Start: 09-03-2023 End: 12-03-2023 Comprehensive metabolic 2000 panel - Serum or Plasma COMP METABOLIC PANEL Lab Routine Essential hypertension Expected: 09/03/2023, Expires: 12/03/2023 [facility] Work Phone: Comment on above: Expected: 09/03/2023 , Expires: 12/03/2023 Start: 09-03-2023 End: 12-03-2023 Lipid 1996 panel - Serum or Plasma LIPID PANEL BASIC Lab Routine Essential hypertension Expected: 09/03/2023, Expires: 12/03/2023 [facility] Work Phone: Comment on above: Expected: 09/03/2023 , Expires: 12/03/2023 Start: 08-18-2023 ANNUAL PCP TEAM SUCTION ROLLER VALERIE DISEASE VISIT ANNUAL PCP TEAM CHRONIC DISEASE VISIT [facility] Start: 07-06-2023 Advance Directive Discussion Advance Directive Discussion [facility] Start: 07-06-2023 Behavioral Health Screening Behavioral Health Screening [facility] Start: 07-06-2023 Depression Assessment Depression Ass essment [facility] Start: 07-01-2023 FECAL OCCULT BLOOD FECAL OCCULT BLOO D [facility] Start: 07-01-2023 Screening for malign ant neoplasm of colon Fecal Occult Blood [facility] Start: 05-08-2023 BP CONTROLLED (<130/80) BP CONTROLLE D (<130/80) [facility] Start: 2023 RSV Vaccine (1 - 1-d ose 75+ series) RSV Vaccine (1 - 1-dose 75+ series) [facility] Start: 03-06-2023 Covid-19 Vaccine ( season) Covid-19 Vaccine () [facility] Start: 03-06-2023 Influenza vaccination C [facility] Start: 02-24-2023 ANNUAL PCP TEAM SUCTION ROLLER VALERIE DISEASE VISIT ANNUAL PCP TEAM CHRONIC DISEASE VISIT [facility] Start: 02-15-2023 End: 04-17-2023 25-hydroxyvitamin D3 [Mass/volume] in Serum or Plasma VITAMIN D 25 HYDROXY Lab Routine Vitamin D deficiency Expected: 02/15/2023 (Approximate), Expires: 04/17/2023 [facility] Work Phone: Comment on above: Expected: 02/15/2023 (Approximate), Expires: 04/17/2023 Start: 02-15-2023 End: 04-17-2023 CBC panel - Blood by Automated count CBC Lab Routine Essential hypertension Expected: 02/15/2023 (Approximate), Expires: 04/17/2023 [facility] Work Phone: Comment on above: Expected: 02/15/2023 (Approximate), Expires: 04/17/2023 Start: 02-15-2023 End: 04-17-2023 Cobalamin (Vitamin B12) [Mass/volume] in Serum or Plasma VITAMIN B12 BLOOD Lab Routine Macrocytosis without anemia Expected: 02/15/2023 (Approximate), Expires: 04/17/2023 [facility] Work Phone: Comment on above: Expected: 02/15/2023 (Approximate), Expires: 04/17/2023 Start: 02-15-2023 End: 04-17-2023 Comprehensive metabolic 2000 panel - Serum or Plasma COMP METABOLIC PANEL Lab Routine Essential hypertension Expected: 02/15/2023 (Approximate), Expires: 04/17/2023 [facility] Work Phone: Comment on above: Expected: 02/15/2023 (Approximate), Expires: 04/17/2023 Start: 02-15-2023 End: 04-17-2023 Folate [Mass/volume] in Serum or Plasma FOLATE SERUM Lab Routine Macrocytosis without anemia Expected: 02/15/2023 (Approximate), Expires: 04/17/2023 [facility] Work Phone: Comment on above: Expected: 02/15/2023 (Approximate), Expires: 04/17/2023 Start: 02-15-2023 End: 04-17-2023 Lipid 1996 panel - Serum or Plasma LIPID PANEL BASIC Lab Routine Mixed hyperlipidemia Expected: 02/15/2023 (Approximate), Expires: 04/17/2023 [facility] Work Phone: Comment on above: Expected: 02/15/2023 (Approximate), Expires: 04/17/2023 Start: 02-15-2023 End: 04-17-2023 Methylmalonate [Moles/volume] in Serum or Plasma METHYLMALONIC ACID Lab Routine Macrocytosis without anemia Expected: 02/15/2023 (Approximate), Expires: 04/17/2023 [facility] Work Phone: Comment on above: Expected: 02/15/2023 (Approximate), Expires: 04/17/2023 Start: 12-15-2022 Colonoscopy COLONOSCOPY [facility] Start: 12-15-2022 COLORECTAL CANCER SCREENING COLORECTAL CANCER SCREENING [facility] Start: 12-15-2022 Screening for malign ant neoplasm of colon [facility] Start: 09-12-2022 Mammography MAMMOGRAM [facility] Start: 08-14-2022 ANNUAL PCP TEAM SUCTION ROLLER VALERIE DISEASE VISIT ANNUAL PCP TEAM CHRONIC DISEASE VISIT [facility] Start: 07-31-2022 COVID-19 VACCINE (5 - Pfizer series) COVID-19 VACCINE (5 - Pfizer series) [facility] Start: 07-06-2022 ADVANCE DIRECTIVE DISCUSSION ADVANCE DIRECTIVE DISCUSSION [facility] Start: 07-06-2022 DEPRESSION ASSESSMENT DEPRESSION ASS ESSMENT [facility] Start: 03-06-2022 Influenza vaccination INFLUENZA (#1) [facility] Start: 03-03-2022 Adult depression screening assessment DEPRESSION SCREENING [facility] Start: 02-11-2022 End: 08-14-2022 CBC panel - Blood by Automated count CBC Lab Routine Essential hypertension Encounter for long-term current use of medication Expected: 02/11/2022 (Approximate), Expires: 08/14/2022 [facility] Work Phone: Comment on above: Expected: 02/11/2022 (Approximate), Expires: 08/14/2022 Start: 02-11-2022 End: 08-14-2022 Comprehensive metabolic 2000 panel - Serum or Plasma COMP METABOLIC PANEL Lab Routine Essential hypertension Encounter for long-term current use of medication Expected: 02/11/2022 (Approximate), Expires: 08/14/2022 [facility] Work Phone: Comment on above: Expected: 02/11/2022 (Approximate), Expires: 08/14/2022 Start: 02-11-2022 End: 08-14-2022 LIPID PANEL BASIC LIPID PANEL BASIC Lab Routine Mixed hyperlipidemia Expected: 02/11/2022 (Approximate), Expires: 08/14/2022 [facility] Work Phone: Comment on above: Expected: 02/11/2022 (Approximate), Expires: 08/14/2022 Start: 02-11-2022 End: 08-14-2022 VITAMIN D 25 HYDROXY VITAMIN D 25 HYDROXY Lab Routine Vitamin D deficiency Expected: 02/11/2022 (Approximate), Expires: 08/14/2022 [facility] Work Phone: Comment on above: Expected: 02/11/2022 (Approximate), Expires: 08/14/2022 Start: 07-06-2021 ADVANCE DIRECTIVE DISCUSSION ADVANCE DIRECTIVE DISCUSSION [facility] Start: 07-06-2021 DEPRESSION ASSESSMENT DEPRESSION ASS ESSMENT [facility] Start: 2008 RSV Vaccine (1 - 1-d ose 60+ series) RSV Vaccine (1 - 1-dose 60+ series) [facility] Start: 10-14-2007 Screening for malign ant neoplasm of colon Sigmoidoscopy [facility] Start: 10-14-2007 SIGMOIDOSCOPY SIGMOIDOSCOPY [facility] Start: 06-02-2006 FECAL OCCULT BLOOD FECAL OCCULT BLOO D [facility] Start: 1993 COLOGUARD (FIT-DNA) COLOGUARD (FIT-D NA) [facility] Start: [address] COLONOGRAPHY [facility] Start: 1993 Screening for malign ant neoplasm of colon [facility] Start: 1966 Anxiety Screening Anxiety Screening [facility] Start: 1966 BP CONTROLLED (<130/80) BP CONTROLLE D (<130/80) [facility] Start: 1966 Depression Screening Depression Scre ening [facility] End: 03-21-2025 25-hydroxyvitamin D3 [Mass/volume] in Serum or Plasma VITAMIN D 25 HYDROXY Lab Routine Vitamin D deficiency Encounter for long-term current use of medication Every 4 months for 90 Occurrences starting 03/21/2024 until 03/21/2025 [facility] Comment on above: Every 4 months for 9 0 Occurrences starting 03/21/2024 until 03/21/2025 End: 04-20-2025 BD DXA TRABECULAR BONE SCORE (TBS) BD DXA TRABECULAR BONE SCORE (TBS) Radiology Routine Asymptomatic postmenopausal status 1 Occurrences starting 03/21/2024 until 04/20/2025 [facility] Comment on above: 1 Occurrences starti ng 03/21/2024 until 04/20/2025 BD DXA TRABECULAR NIA NE SCORE (TBS) BD DXA TRABECULAR BONE SCORE (TBS) Radiology Routine Asymptomatic postmenopausal status 05/02/2024 12:56 PM EDT [facility] BLADDER SCAN BLADDER SCAN Pro cedures Routine Screening for genitourinary condition Urge incontinence Ordered: 09/27/2024 [facility] Work Phone: Comment on above: Ordered: 09/27/2024 End: 03-21-2025 CBC panel - Blood by Automated count COMPLETE BLOOD COUNT Lab Routine Macrocytosis without anemia Encounter for long-term current use of medication Every 4 months for 90 Occurrences starting 03/21/2024 until 03/21/2025 [facility] Comment on above: Every 4 months for 9 0 Occurrences starting 03/21/2024 until 03/21/2025 End: 03-21-2025 Cobalamin (Vitamin B12) [Mass/volume] in Serum or Plasma VITAMIN B12 Lab Routine Macrocytosis without anemia Every 4 months for 90 Occurrences starting 03/21/2024 until 03/21/2025 [facility] Comment on above: Every 4 months for 9 0 Occurrences starting 03/21/2024 until 03/21/2025 End: 03-21-2025 Comprehensive metabolic 2000 panel - Serum or Plasma COMPREHENSIVE METABOLIC PANEL Lab Routine Essential hypertension Encounter for long-term current use of medication Every 4 months for 90 Occurrences starting 03/21/2024 until 03/21/2025 [facility] Comment on above: Every 4 months for 9 0 Occurrences starting 03/21/2024 until 03/21/2025 End: 10-17-2024 DBT Breast - bilateral screening MULU SCREENING W VIPUL Radiology Routine Screening mammogram for breast cancer 1 Occurrences starting 09/18/2023 until 10/17/2024 [facility] Work Phone: Comment on above: 1 Occurrences starti ng 09/18/2023 until 10/17/2024 End: 04-09-2026 DBT Breast - bilateral screening MULU SCREENING W VIPUL Radiology Routine Screening mammogram for breast cancer 1 Occurrences starting 03/13/2025 until 04/09/2026 [facility] Work Phone: Comment on above: 1 Occurrences starti ng 03/13/2025 until 04/09/2026 End: 04-20-2025 DXA Skeletal system.axial Views for bone density DXA-AXIAL SKELETON Radiology Routine Asymptomatic postmenopausal status 1 Occurrences starting 03/21/2024 until 04/20/2025 [facility] Work Phone: Comment on above: 1 Occurrences starti ng 03/21/2024 until 04/20/2025 DXA Skeletal system.axial Views for bone density DXA-AXIAL SKELETON Radiology Routine Asymptomatic postmenopausal status 05/02/2024 12:56 PM EDT [facility] Work Phone: ECG COMPLETE ECG COMPLETE ECG 05/25/2024 10:22 AM EST [facility] End: 05-09-2025 Flexible sigmoidoscopy study COLONOSCOPY DIAGNOSTIC Endoscopy Routine Rectal bleeding 1 Occurrences starting 05/09/2024 until 05/09/2025 [facility] Work Phone: Comment on above: 1 Occurrences starti ng 05/09/2024 until 05/09/2025 End: 03-21-2025 Folate [Mass/volume] in Serum or Plasma FOLATE, SERUM Lab Routine Macrocytosis without anemia Every 4 months for 90 Occurrences starting 03/21/2024 until 03/21/2025 [facility] Comment on above: Every 4 months for 9 0 Occurrences starting 03/21/2024 until 03/21/2025 End: 03-21-2025 Lipid 1996 panel - Serum or Plasma LIPID PANEL BASIC Lab Routine Essential hypertension Mixed hyperlipidemia Encounter for long-term current use of medication Every 4 months for 90 Occurrences starting 03/21/2024 until 03/21/2025 [facility] Comment on above: Every 4 months for 9 0 Occurrences starting 03/21/2024 until 03/21/2025 End: 03-21-2025 Magnesium [Mass/volume] in Serum or Plasma MAGNESIUM Lab Routine Encounter for long-term current use of medication Every 4 months for 90 Occurrences starting 03/21/2024 until 03/21/2025 [facility] Comment on above: Every 4 months for 9 0 Occurrences starting 03/21/2024 until 03/21/2025 End: 09-13-2022 MULU SCREENING W VIPUL MULU SCREENING W VIPUL Radiology Routine Breast cancer screening by mammogram 1 Occurrences starting 08/14/2021 until 09/13/2022 [facility] Work Phone: Comment on above: 1 Occurrences starti ng 08/14/2021 until 09/13/2022 End: 09-17-2023 MULU SCREENING W VIPUL MULU SCREENING W VIPUL Radiology Routine Breast cancer screening by mammogram 1 Occurrences starting 08/18/2022 until 09/17/2023 [facility] Work Phone: Comment on above: 1 Occurrences starti ng 08/18/2022 until 09/17/2023 End: 01-14-2024 PVR [facility] Vascular Lab Routine Decreased pedal pulses 1 Occurrences starting 01/13/2023 until 01/14/2024 [facility] Work Phone: Comment on above: 1 Occurrences starti ng 01/13/2023 until 01/14/2024 End: 03-21-2025 Screening colonoscopy COLONOSCOPY SCREENING Endoscopy Routine Screening for colon cancer Family history of colon cancer in mother 1 Occurrences starting 03/21/2024 until 03/21/2025 [facility] Comment on above: 1 Occurrences starti ng 03/21/2024 until 03/21/2025 SURGICAL PATHOLOGY [facility] Work Phone: Comment on above: Release Upon Gayatriin g for 1 Occurrences starting 07/13/2024, 1 completed [facility] Immunizations Immunization Date Immunization Notes Care Provider Socorro ahyden 11-28-2022 tetanus toxoid, redu marilee diphtheria toxoid, and acellular pertussis vaccine, adsorbed Virgil Stark APRN.ELECTROLYTIC ETCHER Work Phone: [facility] Work Phone: 03-31-2022 influenza, high dose seasonal, preservative-free Lalo Schultz MD Work Phone: [facility] 03-31-2022 influenza virus vacc ine, unspecified formulation Lalo Schultz MD Work Phone: [facility] 04-19-2021 influenza, high dose seasonal, preservative-free Virgil Stark APRN.ELECTROLYTIC ETCHER Work Phone: [facility] 04-02-2020 influenza, high-dose , quadrivalent vaccine (FLUZONE HIGH DOSE QUADRIVALENT) Lalo Schultz MD Work Phone: [facility] 03-29-2020 zoster vaccine recombinant Virgil Stark APRN.ELECTROLYTIC ETCHER Work Phone: [facility] Work Phone: 03-27-2020 influenza, injectabl e, quadrivalent, preservative free [facility] 03-27-2020 influenza, seasonal, injectable [facility] 09-22-2019 zoster vaccine recombinant Virgil Stark APRN.ELECTROLYTIC ETCHER Work Phone: [facility] 07-15-2019 influenza, high dose seasonal, preservative-free Virgil Stark APRN.ELECTROLYTIC ETCHER Work Phone: [facility] 06-02-2018 pneumococcal polysaccharide vaccine, 23 valent Virgil Stark APRN.ELECTROLYTIC ETCHER Work Phone: [facility] 05-12-2017 pneumococcal conjuga te vaccine, 13 valent Virgil Stark APRN.ELECTROLYTIC ETCHER Work Phone: [facility] Work Phone: 04-02-2010 influenza virus vacc ine, unspecified formulation Virgil Stark APRN.ELECTROLYTIC ETCHER Work Phone: [facility] 11-03-2002 tetanus immune globulin Fartunsanam Stark APRN.ELECTROLYTIC ETCHER Work Phone: [facility] Work Phone: Payers Date Payer Category Payer Medicare [employer] MEDICARE A ETNA MEDICARE PPO [id number] 2021-Present [phone] [address] [place] [address] PPO [id number] 2021 Medicare AET[employer] MEDICARE A ETNA MEDICARE PPO [id number] 2021-Present [phone] [address] [place] [address] PPO [id number] 2021 Medicare (Managed Care) [place] [id number] 2021 Private Health Insurance 101 [id number] 2018 Self-pay 2011 Unknown [id number] 1948 Unknown [id number] 1948 Unknown [id number] 1948 Unknown [id number] 1948 Unknown [id number] Medicare [id number] Unknown [id number] Social History Date Type Detail Facility Start: 07-20-2020 Tobacco smoking status [facility] Unknown if ever smoked [facility] Start: 05-21-2020 Occasional [facility] Start: 08-01-2014 None [facility] Start: 06-26-2020 Cigarettes [facility] Start: 1950 Sex Assigned At Female [facility] Start: 05-08-2022 End: 03-21-2024 Tobacco smoking status NDIS Ex-smoker [facility] Start: 07-06-1969 End: 07-06-1979 History of tobacco use Current smoker [facility] Work Phone: Start: 10-03-2021 End: 05-08-2022 Alcohol intake Current drinker of alcohol (finding) [facility] Start: 10-03-2021 End: 03-06-2023 Alcohol intake [facility] Start: 07-17-2020 End: 08-18-2022 History SDOH Physical Activity DPW 3 [facility] Start: 07-17-2020 End: 08-18-2022 History SDOH Physical Activity MPS 2 [facility] Start: 07-17-2020 End: 08-18-2022 History SDOH Food Worry 1 [facility] Start: 07-17-2020 Education 15 [facility] Start: 09-23-2021 End: 05-08-2022 Exposure to SARS-CoV-2 (event) Not sure [facility] Work Phone: Start: 07-06-1969 End: 07-06-1979 History of tobacco use Cigarette Smoker [facility] Start: 05-08-2022 End: 03-21-2024 Tobacco use and exposure Smokeless tobacco non-user [facility] Start: 02-24-2022 End: 08-18-2022 History SDOH Alcohol Std Drinks 0 [facility] Start: 02-24-2022 End: 08-18-2022 History SDOH Social Connections Phone 5 [facility] Start: 02-24-2022 End: 08-18-2022 History SDOH Social Connections Membership 98 [facility] Start: 02-24-2022 History SDOH Physical Activity DPW 6 [facility] Start: 02-24-2022 End: 08-18-2022 History SDOH Physical Activity MPS 4 [facility] Start: 08-18-2022 End: 09-27-2024 Alcohol intake Ex-drinker (finding) [facility] Start: 08-17-2022 End: 03-06-2023 Social connection and isolation panel [facility] Start: 06-06-2012 Do you belong to any clubs or organizations such as [employer] groups, [employer], [employer] or athlePrevoty groups, or school groups? Patient refused [facility] Are you now , , , , never or living with a partner? [facility] How often to you hav e a drink containing alcohol? Never [facility] Do you feel stress - tense, restless, nervous, or anxious, or unable to sleep at night because your mind is troubled all the time - these days [OSQ] Only a little [facility] (I/We) worried wheth er (my/our) food would run out before (I/we) got money to buy more. Never true [facility] In the past 12 month s, was there a time when you were not able to pay the mortgage or rent on time? No [facility] Start: 07-13-2020 Gender identity Identifies as female gender (finding) [facility] Start: 07-13-2020 Sexual orientation Heterosexual (finding) [facility] Do you belong to any clubs or organizations such as [employer] groups, [employer], [employer] or athlePrevoty groups, or school groups? Yes [facility] How hard is it for y ou to pay for the very basics like food, housing, medical care, and heating Somewhat hard [facility] Functional Status Date Assessment Result Facility 09-10-2024 Total score [AUDIT-C] 0 09/11/19 25 12:55 PM Sharron Riddle [facility] 09-10-2024 Within the last year , have you been humiliated or emotionally abused in other ways by your partner or ex-partner? No 09/10/2024 12:55 PM Sharron Riddle No [facility] 09-10-2024 Within the last year , have you been afraid of your partner or ex-partner? No 09/10/2024 12:55 PM Sharron Riddle No [facility] 09-10-2024 Within the last year , have you been raped or forced to have any kind of sexual activity by your partner or ex-partner? No 09/10/2024 12:55 PM Sharron Riddle No [facility] 09-10-2024 Within the last year , have you been kicked, hit, slapped, or otherwise physically hurt by your partner or ex-partner? No 09/10/2024 12:55 PM Sharron Riddle No [facility] 09-10-2024 How often to you hav e a drink containing alcohol? Never 09/10/2024 12:55 PM Sharron Riddle Never [facility] 09-10-2024 Functional status Patient does n ot drink 09/10/2024 12:55 PM Sharron Riddle Patient does not drink [facility] 09-10-2024 How often do you hav e 6 or more drinks on 1 occasion? Never 09/10/2024 12:55 PM Sharron Riddle Never [facility] 04-15-2018 Are you deaf, or do you have serious difficulty hearing No 04/15/2018 6:39 PM Lalo Chery MD No [facility] 04-15-2018 Are you blind, or do you have serious difficulty seeing, even when wearing glasses No 04/15/2018 6:39 PM Lalo Chery MD No [facility] 04-15-2018 Do you have serious difficulty walking or climbing stairs No 04/15/2018 6:39 PM Lalo Chery MD No [facility] 04-15-2018 Do you have difficul ty dressing or bathing No 04/15/2018 6:39 PM Lalo Chery MD No [facility] 04-15-2018 Because of a physica l, mental, or emotional condition, do you have difficulty doing errands alone such as visiting a physician's office or shopping No 04/15/2018 6:39 PM EDT Lalo Schultz MD No [facility] Mental Status Date Assessment Result Facility 04-15-2018 Because of a physica l, mental, or emotional condition, do you have serious difficulty concentrating, remembering, or making decisions No 04/15/2018 6:39 PM EDT Lalo Schultz MD No [facility] Clinical Notes 09-26-2005 to 03-13-2025 Telephone Encounter - Olga Bourgeois LPN - 03/13/2025 1:21 PM EDTTelephone Encounter - Olga Bourgeois LPN - 03/13/2025 1:21 PM EDTCYissel bruce APRN.ELECTROLYTIC ETCHER - 09/27/2024 2:48 PM EDT Note Date & Type Note Facility 03-13-2025 Telephone encounter Note Patient notified of order has been faxed to [facility] 03-13-2025 Miscellaneous Notes Patient notified of order has been faxed to [facility] Filed Fax order as requested Patient calling needs to get her yearly mamm. Last one done 09/30/2023. Patient gets done at [facility] fax to [phone]. Please call patient when the fax is sent to [facility]. Patient said said can leave a message. Pending order to file. Please advise documented in this encounter [facility] 03-13-2025 Telephone encounter Note Filed Fax order as requested [facility] 03-10-2025 Telephone encounter Note Patient calling needs to get her yearly mamm. Last one done 09/30/2023. Patient gets done at [facility] fax to [phone]. Please call patient when the fax is sent to [facility]. Patient said said can leave a message. Pending order to file. Please advise [facility] 09-27-2024 Note HNO ID: [id number] Author: YISSEL FERRARI APRN.ELECTROLYTIC ETCHER Service: ? Author Type: Nurse Practitioner Type: Progress Notes Filed: 09/27/2024 15:05 Note Text: Eliu Matamoros is a 74 year old female who presents today for evaluation of Patient presents with: Follow Up: Urge incontinence CHIEF COMPLAINT AND HISTORY OF PRESENT ILLNESS CC: follow up 74 year old female with a history of htn, nephrolithiasis presents for reports of urinary incontinence while she is sleeping, she was started on trospium 20 mg bid and reports that her leakage at night has stopped and she is feeling well, she does report some constipation. Denies urinary incontinence during the day Denies dysuria, gross hematuria PVR 0 cc DTF: every 3 hours NTF: varies URGENCY:rare UUI:no URIAH:no STRAINING:no COMPLETE EMPTYING: no PADS PER DAY:thin during the day FLUID INTAKE: water Past Urological History: Stones:yes: Surgery:yes: stone surgery Tumors:no Infections:no VITALS: Height 156.2 cm (5' 1.5), weight 78.9 kg (174 lb), last menstrual period 07/11/2003. ALLERGIES: Aspirin, Atorvastatin, Niacin, and Simvastatin MEDICATIONS: Current Outpatient Medications Medication Sig Dispense Refill amLODIPine (NORVASC) 5 mg tablet Take 1 tablet by mouth once daily. 90 tablet 3 atenolol (TENORMIN) 50 mg tablet Take 1 tablet by mouth two times a day. 180 tablet 3 nortriptyline (PAMELOR) 50 mg capsule Take 2 capsules by mouth daily at bedtime. 180 capsule 3 multivitamin with minerals (HAIR,SKIN AND NAILS) tablet Take 1 tablet by mouth once daily. cyanocobalamin (VITAMIN B-12) 1,000 mcg tab Take 1,000 mcg by mouth once daily. turmeric/turmeric ext/pepr ext (TURMERIC-TURMERIC EXT-PEPPER) 500-3 mg cap Take by mouth. multivit-mins 25-folic acid-D3 3-2,000 mg-unit tab Take by mouth. trospium (SANCTURA) 20 mg tablet Take 1 tablet by mouth two times a day. 60 tablet 0 trospium (SANCTURA) 20 mg tablet Take 1 tablet by mouth two times a day. 180 tablet 3 rosuvastatin (CRESTOR) 5 mg tablet Take 1 tablet by mouth once daily. As directed 90 tablet 1 Magnesium 250 mg tab Magnesium Citrate 1 tablet at bedtime FOLIC ACID ORAL Take 1 tablet by mouth once daily. inulin (FIBER GUMMIES ORAL) Take 20 mg by mouth once daily. docusate sodium (COLACE) 100 mg capsule Take 100 mg by mouth twice daily. Melatonin 5 mg cap Take 30 mg by mouth daily at bedtime. biotin 5 mg caspule Take 5 mg by mouth once daily. MULTIVIT WITH CALCIUM,IRON,MIN (WOMEN'S DAILY MULTIVITAMIN ORAL) Take by mouth. acetaminophen 650 mg CR tablet Take 650 mg by mouth every 8 hours as needed. Two tabs twice daily No current facility-administered medications for this visit. SOCIAL HISTORY: Social History Tobacco Use Smoking status: Former Current packs/day: 0.00 Types: Cigarettes Start date: 07/06/1969 Quit date: 07/06/1979 Years since quittin.2 Smokeless tobacco: Never Vaping Use Vaping status: Never Used Substance Use Topics Alcohol use: Not Currently Alcohol/week: 7.0 standard drinks of alcohol Types: 7 Shots of liquor per week Drug use: No PAST MEDICAL HISTORY: PAST MEDICAL HISTORY Diagnosis Date Achilles bursitis or tendinitis right shoulder Acute peptic ulcer, unspecified site, without mention of hemorrhage, perforation, or obstruction 10/06 Diarrhea Diverticulosis of colon (without mention of hemorrhage) External hemorrhoids without mention of complication Family history of malignant neoplasm of gastrointestinal tract family history of colon cancer Fibrosclerosis of breast fibrocystic breast disease Generalized osteoarthrosis, unspecified site Hemorrhage of gastrointestinal tract, unspecified Internal hemorrhoids without mention of complication Intractable migraine without aura 07/27/[address] 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 Bearden at [facility] Unspecified essential hypertension Unspecified hemorrhoids without mention of complication internal and externaldjd Unspecified tinnitus 11/16/2006 Left ear Urinary calculus, unspecified Renal stones PAST SURGICAL HISTORY: PAST SURGICAL HISTORY Procedure Laterality Date APPENDECTOMY ARTHRP INTERCARPAL/CARP/MTCRPL JT INTERPOSITION Right 08/16/2021 Right thumb CMC arthroplasty with trapeciectomy and 1st dorsal compartment release COLONOS VIA STOMA W/ ABLATION COLONOSCOPY FLX DX W/COLLJ SPEC WHEN PFRMD 10/09/2006 PAST SURGICAL HISTORY OF Ultrasound kidney stones PAST SURGICAL HISTORY OF Right 01/01/2018 total right knee replacement PAST SURGICAL HISTORY OF Left 06/27/2020 inguinal hernai repair SIGMOIDOSCOPY 08/06/2018 Dr. Sanfrod (more content not included)... [facility] 09-27-2024 History of Presen t illness Narrative Eliu Matamoros is a 74 year old female who presents today for evaluation of Patient presents with: Follow Up: Urge incontinence CHIEF COMPLAINT & HISTORY OF PRESENT ILLNESS CC: follow up 74 year old female with a history of htn, nephrolithiasis presents for reports of urinary incontinence while she is sleeping, she was started on trospium 20 mg bid and reports that her leakage at night has stopped and she is feeling well, she does report some constipation. Denies urinary incontinence during the day Denies dysuria, gross hematuria PVR 0 cc DTF: every 3 hours NTF: varies URGENCY:rare UUI:no URIAH:no STRAINING:no COMPLETE EMPTYING: no PADS PER DAY:thin during the day FLUID INTAKE: water Past Urological History: Stones:yes: Surgery:yes: stone surgery Tumors:no Infections:no VITALS: Height 156.2 cm (5' 1.5), weight 78.9 kg (174 lb), last menstrual period 07/11/2003. ALLERGIES: Aspirin, Atorvastatin, Niacin, and Simvastatin MEDICATIONS: Current Outpatient Medications Medication Sig Dispense Refill amLODIPine (NORVASC) 5 mg tablet Take 1 tablet by mouth once daily. 90 tablet 3 atenolol (TENORMIN) 50 mg tablet Take 1 tablet by mouth two times a day. 180 tablet 3 nortriptyline (PAMELOR) 50 mg capsule Take 2 capsules by mouth daily at bedtime. 180 capsule 3 multivitamin with minerals (HAIR,SKIN AND NAILS) tablet Take 1 tablet by mouth once daily. cyanocobalamin (VITAMIN B-12) 1,000 mcg tab Take 1,000 mcg by mouth once daily. turmeric/turmeric ext/pepr ext (TURMERIC-TURMERIC EXT-PEPPER) 500-3 mg cap Take by mouth. multivit-mins 25-folic acid-D3 3-2,000 mg-unit tab Take by mouth. trospium (SANCTURA) 20 mg tablet Take 1 tablet by mouth two times a day. 60 tablet 0 trospium (SANCTURA) 20 mg tablet Take 1 tablet by mouth two times a day. 180 tablet 3 rosuvastatin (CRESTOR) 5 mg tablet Take 1 tablet by mouth once daily. As directed 90 tablet 1 Magnesium 250 mg tab Magnesium Citrate 1 tablet at bedtime FOLIC ACID ORAL Take 1 tablet by mouth once daily. inulin (FIBER GUMMIES ORAL) Take 20 mg by mouth once daily. docusate sodium (COLACE) 100 mg capsule Take 100 mg by mouth twice daily. Melatonin 5 mg cap Take 30 mg by mouth daily at bedtime. biotin 5 mg caspule Take 5 mg by mouth once daily. MULTIVIT WITH CALCIUM,IRON,MIN (WOMEN'S DAILY MULTIVITAMIN ORAL) Take by mouth. acetaminophen 650 mg CR tablet Take 650 mg by mouth every 8 hours as needed. Two tabs twice daily No current facility-administered medications for this visit. SOCIAL HISTORY: Social History Tobacco Use Smoking status: Former Current packs/day: 0.00 Types: Cigarettes Start date: 07/06/1969 Quit date: 07/06/1979 Years since quittin.2 Smokeless tobacco: Never Vaping Use Vaping status: Never Used Substance Use Topics Alcohol use: Not Currently Alcohol/week: 7.0 standard drinks of alcohol Types: 7 Shots of liquor per week Drug use: No PAST MEDICAL HISTORY: PAST MEDICAL HISTORY Diagnosis Date Achilles bursitis or tendinitis right shoulder Acute peptic ulcer, unspecified site, without mention of hemorrhage, perforation, or obstruction 10/06 Diarrhea Diverticulosis of colon (without mention of hemorrhage) External hemorrhoids without mention of complication Family history of malignant neoplasm of gastrointestinal tract family history of colon cancer Fibrosclerosis of breast fibrocystic breast disease Generalized osteoarthrosis, unspecified site Hemorrhage of gastrointestinal tract, unspecified Internal hemorrhoids without mention of complication Intractable migraine without aura 07/27/[address] 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 Bearden at [facility] Unspecified essential hypertension Unspecified hemorrhoids without mention of complication internal and externaldjd Unspecified tinnitus 11/16/2006 Left ear Urinary calculus, unspecified Renal stones PAST SURGICAL HISTORY: PAST SURGICAL HISTORY Procedure Laterality Date APPENDECTOMY ARTHRP INTERCARPAL/CARP/MTCRPL JT INTERPOSITION Right 08/16/2021 Right thumb CMC arthroplasty with trapeciectomy and 1st dorsal compartment release COLONOS VIA STOMA W/ ABLATION COLONOSCOPY FLX DX W/COLLJ SPEC WHEN PFRMD 10/09/2006 PAST SURGICAL HISTORY OF Ultrasound kidney stones PAST SURGICAL HISTORY OF Right 01/01/2018 total right knee replacement PAST SURGICAL HISTORY OF Left 06/27/2020 inguinal hernai repair SIGMOIDOSCOPY 08/06/2018 Dr. Irvin, [facility] SIGMOIDOSCOPY FLX DX W/COLLJ SPEC BR/WA IF PFRMD 10/13/2002 Sigmoidoscopy, flexible TONSILLECTOMY PRIMARY/SECONDARY <AGE 12 As child Tonsillectomy FAMILY HISTORY: FAMILY HISTORY Problem Relation Age of Onset Colon Cancer Mother of colon cancer Headache Mother Hypertension Father Breast Cancer Sister Headache Son migraine Headache Daughter migraine Headache Daughter migraine All histories reviewed on this date 09/27/2024: Yes REVIEW OF SYSTEMS: CONSTITUTIONAL: Patient reports no recent fever or weight loss CARDIOVASCULAR: Negative for chest pain. RESPIRATORY: Negative for cough, hemoptysis, wheezing, COPD, dyspnea or shortness of breath All other systems reviewed and are negative other than HPI. PHYSICAL EXAM: constitutional: appears healthy in no acute distress respiratory: normal respiratory motion Neuro: Gait normal. Sensation grossly intact. RADIOLOGY REPORTS REVIEWED: Yes LAB RESULTS REVIEWED: Yes Latest Ref Rng 09/27/2024 GLUCOSE UA (POCT) Negative mg/dL Negative BILIRUBIN UA (POCT) Negative Negative KETONE UA (POCT) Negative mg/dL Negative SPECIFIC GRAVITY UA (POCT) 1.005 - 1.030 1.020 HEMOGLOBIN/BLOOD UA (POCT) Negative Negative PH UA (POCT) 4.5 - 8.0 7.0 PROTEIN UA (POCT) Negative mg/dL Negative UROBILINOGEN UA (POCT) Normal E.U./dL 0.2 NITRITE UA (POCT) Negative Negative LEUKOCYTES UA (POCT) Negative Negative COLOR UA (POCT) Yellow CLARITY UA (POCT) Clear IMAGING STUDIES INDEPENDENTLY REVIEWED: No OLD RECORDS REVIEWED: Yes: Extensive: No ASSESSMENT/PLAN: 1. Urge incontinence - ICD9: 788.31, ICD10: N39.41 (primary diagnosis) -improved LUTS -PVR 0 cc -continue with trospium 20 mg po bid -follow up in 12 months - BLADDER SCAN Patient is instructed to schedule a follow up in 12 months Yissel Ferrari APRN.ELECTROLYTIC ETCHER Bladder scan obtained 0 ml of urine documented in this encounter [facility] 09-27-2024 Note HNO ID: [id number] Author: YAIMA PETERSON LPN Service: ? Author Type: LICENSED NURSE Type: Progress Notes Filed: 09/27/2024 15:05 Note Text: Bladder scan obtained 0 ml of urine [facility] 09-20-2024 Telephone encounter Note Patient calls to request amlodipine prescription be resent to [facility]. They received the atenolol but not the amlodipine. Pended per request. Cori Young RN [facility] 09-20-2024 Miscellaneous Notes Patient calls to request amlodipine prescription be resent to [facility]. They received the atenolol but not the amlodipine. Pended per request. Cori Young RN documented in this encounter [facility] 09-12-2024 Note HNO ID: [id number] Author: JONELLE MAHMOOD APRN.OPTIC FIBRE DRAWER Service: ? Author Type: Nurse Specialist Type: Progress Notes Filed: 09/12/2024 11:26 Note Text: SUBJECTIVE: RSV Vaccine(1 - 1-dose 75+ series) Never done Advance Directive Discussion due on 07/06/2024 HPI Eliu Matamoros is a 74 year old female. PMH significant for ACTIVE PROBLEM LIST Palpitations Essential Hypertension Generalized Osteoarthrosis, Unspecified Site Mixed Hyperlipidemia Diverticulosis of Colon (Without Mention of Hemorrhage) Unspecified Tinnitus Pain in Joint, Lower Leg Abdominal Pain, Other Specified Site Calculus of Kidney Lumbar Spondylosis Vitamin D Deficiency Status Post Total Right Knee Replacement Class 1 Obesity Due to Excess Calories With Serious Comorbidity and Body Mass Index (Bmi) of 30.0 to 30.9 in Adult Svt (Supraventricular Tachycardia) (Hcc) Presents today for routine visit. Notes nortriptyline dose increase helped with insomnia. Fatigued today. Notes tropsium helping a lot with urinary symptoms. She notes some increase of constipation on this medication. Reports that she is taking daily remedies for constipation. OTC remedy is helping, takes as needed.. BM Q2-3 days currently, her usual pattern.. HTN: Without report of headache, chest pain, palpitations, dyspnea, peripheral edema, orthopnea, fatigue, and PND. Last 14 Encounter BP Readings: Date: BP: 09/12/2024 114/60 07/13/2024 116/56 07/13/2024 120/60 05/25/2024 128/62 05/09/2024 122/76 03/21/2024 132/70 09/08/2023 136/78 05/20/2023 120/64 01/03/2023 144/76 11/28/2022 116/62 08/18/2022 138/78 05/08/2022 118/64 02/24/2022 128/70 10/03/2021 124/80 Hyperlipidemia. Ms. Matamoros reports doing well on current therapy. Her most recent lipid panels are: Cholesterol, Total (mg/dL) Date Value 09/05/2024 184 03/14/2024 203 08/14/2021 245 02/21/2021 249 HDL Cholesterol (mg/dL) Date Value 09/05/2024 60 03/14/2024 62 08/14/2021 66 02/21/2021 60 LDL Cholesterol (mg/dL) Date Value 09/05/2024 99 03/14/2024 112 08/14/2021 158 02/21/2021 164 Triglyceride (mg/dL) Date Value 09/05/2024 123 03/14/2024 145 08/14/2021 106 02/21/2021 124 Has trouble falling asleep, much better with nortryptyline. Sleeping through better also. Last night did not sleep well. Review of Systems Constitutional: Negative. Respiratory: Negative. Cardiovascular: Negative. Gastrointestinal: Positive for constipation. Psychiatric/Behavioral: Positive for sleep disturbance. Objective BP 114/60 Pulse 70 Resp 16 Wt 79.3 kg (174 lb 13.2 oz) LMP 07/11/2003 BMI 32.50 kg/m? Physical Exam Vitals and nursing note reviewed. Constitutional: Appearance: Normal appearance. HENT: Head: Normocephalic and atraumatic. Eyes: Conjunctiva/sclera: Conjunctivae normal. Neck: Thyroid: No thyroid mass or thyromegaly. Vascular: Normal carotid pulses. No JVD. Cardiovascular: Rate and Rhythm: Normal rate and regular rhythm. Pulses: Carotid pulses are 2+ on the right side. Radial pulses are 2+ on the right side and 2+ on the left side. Dorsalis pedis pulses are detected w/ Doppler on the right side. Pulmonary: Effort: Pulmonary effort is normal. Breath sounds: Normal breath sounds. Abdominal: General: Bowel sounds are normal. Palpations: Abdomen is soft. Musculoskeletal: Right lower leg: No edema. Left lower leg: No edema. Skin: General: Skin is warm and dry. Neurological: General: No focal deficit present. Mental Status: She is alert and oriented to person, place, and time. ALLERGIES Allergen Reactions Aspirin Contraindication-Medical Surgical History of ulcer Atorvastatin Myalgia Niacin Intolerance sweats and hot flashes Simvastatin Intolerance myalgias--severe; resolved after stopped but still with leg pain Medication multivitamin with minerals (HAIR,SKIN AND NAILS) tablet Take 1 tablet by mouth once daily. cyanocobalamin (VITAMIN B-12) 1,000 mcg tab Take 1,000 mcg by mouth once daily. turmeric/turmeric ext/pepr ext (TURMERIC-TURMERIC EXT-PEPPER) 500-3 mg cap Take by mouth. multivit-mins 25-folic acid-D3 3-2,000 mg-unit tab Take by mouth. nortriptyline (PAMELOR) 50 mg capsule Take 50 mg by mouth daily at bedtime. trospium (SANCTURA) 20 mg tablet Take 1 tablet by mouth two times a day. trospium (SANCTURA) 20 mg tablet Take 1 tablet by mouth two times a day. Magnesium 250 mg tab Magnesium Citrate 1 tablet at bedtime atenolol (TENORMIN) 50 mg tablet Take 1 tablet by mouth two times a day. FOLIC ACID ORAL Take 1 tablet by mouth once daily. inulin (FIBER GUMMIES ORAL) Take 20 mg by mouth once daily. acetaminophen 650 mg CR tablet Take 650 mg by mouth every 8 hours as needed. Two tabs twice daily docusate sodium (COLACE) 100 mg capsule Take 100 mg by mouth twice daily. Melatonin 5 mg cap Take 30 mg by mouth daily at bedtime. biotin 5 mg caspule Take (more content not included)... [facility] 09-12-2024 History of Presen t illness Narrative SUBJECTIVE: RSV Vaccine(1 - 1-dose 75+ series) Never done Advance Directive Discussion due on 07/06/2024 HPI Eliu Matamoros is a 74 year old female. PMH significant for ACTIVE PROBLEM LIST Palpitations Essential Hypertension Generalized Osteoarthrosis, Unspecified Site Mixed Hyperlipidemia Diverticulosis of Colon (Without Mention of Hemorrhage) Unspecified Tinnitus Pain in Joint, Lower Leg Abdominal Pain, Other Specified Site Calculus of Kidney Lumbar Spondylosis Vitamin D Deficiency Status Post Total Right Knee Replacement Class 1 Obesity Due to Excess Calories With Serious Comorbidity and Body Mass Index (Bmi) of 30.0 to 30.9 in Adult Svt (Supraventricular Tachycardia) (Hcc) Presents today for routine visit. Notes nortriptyline dose increase helped with insomnia. Fatigued today. Notes tropsium helping a lot with urinary symptoms. She notes some increase of constipation on this medication. Reports that she is taking daily remedies for constipation. OTC remedy is helping, takes as needed.. BM Q2-3 days currently, her usual pattern.. HTN: Without report of headache, chest pain, palpitations, dyspnea, peripheral edema, orthopnea, fatigue, and PND. Last 14 Encounter BP Readings: Date: BP: 09/12/2024 114/60 07/13/2024 116/56 07/13/2024 120/60 05/25/2024 128/62 05/09/2024 122/76 03/21/2024 132/70 09/08/2023 136/78 05/20/2023 120/64 01/03/2023 144/76 11/28/2022 116/62 08/18/2022 138/78 05/08/2022 118/64 02/24/2022 128/70 10/03/2021 124/80 Hyperlipidemia. Ms. Matamoros reports doing well on current therapy. Her most recent lipid panels are: Cholesterol, Total (mg/dL) Date Value 09/05/2024 184 03/14/2024 203 08/14/2021 245 02/21/2021 249 HDL Cholesterol (mg/dL) Date Value 09/05/2024 60 03/14/2024 62 08/14/2021 66 02/21/2021 60 LDL Cholesterol (mg/dL) Date Value 09/05/2024 99 03/14/2024 112 08/14/2021 158 02/21/2021 164 Triglyceride (mg/dL) Date Value 09/05/2024 123 03/14/2024 145 08/14/2021 106 02/21/2021 124 Has trouble falling asleep, much better with nortryptyline. Sleeping through better also. Last night did not sleep well. Review of Systems Constitutional: Negative. Respiratory: Negative. Cardiovascular: Negative. Gastrointestinal: Positive for constipation. Psychiatric/Behavioral: Positive for sleep disturbance. Objective BP 114/60 Pulse 70 Resp 16 Wt 79.3 kg (174 lb 13.2 oz) LMP 07/11/2003 BMI 32.50 kg/m Physical Exam Vitals and nursing note reviewed. Constitutional: Appearance: Normal appearance. HENT: Head: Normocephalic and atraumatic. Eyes: Conjunctiva/sclera: Conjunctivae normal. Neck: Thyroid: No thyroid mass or thyromegaly. Vascular: Normal carotid pulses. No JVD. Cardiovascular: Rate and Rhythm: Normal rate and regular rhythm. Pulses: Carotid pulses are 2+ on the right side. Radial pulses are 2+ on the right side and 2+ on the left side. Dorsalis pedis pulses are detected w/ Doppler on the right side. Pulmonary: Effort: Pulmonary effort is normal. Breath sounds: Normal breath sounds. Abdominal: General: Bowel sounds are normal. Palpations: Abdomen is soft. Musculoskeletal: Right lower leg: No edema. Left lower leg: No edema. Skin: General: Skin is warm and dry. Neurological: General: No focal deficit present. Mental Status: She is alert and oriented to person, place, and time. ALLERGIES Allergen Reactions Aspirin Contraindication-Medical Surgical History of ulcer Atorvastatin Myalgia Niacin Intolerance sweats and hot flashes Simvastatin Intolerance myalgias--severe; resolved after stopped but still with leg pain Medication multivitamin with minerals (HAIR,SKIN AND NAILS) tablet Take 1 tablet by mouth once daily. cyanocobalamin (VITAMIN B-12) 1,000 mcg tab Take 1,000 mcg by mouth once daily. turmeric/turmeric ext/pepr ext (TURMERIC-TURMERIC EXT-PEPPER) 500-3 mg cap Take by mouth. multivit-mins 25-folic acid-D3 3-2,000 mg-unit tab Take by mouth. nortriptyline (PAMELOR) 50 mg capsule Take 50 mg by mouth daily at bedtime. trospium (SANCTURA) 20 mg tablet Take 1 tablet by mouth two times a day. trospium (SANCTURA) 20 mg tablet Take 1 tablet by mouth two times a day. Magnesium 250 mg tab Magnesium Citrate 1 tablet at bedtime atenolol (TENORMIN) 50 mg tablet Take 1 tablet by mouth two times a day. FOLIC ACID ORAL Take 1 tablet by mouth once daily. inulin (FIBER GUMMIES ORAL) Take 20 mg by mouth once daily. acetaminophen 650 mg CR tablet Take 650 mg by mouth every 8 hours as needed. Two tabs twice daily docusate sodium (COLACE) 100 mg capsule Take 100 mg by mouth twice daily. Melatonin 5 mg cap Take 30 mg by mouth daily at bedtime. biotin 5 mg caspule Take 5 mg by mouth once daily. MULTIVIT WITH CALCIUM,IRON,MIN (WOMEN'S DAILY MULTIVITAMIN ORAL) Take by mouth. nortriptyline (PAMELOR) 50 mg capsule Take 2 capsules by mouth daily at bedtime for 7 days. rosuvastatin (CRESTOR) 5 mg tablet Take 1 tablet by mouth once daily. As directed nortriptyline (PAMELOR) 50 mg capsule Take 2 capsules by mouth daily at bedtime. amLODIPine (NORVASC) 5 mg tablet Take 1 tablet by mouth once daily. PAST MEDICAL HISTORY Diagnosis Date Achilles bursitis or tendinitis right shoulder Acute peptic ulcer, unspecified site, without mention of hemorrhage, perforation, or obstruction 10/06 Diarrhea Diverticulosis of colon (without mention of hemorrhage) External hemorrhoids without mention of complication Family history of malignant neoplasm of gastrointestinal tract family history of colon cancer Fibrosclerosis of breast fibrocystic breast disease Generalized osteoarthrosis, unspecified site Hemorrhage of gastrointestinal tract, unspecified Internal hemorrhoids without mention of complication Intractable migraine without aura 07/27/[address] 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 Bearden at [facility] Unspecified essential hypertension Unspecified hemorrhoids without mention of complication internal and externaldjd Unspecified tinnitus 11/16/2006 Left ear Urinary calculus, unspecified Renal stones Social History Tobacco Use Smoking status: Former Current packs/day: 0.00 Types: Cigarettes Start date: 07/06/1969 Quit date: 07/06/1979 Years since quittin.2 Smokeless tobacco: Never Vaping Use Vaping status: Never Used Substance Use Topics Alcohol use: Not Currently Alcohol/week: 7.0 standard drinks of alcohol Types: 7 Shots of liquor per week Drug use: No Latest Ref Rng 02/26/2023 09/04/2023 03/14/202409/05/2024 WBC 3.70 - 11.00 k/uL 4.50 5.03 4.58 4.64 RBC 3.90 - 5.20 m/uL 4.24 4.17 4.23 4.13 Hemoglobin 11.5 - 15.5 g/dL 14.9 14.5 14.9 14.2 Hematocrit 36.0 - 46.0 % 45.6 43.6 45.7 43.5 MCV 80.0 - 100.0 fL 107.5 (H) 104.6 (H) 108.0 (H) 105.3 (H) MCH 26.0 - 34.0 pg 35.1 (H) 34.8 (H) 35.2 (H) 34.4 (H) MCHC 30.5 - 36.0 g/dL 32.7 33.3 32.6 32.6 RDW-CV 11.5 - 15.0 % 12.6 12.8 12.2 12.2 Platelet Count 150 - 400 k/uL 183 179 187 188 MPV 9.0 - 12.7 fL 10.6 10.2 10.7 10.7 Neut% % 58.2 58.3 Abs Neut (ANC) 1.45 - 7.50 k/uL 2.93 2.67 Lymph% % 31.0 32.3 Abs Lymph 1.00 - 4.00 k/uL 1.56 1.48 [place]% % 6.4 6.1 Abs [place] <0.87 k/uL 0.32 0.28 Eosin% % 3.2 2.2 Abs Eosin <0.46 k/uL 0.16 0.10 Baso% % 1.0 1.1 Abs Baso <0.11 k/uL 0.05 0.05 Immature Gran % % 0.2 0.0 IMMATURE GRANS (ABS) <0.10 k/uL <0.03 <0.03 NRBC /100 WBC 0.0 0.0 Absolute nRBC <0.01 k/uL <0.01 <0.01 <0.01 <0.01 DTYPE Auto Auto Protein, Total 6.3 - 8.0 g/dL 7.2 6.8 7.3 7.1 Albumin 3.9 - 4.9 g/dL 4.9 4.4 4.5 4.4 Calcium 8.5 - 10.2 mg/dL 9.9 9.5 9.6 9.5 Bilirubin, Total 0.2 - 1.3 mg/dL 0.6 0.5 0.5 0.6 Alkaline Phosphatase 34 - 123 U/L 96 68 67 69 AST 13 - 35 U/L 33 21 27 26 ALT 7 - 38 U/L 28 22 25 28 Glucose 74 - 99 mg/dL 73 (L) 81 79 81 BUN 7 - 21 mg/dL 16 17 18 15 Creatinine 0.58 - 0.96 mg/dL 0.72 0.76 0.74 0.69 Sodium 136 - 144 mmol/L 142 141 140 141 Potassium 3.7 - 5.1 mmol/L 4.5 4.2 4.4 4.3 Chloride 98 - 107 mmol/L 103 104 103 104 CO2 22 - 30 mmol/L 28 29 27 24 Anion Gap 8 - 15 mmol/L 11 8 (L) 10 13 eGFR >=60 mL/min/1.73m 88 82 84 90 Cholesterol, Total <200 mg/dL 242 (H) 189 203 (H) 184 Triglyceride <150 mg/dL 123 97 145 123 HDL Cholesterol >39 mg/dL 65 63 62 60 Non HDL Cholesterol <130 mg/dL 177 (H) 126 141 (H) 124 Fasting Time hrs 12 12 12 12 VLDL Cholesterol <30 mg/dL 25 19 29 25 TC:HDL Ratio <5.10 3.72 3.00 3.27 3.07 LDL Cholesterol <100 mg/dL 152 (H) 107 (H) 112 (H) 99 LDL:HDL Ratio <2.54 2.34 1.70 1.81 1.65 Vitamin D 25 Hydroxy 31.0 - 80.0 ng/mL 66.7 59.4 51.5 51.0 Vitamin B12 232 - 1,245 pg/mL >2,000 (H) 1,115 Folate >4.7 ng/mL >20.0 >20.0 MMA 79 - 376 nmol/L 185 Magnesium 1.7 - 2.3 mg/dL 2.1 Copper 80 - 155 ug/dL 117 ASSESSMENT/PLAN: 1. Essential hypertension - ICD9: 401.9, ICD10: I10 (primary diagnosis) controlled - Continue current medications - Encouraged sodium restriction, DASH or Mediterranean diet - Recommend regular aerobic exercise - AMLODIPINE 5 MG TABLET - ATENOLOL 50 MG TABLET 2. SVT (supraventricular tachycardia) (HCC) - ICD9: 427.89, ICD10: I47.10 No current complaints. Continue current treatment unchanged for now. Heart rate is controlled. - ATENOLOL 50 MG TABLET 3. Mixed hyperlipidemia - ICD9: 272.2, ICD10: E78.2 Recommend a plant based diet such as Mediterranean diet with plenty of vegetables, fruits,whole grains, fish, chicken, turkey or plant proteins and routine exercise such as walking - Continue current medications 4. Vitamin D deficiency - ICD9: 268.9, ICD10: E55.9 within normal limits, continue unchanged 5. Macrocytosis without anemia - ICD9: 289.89, ICD10: D75.89 Normal copper level, stable 6. Class 1 obesity due to excess calories with serious comorbidity and body mass index (BMI) of 32.0 to 32.9 in adult - ICD9: 278.00, V85.32, ICD10: E66.811, E66.09, Z68.32 weight is a bit increased, enfdrose portion control and routine exercise to help keep this in check 6 mo follow up MD Jonelle Rm APRN.CNS Medical Decision Making: Problems: Moderate: 2+ stable chronic illnesses Data: Unique test result(s) reviewed: 3+ Risk: Moderate: Drug management Medical Decision Making Level: 4 - Moderate documented in this encounter [facility] 08-16-2024 Note Addended by: YISSEL FERRARI on: 08/16/2024 04:59 PM Modules accepted: Orders [facility] 08-16-2024 Telephone encounter Note Script sent for trospium 20 mg twice daily. [facility] 08-16-2024 Miscellaneous Notes Addended by: YISSEL FERRARI on: 08/16/2024 04:59 PM Modules accepted: Orders Script sent for trospium 20 mg twice daily. Patient called in, medication prescribed today is not covered by insurance, patient has cancelled the one at [facility] scripts. Would like another option for medication. Please leave a message for patient regarding new medication. documented in this encounter [facility] 08-16-2024 Telephone encounter Note Patient called in, medication prescribed today is not covered by insurance, patient has cancelled the one at [facility] scripts. Would like another option for medication. Please leave a message for patient regarding new medication. [facility] 08-16-2024 Instructions Yissel Ferrari APRN.CNP - 08/16/2024 2:15 PM EST Images from the original note were not included. Kegel Exercises What are Kegel exercises? Kegel exercises (also called pelvic floor exercises) are done to strengthen muscles of the pelvic floor. Kegel exercises not only can help prevent urine leakage, but can be helpful for accidental passing of stool or gas, and may even help to improve orgasm. Keeping these muscles 'fit,' helps keep the uterus, urethra (tube that carries the urine from the bladder to the outside of the body), and bowel from sagging down into the vagina. If this happens, the condition is called pelvic organ prolapse. What happens if pelvic organ prolapse does occur? Urine and stool (feces) can both leak out (conditions called urinary incontinence and fecal incontinence, respectively). Loss of sexual sensitivity in the vagina can also occur. What causes pelvic organ prolapse to develop in the first place? Any health conditions that put stress on the muscles of the pelvic floor, causing them to weaken, can lead to pelvic organ prolapse. These include: and vaginal child . Being overweight/weight gain. Surgery in the pelvic area - including section (). Genetics - some people are born with a higher risk than others to develop weakness in the tissues that support the muscles of the pelvic floor. Natural aging process - the muscles of the pelvic floor, as well as muscles in the rectum and anus, naturally weaken with age. Loss of estrogen also weakens muscles in this area. Frequent bouts of sneezing, coughing, laughing Exercises (especially jumping, running and other jarring' exercises; heavy weight lifting); and contact sports. How do I find my pelvic floor muscles? It's pretty simple: Try stopping the flow of your urine when you are sitting on the toilet. Only do this until you learn how it feels (otherwise this stopping and starting of urine flow can lead to other health problems). You can also insert a finger into your vagina and squeeze the muscles in your vagina around it. You should feel pressure around your finger. The muscles you feel lifting' inside of you when you are trying these activities are the same ones you strengthen during Kegel exercises. How do I perform Kegel exercises? Kegel exercises consist of lifting and holding and then relaxing the pelvic floor muscles. Start by doing a small number of exercises (ie, lifts/squeezes, holds, and relaxes) over a short period of time, then gradually increase both the length of time and the number of exercises you are doing in each session' (which is called a set). You should perform at least two sets of the exercises a day. Start by lifting and holding for 3 seconds then relaxing for 3 seconds. Repeat this 10 times in a row - this would be one set. (If 10 times in a row is too high to start with, reduce this number.) Do this set of exercises at least twice a day. As you improve, increase all of these numbers. In other words, increase the length of time you are lifting, holding and relaxing; the number of exercises making up a set and the number times per day you are doing these exercises. For example, instead of holding for 3 seconds and relaxing for 3 seconds, hold and relax for 4 seconds each, then up to 5 seconds each. Increase the number of exercises in a set to 10 in a row (if not already there). Finally, increase the number of times you do these exercises from twice a day to three times a day. Biofeedback and other techniques. For women who have trouble doing Kegel exercises, two techniques can help - biofeedback training and electric stimulation of the pelvic floor muscles. Biofeedback is done to help determine if the correct muscles are being squeezed; electrical stimulation recreates the sensation of what a properly done Kegel exercise should feel like. Biofeedback training (done by a health child care attendant) involves inserting a probe into the vagina. When instructed to perform a Kegel exercise, a monitor shows if the correct muscles are being squeezed. With electrical stimulation, the pelvic floor muscles are touched with a small, painless amount of electric current. This causes these muscles to squeeze. This sensation mimics what a Kegel muscle exercise should feel like if done properly. Kegel Exercise Tips You can do the Kegel exercises lying down or while sitting or standing. If your pelvic muscles are weak, you may want to do them laying down at first. A few minutes in the morning and again before bedtime are good times to start the exercise program. When starting out, only do the number of Kegel exercises that are fairly easy for you to do (eg, 5 Kegels for 3 seconds each twice a day). Slowly increase these numbers as you gain strength and endurance. Do not hold your breath while doing the exercises - breathe out. Also, be careful not to bear down or squeeze the muscles of your inner thighs, back, buttocks, or stomach. Squeezing these muscles means you are not doing the exercise correctly. There's no need to purchase Kegel muscle strengthening equipment. Although it may help, some equipment may not work as advertised. When can I expect to see improvement? Most women say they notice less urine leakage within 12 weeks after starting - and sticking with - a Kegel exercise routine. Did you know that Kegel exercises are also helpful for men? It's true. Men with certain health and sexual health issues can also benefit from doing Kegel exercises. In men, these exercises can: Help improve incontinence (depending on the cause) Help manage prostate pain and swelling that occurs with prostatitis and benign prostatic hyperplasia (BPH) Increase men's sexual pleasure through greater control of ejaculation and improved orgasm sensation References The [employer] [place] [employer]. Kegel Exercise Tips Accessed 04/04/2015. [employer]. What are Pelvic Floor Muscle (Kegel) Exercises? Accessed 04/04/2015. Copyright 6585-1868 The [facility]. All rights reserved documented in this encounter [facility] 08-16-2024 Note HNO ID: [id number] Author: YISSEL FERRARI APRN.ELECTROLYTIC ETCHER Service: ? Author Type: Nurse Practitioner Type: Progress Notes Filed: 08/16/2024 15:35 Note Text: Eliu Matamoros is a 74 year old female who presents today for evaluation of Patient presents with: New Patient: Consult/urinary incontinence Consultation requested by Dr. Melgar for an opinion regarding urinary incontinence. My final recommendations will be communicated back to the requesting physician by way of shared medical record or letter via US mail CHIEF COMPLAINT AND HISTORY OF PRESENT ILLNESS CC: leakage at night 74 year old female with a history of htn, nephrolithiasis presents for reports of urinary incontinence while she is sleeping, some nights she is dry other times she will go through 3 pads per day, she drinks fluids all night long. +UUI on her way to the restroom Denies urinary incontinence during the day Denies dysuria, gross hematuria PVR 0 cc Diarrhea last week Denies vaginal bulge 3 c sections DTF: every 3 hours NTF: varies URGENCY:rare UUI:no URIAH:no STRAINING:no COMPLETE EMPTYING: no PADS PER DAY:thin during the day FLUID INTAKE: water Past Urological History: Stones:yes: Surgery:yes: stone surgery Tumors:no Infections:no VITALS: Height 156.2 cm (5' 1.5), weight 78 kg (172 lb), last menstrual period 07/11/2003. ALLERGIES: Aspirin, Atorvastatin, Niacin, and Simvastatin MEDICATIONS: Current Outpatient Medications Medication Sig Dispense Refill nortriptyline (PAMELOR) 50 mg capsule Take 2 capsules by mouth daily at bedtime for 7 days. 14 capsule 0 rosuvastatin (CRESTOR) 5 mg tablet Take 1 tablet by mouth once daily. As directed 90 tablet 1 nortriptyline (PAMELOR) 50 mg capsule Take 2 capsules by mouth daily at bedtime. 180 capsule 3 Magnesium 250 mg tab Magnesium Citrate 1 tablet at bedtime amLODIPine (NORVASC) 5 mg tablet Take 1 tablet by mouth once daily. 90 tablet 3 atenolol (TENORMIN) 50 mg tablet Take 1 tablet by mouth two times a day. 180 tablet 3 FOLIC ACID ORAL Take 1 tablet by mouth once daily. inulin (FIBER GUMMIES ORAL) Take 20 mg by mouth once daily. acetaminophen 650 mg CR tablet Take 650 mg by mouth every 8 hours as needed. Two tabs twice daily docusate sodium (COLACE) 100 mg capsule Take 100 mg by mouth twice daily. Melatonin 5 mg cap Take 30 mg by mouth daily at bedtime. biotin 5 mg caspule Take 5 mg by mouth once daily. MULTIVIT WITH CALCIUM,IRON,MIN (WOMEN'S DAILY MULTIVITAMIN ORAL) Take by mouth. No current facility-administered medications for this visit. SOCIAL HISTORY: Social History Tobacco Use Smoking status: Former Current packs/day: 0.00 Types: Cigarettes Start date: 07/06/1969 Quit date: 07/06/1979 Years since quittin.1 Smokeless tobacco: Never Vaping Use Vaping status: Never Used Substance Use Topics Alcohol use: Not Currently Alcohol/week: 7.0 standard drinks of alcohol Types: 7 Shots of liquor per week Drug use: No PAST MEDICAL HISTORY: PAST MEDICAL HISTORY Diagnosis Date Achilles bursitis or tendinitis right shoulder Acute peptic ulcer, unspecified site, without mention of hemorrhage, perforation, or obstruction 10/06 Diarrhea Diverticulosis of colon (without mention of hemorrhage) External hemorrhoids without mention of complication Family history of malignant neoplasm of gastrointestinal tract family history of colon cancer Fibrosclerosis of breast fibrocystic breast disease Generalized osteoarthrosis, unspecified site Hemorrhage of gastrointestinal tract, unspecified Internal hemorrhoids without mention of complication Intractable migraine without aura 07/27/[address] 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 Bearden at [facility] Unspecified essential hypertension Unspecified hemorrhoids without mention of complication internal and externaldjd Unspecified tinnitus 11/16/2006 Left ear Urinary calculus, unspecified Renal stones PAST SURGICAL HISTORY: PAST SURGICAL HISTORY Procedure Laterality Date APPENDECTOMY ARTHRP INTERCARPAL/CARP/MTCRPL JT INTERPOSITION Right 08/16/2021 Right thumb CMC arthroplasty with trapeciectomy and 1st dorsal compartment release COLONOS VIA STOMA W/ ABLATION COLONOSCOPY FLX DX W/COLLJ SPEC WHEN PFRMD 10/09/2006 PAST SURGICAL HISTORY OF Ultrasound kidney stones PAST SURGICAL HISTORY OF Right 01/01/2018 total right knee replacement PAST SURGICAL HISTORY OF Left 06/27/2020 inguinal hernai repair SIGMOIDOSCOPY 08/06/2018 Dr. Irvin, [facility] SIGMOIDOSCOPY FLX DX W/COLLJ SPEC BR/WA IF PFRMD 10/13/2002 Sigmoidoscopy, fle (more content not included)... [facility] 08-16-2024 History of Presen t illness Narrative Eliu Matamoros is a 74 year old female who presents today for evaluation of Patient presents with: New Patient: Consult/urinary incontinence Consultation requested by Dr. Melgar for an opinion regarding urinary incontinence. My final recommendations will be communicated back to the requesting physician by way of shared medical record or letter via US mail CHIEF COMPLAINT & HISTORY OF PRESENT ILLNESS CC: leakage at night 74 year old female with a history of htn, nephrolithiasis presents for reports of urinary incontinence while she is sleeping, some nights she is dry other times she will go through 3 pads per day, she drinks fluids all night long. +UUI on her way to the restroom Denies urinary incontinence during the day Denies dysuria, gross hematuria PVR 0 cc Diarrhea last week Denies vaginal bulge 3 c sections DTF: every 3 hours NTF: varies URGENCY:rare UUI:no URIAH:no STRAINING:no COMPLETE EMPTYING: no PADS PER DAY:thin during the day FLUID INTAKE: water Past Urological History: Stones:yes: Surgery:yes: stone surgery Tumors:no Infections:no VITALS: Height 156.2 cm (5' 1.5), weight 78 kg (172 lb), last menstrual period 07/11/2003. ALLERGIES: Aspirin, Atorvastatin, Niacin, and Simvastatin MEDICATIONS: Current Outpatient Medications Medication Sig Dispense Refill nortriptyline (PAMELOR) 50 mg capsule Take 2 capsules by mouth daily at bedtime for 7 days. 14 capsule 0 rosuvastatin (CRESTOR) 5 mg tablet Take 1 tablet by mouth once daily. As directed 90 tablet 1 nortriptyline (PAMELOR) 50 mg capsule Take 2 capsules by mouth daily at bedtime. 180 capsule 3 Magnesium 250 mg tab Magnesium Citrate 1 tablet at bedtime amLODIPine (NORVASC) 5 mg tablet Take 1 tablet by mouth once daily. 90 tablet 3 atenolol (TENORMIN) 50 mg tablet Take 1 tablet by mouth two times a day. 180 tablet 3 FOLIC ACID ORAL Take 1 tablet by mouth once daily. inulin (FIBER GUMMIES ORAL) Take 20 mg by mouth once daily. acetaminophen 650 mg CR tablet Take 650 mg by mouth every 8 hours as needed. Two tabs twice daily docusate sodium (COLACE) 100 mg capsule Take 100 mg by mouth twice daily. Melatonin 5 mg cap Take 30 mg by mouth daily at bedtime. biotin 5 mg caspule Take 5 mg by mouth once daily. MULTIVIT WITH CALCIUM,IRON,MIN (WOMEN'S DAILY MULTIVITAMIN ORAL) Take by mouth. No current facility-administered medications for this visit. SOCIAL HISTORY: Social History Tobacco Use Smoking status: Former Current packs/day: 0.00 Types: Cigarettes Start date: 07/06/1969 Quit date: 07/06/1979 Years since quittin.1 Smokeless tobacco: Never Vaping Use Vaping status: Never Used Substance Use Topics Alcohol use: Not Currently Alcohol/week: 7.0 standard drinks of alcohol Types: 7 Shots of liquor per week Drug use: No PAST MEDICAL HISTORY: PAST MEDICAL HISTORY Diagnosis Date Achilles bursitis or tendinitis right shoulder Acute peptic ulcer, unspecified site, without mention of hemorrhage, perforation, or obstruction 10/06 Diarrhea Diverticulosis of colon (without mention of hemorrhage) External hemorrhoids without mention of complication Family history of malignant neoplasm of gastrointestinal tract family history of colon cancer Fibrosclerosis of breast fibrocystic breast disease Generalized osteoarthrosis, unspecified site Hemorrhage of gastrointestinal tract, unspecified Internal hemorrhoids without mention of complication Intractable migraine without aura 07/27/[address] 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 Bearden at [facility] main campus Unspecified essential hypertension Unspecified hemorrhoids without mention of complication internal and externaldjd Unspecified tinnitus 11/16/2006 Left ear Urinary calculus, unspecified Renal stones PAST SURGICAL HISTORY: PAST SURGICAL HISTORY Procedure Laterality Date APPENDECTOMY ARTHRP INTERCARPAL/CARP/MTCRPL JT INTERPOSITION Right 08/16/2021 Right thumb CMC arthroplasty with trapeciectomy and 1st dorsal compartment release COLONOS VIA STOMA W/ ABLATION COLONOSCOPY FLX DX W/COLLJ SPEC WHEN PFRMD 10/09/2006 PAST SURGICAL HISTORY OF Ultrasound kidney stones PAST SURGICAL HISTORY OF Right 01/01/2018 total right knee replacement PAST SURGICAL HISTORY OF Left 06/27/2020 inguinal hernai repair SIGMOIDOSCOPY 08/06/2018 Dr. Irvin, [facility] SIGMOIDOSCOPY FLX DX W/COLLJ SPEC BR/WA IF PFRMD 10/13/2002 Sigmoidoscopy, flexible TONSILLECTOMY PRIMARY/SECONDARY <AGE 12 As child Tonsillectomy FAMILY HISTORY: FAMILY HISTORY Problem Relation Age of Onset Colon Cancer Mother of colon cancer Headache Mother Hypertension Father Breast Cancer Sister Headache Son migraine Headache Daughter migraine Headache Daughter migraine All histories reviewed on this date 08/16/2024: Yes REVIEW OF SYSTEMS: CONSTITUTIONAL: Patient reports no recent fever or weight loss CARDIOVASCULAR: Negative for chest pain. RESPIRATORY: Negative for cough, hemoptysis, wheezing, COPD, dyspnea or shortness of breath GI: No nausea, vomiting, or diarrhea MUSCULOSKELETAL: denies back pain or muscular weakness SKIN: Negative for lesions, rash, and itching PSYCH: Negative for sleep disturbance, mood disorder and recent psychosocial stressors. HEMATOLOGY/LYMPHOLOGY Negative for prolonged bleeding, bruising easily or swollen nodes ENDOCRINE: Negative for cold or heat intolerance, polyuria, polydipsia and goiter All other systems reviewed and are negative other than HPI. SENSITIVE EXAMINATION CONSENT: The sensitive examination was discussed with the Patient or Patient's Authorized Loan Manager. As applicable, any other physician, advance practice provider, medical student, or other health professional student that will be observing or involved in the sensitive examination for educational or training purposes was discussed with the Patient or Authorized Loan Manager. The Patient or Authorized Loan Manager has agreed to proceed with the sensitive examination. (Sensitive examination includes inspection and/or palpation of the breasts, pelvis, prostate and anorectal regions) PHYSICAL EXAM: constitutional: appears healthy in no acute distress respiratory: normal respiratory motion gi: abdomen soft, non-tender without masses, hernia or organomegaly gu: external genitalia: atrophy Urethal meatus: normal size and location, no lesions or prolapse. urethra: normal size and location, no lesions or prolapse. bladder: not palpable, no tenderness. vagina: normal general appearance, low estrogen appearance, stage one cystocele cervix: normal general appearence, no lesions, normal discharge. Extremities: Extremities normal. No deformities, edema, or skin discoloration. Good capillary refill. Lymphatic: No palpable lymph nodes. Neuro: Gait normal. Sensation grossly intact. RADIOLOGY REPORTS REVIEWED: Yes LAB RESULTS REVIEWED: Yes Latest Ref Rng 08/16/2024 GLUCOSE UA (POCT) Negative mg/dL Negative BILIRUBIN UA (POCT) Negative Small ! KETONE UA (POCT) Negative mg/dL 15 ! SPECIFIC GRAVITY UA (POCT) 1.005 - 1.030 1.025 HEMOGLOBIN/BLOOD UA (POCT) Negative Negative PH UA (POCT) 4.5 - 8.0 5.5 PROTEIN UA (POCT) Negative mg/dL 100 ! UROBILINOGEN UA (POCT) Normal E.U./dL 0.2 NITRITE UA (POCT) Negative Negative LEUKOCYTES UA (POCT) Negative Negative COLOR UA (POCT) Yellow CLARITY UA (POCT) Clear IMAGING STUDIES INDEPENDENTLY REVIEWED: No OLD RECORDS REVIEWED: Yes: Extensive: No ASSESSMENT/PLAN: 1. Urge incontinence - ICD9: 788.31, ICD10: N39.41 (primary diagnosis) -PVR 0 vv -recommended PFPT she declined due to cost start kegels -start mirabegron 25 mg po daily 2. Cystocele, midline - ICD9: 618.01, ICD10: N81.11 -stage one Patient is instructed to schedule a follow up in 6 weeks. Yissel Ferrari APRN.ELECTROLYTIC ETCHER documented in this encounter [facility] 07-18-2024 Telephone encounter Note Mychart message sent with results from colonoscopy. [facility] Work Phone: 07-18-2024 Miscellaneous Notes Mychart message sent with results from colonoscopy. documented in this encounter [facility] 07-18-2024 Telephone encounter Note spoke to patient to make a follow up Colonoscopy appointment to go over pathology stated she can not come in at this time as it cost her $20 and this is not a good time. patient would like to know if there is anything that is needed to please call her? thank you, David [facility] 07-18-2024 Miscellaneous Notes spoke to patient to make a follow up Colonoscopy appointment to go over pathology stated she can not come in at this time as it cost her $20 and this is not a good time. patient would like to know if there is anything that is needed to please call her? thank you, David documented in this encounter [facility] 07-13-2024 Attending History and physical note UPDATED HISTORY AND PHYSICAL EXAMINATION SERVICE DATE: 07/13/2024 SERVICE TIME: 8:31 The sensitive examination was discussed with the Patient or Patient's Authorized Loan Manager. As applicable, any other physician, advance practice provider, medical student, or other health professional student that will be observing or involved in the sensitive examination for educational or training purposes was discussed with the Patient or Authorized Loan Manager. The Patient or Authorized Loan Manager has agreed to proceed with the sensitive examination. (Sensitive examination includes inspection and/or palpation of the breasts, pelvis, prostate and anorectal regions) PHYSICAL EXAM MUST BE COMPLETED ON ADMISSION The History and Physical (completed in the past 30 days) has been reviewed and the patient has been examined. The contents accurately reflect the patient's condition with the following additions or revisions since the H&P was completed. Examination indicates no changes. This H&P can be found in the Electronic Medical Record . SIGNATURE: Fransisca Razo MD PATIENT NAME: Eliu Matamoros DATE: July 13, 2024 TIME: 8:31 AM Source Note - Fransisca Razo MD - 07/13/2024 9:00 AM EST HISTORY AND PHYSICAL Eliu Matamoros 1950 REFERRING PHYSICIAN: No ref. provider found CHIEF COMPLAINT: Consult (Colonoscopy consultation. ) HPI: The patient is a 74 year old female referred for endoscopy. Eliu notes intermittent rectal bleeding. She states that she last had a colonoscopy in 2019. She states that her mother was diagnosed with colon cancer in her 70s and of this. She notes occasional lower abdominal cramping pain. She denies constipation. She denies diarrhea. She states that the rectal bleeding has been going on for a while. PAST MEDICAL HISTORY PAST MEDICAL HISTORY Diagnosis Date Achilles bursitis or tendinitis right shoulder Acute peptic ulcer, unspecified site, without mention of hemorrhage, perforation, or obstruction 10/06 Diarrhea Diverticulosis of colon (without mention of hemorrhage) External hemorrhoids without mention of complication Family history of malignant neoplasm of gastrointestinal tract family history of colon cancer Fibrosclerosis of breast fibrocystic breast disease Generalized osteoarthrosis, unspecified site Hemorrhage of gastrointestinal tract, unspecified Internal hemorrhoids without mention of complication Intractable migraine without aura 07/27/[address] 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 Bearden at [facility] Unspecified essential hypertension Unspecified hemorrhoids without mention of complication internal and externaldjd Unspecified tinnitus 11/16/2006 Left ear Urinary calculus, unspecified Renal stones PAST SURGICAL HISTORY PAST SURGICAL HISTORY Procedure Laterality Date APPENDECTOMY ARTHRP INTERPOS INTERCARPAL/METACARPAL JOINTS Right 08/16/2021 Right thumb CMC arthroplasty with trapeciectomy and 1st dorsal compartment release COLONOS VIA STOMA W/ ABLATION COLONOSCOPY FLX DX W/COLLJ SPEC WHEN PFRMD 10/09/2006 PAST SURGICAL HISTORY OF Ultrasound kidney stones PAST SURGICAL HISTORY OF Right 01/01/2018 total right knee replacement PAST SURGICAL HISTORY OF Left 06/27/2020 inguinal hernai repair SIGMOIDOSCOPY FLX DX W/COLLJ SPEC BR/WA IF PFRMD 10/13/2002 Sigmoidoscopy, flexible TONSILLECTOMY PRIMARY/SECONDARY Tonsillectomy CURRENT MEDICATIONS Current Outpatient Medications Medication Sig nortriptyline (PAMELOR) 50 mg capsule Take 2 capsules by mouth daily at bedtime for 7 days. rosuvastatin (CRESTOR) 5 mg tablet Take 1 tablet by mouth once daily. As directed nortriptyline (PAMELOR) 50 mg capsule Take 2 capsules by mouth daily at bedtime. Magnesium 250 mg tab Magnesium Citrate 1 tablet at bedtime amLODIPine (NORVASC) 5 mg tablet Take 1 tablet by mouth once daily. atenolol (TENORMIN) 50 mg tablet Take 1 tablet by mouth two times a day. FOLIC ACID ORAL Take 1 tablet by mouth once daily. inulin (FIBER GUMMIES ORAL) Take 20 mg by mouth once daily. acetaminophen 650 mg CR tablet Take 650 mg by mouth every 8 hours as needed. Two tabs twice daily docusate sodium (COLACE) 100 mg capsule Take 100 mg by mouth twice daily. Melatonin 5 mg cap Take 30 mg by mouth daily at bedtime. biotin 5 mg caspule Take 5 mg by mouth once daily. MULTIVIT WITH CALCIUM,IRON,MIN (WOMEN'S DAILY MULTIVITAMIN ORAL) Take by mouth. No current facility-administered medications for this visit. ALLERGIES: Aspirin, Atorvastatin, Niacin, and Simvastatin PERSONAL HISTORY: SOCIAL HISTORY Social History Tobacco Use Smoking status: Former Current packs/day: 0.00 Types: Cigarettes Start date: 07/06/1969 Quit date: 07/06/1979 Years since quittin.8 Smokeless tobacco: Never Vaping Use Vaping status: Never Used Substance Use Topics Alcohol use: Not Currently Alcohol/week: 7.0 standard drinks of alcohol Types: 7 Shots of liquor per week Drug use: No FAMILY HISTORY FAMILY HISTORY Problem Relation Age of Onset Colon Cancer Mother of colon cancer Headache Mother Hypertension Father Breast Cancer Sister Headache Son migraine Headache Daughter migraine Headache Daughter migraine REVIEW OF SYSTEMS: General: The patient denies fatigue, denies weight loss, denies weight gain, denies feeling hot, and denies feelings of cold. Eyes: The patient denies glaucoma, denies eye injury/surgery, wears glasses or contacts. Ear/Nose/Throat: The patient NOTES allergies, denies hayfever, denies ear infections, and denies bloody noses. Cardiovascular: The patient denies chest pain, denies heart disease, NOTES high blood pressure,denies cardiac stent, denies prior heart attack, NOTES irregular heart beat, NOTES high cholesterol, denies poor circulation, denies heart failure, other cardiac issues, denies claudication, denies cold feet, denies peripheral arterial stent. Respiratory: The patient denies tuberculosis, denies pneumonia, denies frequent cough, denies pulmonary embolism, denies shortness of breath, and denies coughing up blood. Gastrointestinal: The patient denies difficulty swallowing, denies acid reflux, NOTES ulcers, denies vomiting, denies jaundice/hepatitis, denies gallbladder problems, denies black or tarry stools, NOTES hemorrhoids, denies bleeding from rectum, NOTES diverticulitis, denies constipation, NOTES diarrhea, denies loss of stool control, and denies hernias. Kidney/Bladder: The patient NOTES kidney stones, denies urine infections, and denies bloody urine. Skin: The patient denies a history of skin cancer, denies bleeding/changing moles, and denies a history of skin rash. Neurologic: The patient denies a history of epilepsy/convulsions, NOTES headaches, denies head/spinal injuries, and denies stroke/TIA. Psychiatric: The patient denies psychiatric medications, denies depression, and denies voices, denies substance abuse. Endocrine: The patient denies thyroid disorders, denies diabetes, and denies hormonal problems. Hematologic: The patient denies a history of bruising, denies bleeding, and denies anemia, denies blood clots. Infections: The patient denies a history of measles and mumps, denies rheumatic fever, and denies sexually transmitted diseases. Musculoskeletal: The patient NOTES back pain/injury, NOTES back problems, denies sciatica, NOTES knee/foot trouble, NOTES arthritis, or denies gout. When was patient's last Mammogram screening? 09/30/2023 Last Colonoscopy: 08/06/2018 sigmoidoscopy Liz Wisdom RN PHYSICAL EXAMINATION: General: The patient is 74 year old female, well nourished, well hydrated in no acute distress. The patient is oriented to time, place, and person. VITALS: Blood pressure 122/76, pulse 80, temperature 36.6 C (97.8 F), height 156.2 cm (5' 1.5), weight 79.3 kg (174 lb 12.8 oz), last menstrual period 07/11/2003, SpO2 98%. Body mass index is 32.49 kg/m . Head: Normal cephalic, atraumatic Eyes: pupils are equally round, sclera are clear/anicteric, wearing glasses Neck is supple with no tracheal deviation Cardiac: normal heart sounds, regular Respiratory: Normal respiratory excursion and pattern. Abdominal exam: benign Extremities: no clubbing, cyanosis or edema. Neuro: non focal Psych: normal mood IMPRESSION: rectal bleeding PLAN: I have discussed the above with the patient. I have offered colonoscopy , possible biopsies I have explained the procedure to the patient. I have counseled the patient as to the risks of the procedure, including but not limited to: infection, bleeding, injury to any intrabdominal organs such as liver/spleen, perforation of the GI tract, inability to complete the procedure, complications of anesthesia, etc. - the patient understands. The patient wishes to proceed. I have answered all questions to the patient s satisfaction and the patient has no further questions. [facility] Work Phone: 07-13-2024 History and physical note HISTORY AND PHYSICAL Eliu Nassar Saturnino 1950 REFERRING PHYSICIAN: No ref. provider found CHIEF COMPLAINT: Consult (Colonoscopy consultation. ) HPI: The patient is a 74 year old female referred for endoscopy. Eliu notes intermittent rectal bleeding. She states that she last had a colonoscopy in 2019. She states that her mother was diagnosed with colon cancer in her 70s and of this. She notes occasional lower abdominal cramping pain. She denies constipation. She denies diarrhea. She states that the rectal bleeding has been going on for a while. PAST MEDICAL HISTORY PAST MEDICAL HISTORY Diagnosis Date Achilles bursitis or tendinitis right shoulder Acute peptic ulcer, unspecified site, without mention of hemorrhage, perforation, or obstruction 10/06 Diarrhea Diverticulosis of colon (without mention of hemorrhage) External hemorrhoids without mention of complication Family history of malignant neoplasm of gastrointestinal tract family history of colon cancer Fibrosclerosis of breast fibrocystic breast disease Generalized osteoarthrosis, unspecified site Hemorrhage of gastrointestinal tract, unspecified Internal hemorrhoids without mention of complication Intractable migraine without aura 07/27/[address] 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 Bearden at [facility] Unspecified essential hypertension Unspecified hemorrhoids without mention of complication internal and externaldjd Unspecified tinnitus 11/16/2006 Left ear Urinary calculus, unspecified Renal stones PAST SURGICAL HISTORY PAST SURGICAL HISTORY Procedure Laterality Date APPENDECTOMY ARTHRP INTERPOS INTERCARPAL/METACARPAL JOINTS Right 08/16/2021 Right thumb CMC arthroplasty with trapeciectomy and 1st dorsal compartment release COLONOS VIA STOMA W/ ABLATION COLONOSCOPY FLX DX W/COLLJ SPEC WHEN PFRMD 10/09/2006 PAST SURGICAL HISTORY OF Ultrasound kidney stones PAST SURGICAL HISTORY OF Right 01/01/2018 total right knee replacement PAST SURGICAL HISTORY OF Left 06/27/2020 inguinal hernai repair SIGMOIDOSCOPY FLX DX W/COLLJ SPEC BR/WA IF PFRMD 10/13/2002 Sigmoidoscopy, flexible TONSILLECTOMY PRIMARY/SECONDARY Tonsillectomy CURRENT MEDICATIONS Current Outpatient Medications Medication Sig nortriptyline (PAMELOR) 50 mg capsule Take 2 capsules by mouth daily at bedtime for 7 days. rosuvastatin (CRESTOR) 5 mg tablet Take 1 tablet by mouth once daily. As directed nortriptyline (PAMELOR) 50 mg capsule Take 2 capsules by mouth daily at bedtime. Magnesium 250 mg tab Magnesium Citrate 1 tablet at bedtime amLODIPine (NORVASC) 5 mg tablet Take 1 tablet by mouth once daily. atenolol (TENORMIN) 50 mg tablet Take 1 tablet by mouth two times a day. FOLIC ACID ORAL Take 1 tablet by mouth once daily. inulin (FIBER GUMMIES ORAL) Take 20 mg by mouth once daily. acetaminophen 650 mg CR tablet Take 650 mg by mouth every 8 hours as needed. Two tabs twice daily docusate sodium (COLACE) 100 mg capsule Take 100 mg by mouth twice daily. Melatonin 5 mg cap Take 30 mg by mouth daily at bedtime. biotin 5 mg caspule Take 5 mg by mouth once daily. MULTIVIT WITH CALCIUM,IRON,MIN (WOMEN'S DAILY MULTIVITAMIN ORAL) Take by mouth. No current facility-administered medications for this visit. ALLERGIES: Aspirin, Atorvastatin, Niacin, and Simvastatin PERSONAL HISTORY: SOCIAL HISTORY Social History Tobacco Use Smoking status: Former Current packs/day: 0.00 Types: Cigarettes Start date: 07/06/1969 Quit date: 07/06/1979 Years since quittin.8 Smokeless tobacco: Never Vaping Use Vaping status: Never Used Substance Use Topics Alcohol use: Not Currently Alcohol/week: 7.0 standard drinks of alcohol Types: 7 Shots of liquor per week Drug use: No FAMILY HISTORY FAMILY HISTORY Problem Relation Age of Onset Colon Cancer Mother of colon cancer Headache Mother Hypertension Father Breast Cancer Sister Headache Son migraine Headache Daughter migraine Headache Daughter migraine REVIEW OF SYSTEMS: General: The patient denies fatigue, denies weight loss, denies weight gain, denies feeling hot, and denies feelings of cold. Eyes: The patient denies glaucoma, denies eye injury/surgery, wears glasses or contacts. Ear/Nose/Throat: The patient NOTES allergies, denies hayfever, denies ear infections, and denies bloody noses. Cardiovascular: The patient denies chest pain, denies heart disease, NOTES high blood pressure,denies cardiac stent, denies prior heart attack, NOTES irregular heart beat, NOTES high cholesterol, denies poor circulation, denies heart failure, other cardiac issues, denies claudication, denies cold feet, denies peripheral arterial stent. Respiratory: The patient denies tuberculosis, denies pneumonia, denies frequent cough, denies pulmonary embolism, denies shortness of breath, and denies coughing up blood. Gastrointestinal: The patient denies difficulty swallowing, denies acid reflux, NOTES ulcers, denies vomiting, denies jaundice/hepatitis, denies gallbladder problems, denies black or tarry stools, NOTES hemorrhoids, denies bleeding from rectum, NOTES diverticulitis, denies constipation, NOTES diarrhea, denies loss of stool control, and denies hernias. Kidney/Bladder: The patient NOTES kidney stones, denies urine infections, and denies bloody urine. Skin: The patient denies a history of skin cancer, denies bleeding/changing moles, and denies a history of skin rash. Neurologic: The patient denies a history of epilepsy/convulsions, NOTES headaches, denies head/spinal injuries, and denies stroke/TIA. Psychiatric: The patient denies psychiatric medications, denies depression, and denies voices, denies substance abuse. Endocrine: The patient denies thyroid disorders, denies diabetes, and denies hormonal problems. Hematologic: The patient denies a history of bruising, denies bleeding, and denies anemia, denies blood clots. Infections: The patient denies a history of measles and mumps, denies rheumatic fever, and denies sexually transmitted diseases. Musculoskeletal: The patient NOTES back pain/injury, NOTES back problems, denies sciatica, NOTES knee/foot trouble, NOTES arthritis, or denies gout. When was patient's last Mammogram screening? 09/30/2023 Last Colonoscopy: 08/06/2018 sigmoidoscopy Liz Wisdom RN PHYSICAL EXAMINATION: General: The patient is 74 year old female, well nourished, well hydrated in no acute distress. The patient is oriented to time, place, and person. VITALS: Blood pressure 122/76, pulse 80, temperature 36.6 C (97.8 F), height 156.2 cm (5' 1.5), weight 79.3 kg (174 lb 12.8 oz), last menstrual period 07/11/2003, SpO2 98%. Body mass index is 32.49 kg/m . Head: Normal cephalic, atraumatic Eyes: pupils are equally round, sclera are clear/anicteric, wearing glasses Neck is supple with no tracheal deviation Cardiac: normal heart sounds, regular Respiratory: Normal respiratory excursion and pattern. Abdominal exam: benign Extremities: no clubbing, cyanosis or edema. Neuro: non focal Psych: normal mood IMPRESSION: rectal bleeding PLAN: I have discussed the above with the patient. I have offered colonoscopy , possible biopsies I have explained the procedure to the patient. I have counseled the patient as to the risks of the procedure, including but not limited to: infection, bleeding, injury to any intrabdominal organs such as liver/spleen, perforation of the GI tract, inability to complete the procedure, complications of anesthesia, etc. - the patient understands. The patient wishes to proceed. I have answered all questions to the patient s satisfaction and the patient has no further questions. [facility] 07-13-2024 History and physical note UPDATED HISTORY AND PHYSICAL EXAMINATION SERVICE DATE: 07/13/2024 SERVICE TIME: 8:31 The sensitive examination was discussed with the Patient or Patient's Authorized Loan Manager. As applicable, any other physician, advance practice provider, medical student, or other health professional student that will be observing or involved in the sensitive examination for educational or training purposes was discussed with the Patient or Authorized Loan Manager. The Patient or Authorized Loan Manager has agreed to proceed with the sensitive examination. (Sensitive examination includes inspection and/or palpation of the breasts, pelvis, prostate and anorectal regions) PHYSICAL EXAM MUST BE COMPLETED ON ADMISSION The History and Physical (completed in the past 30 days) has been reviewed and the patient has been examined. The contents accurately reflect the patient's condition with the following additions or revisions since the H&P was completed. Examination indicates no changes. This H&P can be found in the Electronic Medical Record . SIGNATURE: Fransisca Razo MD PATIENT NAME: Eliu Matamoros DATE: July 13, 2024 TIME: 8:31 AM Source Note - Fransisca Razo MD - 07/13/2024 9:00 AM EST HISTORY AND PHYSICAL Eliu Matamoros 1950 REFERRING PHYSICIAN: No ref. provider found CHIEF COMPLAINT: Consult (Colonoscopy consultation. ) HPI: The patient is a 74 year old female referred for endoscopy. Eliu notes intermittent rectal bleeding. She states that she last had a colonoscopy in 2019. She states that her mother was diagnosed with colon cancer in her 70s and of this. She notes occasional lower abdominal cramping pain. She denies constipation. She denies diarrhea. She states that the rectal bleeding has been going on for a while. PAST MEDICAL HISTORY PAST MEDICAL HISTORY Diagnosis Date Achilles bursitis or tendinitis right shoulder Acute peptic ulcer, unspecified site, without mention of hemorrhage, perforation, or obstruction 10/06 Diarrhea Diverticulosis of colon (without mention of hemorrhage) External hemorrhoids without mention of complication Family history of malignant neoplasm of gastrointestinal tract family history of colon cancer Fibrosclerosis of breast fibrocystic breast disease Generalized osteoarthrosis, unspecified site Hemorrhage of gastrointestinal tract, unspecified Internal hemorrhoids without mention of complication Intractable migraine without aura 07/27/[address] 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 Bearden at [facility] Unspecified essential hypertension Unspecified hemorrhoids without mention of complication internal and externaldjd Unspecified tinnitus 11/16/2006 Left ear Urinary calculus, unspecified Renal stones PAST SURGICAL HISTORY PAST SURGICAL HISTORY Procedure Laterality Date APPENDECTOMY ARTHRP INTERPOS INTERCARPAL/METACARPAL JOINTS Right 08/16/2021 Right thumb CMC arthroplasty with trapeciectomy and 1st dorsal compartment release COLONOS VIA STOMA W/ ABLATION COLONOSCOPY FLX DX W/COLLJ SPEC WHEN PFRMD 10/09/2006 PAST SURGICAL HISTORY OF Ultrasound kidney stones PAST SURGICAL HISTORY OF Right 01/01/2018 total right knee replacement PAST SURGICAL HISTORY OF Left 06/27/2020 inguinal hernai repair SIGMOIDOSCOPY FLX DX W/COLLJ SPEC BR/WA IF PFRMD 10/13/2002 Sigmoidoscopy, flexible TONSILLECTOMY PRIMARY/SECONDARY <AGE 10 As child Tonsillectomy CURRENT MEDICATIONS Current Outpatient Medications Medication Sig nortriptyline (PAMELOR) 50 mg capsule Take 2 capsules by mouth daily at bedtime for 7 days. rosuvastatin (CRESTOR) 5 mg tablet Take 1 tablet by mouth once daily. As directed nortriptyline (PAMELOR) 50 mg capsule Take 2 capsules by mouth daily at bedtime. Magnesium 250 mg tab Magnesium Citrate 1 tablet at bedtime amLODIPine (NORVASC) 5 mg tablet Take 1 tablet by mouth once daily. atenolol (TENORMIN) 50 mg tablet Take 1 tablet by mouth two times a day. FOLIC ACID ORAL Take 1 tablet by mouth once daily. inulin (FIBER GUMMIES ORAL) Take 20 mg by mouth once daily. acetaminophen 650 mg CR tablet Take 650 mg by mouth every 8 hours as needed. Two tabs twice daily docusate sodium (COLACE) 100 mg capsule Take 100 mg by mouth twice daily. Melatonin 5 mg cap Take 30 mg by mouth daily at bedtime. biotin 5 mg caspule Take 5 mg by mouth once daily. MULTIVIT WITH CALCIUM,IRON,MIN (WOMEN'S DAILY MULTIVITAMIN ORAL) Take by mouth. No current facility-administered medications for this visit. ALLERGIES: Aspirin, Atorvastatin, Niacin, and Simvastatin PERSONAL HISTORY: SOCIAL HISTORY Social History Tobacco Use Smoking status: Former Current packs/day: 0.00 Types: Cigarettes Start date: 07/06/1969 Quit date: 07/06/1979 Years since quittin.8 Smokeless tobacco: Never Vaping Use Vaping status: Never Used Substance Use Topics Alcohol use: Not Currently Alcohol/week: 7.0 standard drinks of alcohol Types: 7 Shots of liquor per week Drug use: No FAMILY HISTORY FAMILY HISTORY Problem Relation Age of Onset Colon Cancer Mother of colon cancer Headache Mother Hypertension Father Breast Cancer Sister Headache Son migraine Headache Daughter migraine Headache Daughter migraine REVIEW OF SYSTEMS: General: The patient denies fatigue, denies weight loss, denies weight gain, denies feeling hot, and denies feelings of cold. Eyes: The patient denies glaucoma, denies eye injury/surgery, wears glasses or contacts. Ear/Nose/Throat: The patient NOTES allergies, denies hayfever, denies ear infections, and denies bloody noses. Cardiovascular: The patient denies chest pain, denies heart disease, NOTES high blood pressure,denies cardiac stent, denies prior heart attack, NOTES irregular heart beat, NOTES high cholesterol, denies poor circulation, denies heart failure, other cardiac issues, denies claudication, denies cold feet, denies peripheral arterial stent. Respiratory: The patient denies tuberculosis, denies pneumonia, denies frequent cough, denies pulmonary embolism, denies shortness of breath, and denies coughing up blood. Gastrointestinal: The patient denies difficulty swallowing, denies acid reflux, NOTES ulcers, denies vomiting, denies jaundice/hepatitis, denies gallbladder problems, denies black or tarry stools, NOTES hemorrhoids, denies bleeding from rectum, NOTES diverticulitis, denies constipation, NOTES diarrhea, denies loss of stool control, and denies hernias. Kidney/Bladder: The patient NOTES kidney stones, denies urine infections, and denies bloody urine. Skin: The patient denies a history of skin cancer, denies bleeding/changing moles, and denies a history of skin rash. Neurologic: The patient denies a history of epilepsy/convulsions, NOTES headaches, denies head/spinal injuries, and denies stroke/TIA. Psychiatric: The patient denies psychiatric medications, denies depression, and denies voices, denies substance abuse. Endocrine: The patient denies thyroid disorders, denies diabetes, and denies hormonal problems. Hematologic: The patient denies a history of bruising, denies bleeding, and denies anemia, denies blood clots. Infections: The patient denies a history of measles and mumps, denies rheumatic fever, and denies sexually transmitted diseases. Musculoskeletal: The patient NOTES back pain/injury, NOTES back problems, denies sciatica, NOTES knee/foot trouble, NOTES arthritis, or denies gout. When was patient's last Mammogram screening? 09/30/2023 Last Colonoscopy: 08/06/2018 sigmoidoscopy Liz Wisdom RN PHYSICAL EXAMINATION: General: The patient is 74 year old female, well nourished, well hydrated in no acute distress. The patient is oriented to time, place, and person. VITALS: Blood pressure 122/76, pulse 80, temperature 36.6 C (97.8 F), height 156.2 cm (5' 1.5), weight 79.3 kg (174 lb 12.8 oz), last menstrual period 07/11/2003, SpO2 98%. Body mass index is 32.49 kg/m . Head: Normal cephalic, atraumatic Eyes: pupils are equally round, sclera are clear/anicteric, wearing glasses Neck is supple with no tracheal deviation Cardiac: normal heart sounds, regular Respiratory: Normal respiratory excursion and pattern. Abdominal exam: benign Extremities: no clubbing, cyanosis or edema. Neuro: non focal Psych: normal mood IMPRESSION: rectal bleeding PLAN: I have discussed the above with the patient. I have offered colonoscopy , possible biopsies I have explained the procedure to the patient. I have counseled the patient as to the risks of the procedure, including but not limited to: infection, bleeding, injury to any intrabdominal organs such as liver/spleen, perforation of the GI tract, inability to complete the procedure, complications of anesthesia, etc. - the patient understands. The patient wishes to proceed. I have answered all questions to the patient s satisfaction and the patient has no further questions. HISTORY AND PHYSICAL Eliu Matamoros 1950 REFERRING PHYSICIAN: No ref. provider found CHIEF COMPLAINT: Consult (Colonoscopy consultation. ) HPI: The patient is a 74 year old female referred for endoscopy. Eliu notes intermittent rectal bleeding. She states that she last had a colonoscopy in 2019. She states that her mother was diagnosed with colon cancer in her 70s and of this. She notes occasional lower abdominal cramping pain. She denies constipation. She denies diarrhea. She states that the rectal bleeding has been going on for a while. PAST MEDICAL HISTORY PAST MEDICAL HISTORY Diagnosis Date Achilles bursitis or tendinitis right shoulder Acute peptic ulcer, unspecified site, without mention of hemorrhage, perforation, or obstruction 10/06 Diarrhea Diverticulosis of colon (without mention of hemorrhage) External hemorrhoids without mention of complication Family history of malignant neoplasm of gastrointestinal tract family history of colon cancer Fibrosclerosis of breast fibrocystic breast disease Generalized osteoarthrosis, unspecified site Hemorrhage of gastrointestinal tract, unspecified Internal hemorrhoids without mention of complication Intractable migraine without aura 07/27/[address] 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 Bearden at [facility] Unspecified essential hypertension Unspecified hemorrhoids without mention of complication internal and externaldjd Unspecified tinnitus 11/16/2006 Left ear Urinary calculus, unspecified Renal stones PAST SURGICAL HISTORY PAST SURGICAL HISTORY Procedure Laterality Date APPENDECTOMY ARTHRP INTERPOS INTERCARPAL/METACARPAL JOINTS Right 08/16/2021 Right thumb CMC arthroplasty with trapeciectomy and 1st dorsal compartment release COLONOS VIA STOMA W/ ABLATION COLONOSCOPY FLX DX W/COLLJ SPEC WHEN PFRMD 10/09/2006 PAST SURGICAL HISTORY OF Ultrasound kidney stones PAST SURGICAL HISTORY OF Right 01/01/2018 total right knee replacement PAST SURGICAL HISTORY OF Left 06/27/2020 inguinal hernai repair SIGMOIDOSCOPY FLX DX W/COLLJ SPEC BR/WA IF PFRMD 10/13/2002 Sigmoidoscopy, flexible TONSILLECTOMY PRIMARY/SECONDARY <AGE 10 As child Tonsillectomy CURRENT MEDICATIONS Current Outpatient Medications Medication Sig nortriptyline (PAMELOR) 50 mg capsule Take 2 capsules by mouth daily at bedtime for 7 days. rosuvastatin (CRESTOR) 5 mg tablet Take 1 tablet by mouth once daily. As directed nortriptyline (PAMELOR) 50 mg capsule Take 2 capsules by mouth daily at bedtime. Magnesium 250 mg tab Magnesium Citrate 1 tablet at bedtime amLODIPine (NORVASC) 5 mg tablet Take 1 tablet by mouth once daily. atenolol (TENORMIN) 50 mg tablet Take 1 tablet by mouth two times a day. FOLIC ACID ORAL Take 1 tablet by mouth once daily. inulin (FIBER GUMMIES ORAL) Take 20 mg by mouth once daily. acetaminophen 650 mg CR tablet Take 650 mg by mouth every 8 hours as needed. Two tabs twice daily docusate sodium (COLACE) 100 mg capsule Take 100 mg by mouth twice daily. Melatonin 5 mg cap Take 30 mg by mouth daily at bedtime. biotin 5 mg caspule Take 5 mg by mouth once daily. MULTIVIT WITH CALCIUM,IRON,MIN (WOMEN'S DAILY MULTIVITAMIN ORAL) Take by mouth. No current facility-administered medications for this visit. ALLERGIES: Aspirin, Atorvastatin, Niacin, and Simvastatin PERSONAL HISTORY: SOCIAL HISTORY Social History Tobacco Use Smoking status: Former Current packs/day: 0.00 Types: Cigarettes Start date: 07/06/1969 Quit date: 07/06/1979 Years since quittin.8 Smokeless tobacco: Never Vaping Use Vaping status: Never Used Substance Use Topics Alcohol use: Not Currently Alcohol/week: 7.0 standard drinks of alcohol Types: 7 Shots of liquor per week Drug use: No FAMILY HISTORY FAMILY HISTORY Problem Relation Age of Onset Colon Cancer Mother of colon cancer Headache Mother Hypertension Father Breast Cancer Sister Headache Son migraine Headache Daughter migraine Headache Daughter migraine REVIEW OF SYSTEMS: General: The patient denies fatigue, denies weight loss, denies weight gain, denies feeling hot, and denies feelings of cold. Eyes: The patient denies glaucoma, denies eye injury/surgery, wears glasses or contacts. Ear/Nose/Throat: The patient NOTES allergies, denies hayfever, denies ear infections, and denies bloody noses. Cardiovascular: The patient denies chest pain, denies heart disease, NOTES high blood pressure,denies cardiac stent, denies prior heart attack, NOTES irregular heart beat, NOTES high cholesterol, denies poor circulation, denies heart failure, other cardiac issues, denies claudication, denies cold feet, denies peripheral arterial stent. Respiratory: The patient denies tuberculosis, denies pneumonia, denies frequent cough, denies pulmonary embolism, denies shortness of breath, and denies coughing up blood. Gastrointestinal: The patient denies difficulty swallowing, denies acid reflux, NOTES ulcers, denies vomiting, denies jaundice/hepatitis, denies gallbladder problems, denies black or tarry stools, NOTES hemorrhoids, denies bleeding from rectum, NOTES diverticulitis, denies constipation, NOTES diarrhea, denies loss of stool control, and denies hernias. Kidney/Bladder: The patient NOTES kidney stones, denies urine infections, and denies bloody urine. Skin: The patient denies a history of skin cancer, denies bleeding/changing moles, and denies a history of skin rash. Neurologic: The patient denies a history of epilepsy/convulsions, NOTES headaches, denies head/spinal injuries, and denies stroke/TIA. Psychiatric: The patient denies psychiatric medications, denies depression, and denies voices, denies substance abuse. Endocrine: The patient denies thyroid disorders, denies diabetes, and denies hormonal problems. Hematologic: The patient denies a history of bruising, denies bleeding, and denies anemia, denies blood clots. Infections: The patient denies a history of measles and mumps, denies rheumatic fever, and denies sexually transmitted diseases. Musculoskeletal: The patient NOTES back pain/injury, NOTES back problems, denies sciatica, NOTES knee/foot trouble, NOTES arthritis, or denies gout. When was patient's last Mammogram screening? 09/30/2023 Last Colonoscopy: 08/06/2018 sigmoidoscopy Liz Wisdom RN PHYSICAL EXAMINATION: General: The patient is 74 year old female, well nourished, well hydrated in no acute distress. The patient is oriented to time, place, and person. VITALS: Blood pressure 122/76, pulse 80, temperature 36.6 C (97.8 F), height 156.2 cm (5' 1.5), weight 79.3 kg (174 lb 12.8 oz), last menstrual period 07/11/2003, SpO2 98%. Body mass index is 32.49 kg/m . Head: Normal cephalic, atraumatic Eyes: pupils are equally round, sclera are clear/anicteric, wearing glasses Neck is supple with no tracheal deviation Cardiac: normal heart sounds, regular Respiratory: Normal respiratory excursion and pattern. Abdominal exam: benign Extremities: no clubbing, cyanosis or edema. Neuro: non focal Psych: normal mood IMPRESSION: rectal bleeding PLAN: I have discussed the above with the patient. I have offered colonoscopy , possible biopsies I have explained the procedure to the patient. I have counseled the patient as to the risks of the procedure, including but not limited to: infection, bleeding, injury to any intrabdominal organs such as liver/spleen, perforation of the GI tract, inability to complete the procedure, complications of anesthesia, etc. - the patient understands. The patient wishes to proceed. I have answered all questions to the patient s satisfaction and the patient has no further questions. documented in this encounter [facility] 07-04-2024 Telephone encounter Note Left patient message & my chart to confirm colonoscopy procedure date & bowel prep instructions with my phone number [phone]. [facility] 07-04-2024 Miscellaneous Notes Left patient message & my chart to confirm colonoscopy procedure date & bowel prep instructions with my phone number [phone]. documented in this encounter [facility] 05-25-2024 Note HNO ID: [id number] Author: TAMEKA MELGAR DO Service: ? Author Type: Physician Type: Progress Notes Filed: 05/25/2024 10:58 Note Text: [facility] [place] Tameka and Malena Orozco Department of Cardiovascular Medicine SECTION OF [facility] CARDIOLOGY/[facility] OUTPATIENT VISIT DATE May 25, 2024 OUTPATIENT VISIT TYPE ESTABLISHED PATIENT Name: Eliu Matamoros : 1950 Date: May 25, 2024 PRIMARY CARE PHYSICIAN: Lalo Schultz [address] [place] [address] REFERRING PHYSICIAN: Tameka Melgar [address] [facility] [address] CHIEF COMPLAINT: CARD Follow Up Annual (No new cardiac concerns) IMPRESSION / PLAN: 1. Palpitations secondary to PSVT with evidence of mild tachybradycardia syndrome. Patient continues to do very well on atenolol 50 mg twice a day with only rare palpitations when laying on her right lateral side. If she has any significant recurrences I would consider changing her to nadolol. 2. Hypertension. Patient is doing well with adequate blood pressures on current medications and will continue to monitor her blood pressure with the change to atenolol. 3. Insomnia. Patient is using various products including Tylenol PM and melatonin and did discuss maximal dose of melatonin being 10 mg. Follow Up Instructions Return in about 1 year (around 05/25/2025). ORDERS FOR TODAY'S VISIT: Office Visit on 05/25/24 CONSULT TO UROLOGY ECG COMPLETE HISTORY OF PRESENT ILLNESS: Ms. Matamoros is a 74 year old female with a past history of hypertension, migraine headaches he states over the last year again developing some brief episodes of palpitations and a feeling of a racing heartbeat but nothing lasting longer than 5 or 10 seconds. Interestingly she notices it mostly at night an laying on her right side now. Patient continues to do well on atenolol 50 mg twice a day and has had only rare palpitations particularly when she lays on her left lateral side. She denies any syncope or near syncope, chest pain, shortness of breath, or lower extremity edema. PAST MEDICAL HISTORY Diagnosis Date Achilles bursitis or tendinitis right shoulder Acute peptic ulcer, unspecified site, without mention of hemorrhage, perforation, or obstruction 10/06 Diarrhea Diverticulosis of colon (without mention of hemorrhage) External hemorrhoids without mention of complication Family history of malignant neoplasm of gastrointestinal tract family history of colon cancer Fibrosclerosis of breast fibrocystic breast disease Generalized osteoarthrosis, unspecified site Hemorrhage of gastrointestinal tract, unspecified Internal hemorrhoids without mention of complication Intractable migraine without aura 07/27/[address] 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 Bearden at [facility] Unspecified essential hypertension Unspecified hemorrhoids without mention of complication internal and externaldjd Unspecified tinnitus 11/16/2006 Left ear Urinary calculus, unspecified Renal stones PAST SURGICAL HISTORY Procedure Laterality Date APPENDECTOMY ARTHRP INTERPOS INTERCARPAL/METACARPAL JOINTS Right 08/16/2021 Right thumb CMC arthroplasty with trapeciectomy and 1st dorsal compartment release COLONOS VIA STOMA W/ ABLATION COLONOSCOPY FLX DX W/COLLJ SPEC WHEN PFRMD 10/09/2006 PAST SURGICAL HISTORY OF Ultrasound kidney stones PAST SURGICAL HISTORY OF Right 01/01/2018 total right knee replacement PAST SURGICAL HISTORY OF Left 06/27/2020 inguinal hernai repair SIGMOIDOSCOPY 08/06/2018 Dr. Ivrin, [facility] SIGMOIDOSCOPY FLX DX W/COLLJ SPEC BR/WA IF PFRMD 10/13/2002 Sigmoidoscopy, flexible TONSILLECTOMY PRIMARY/SECONDARY Tonsillectomy SOCIAL HISTORY Social History Tobacco Use Smoking status: Former Current packs/day: 0.00 Types: Cigarettes Start date: 07/06/1969 Quit date: 07/06/1979 Years since quittin.9 Smokeless tobacco: Never Vaping Use Vaping status: Never Used Substance Use Topics Alcohol use: Not Currently Alcohol/week: 7.0 standard drinks of alcohol Types: 7 Shots of liquor per week Drug use: No FAMILY HISTORY Problem Relation Age of Onset Colon Cancer Mother of colon cancer Headache Mother Hypertension Father Breast Cancer Sister Headache Son migraine Headache Daughter migraine Headache Daughter migraine ALLERGIES: ALLERGIES Allergen Reactions Aspirin Contraindication-Medical Surgical History of ulcer Atorvastatin Myalgia Niacin Intolerance sweats and hot flashes Simvastatin Intolera (more content not included)... [facility] 05-25-2024 History of Presen t illness Narrative Images from the original note were not included. [facility] [place] Erica Orozco Department of Cardiovascular Medicine [facility] OUTPATIENT VISIT DATE May 25, 2024 OUTPATIENT VISIT TYPE ESTABLISHED PATIENT Name: Eliu Matamoros : 1950 Date: May 25, 2024 PRIMARY CARE PHYSICIAN: Lalo Schultz [address] [place] [address] REFERRING PHYSICIAN: Tameka Melgar [address] [facility] [id number] CHIEF COMPLAINT: CARD Follow Up Annual (No new cardiac concerns) IMPRESSION / PLAN: 1. Palpitations secondary to PSVT with evidence of mild tachybradycardia syndrome. Patient continues to do very well on atenolol 50 mg twice a day with only rare palpitations when laying on her right lateral side. If she has any significant recurrences I would consider changing her to nadolol. 2. Hypertension. Patient is doing well with adequate blood pressures on current medications and will continue to monitor her blood pressure with the change to atenolol. 3. Insomnia. Patient is using various products including Tylenol PM and melatonin and did discuss maximal dose of melatonin being 10 mg. Follow Up Instructions Return in about 1 year (around 05/25/2025). ORDERS FOR TODAY'S VISIT: Office Visit on 05/25/24 CONSULT TO UROLOGY ECG COMPLETE HISTORY OF PRESENT ILLNESS: Ms. Matamoros is a 74 year old female with a past history of hypertension, migraine headaches he states over the last year again developing some brief episodes of palpitations and a feeling of a racing heartbeat but nothing lasting longer than 5 or 10 seconds. Interestingly she notices it mostly at night an laying on her right side now. Patient continues to do well on atenolol 50 mg twice a day and has had only rare palpitations particularly when she lays on her left lateral side. She denies any syncope or near syncope, chest pain, shortness of breath, or lower extremity edema. PAST MEDICAL HISTORY Diagnosis Date Achilles bursitis or tendinitis right shoulder Acute peptic ulcer, unspecified site, without mention of hemorrhage, perforation, or obstruction 10/06 Diarrhea Diverticulosis of colon (without mention of hemorrhage) External hemorrhoids without mention of complication Family history of malignant neoplasm of gastrointestinal tract family history of colon cancer Fibrosclerosis of breast fibrocystic breast disease Generalized osteoarthrosis, unspecified site Hemorrhage of gastrointestinal tract, unspecified Internal hemorrhoids without mention of complication Intractable migraine without aura 07/27/[address] 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 Bearden at [facility] Unspecified essential hypertension Unspecified hemorrhoids without mention of complication internal and externaldjd Unspecified tinnitus 11/16/2006 Left ear Urinary calculus, unspecified Renal stones PAST SURGICAL HISTORY Procedure Laterality Date APPENDECTOMY ARTHRP INTERPOS INTERCARPAL/METACARPAL JOINTS Right 08/16/2021 Right thumb CMC arthroplasty with trapeciectomy and 1st dorsal compartment release COLONOS VIA STOMA W/ ABLATION COLONOSCOPY FLX DX W/COLLJ SPEC WHEN PFRMD 10/09/2006 PAST SURGICAL HISTORY OF Ultrasound kidney stones PAST SURGICAL HISTORY OF Right 01/01/2018 total right knee replacement PAST SURGICAL HISTORY OF Left 06/27/2020 inguinal hernai repair SIGMOIDOSCOPY 08/06/2018 Dr. Irvin, [facility] SIGMOIDOSCOPY FLX DX W/COLLJ SPEC BR/WA IF PFRMD 10/13/2002 Sigmoidoscopy, flexible TONSILLECTOMY PRIMARY/SECONDARY <AGE 10 As child Tonsillectomy SOCIAL HISTORY Social History Tobacco Use Smoking status: Former Current packs/day: 0.00 Types: Cigarettes Start date: 07/06/1969 Quit date: 07/06/1979 Years since quittin.9 Smokeless tobacco: Never Vaping Use Vaping status: Never Used Substance Use Topics Alcohol use: Not Currently Alcohol/week: 7.0 standard drinks of alcohol Types: 7 Shots of liquor per week Drug use: No FAMILY HISTORY Problem Relation Age of Onset Colon Cancer Mother of colon cancer Headache Mother Hypertension Father Breast Cancer Sister Headache Son migraine Headache Daughter migraine Headache Daughter migraine ALLERGIES: ALLERGIES Allergen Reactions Aspirin Contraindication-Medical Surgical History of ulcer Atorvastatin Myalgia Niacin Intolerance sweats and hot flashes Simvastatin Intolerance myalgias--severe; resolved after stopped but still with leg pain MEDICATIONS: rosuvastatin (CRESTOR) 5 mg tablet Take 1 tablet by mouth once daily. As directed nortriptyline (PAMELOR) 50 mg capsule Take 2 capsules by mouth daily at bedtime. Magnesium 250 mg tab Magnesium Citrate 1 tablet at bedtime amLODIPine (NORVASC) 5 mg tablet Take 1 tablet by mouth once daily. atenolol (TENORMIN) 50 mg tablet Take 1 tablet by mouth two times a day. FOLIC ACID ORAL Take 1 tablet by mouth once daily. inulin (FIBER GUMMIES ORAL) Take 20 mg by mouth once daily. acetaminophen 650 mg CR tablet Take 650 mg by mouth every 8 hours as needed. Two tabs twice daily docusate sodium (COLACE) 100 mg capsule Take 100 mg by mouth twice daily. Melatonin 5 mg cap Take 30 mg by mouth daily at bedtime. biotin 5 mg caspule Take 5 mg by mouth once daily. MULTIVIT WITH CALCIUM,IRON,MIN (WOMEN'S DAILY MULTIVITAMIN ORAL) Take by mouth. nortriptyline (PAMELOR) 50 mg capsule Take 2 capsules by mouth daily at bedtime for 7 days. REVIEW OF SYSTEMS: GENERAL: Negative for: Weight loss or gain, Fever or Chills NECK: Negative for: Swelling, Pain, Stiffness RESPIRATORY: Negative for: Cough, Blood in Sputum GASTROINTESTINAL: Negative for: Trouble swallowing, Heartburn, Change in bowel habits, Blood in stool, Dark black stools MUSCULOSKELETAL: Negative for: Severe Muscle or joint pain, Stiffness , Joint swelling NEUROLOGIC/PSYCHIATRIC: Negative for: Paralysis, Numbness, Tingling, Tremor SKIN: Negative for: Rashes, Itching HEMATOLOGICAL/LYMPHATIC: Negative for: Easy bruising , Easy bleeding ENDOCRINE: Negative for: Heat or cold intolerance, Excessive sweating, Frequent urination All other review of systems, per history of present illness. PHYSICAL EXAMINATION: BP 128/62 Pulse 71 Ht 156.2 cm (5' 1.5) Wt 78 kg (172 lb) LMP 07/11/2003 SpO2 100% BMI 31.97 kg/m Last 2 Encounter Wt Readings: Date: Wt: 11/15/2020 78.9 kg (174 lb) 08/16/2020 79.4 kg (175 lb) General: Well appearing, in no acute distress. Skin: No clubbing, no cyanosis. Eyes: Extra ocular movements intact Oropharynx: No gross abnormalities Neck: No jugular venous distention, no carotid bruits, carotids have a normal upstroke, no palpable thyromegaly. Lungs: Clear to auscultation bilaterally, no wheezing or rhonchi. Heart: Regular rhythm, PMI not displaced, S1, S2, no S3, no S4, no heaves, no murmur. Abdomen: Soft, nontender, bowel sounds normal, no palpable organomegaly, no bruits. Extremities: No peripheral edema . +2 distal pulses bilaterally. Neuro: Oriented to person, place and time, alert, cooperative, gait coordinated. CARDIOVASCULAR MEDICINE TESTING: Electrocardiogram: Sinus rhythm with first-degree AV block Tameka Melgar DO, [facility] Staff Community Relations Liaison Tameka and Malena Yao Dept. of Cardiovascular Medicine Heart, Vascular and Thoracic [place], [facility] This document was generated using the assistance of voice recognition software. If there are any errors of spelling, grammar, syntax or meaning, please feel free to contact me directly at anytime. documented in this encounter [facility] 05-09-2024 Telephone encounter Note 07-13-[address] [facility] Razo went over all prep and medication information, patient was given direct number to contact David Barnes [facility] 05-09-2024 Miscellaneous Notes 07-13-[address] [facility] Razo went over all prep and medication information, patient was given direct number to contact David Barnes documented in this encounter [facility] 05-09-2024 Nurse Note REVIEW OF SYSTEMS: General: The patient denies fatigue, denies weight loss, denies weight gain, denies feeling hot, and denies feelings of cold. Eyes: The patient denies glaucoma, denies eye injury/surgery, wears glasses or contacts. Ear/Nose/Throat: The patient NOTES allergies, denies hayfever, denies ear infections, and denies bloody noses. Cardiovascular: The patient denies chest pain, denies heart disease, NOTES high blood pressure,denies cardiac stent, denies prior heart attack, NOTES irregular heart beat, NOTES high cholesterol, denies poor circulation, denies heart failure, other cardiac issues, denies claudication, denies cold feet, denies peripheral arterial stent. Respiratory: The patient denies tuberculosis, denies pneumonia, denies frequent cough, denies pulmonary embolism, denies shortness of breath, and denies coughing up blood. Gastrointestinal: The patient denies difficulty swallowing, denies acid reflux, NOTES ulcers, denies vomiting, denies jaundice/hepatitis, denies gallbladder problems, denies black or tarry stools, NOTES hemorrhoids, denies bleeding from rectum, NOTES diverticulitis, denies constipation, NOTES diarrhea, denies loss of stool control, and denies hernias. Kidney/Bladder: The patient NOTES kidney stones, denies urine infections, and denies bloody urine. Skin: The patient denies a history of skin cancer, denies bleeding/changing moles, and denies a history of skin rash. Neurologic: The patient denies a history of epilepsy/convulsions, NOTES headaches, denies head/spinal injuries, and denies stroke/TIA. Psychiatric: The patient denies psychiatric medications, denies depression, and denies voices, denies substance abuse. Endocrine: The patient denies thyroid disorders, denies diabetes, and denies hormonal problems. Hematologic: The patient denies a history of bruising, denies bleeding, and denies anemia, denies blood clots. Infections: The patient denies a history of measles and mumps, denies rheumatic fever, and denies sexually transmitted diseases. Musculoskeletal: The patient NOTES back pain/injury, NOTES back problems, denies sciatica, NOTES knee/foot trouble, NOTES arthritis, or denies gout. When was patient's last Mammogram screening? 09/30/2023 Last Colonoscopy: 08/06/2018 sigmoidoscopy Liz Wisdom RN [facility] 05-09-2024 Nurse Note REVIEW OF SYSTEMS: General: The patient denies fatigue, denies weight loss, denies weight gain, denies feeling hot, and denies feelings of cold. Eyes: The patient denies glaucoma, denies eye injury/surgery, wears glasses or contacts. Ear/Nose/Throat: The patient NOTES allergies, denies hayfever, denies ear infections, and denies bloody noses. Cardiovascular: The patient denies chest pain, denies heart disease, NOTES high blood pressure,denies cardiac stent, denies prior heart attack, NOTES irregular heart beat, NOTES high cholesterol, denies poor circulation, denies heart failure, other cardiac issues, denies claudication, denies cold feet, denies peripheral arterial stent. Respiratory: The patient denies tuberculosis, denies pneumonia, denies frequent cough, denies pulmonary embolism, denies shortness of breath, and denies coughing up blood. Gastrointestinal: The patient denies difficulty swallowing, denies acid reflux, NOTES ulcers, denies vomiting, denies jaundice/hepatitis, denies gallbladder problems, denies black or tarry stools, NOTES hemorrhoids, denies bleeding from rectum, NOTES diverticulitis, denies constipation, NOTES diarrhea, denies loss of stool control, and denies hernias. Kidney/Bladder: The patient NOTES kidney stones, denies urine infections, and denies bloody urine. Skin: The patient denies a history of skin cancer, denies bleeding/changing moles, and denies a history of skin rash. Neurologic: The patient denies a history of epilepsy/convulsions, NOTES headaches, denies head/spinal injuries, and denies stroke/TIA. Psychiatric: The patient denies psychiatric medications, denies depression, and denies voices, denies substance abuse. Endocrine: The patient denies thyroid disorders, denies diabetes, and denies hormonal problems. Hematologic: The patient denies a history of bruising, denies bleeding, and denies anemia, denies blood clots. Infections: The patient denies a history of measles and mumps, denies rheumatic fever, and denies sexually transmitted diseases. Musculoskeletal: The patient NOTES back pain/injury, NOTES back problems, denies sciatica, NOTES knee/foot trouble, NOTES arthritis, or denies gout. When was patient's last Mammogram screening? 09/30/2023 Last Colonoscopy: 08/06/2018 sigmoidoscopy Liz Wisdom RN documented in this encounter [facility] 05-09-2024 History of Presen t illness Narrative HISTORY AND PHYSICAL Eliu Matamoros 1950 REFERRING PHYSICIAN: No ref. provider found CHIEF COMPLAINT: Consult (Colonoscopy consultation. ) HPI: The patient is a 74 year old female referred for endoscopy. Eliu notes intermittent rectal bleeding. She states that she last had a colonoscopy in 2018. She states that her mother was diagnosed with colon cancer in her 70s and of this. She notes occasional lower abdominal cramping pain. She denies constipation. She denies diarrhea. She states that the rectal bleeding has been going on for a while. PAST MEDICAL HISTORY Diagnosis Date Achilles bursitis or tendinitis right shoulder Acute peptic ulcer, unspecified site, without mention of hemorrhage, perforation, or obstruction 10/06 Diarrhea Diverticulosis of colon (without mention of hemorrhage) External hemorrhoids without mention of complication Family history of malignant neoplasm of gastrointestinal tract family history of colon cancer Fibrosclerosis of breast fibrocystic breast disease Generalized osteoarthrosis, unspecified site Hemorrhage of gastrointestinal tract, unspecified Internal hemorrhoids without mention of complication Intractable migraine without aura 07/27/[address] 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 Bearden at [facility] Unspecified essential hypertension Unspecified hemorrhoids without mention of complication internal and externaldjd Unspecified tinnitus 11/16/2006 Left ear Urinary calculus, unspecified Renal stones PAST SURGICAL HISTORY Procedure Laterality Date APPENDECTOMY ARTHRP INTERPOS INTERCARPAL/METACARPAL JOINTS Right 08/16/2021 Right thumb CMC arthroplasty with trapeciectomy and 1st dorsal compartment release COLONOS VIA STOMA W/ ABLATION COLONOSCOPY FLX DX W/COLLJ SPEC WHEN PFRMD 10/09/2006 PAST SURGICAL HISTORY OF Ultrasound kidney stones PAST SURGICAL HISTORY OF Right 01/01/2018 total right knee replacement PAST SURGICAL HISTORY OF Left 06/27/2020 inguinal hernai repair SIGMOIDOSCOPY FLX DX W/COLLJ SPEC BR/WA IF PFRMD 10/13/2002 Sigmoidoscopy, flexible TONSILLECTOMY PRIMARY/SECONDARY <AGE 10 As child Tonsillectomy Current Outpatient Medications Medication Sig nortriptyline (PAMELOR) 50 mg capsule Take 2 capsules by mouth daily at bedtime for 7 days. rosuvastatin (CRESTOR) 5 mg tablet Take 1 tablet by mouth once daily. As directed nortriptyline (PAMELOR) 50 mg capsule Take 2 capsules by mouth daily at bedtime. Magnesium 250 mg tab Magnesium Citrate 1 tablet at bedtime amLODIPine (NORVASC) 5 mg tablet Take 1 tablet by mouth once daily. atenolol (TENORMIN) 50 mg tablet Take 1 tablet by mouth two times a day. FOLIC ACID ORAL Take 1 tablet by mouth once daily. inulin (FIBER GUMMIES ORAL) Take 20 mg by mouth once daily. acetaminophen 650 mg CR tablet Take 650 mg by mouth every 8 hours as needed. Two tabs twice daily docusate sodium (COLACE) 100 mg capsule Take 100 mg by mouth twice daily. Melatonin 5 mg cap Take 30 mg by mouth daily at bedtime. biotin 5 mg caspule Take 5 mg by mouth once daily. MULTIVIT WITH CALCIUM,IRON,MIN (WOMEN'S DAILY MULTIVITAMIN ORAL) Take by mouth. No current facility-administered medications for this visit. ALLERGIES: Aspirin, Atorvastatin, Niacin, and Simvastatin PERSONAL HISTORY: Social History Tobacco Use Smoking status: Former Current packs/day: 0.00 Types: Cigarettes Start date: 07/06/1969 Quit date: 07/06/1979 Years since quittin.8 Smokeless tobacco: Never Vaping Use Vaping status: Never Used Substance Use Topics Alcohol use: Not Currently Alcohol/week: 7.0 standard drinks of alcohol Types: 7 Shots of liquor per week Drug use: No FAMILY HISTORY Problem Relation Age of Onset Colon Cancer Mother of colon cancer Headache Mother Hypertension Father Breast Cancer Sister Headache Son migraine Headache Daughter migraine Headache Daughter migraine The review of systems data was entered by the nurse and reviewed by vt Nursing Notes: Liz Wisdom RN 05/09/2024 12:02 PM Signed REVIEW OF SYSTEMS: General: The patient denies fatigue, denies weight loss, denies weight gain, denies feeling hot, and denies feelings of cold. Eyes: The patient denies glaucoma, denies eye injury/surgery, wears glasses or contacts. Ear/Nose/Throat: The patient NOTES allergies, denies hayfever, denies ear infections, and denies bloody noses. Cardiovascular: The patient denies chest pain, denies heart disease, NOTES high blood pressure,denies cardiac stent, denies prior heart attack, NOTES irregular heart beat, NOTES high cholesterol, denies poor circulation, denies heart failure, other cardiac issues, denies claudication, denies cold feet, denies peripheral arterial stent. Respiratory: The patient denies tuberculosis, denies pneumonia, denies frequent cough, denies pulmonary embolism, denies shortness of breath, and denies coughing up blood. Gastrointestinal: The patient denies difficulty swallowing, denies acid reflux, NOTES ulcers, denies vomiting, denies jaundice/hepatitis, denies gallbladder problems, denies black or tarry stools, NOTES hemorrhoids, denies bleeding from rectum, NOTES diverticulitis, denies constipation, NOTES diarrhea, denies loss of stool control, and denies hernias. Kidney/Bladder: The patient NOTES kidney stones, denies urine infections, and denies bloody urine. Skin: The patient denies a history of skin cancer, denies bleeding/changing moles, and denies a history of skin rash. Neurologic: The patient denies a history of epilepsy/convulsions, NOTES headaches, denies head/spinal injuries, and denies stroke/TIA. Psychiatric: The patient denies psychiatric medications, denies depression, and denies voices, denies substance abuse. Endocrine: The patient denies thyroid disorders, denies diabetes, and denies hormonal problems. Hematologic: The patient denies a history of bruising, denies bleeding, and denies anemia, denies blood clots. Infections: The patient denies a history of measles and mumps, denies rheumatic fever, and denies sexually transmitted diseases. Musculoskeletal: The patient NOTES back pain/injury, NOTES back problems, denies sciatica, NOTES knee/foot trouble, NOTES arthritis, or denies gout. When was patient's last Mammogram screening? 09/30/2023 Last Colonoscopy: 08/06/2018 sigmoidoscopy Liz Wisdom RN PHYSICAL EXAMINATION: General: The patient is 74 year old female, well nourished, well hydrated in no acute distress. The patient is oriented to time, place, and person. VITALS: Blood pressure 122/76, pulse 80, temperature 36.6 C (97.8 F), height 156.2 cm (5' 1.5), weight 79.3 kg (174 lb 12.8 oz), last menstrual period 07/11/2003, SpO2 98%. Body mass index is 32.49 kg/m . Head: Normal cephalic, atraumatic Eyes: pupils are equally round, sclera are clear/anicteric, wearing glasses Neck is supple with no tracheal deviation Cardiac: normal heart sounds, regular Respiratory: Normal respiratory excursion and pattern. Abdominal exam: benign Extremities: no clubbing, cyanosis or edema. Neuro: non focal Psych: normal mood Assessment IMPRESSION: rectal bleeding PLAN: I have discussed the above with the patient. I have offered colonoscopy , possible biopsies I have explained the procedure to the patient. I have counseled the patient as to the risks of the procedure, including but not limited to: infection, bleeding, injury to any intrabdominal organs such as liver/spleen, perforation of the GI tract, inability to complete the procedure, complications of anesthesia, etc. - the patient understands. The patient wishes to proceed. I have answered all questions to the patient s satisfaction and the patient has no further questions. My clinic staff has educated the patient as to the colon cleansing regimen and I have prescribed Golytely for the colon cleansing solution. The patient will be scheduled for the procedure at [facility]. Diagnoses: (K62.5) Rectal bleeding (primary encounter diagnosis) I have confirmed and edited as necessary, the PFSH and ROS obtained by others. Medical Decision Making: Problems: Low: Stable chronic illness Risk: Low: Low risk from testing/treatment Medical Decision Making Level: 3 - Low Fransisca Razo MD documented in this encounter [facility] 05-09-2024 Note HNO ID: [id number] Author: FRANSISCA RAZO MD Service: ? Author Type: Physician Type: Progress Notes Filed: 05/13/2024 16:01 Note Text: HISTORY AND PHYSICAL Eliu Matamoros 1950 REFERRING PHYSICIAN: No ref. provider found CHIEF COMPLAINT: Consult (Colonoscopy consultation. ) HPI: The patient is a 74 year old female referred for endoscopy. Eliu notes intermittent rectal bleeding. She states that she last had a colonoscopy in 2019. She states that her mother was diagnosed with colon cancer in her 70s and of this. She notes occasional lower abdominal cramping pain. She denies constipation. She denies diarrhea. She states that the rectal bleeding has been going on for a while. PAST MEDICAL HISTORY Diagnosis Date Achilles bursitis or tendinitis right shoulder Acute peptic ulcer, unspecified site, without mention of hemorrhage, perforation, or obstruction 10/06 Diarrhea Diverticulosis of colon (without mention of hemorrhage) External hemorrhoids without mention of complication Family history of malignant neoplasm of gastrointestinal tract family history of colon cancer Fibrosclerosis of breast fibrocystic breast disease Generalized osteoarthrosis, unspecified site Hemorrhage of gastrointestinal tract, unspecified Internal hemorrhoids without mention of complication Intractable migraine without aura 07/27/[address] 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 Bearden at [facility] Unspecified essential hypertension Unspecified hemorrhoids without mention of complication internal and externaldjd Unspecified tinnitus 11/16/2006 Left ear Urinary calculus, unspecified Renal stones PAST SURGICAL HISTORY Procedure Laterality Date APPENDECTOMY ARTHRP INTERPOS INTERCARPAL/METACARPAL JOINTS Right 08/16/2021 Right thumb CMC arthroplasty with trapeciectomy and 1st dorsal compartment release COLONOS VIA STOMA W/ ABLATION COLONOSCOPY FLX DX W/COLLJ SPEC WHEN PFRMD 10/09/2006 PAST SURGICAL HISTORY OF Ultrasound kidney stones PAST SURGICAL HISTORY OF Right 01/01/2018 total right knee replacement PAST SURGICAL HISTORY OF Left 06/27/2020 inguinal hernai repair SIGMOIDOSCOPY FLX DX W/COLLJ SPEC BR/WA IF PFRMD 10/13/2002 Sigmoidoscopy, flexible TONSILLECTOMY PRIMARY/SECONDARY Tonsillectomy Current Outpatient Medications Medication Sig nortriptyline (PAMELOR) 50 mg capsule Take 2 capsules by mouth daily at bedtime for 7 days. rosuvastatin (CRESTOR) 5 mg tablet Take 1 tablet by mouth once daily. As directed nortriptyline (PAMELOR) 50 mg capsule Take 2 capsules by mouth daily at bedtime. Magnesium 250 mg tab Magnesium Citrate 1 tablet at bedtime amLODIPine (NORVASC) 5 mg tablet Take 1 tablet by mouth once daily. atenolol (TENORMIN) 50 mg tablet Take 1 tablet by mouth two times a day. FOLIC ACID ORAL Take 1 tablet by mouth once daily. inulin (FIBER GUMMIES ORAL) Take 20 mg by mouth once daily. acetaminophen 650 mg CR tablet Take 650 mg by mouth every 8 hours as needed. Two tabs twice daily docusate sodium (COLACE) 100 mg capsule Take 100 mg by mouth twice daily. Melatonin 5 mg cap Take 30 mg by mouth daily at bedtime. biotin 5 mg caspule Take 5 mg by mouth once daily. MULTIVIT WITH CALCIUM,IRON,MIN (WOMEN'S DAILY MULTIVITAMIN ORAL) Take by mouth. No current facility-administered medications for this visit. ALLERGIES: Aspirin, Atorvastatin, Niacin, and Simvastatin PERSONAL HISTORY: Social History Tobacco Use Smoking status: Former Current packs/day: 0.00 Types: Cigarettes Start date: 07/06/1969 Quit date: 07/06/1979 Years since quittin.8 Smokeless tobacco: Never Vaping Use Vaping status: Never Used Substance Use Topics Alcohol use: Not Currently Alcohol/week: 7.0 standard drinks of alcohol Types: 7 Shots of liquor per week Drug use: No FAMILY HISTORY Problem Relation Age of Onset Colon Cancer Mother of colon cancer Headache Mother Hypertension Father Breast Cancer Sister Headache Son migraine Headache Daughter migraine Headache Daughter migraine The review of systems data was entered by the nurse and reviewed by vt Nursing Notes: Liz Wisdom RN 05/09/2024 12:02 PM Signed REVIEW OF SYSTEMS: General: The patient denies fatigue, denies weight loss, denies weight gain, denies feeling hot, and denies feelings of cold. Eyes: The patient denies glaucoma, denies eye injury/surgery, wears glasses or contacts. Ear/Nose/Throat: The patient NOTES allergies, denies hayfever, denies ear infections, and denies bloody noses. Cardiovascular: The patient denies chest pain, denies heart disease, (more content not included)... [facility] 05-02-2024 History of Presen t illness Narrative Radiology Service Progress Note PATIENT NAME: Eliu Matamoros DATE OF SERVICE: May 02, 2024 TIME: 12:35 PM PATIENT IDENTITY VERIFICATION COMPLETED USING TWO (2) IDENTIFIERS: Name and Date of confirmed by patient verbally. FALL SCREENING: Has the patient had 2 falls in the last year or 1 fall with injury or currently using an Ambulatory Assistive Device (Walker, Cane, Wheelchair, Crutches, etc.)? No PATIENT GENDER DATA: Female. status: : No status: NO. PATIENT RELEVANT IMPLANT DATA REVIEWED: Not Applicable PATIENT PRESENTS WITH AN IMPLANTABLE OR ATTACHED POLISH COMPOUNDER: No RADIOLOGY DEPARTMENT: Bone Density PERIPHERAL IV DATA: Not applicable SIGNED BY: RT Nasima(Oseas) May 02, 2024 12:35 PM documented in this encounter [facility] 05-02-2024 Note HNO ID: [id number] Author: LUIS ENRIQUE NICK RT(R) Service: ? Author Type: Technologist Type: Progress Notes Filed: 05/02/2024 12:57 Note Text: Radiology Service Progress Note PATIENT NAME: Eliu Matamoros DATE OF SERVICE: May 02, 2024 TIME: 12:35 PM PATIENT IDENTITY VERIFICATION COMPLETED USING TWO (2) IDENTIFIERS: Name and Date of confirmed by patient verbally. FALL SCREENING: Has the patient had 2 falls in the last year or 1 fall with injury or currently using an Ambulatory Assistive Device (Walker, Cane, Wheelchair, Crutches, etc.)? No PATIENT GENDER DATA: Female. status: : No status: NO. PATIENT RELEVANT IMPLANT DATA REVIEWED: Not Applicable PATIENT PRESENTS WITH AN IMPLANTABLE OR ATTACHED POLISH COMPOUNDER: No RADIOLOGY DEPARTMENT: Bone Density PERIPHERAL IV DATA: Not applicable SIGNED BY: RT Nasima(R) May 02, 2024 12:35 PM [facility] 03-23-2024 Telephone encounter Note The following approved medication requests have been transmitted electronically. Requested Prescriptions Signed Prescriptions Disp Refills nortriptyline (PAMELOR) 50 mg capsule 14 capsule 0 Sig: Take 2 capsules by mouth daily at bedtime for 7 days. Authorizing Provider: LALO SCHULTZ MD [facility] 03-23-2024 Miscellaneous Notes The following approved medication requests have been transmitted electronically. Requested Prescriptions Signed Prescriptions Disp Refills nortriptyline (PAMELOR) 50 mg capsule 14 capsule 0 Sig: Take 2 capsules by mouth daily at bedtime for 7 days. Authorizing Provider: LALO SCHULTZ MD Patient calls to report that she is going to run out of nortriptyline before delivery from [facility]. Patient asking for a 7 day supply from [facility]. Pended for review. Cori Young RN documented in this encounter [facility] 03-22-2024 Telephone encounter Note Patient calls to report that she is going to run out of nortriptyline before delivery from [facility]. Patient asking for a 7 day supply from [facility]. Pended for review. Cori Young RN [facility] 03-21-2024 Instructions Lalo Schultz MD - 03/21/2024 11:20 AM EDT Images from the original note were not included. -Schedule a bone density test at your convenience - Schedule a colonoscopy at your convenience - Refills for rosuvastatin and nortriptyline have been sent to your pharmacy - Consider adjusting the timing of your magnesium citrate intake to closer to bedtime to see if it helps with sleep - Continue taking vitamin D, B12, and folic acid supplements as usual - Consider adding collagen, vitamin E, and zinc to your diet to help with nail health - Consider discussing incontinence issues with a urologist if it continues to be a concern - Continue to monitor your sleep and consider non-pharmacological strategies to improve sleep quality, such as adjusting your evening routine or trying relaxation techniques - Your next appointment is scheduled for six months from now. BONE MINERAL DENSITY PATIENT INSTRUCTIONS ========= Bone mineral density testing measures the amount [...] Generally, you can resume your usual activities immediately. Bowel Preparation Instructions for: Miralax-Gatorade Preparations IF YOU DO NOT FOLLOW THESE DIRECTIONS, YOUR COLONOSCOPY WILL BE CANCELLED. [place] Instructions: Your bowel must be empty so that your doctor can clearly view your colon. Follow all of the instructions in this handout EXACTLY as they are written. Do NOT eat any solid food the ENTIRE day before your colonoscopy. Buy your bowel preparation at least 5 days before your colonoscopy. Four (4) Dulcolax laxative tablets containing 5mg of bisacodyl each (NOT Dulcolax stool softener) One (1) 8.3oz. bottle Miralax (238 grams) or generic equivalent 2 x 32oz. Bottles of Gatorade (NOT RED) Diabetic Patients: Use G2 (Gatorade 2) TRANSPORTATION on the Day of Your Exam A responsible adult MUST be present with you at Check In prior to your colonoscopy and REMAIN in the endoscopy area until you are discharged. You are NOT ALLOWED to drive, take a taxi or bus, or leave the Endoscopy Center ALONE. If you do not have a responsible truck driver's offsider (family member or friend) with you to take you home, your exam cannot be done with sedation and will be cancelled. Please bring a list of all of your current medications, including any [id number] medications with you. Medications If you take insulin, diabetic medications or blood thinners such as Coumadin (warfarin), Plavix (clopidogrel), Ticlid (ticlopidine hydrochloride), Agrylin (anagrelide), Xarelto (Rivaroxaban), Pradaxa (Dabigatran), Eliquis (Apixaban), and Effient (Prasugrel). You MUST call the doctors who orders those medicines for instructions on altering the dosage before your colonoscopy. All other medications should be taken the day of the exam with a sip of water including ASPIRIN. Five (5) Days Before Your Colonoscopy Do NOT take medicines that stop diarrhea - such as Imodium, Kaopectate, or Pepto Bismol. Do NOT take fiber supplements - such as Metamucil, Citrucel, or Perdiem. Do NOT take products that contain iron - such as multi-vitamins (the label lists what is in the products). Three (3) Days Before Your Colonoscopy Do NOT eat high-fiber foods - such as popcorn, beans, seeds (flax, sunflower, quinoa), multigrain bread, nuts, salad/vegetables, or fresh and dried fruit. 1 Bowel Preparation Instructions for: Miralax-Gatorade Preparations One (1) Day Before Your Colonoscopy Only drink clear liquids the ENTIRE DAY before your colonoscopy. Do NOT eat any solid foods. Drink at least 8 ounces of clear liquids every hour after waking up. The clear liquids you can drink include: Clear Liquid (NO RED LIQUIDS) DO NOT DRINK Gatorade, Pedialyte or Powerade Clear broth or bouillon Coffee or tea (no milk or non-dairy creamer) Carbonated and non-carbonated soft drinks Higinio-Aid or other fruit flavored drinks Strained fruit juices (no pulp) Jell-O, popsicles, hard candy Water Alcohol Milk or non-dairy creamers Noodles or vegetables in soup Juice with pulp Liquid you cannot see through Do not use tobacco/vaping products Mix 1/2 of Miralax bottle (119 grams) in each 32 ounces of Gatorade bottle until dissolved. Keep cool in the refrigerator. DO NOT ADD ICE. The bowel preparation solution will be consumed in two parts. Part 1 5:00 PM - Evening before your colonoscopy Take 4 Dulcolax tablets. 6 PM - Evening before your colonoscopy Drink 32 oz. of the mixed solution. Drink an 8 oz. glass of bowel preparation every 15 minutes for a total of 4 glasses. Fifteen (15) minutes later, drink an 8 oz. glass of of clear liquids every 15 minutes for a total of 2 glasses. You may continue to drink clear liquids till midnight. Part 2 On the day of your colonoscopy you may drink clear liquids up to (three) 3 hours prior to procedure. 4 1/2 hours before your colonoscopy Take another 32 oz. bottle of mixed solution. Drink an 8 oz. glass of bowel prep every 15 minutes for a total of 4 glasses. Fifteen (15) minutes later, drink an 8 oz. glass of clear liquids every 15 minutes for a total of 2 glasses. You may continue to drink clear liquids up to (three) 3 hours before your exam. 2 06/2019 documented in this encounter [facility] 03-21-2024 History of Presen t illness Narrative This note was created using [employer]. Subjective Eliu Matamoros is a 73 year old female. Patient presents with: F/U 6 months: Labs prior SUBJECTIVE: Eliu Matamoros is a 73 year old year old lady here today for 6 month follow up appointment for review of medical conditions. The patient is a 73-year-old female presenting for a routine checkup. The patient reports that her last bone density test was in 2016, which showed osteopenia in the femoral neck. She expresses a desire to have another bone density test performed. She also inquires about colon cancer screening, noting that her last colonoscopy was in 2006, and she had a flexible sigmoidoscopy [place] [address] Stockton. She mentions a family history of colon cancer, with her mother having from the disease. The patient reports experiencing leg discomfort, which she attributes to her current rosuvastatin regimen. She is currently taking two 5 mg tablets on Thursday and one 5 mg tablet on Thursday and . She plans to temporarily discontinue the medication to see if her leg discomfort improves. She requests a refill of rosuvastatin. She also requests a refill of nortriptyline 75 mg, which she has been taking for years for migraine prevention and insomnia. She reports that her migraines have resolved since she stopped having menstrual periods, but she continues to experience insomnia. She reports difficulty falling asleep and frequent awakenings during the night, which she attributes to nocturia. She reports taking melatonin and magnesium citrate 250 mg at bedtime to help with sleep. She also takes a stool softener once daily. The patient reports nocturia and urinary incontinence at night, requiring her to wear a heavy-duty pad, which she sometimes has to change twice during the night. She denies any issues with urinary incontinence during the day. She denies dysuria or constipation. She reports taking vitamin D, folic acid, and B12 supplements. She denies taking calcium supplements, noting that she does not drink milk but does consume some cheese and yogurt. She denies any issues with her kidneys or liver. She reports that her HDL is in the 60s, triglycerides are under 150, and LDL is 112. She denies any feelings of depression or anxiety, stating that she likes her life and enjoys spending time at home with her dog and visiting her sister. She reports that she has a living will and healthcare power of executive marketing assistant, with Sosachata Meek designated as her healthcare proxy. She plans to get the new COVID-19 vaccine and flu shot at the pharmacy. She denies any recent hospitalizations. She denies any issues with her heart or lungs. She denies any issues with her nails. She denies any issues with her appetite. She denies any issues with her vision or hearing. She denies any issues with her memory or cognition. She denies any issues with her balance or mobility. She denies any issues with her sexual health. She denies any issues with her diet or exercise. She denies any issues with her smoking or alcohol use. She denies any issues with her vaccinations. She denies any issues with her screenings. She denies any issues with her advance care planning. She denies any issues with her recent lab or diagnostic results. Does have HCDPOA and LW. Surrogate decision maker Donald Meek PAST MEDICAL HISTORY Diagnosis Date Achilles bursitis or tendinitis right shoulder Acute peptic ulcer, unspecified site, without mention of hemorrhage, perforation, or obstruction 10/06 Diarrhea Diverticulosis of colon (without mention of hemorrhage) External hemorrhoids without mention of complication Family history of malignant neoplasm of gastrointestinal tract family history of colon cancer Fibrosclerosis of breast fibrocystic breast disease Generalized osteoarthrosis, unspecified site Hemorrhage of gastrointestinal tract, unspecified Internal hemorrhoids without mention of complication Intractable migraine without aura 07/27/[address] 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 Bearden at [facility] Unspecified essential hypertension Unspecified hemorrhoids without mention of complication internal and externaldjd Unspecified tinnitus 11/16/2006 Left ear Urinary calculus, unspecified Renal stones Current Outpatient Medications Medication Sig amLODIPine (NORVASC) 5 mg tablet Take 1 tablet by mouth once daily. atenolol (TENORMIN) 50 mg tablet Take 1 tablet by mouth two times a day. FOLIC ACID ORAL Take 1 tablet by mouth once daily. inulin (FIBER GUMMIES ORAL) Take 20 mg by mouth once daily. acetaminophen 650 mg CR tablet Take 650 mg by mouth every 8 hours as needed. Two tabs twice daily docusate sodium (COLACE) 100 mg capsule Take 100 mg by mouth twice daily. Melatonin 5 mg cap Take 30 mg by mouth daily at bedtime. biotin 5 mg caspule Take 5 mg by mouth once daily. MULTIVIT WITH CALCIUM,IRON,MIN (WOMEN'S DAILY MULTIVITAMIN ORAL) Take by mouth. rosuvastatin (CRESTOR) 5 mg tablet Take 1 tablet by mouth once daily. As directed nortriptyline (PAMELOR) 50 mg capsule Take 2 capsules by mouth daily at bedtime. Magnesium 250 mg tab Magnesium Citrate 1 tablet at bedtime No current facility-administered medications for this visit. Review of Systems Objective BP 120/74 Pulse 69 Temp 36.4 C (97.6 F) Resp 18 Wt 77.6 kg (171 lb 1.2 oz) LMP 07/11/2003 SpO2 100% BMI 31.80 kg/m 03/21/24 1104 03/21/24 1201 BP: 120/74 132/70 Pulse: 69 Resp: 18 Temp: 36.4 C (97.6 F) SpO2: 100% Weight: 77.6 kg (171 lb 1.2 oz) Physical Exam Constitutional: Appearance: Normal appearance. HENT: Head: Normocephalic. Eyes: Conjunctiva/sclera: Conjunctivae normal. Cardiovascular: Rate and Rhythm: Normal rate and regular rhythm. Heart sounds: Normal heart sounds. Pulmonary: Effort: Pulmonary effort is normal. Breath sounds: Normal breath sounds. Musculoskeletal: Right lower leg: Edema (trace pretibial) present. Left lower leg: Edema (trace pretibial) present. Skin: General: Skin is warm and dry. Neurological: General: No focal deficit present. Mental Status: She is alert and oriented to person, place, and time. Psychiatric: Mood and Affect: Mood normal. Behavior: Behavior normal. Thought Content: Thought content normal. Judgment: Judgment normal. Latest Ref Rng 02/26/2023 09/04/2023 03/14/2024 WBC 3.70 - 11.00 k/uL 4.50 5.03 4.58 RBC 3.90 - 5.20 m/uL 4.24 4.17 4.23 Hemoglobin 11.5 - 15.5 g/dL 14.9 14.5 14.9 Hematocrit 36.0 - 46.0 % 45.6 43.6 45.7 MCV 80.0 - 100.0 fL 107.5 (H) 104.6 (H) 108.0 (H) MCH 26.0 - 34.0 pg 35.1 (H) 34.8 (H) 35.2 (H) MCHC 30.5 - 36.0 g/dL 32.7 33.3 32.6 RDW-CV 11.5 - 15.0 % 12.6 12.8 12.2 Platelet Count 150 - 400 k/uL 183 179 187 MPV 9.0 - 12.7 fL 10.6 10.2 10.7 Neut% % 58.2 58.3 Abs Neut (ANC) 1.45 - 7.50 k/uL 2.93 2.67 Lymph% % 31.0 32.3 Abs Lymph 1.00 - 4.00 k/uL 1.56 1.48 [place]% % 6.4 6.1 Abs [place] <0.87 k/uL 0.32 0.28 Eosin% % 3.2 2.2 Abs Eosin <0.46 k/uL 0.16 0.10 Baso% % 1.0 1.1 Abs Baso <0.11 k/uL 0.05 0.05 Immature Gran % % 0.2 0.0 IMMATURE GRANS (ABS) <0.10 k/uL <0.03 <0.03 NRBC /100 WBC 0.0 0.0 Absolute nRBC <0.01 k/uL <0.01 <0.01 <0.01 DTYPE Auto Auto Protein, Total 6.3 - 8.0 g/dL 7.2 6.8 7.3 Albumin 3.9 - 4.9 g/dL 4.9 4.4 4.5 Calcium 8.5 - 10.2 mg/dL 9.9 9.5 9.6 Bilirubin, Total 0.2 - 1.3 mg/dL 0.6 0.5 0.5 Alkaline Phosphatase 34 - 123 U/L 96 68 67 AST 13 - 35 U/L 33 21 27 ALT 7 - 38 U/L 28 22 25 Glucose 74 - 99 mg/dL 73 (L) 81 79 BUN 7 - 21 mg/dL 16 17 18 Creatinine 0.58 - 0.96 mg/dL 0.72 0.76 0.74 Sodium 136 - 144 mmol/L 142 141 140 Potassium 3.7 - 5.1 mmol/L 4.5 4.2 4.4 Chloride 98 - 107 mmol/L 103 104 103 CO2 22 - 30 mmol/L 28 29 27 Anion Gap 8 - 15 mmol/L 11 8 (L) 10 eGFR >=60 mL/min/1.73m 88 82 84 Cholesterol, Total <200 mg/dL 242 (H) 189 203 (H) Triglyceride <150 mg/dL 123 97 145 HDL Cholesterol >39 mg/dL 65 63 62 Non HDL Cholesterol <130 mg/dL 177 (H) 126 141 (H) Fasting Time hrs 12 12 12 VLDL Cholesterol <30 mg/dL 25 19 29 TC:HDL Ratio <5.10 3.72 3.00 3.27 LDL Cholesterol <100 mg/dL 152 (H) 107 (H) 112 (H) LDL:HDL Ratio <2.54 2.34 1.70 1.81 Vitamin D 25 Hydroxy 31.0 - 80.0 ng/mL 66.7 59.4 51.5 Vitamin B12 232 - 1,245 pg/mL >2,000 (H) Folate >4.7 ng/mL >20.0 MMA 79 - 376 nmol/L 185 Legend: (H) High (L) Low Assessment and Plan # 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 - Increased nortriptyline to 100 mg at bedtime. - Discussed sleep hygiene, including reducing screen time before bed. - Taking melatonin and magnesium citrate 250 mg at bedtime to aid sleep. # Macrocytosis without anemia (D75.89) - MCV remains elevated at 108 fL; hemoglobin concentration is stable. - Previous B12 and folic acid levels within normal range; patient continues supplementation. - No signs of anemia or other hematological abnormalities. - Will recheck B12 levels at next appointment. # Essential hypertension (I10) - Blood pressure well-controlled at 132/70 mmHg. - Continue current antihypertensive regimen. # Vitamin D deficiency (E55.9) - Vitamin D levels are stable. - Continue current supplementation. # Mixed hyperlipidemia (E78.2) - LDL cholesterol remains slightly elevated at 112 mg/dL. - Experiencing myalgias; adjusted rosuvastatin dosage to 5 mg twice weekly. - Refilled rosuvastatin prescription with instructions to hold temporarily and resume at reduced frequency. # Nocturia more than twice per night (R35.1) - Experiencing frequent nocturia, requiring pad changes more than twice per night. - Discussed potential bladder irritability and fluid management. - Recommended magnesium citrate at bedtime to assist with sleep and potential leg cramping. - Consider referral to urology if symptoms persist. # Asymptomatic postmenopausal status (Z78.0) - No further intervention required. # Screening for colon cancer (Z12.11) # Family history of colon cancer in mother (Z80.0) - Last colonoscopy performed in 2018. - Ordered colonoscopy with Miralax prep; patient informed about procedure and sedation options. - Discussed family history of colon cancer; emphasized importance of regular screening. # Encounter for long-term current use of medication (Z79.899) - Refilled nortriptyline and rosuvastatin prescriptions. - Patient taking magnesium citrate and melatonin for sleep. # Screening for depression (Z13.31) # Encounter for screening examination for other mental health and behavioral disorders (Z13.39) - No signs of depression or anxiety; patient reports satisfaction with current life situation. # Encounter for immunization (Z23) - Discussed upcoming COVID-19 and influenza vaccinations; patient plans to receive them at the pharmacy. - Recommended RSV vaccine for additional protection. Added copper level to next labs since not yet done as part of work up for macrocytosis, Continue to monitor for other problems related to macrocytosis. Thus far, no other abnormalities noted, I spent a total of 47 minutes on the date of the service which included preparing to see the patient, [id number] patient care, completing clinical documentation, obtaining and/or reviewing separately obtained history, performing a medically appropriate examination, counseling and educating the patient/family/caregiver, ordering medications, tests, or procedures, independently interpreting results (not separately reported), and communicating results to the patient/family/caregiver. 47 Lalo Schultz MD documented in this encounter [facility] 03-09-2024 Telephone encounter Note PATIENT NOTIFIED OF SAME. [facility] 03-09-2024 Miscellaneous Notes PATIENT NOTIFIED OF SAME. Labs ordered, please let patient know. Patient calls and states that she has 6 month follow up scheduled with Dr. Schultz on 03/21/2024. Patient asking if lab orders can be placed so that patient can get labs done prior to appointment? Please review and advise, Sharron Woods RN documented in this encounter [facility] 03-09-2024 Telephone encounter Note Labs ordered, please let patient know. [facility] Work Phone: 03-08-2024 Telephone encounter Note Patient calls and states that she has 6 month follow up scheduled with Dr. Schultz on 03/21/2024. Patient asking if lab orders can be placed so that patient can get labs done prior to appointment? Please review and advise, Sharron Woods RN [facility] 09-19-2023 Miscellaneous Notes Order faxed to [facility] per patient request. Notified patient. Cori Young RN Filed Fax as requested to [facility] Patient requesting mammogram w/Vipul order be placed and faxed to [facility]. Order pended for provider review. Please call patient once this has been completed. Thank you. documented in this encounter [facility] 09-08-2023 History of Presen t illness Narrative This note was created using [employer]. Subjective Eliu Matamoros is a 73 year old female. Patient presents with: Recheck: 6 month follow up with labs SUBJECTIVE: Eliu Matamoros is a 73 year old year old lady here today for 6 month follow up appointment for review of medical conditions. BPs had been fine. Doing well on meds. 2 Thursday, Thu, for Crestor--just started past 2 to 3 weeks. Still taking her B12 gummies and folate. For sleep taking nighttime diphenhydramine liquid generic. With melatonin and magnesium, this helps with sleep. Also taking Tylenol PM 2 tablets. PAST MEDICAL HISTORY Diagnosis Date Achilles bursitis or tendinitis right shoulder Acute peptic ulcer, unspecified site, without mention of hemorrhage, perforation, or obstruction 10/06 Diarrhea Diverticulosis of colon (without mention of hemorrhage) External hemorrhoids without mention of complication Family history of malignant neoplasm of gastrointestinal tract family history of colon cancer Fibrosclerosis of breast fibrocystic breast disease Generalized osteoarthrosis, unspecified site Hemorrhage of gastrointestinal tract, unspecified Internal hemorrhoids without mention of complication Intractable migraine without aura 07/27/[address] 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 Bearden at [facility] Unspecified essential hypertension Unspecified hemorrhoids without mention of complication internal and externaldjd Unspecified tinnitus 11/16/2006 Left ear Urinary calculus, unspecified Renal stones Current Outpatient Medications Medication Sig nortriptyline (PAMELOR) 75 mg capsule Take 1 capsule by mouth daily at bedtime. rosuvastatin (CRESTOR) 5 mg tablet Take 1 tablet by mouth once daily. As directed (Patient taking differently: Take 5 mg by mouth once daily. Takes 2 tablets twice weekly) FOLIC ACID ORAL Take 1 tablet by mouth once daily. amLODIPine (NORVASC) 5 mg tablet Take 1 tablet by mouth once daily. atenolol (TENORMIN) 50 mg tablet Take 1 tablet by mouth twice daily. inulin (FIBER GUMMIES ORAL) Take 20 mg by mouth once daily. calcium carbonate/vitamin D3 (CALCIUM 600 + D ORAL) Take by mouth once daily. magnesium, aluminum hydroxide (MAG-AL ORAL) Take by mouth. Magnesium citrate acetaminophen 650 mg CR tablet Take 650 mg by mouth every 8 hours as needed. Two tabs twice daily docusate sodium (COLACE) 100 mg capsule Take 100 mg by mouth twice daily. Melatonin 5 mg cap Take 30 mg by mouth daily at bedtime. biotin 5 mg caspule Take 5 mg by mouth once daily. MULTIVIT WITH CALCIUM,IRON,MIN (WOMEN'S DAILY MULTIVITAMIN ORAL) Take by mouth. No current facility-administered medications for this visit. minute visit was spent counseling about above issues. Llao Schultz MD Review of Systems Objective BP 142/86 Pulse 64 Resp 16 Wt 78.9 kg (174 lb) LMP 07/11/2003 SpO2 96% BMI 32.34 kg/m Last 5 Encounter Wt Readings: Date: Wt: 09/08/2023 78.9 kg (174 lb) 05/20/2023 78.5 kg (173 lb 1 oz) 01/03/2023 0 kg () 11/28/2022 77.6 kg (171 lb) 08/18/2022 75.8 kg (167 lb) No waist measurement recorded Estimated body mass index is 32.34 kg/m as calculated from the following: Height as of 05/20/23: 156.2 cm (5' 1.5). Weight as of this encounter: 78.9 kg (174 lb). Last 5 Encounter BP Readings: Date: BP: 09/08/2023 142/86 05/20/2023 120/64 01/03/2023 144/76 11/28/2022 116/62 08/18/2022 138/78 Physical Exam Constitutional: Appearance: Normal appearance. HENT: Head: Normocephalic. Eyes: Conjunctiva/sclera: Conjunctivae normal. Cardiovascular: Rate and Rhythm: Normal rate and regular rhythm. Heart sounds: Normal heart sounds. Pulmonary: Effort: Pulmonary effort is normal. Breath sounds: Normal breath sounds. Musculoskeletal: Right lower leg: No edema. Left lower leg: No edema. Comments: noted hammertoes Skin: General: Skin is warm and dry. Neurological: General: No focal deficit present. Mental Status: She is alert and oriented to person, place, and time. Psychiatric: Mood and Affect: Mood normal. Behavior: Behavior normal. Thought Content: Thought content normal. Judgment: Judgment normal. Component Latest Ref Rng & Units 02/13/2022 08/11/2022 02/26/2023 09/04/2023 WBC 3.70 - 11.00 k/uL 5.50 5.55 4.50 5.03 RBC 3.90 - 5.20 m/uL 4.22 4.20 4.24 4.17 Hemoglobin 11.5 - 15.5 g/dL 14.5 14.6 14.9 14.5 Hematocrit 36.0 - 46.0 % 44.6 44.7 45.6 43.6 MCV 80.0 - 100.0 fL 105.7 (H) 106.4 (H) 107.5 (H) 104.6 (H) MCH 26.0 - 34.0 pg 34.4 (H) 34.8 (H) 35.1 (H) 34.8 (H) MCHC 30.5 - 36.0 g/dL 32.5 32.7 32.7 33.3 RDW-CV 11.5 - 15.0 % 12.5 12.3 12.6 12.8 Platelet Count 150 - 400 k/uL 174 194 183 179 MPV 9.0 - 12.7 fL 10.5 11.1 10.6 10.2 Neut% % 58.2 Abs Neut (ANC) 1.45 - 7.50 k/uL 2.93 Lymph% % 31.0 Abs Lymph 1.00 - 4.00 k/uL 1.56 [place]% % 6.4 Abs [place] <0.87 k/uL 0.32 Eosin% % 3.2 Abs Eosin <0.46 k/uL 0.16 Baso% % 1.0 Abs Baso <0.11 k/uL 0.05 Immature Gran % % 0.2 IMMATURE GRANS (ABS) <0.10 k/uL <0.03 NRBC /100 WBC 0.0 Absolute nRBC <0.01 k/uL <0.01 <0.01 <0.01 <0.01 DTYPE Auto Protein, Total 6.3 - 8.0 g/dL 7.0 7.3 7.2 6.8 Albumin 3.9 - 4.9 g/dL 4.8 4.6 4.9 4.4 Calcium 8.5 - 10.2 mg/dL 9.9 10.1 9.9 9.5 Bilirubin, Total 0.2 - 1.3 mg/dL 0.6 0.5 0.6 0.5 Alkaline Phosphatase 34 - 123 U/L 58 59 96 68 AST 13 - 35 U/L 24 27 33 21 ALT 7 - 38 U/L 19 20 28 22 Glucose 74 - 99 mg/dL 70 (L) 82 73 (L) 81 BUN 7 - 21 mg/dL 21 16 16 17 Creatinine 0.58 - 0.96 mg/dL 0.81 0.75 0.72 0.76 Sodium 136 - 144 mmol/L 140 140 142 141 Potassium 3.7 - 5.1 mmol/L 4.3 4.3 4.5 4.2 Chloride 97 - 105 mmol/L 102 103 103 104 CO2 22 - 30 mmol/L 26 25 28 29 Anion Gap 9 - 18 mmol/L 12 12 11 8 (L) eGFR >=60 mL/min/1.73m 77 84 88 82 Cholesterol, Total <200 mg/dL 252 (H) 239 (H) 242 (H) 189 Triglyceride <150 mg/dL 117 130 123 97 HDL Cholesterol >39 mg/dL 63 69 65 63 Non HDL Cholesterol <130 mg/dL 189 (H) 170 (H) 177 (H) 126 Fasting Time hrs 12 12 12 12 VLDL Cholesterol <30 mg/dL 23 26 25 19 TC:HDL Ratio <5.10 4.00 3.46 3.72 3.00 LDL Cholesterol <100 mg/dL 166 (H) 144 (H) 152 (H) 107 (H) LDL:HDL Ratio <2.54 2.63 (H) 2.09 2.34 1.70 Vitamin D 25 Hydroxy 31.0 - 80.0 ng/mL 36.7 64.6 66.7 59.4 Vitamin B12 232 - 1,245 pg/mL >2,000 (H) Folate >4.7 ng/mL >20.0 MMA 79 - 376 nmol/L 185 Assessment and Plan Encounter Diagnosis ICD-10-CM 1. Essential hypertension I10 amLODIPine (NORVASC) 5 mg tablet atenolol (TENORMIN) 50 mg tablet COMP METABOLIC PANEL CBC BP better on rechecl. Stay on same meds. 2. SVT (supraventricular tachycardia) (HCC) I47.10 atenolol (TENORMIN) 50 mg tablet No fast heart rate during day. Gets if lays on left side.Stay on same meds and breathes right. 3. Vitamin D deficiency E55.9 VITAMIN D 25 HYDROXY Well replaced. Stay on same supplements 4. Mixed hyperlipidemia E78.2 LIPID PANEL BASIC Much improved LDL with Crestor. 5. Macrocytosis without anemia D75.89 FOLATE SERUM VITAMIN B12 BLOOD MCV and MCHC improving to normal range. No anemia 6. Encounter for long-term current use of medication Z79.899 COMP METABOLIC PANEL CBC Above issues addressed with patient. Patient involved in shared decision making for management of medical issues. History and medications reviewed. Epic updated as needed Refills and/or prescriptions taken care of and meds adjusted as indicated after reviewed history, exam and labs. Health Maintenance reviewed. Updated record and/or ordered tests as recorded. Lalo Schultz MD documented in this encounter [facility] 09-03-2023 Miscellaneous Notes Phoned patient and aware lab orders in computer for her to complete. OK Patient calling has appt 09/08/[address] Schultz, 6 month appt, tried to get labs done today and no orders in computer. Patient said she wants to get labs completed tomorrow. Pending orders if wanted, needs diagnosis. Please notify patient so she can schedule lab appt. Please advise documented in this encounter [facility] 05-20-2023 History of Presen t illness Narrative Images from the original note were not included. [facility] [place] Erica Orozco Department of Cardiovascular Medicine SECTION OF [facility]ION[facility] C[facility]IOLOGY/[facility] OUTPATIENT VISIT DATE May 20, 2023 OUTPATIENT VISIT TYPE ESTABLISHED PATIENT Name: Eliu Matamoros : 1950 Date: May 20, 2023 PRIMARY CARE PHYSICIAN: Lalo Schultz [address] [place] [address] REFERRING PHYSICIAN: Tameka Melgar [address] [facility] [address] CHIEF COMPLAINT: Cardiology Follow Up IMPRESSION / PLAN: 1. Palpitations secondary to PSVT with evidence of mild tachybradycardia syndrome. Patient continues to do very well on atenolol 50 mg twice a day with only rare palpitations when laying on her left lateral side. If she has any significant recurrences I would consider changing her to nadolol. 2. Hypertension. Patient is doing well with adequate blood pressures on current medications and will continue to monitor her blood pressure with the change to atenolol. 3. Insomnia. Patient is using various products including Tylenol PM and melatonin and did discuss maximal dose of melatonin being 10 mg. Follow Up Instructions Return in about 1 year (around 05/20/2024). ORDERS FOR TODAY'S VISIT: No orders found for this visit on 05/20/23. HISTORY OF PRESENT ILLNESS: Ms. Matamoros is a 70 year old female with a past history of hypertension, migraine headaches he states over the last year again developing some brief episodes of palpitations and a feeling of a racing heartbeat but nothing lasting longer than 5 or 10 seconds. Interestingly she notices it mostly at night an laying on her left side. Patient continues to do well on atenolol 50 mg twice a day and has had only rare palpitations particularly when she lays on her left lateral side. She denies any syncope or near syncope, chest pain, shortness of breath, or lower extremity edema. PAST MEDICAL HISTORY Diagnosis Date Achilles bursitis or tendinitis right shoulder Acute peptic ulcer, unspecified site, without mention of hemorrhage, perforation, or obstruction 10/06 Diarrhea Diverticulosis of colon (without mention of hemorrhage) External hemorrhoids without mention of complication Family history of malignant neoplasm of gastrointestinal tract family history of colon cancer Fibrosclerosis of breast fibrocystic breast disease Generalized osteoarthrosis, unspecified site Hemorrhage of gastrointestinal tract, unspecified Internal hemorrhoids without mention of complication Intractable migraine without aura 07/27/[address] 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 Bearden at [facility] Unspecified essential hypertension Unspecified hemorrhoids without mention of complication internal and externaldjd Unspecified tinnitus 11/16/2006 Left ear Urinary calculus, unspecified Renal stones PAST SURGICAL HISTORY Procedure Laterality Date APPENDECTOMY ARTHRP INTERPOS INTERCARPAL/METACARPAL JOINTS Right 08/16/2021 Right thumb CMC arthroplasty with trapeciectomy and 1st dorsal compartment release COLONOS VIA STOMA W/ ABLATION COLONOSCOPY FLX DX W/COLLJ SPEC WHEN PFRMD 10/09/2006 PAST SURGICAL HISTORY OF Ultrasound kidney stones PAST SURGICAL HISTORY OF Right 01/01/2018 total right knee replacement PAST SURGICAL HISTORY OF Left 06/27/2020 inguinal hernai repair SIGMOIDOSCOPY FLX DX W/COLLJ SPEC BR/WA IF PFRMD 10/13/2002 Sigmoidoscopy, flexible TONSILLECTOMY PRIMARY/SECONDARY <AGE 10 As child Tonsillectomy SOCIAL HISTORY Social History Tobacco Use Smoking status: Former Years: 10 Types: Cigarettes Quit date: 07/06/1979 Years since quittin.9 Smokeless tobacco: Never Vaping Use Vaping Use: Never used Substance Use Topics Alcohol use: Not Currently Alcohol/week: 7.0 standard drinks of alcohol Types: 7 Shots of liquor per week Drug use: No FAMILY HISTORY Problem Relation Age of Onset Colon Cancer Mother of colon cancer Headache Mother Hypertension Father Breast Cancer Sister Headache Son migraine Headache Daughter migraine Headache Daughter migraine ALLERGIES: ALLERGIES Allergen Reactions Aspirin Contraindication-Medical Surgical History of ulcer Atorvastatin Myalgia Niacin Intolerance sweats and hot flashes Simvastatin Intolerance myalgias--severe; resolved after stopped but still with leg pain MEDICATIONS: nortriptyline (PAMELOR) 75 mg capsule Take 1 capsule by mouth daily at bedtime. rosuvastatin (CRESTOR) 5 mg tablet Take 1 tablet by mouth once daily. As directed (Patient taking differently: Take 5 mg by mouth once daily. Takes 2 tablets twice weekly) FOLIC ACID ORAL Take 1 tablet by mouth once daily. amLODIPine (NORVASC) 5 mg tablet Take 1 tablet by mouth once daily. atenolol (TENORMIN) 50 mg tablet Take 1 tablet by mouth twice daily. inulin (FIBER GUMMIES ORAL) Take 20 mg by mouth once daily. calcium carbonate/vitamin D3 (CALCIUM 600 + D ORAL) Take by mouth once daily. magnesium, aluminum hydroxide (MAG-AL ORAL) Take by mouth. Magnesium citrate acetaminophen 650 mg CR tablet Take 650 mg by mouth every 8 hours as needed. Two tabs twice daily docusate sodium (COLACE) 100 mg capsule Take 100 mg by mouth twice daily. Melatonin 5 mg cap Take 30 mg by mouth daily at bedtime. biotin 5 mg caspule Take 5 mg by mouth once daily. MULTIVIT WITH CALCIUM,IRON,MIN (WOMEN'S DAILY MULTIVITAMIN ORAL) Take by mouth. calcium carbonate/vitamin D3 (CALCIUM 600 + D,3, ORAL) Take 1 capsule by mouth once daily. REVIEW OF SYSTEMS: GENERAL: Negative for: Weight loss or gain, Fever or Chills NECK: Negative for: Swelling, Pain, Stiffness RESPIRATORY: Negative for: Cough, Blood in Sputum GASTROINTESTINAL: Negative for: Trouble swallowing, Heartburn, Change in bowel habits, Blood in stool, Dark black stools MUSCULOSKELETAL: Negative for: Severe Muscle or joint pain, Stiffness , Joint swelling NEUROLOGIC/PSYCHIATRIC: Negative for: Paralysis, Numbness, Tingling, Tremor SKIN: Negative for: Rashes, Itching HEMATOLOGICAL/LYMPHATIC: Negative for: Easy bruising , Easy bleeding ENDOCRINE: Negative for: Heat or cold intolerance, Excessive sweating, Frequent urination All other review of systems, per history of present illness. PHYSICAL EXAMINATION: BP 120/64 Pulse 70 Ht 156.2 cm (5' 1.5) Wt 78.5 kg (173 lb 1 oz) LMP 07/11/2003 SpO2 100% BMI 32.17 kg/m Last 2 Encounter Wt Readings: Date: Wt: 11/15/2020 78.9 kg (174 lb) 08/16/2020 79.4 kg (175 lb) General: Well appearing, in no acute distress. Skin: No clubbing, no cyanosis. Eyes: Extra ocular movements intact Oropharynx: No gross abnormalities Neck: No jugular venous distention, no carotid bruits, carotids have a normal upstroke, no palpable thyromegaly. Lungs: Clear to auscultation bilaterally, no wheezing or rhonchi. Heart: Regular rhythm, PMI not displaced, S1, S2, no S3, no S4, no heaves, no murmur. Abdomen: Soft, nontender, bowel sounds normal, no palpable organomegaly, no bruits. Extremities: No peripheral edema . +2 distal pulses bilaterally. Neuro: Oriented to person, place and time, alert, cooperative, gait coordinated. CARDIOVASCULAR MEDICINE TESTING: Electrocardiogram: Sinus rhythm with first-degree AV block Tameka Melgar DO, [facility] Staff Community Relations Liaison Tameka and Malena Yao Dept. of Cardiovascular Medicine Heart, Vascular and Thoracic [place], [facility] This document was generated using the assistance of voice recognition software. If there are any errors of spelling, grammar, syntax or meaning, please feel free to contact me directly at anytime. documented in this encounter [facility] 05-15-2023 Miscellaneous Notes Noted Type of form: Surgical clearance form from [facility] from Dr Ramos Leahy. Left total knee arthroplasty to be completed on 07/13/22. Form received via fax from [facility] When form is completed, Fax form to [phone] Ramos Leahy Form to be completed on 06/16/23 at [facility] with PCP Juliette Gray LPN documented in this encounter [facility] 03-06-2023 Instructions Lalo Schultz MD - 03/06/2023 12:43 PM EDT 1000mcg = 1mg folic acid Crestor 1/2 pill once weekly then after 4 weeks increase to twice weekly then after 4 weeks as tolerated increase to 3 times weekly. Can decide after this whether to increase to whole pill one dose per week or get labs. documented in this encounter [facility] 03-06-2023 History of Presen t illness Narrative This note was created using Ever[employer] Mediariter. Subjective Eliu Matamoros is a 72 year old female. Patient presents with: F/U 6 months: Labs prior SUBJECTIVE: Eliu Matamoros is a 72 year old year old lady here today for 6 month follow up appointment for review of medical conditions. Needed parking placard since hers is expiring. Noted issues with knee. Need to determine when last colonoscopy was done. Through [facility]. Plans to get knee replacement. Noted had a fall and broke a rib--landed on rock Stable on current meds. See assessment and plan for other issues addressed. PAST MEDICAL HISTORY Diagnosis Date Achilles bursitis or tendinitis right shoulder Acute peptic ulcer, unspecified site, without mention of hemorrhage, perforation, or obstruction 10/06 Diarrhea Diverticulosis of colon (without mention of hemorrhage) External hemorrhoids without mention of complication Family history of malignant neoplasm of gastrointestinal tract family history of colon cancer Fibrosclerosis of breast fibrocystic breast disease Generalized osteoarthrosis, unspecified site Hemorrhage of gastrointestinal tract, unspecified Internal hemorrhoids without mention of complication Intractable migraine without aura 07/27/[address] 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 Bearden at [facility] Unspecified essential hypertension Unspecified hemorrhoids without mention of complication internal and externaldjd Unspecified tinnitus 11/16/2006 Left ear Urinary calculus, unspecified Renal stones Current Outpatient Medications Medication Sig FOLIC ACID ORAL Take 1 tablet by mouth once daily. amLODIPine (NORVASC) 5 mg tablet Take 1 tablet by mouth once daily. atenolol (TENORMIN) 50 mg tablet Take 1 tablet by mouth twice daily. inulin (FIBER GUMMIES ORAL) Take 20 mg by mouth once daily. calcium carbonate/vitamin D3 (CALCIUM 600 + D ORAL) Take by mouth once daily. nortriptyline (PAMELOR) 75 mg capsule Take 1 capsule by mouth daily at bedtime. magnesium, aluminum hydroxide (MAG-AL ORAL) Take by mouth. Magnesium citrate acetaminophen 650 mg CR tablet Take 650 mg by mouth every 8 hours as needed. Two tabs twice daily docusate sodium (COLACE) 100 mg capsule Take 100 mg by mouth twice daily. calcium carbonate/vitamin D3 (CALCIUM 600 + D,3, ORAL) Take 1 capsule by mouth once daily. Melatonin 5 mg cap Take 30 mg by mouth daily at bedtime. biotin 5 mg caspule Take 5 mg by mouth once daily. MULTIVIT WITH CALCIUM,IRON,MIN (WOMEN'S DAILY MULTIVITAMIN ORAL) Take by mouth. No current facility-administered medications for this visit. Review of Systems Objective BP (P) 123/73 Pulse (P) 67 Temp (P) 36.5 C (97.7 F) Resp (P) 18 Wt (P) 77.1 kg (170 lb) LMP 07/11/2003 SpO2 (P) 98% BMI (P) 31.60 kg/m Last 5 Encounter Wt Readings: Date: Wt: 01/03/2023 0 kg () 11/28/2022 77.6 kg (171 lb) 08/18/2022 75.8 kg (167 lb) 05/08/2022 73.5 kg (162 lb) 02/24/2022 72.6 kg (160 lb) No waist measurement recorded Estimated body mass index is 31.6 kg/m (pended) as calculated from the following: Height as of 05/08/22: 156.2 cm (5' 1.5). Weight as of this encounter: (P) 77.1 kg (170 lb). Last 5 Encounter BP Readings: Date: BP: 01/03/2023 144/76 11/28/2022 116/62 08/18/2022 138/78 05/08/2022 118/64 02/24/2022 128/70 Physical Exam Constitutional: Appearance: Normal appearance. HENT: Head: Normocephalic. Eyes: Conjunctiva/sclera: Conjunctivae normal. Cardiovascular: Rate and Rhythm: Normal rate and regular rhythm. Heart sounds: Normal heart sounds. Pulmonary: Effort: Pulmonary effort is normal. Breath sounds: Normal breath sounds. Musculoskeletal: Right lower leg: No edema. Left lower leg: No edema. Skin: General: Skin is warm and dry. Neurological: General: No focal deficit present. Mental Status: She is alert and oriented to person, place, and time. Psychiatric: Mood and Affect: Mood normal. Behavior: Behavior normal. Thought Content: Thought content normal. Judgment: Judgment normal. Component Latest Ref Rng & Units 02/13/2022 08/11/2022 02/26/2023 Protein, Total 6.3 - 8.0 g/dL 7.0 7.3 7.2 Albumin 3.9 - 4.9 g/dL 4.8 4.6 4.9 Calcium 8.5 - 10.2 mg/dL 9.9 10.1 9.9 Bilirubin, Total 0.2 - 1.3 mg/dL 0.6 0.5 0.6 Alkaline Phosphatase 34 - 123 U/L 58 59 96 AST 13 - 35 U/L 24 27 33 ALT 7 - 38 U/L 19 20 28 Glucose 74 - 99 mg/dL 70 (L) 82 73 (L) BUN 7 - 21 mg/dL 21 16 16 Creatinine 0.58 - 0.96 mg/dL 0.81 0.75 0.72 Sodium 136 - 144 mmol/L 140 140 142 Potassium 3.7 - 5.1 mmol/L 4.3 4.3 4.5 Chloride 97 - 105 mmol/L 102 103 103 CO2 22 - 30 mmol/L 26 25 28 Anion Gap 9 - 18 mmol/L 12 12 11 eGFR >=60 mL/min/1.73m 77 84 88 WBC 3.70 - 11.00 k/uL 5.50 5.55 4.50 RBC 3.90 - 5.20 m/uL 4.22 4.20 4.24 Hemoglobin 11.5 - 15.5 g/dL 14.5 14.6 14.9 Hematocrit 36.0 - 46.0 % 44.6 44.7 45.6 MCV 80.0 - 100.0 fL 105.7 (H) 106.4 (H) 107.5 (H) MCH 26.0 - 34.0 pg 34.4 (H) 34.8 (H) 35.1 (H) MCHC 30.5 - 36.0 g/dL 32.5 32.7 32.7 RDW-CV 11.5 - 15.0 % 12.5 12.3 12.6 Platelet Count 150 - 400 k/uL 174 194 183 MPV 9.0 - 12.7 fL 10.5 11.1 10.6 Absolute nRBC <0.01 k/uL <0.01 <0.01 <0.01 Cholesterol, Total <200 mg/dL 252 (H) 239 (H) 242 (H) Triglyceride <150 mg/dL 117 130 123 HDL Cholesterol >39 mg/dL 63 69 65 Non HDL Cholesterol <130 mg/dL 189 (H) 170 (H) 177 (H) Fasting Time hrs 12 12 12 VLDL Cholesterol <30 mg/dL 23 26 25 TC:HDL Ratio <5.10 4.00 3.46 3.72 LDL Cholesterol <100 mg/dL 166 (H) 144 (H) 152 (H) LDL:HDL Ratio <2.54 2.63 (H) 2.09 2.34 Vitamin D 25 Hydroxy 31.0 - 80.0 ng/mL 36.7 64.6 66.7 Vitamin B12 232 - 1,245 pg/mL >2,000 (H) Folate >4.7 ng/mL >20.0 MMA 79 - 376 nmol/L 185 The 10-year ASCVD risk score (Godwin BARROS, et al., 2019) is: 23.9% Values used to calculate the score: Age: 72 years Sex: Female Is Non- : No Diabetic: No Tobacco smoker: No Systolic Blood Pressure: 144 mmHg Is BP treated: Yes HDL Cholesterol: 65 mg/dL Total Cholesterol: 242 mg/dL Assessment and Plan Encounter Diagnosis ICD-10-CM 1. Mixed hyperlipidemia E78.2 rosuvastatin (CRESTOR) 5 mg tablet Doing well. Stay on same dose statin 2. Vitamin D deficiency E55.9 Continue to adjsut dose as needed. 3. Essential hypertension I10 Controlled. Continues present med(s) 4. SVT (supraventricular tachycardia) (HCC) I47.1 Controlled. Continue present management 5. Primary osteoarthritis of left knee M17.12 Will get TKA in July 6. Screening for colon cancer Z12.11 Above issues addressed with patient. Patient involved in shared decision making for management of medical issues. History and medications reviewed. Epic updated as needed Refills and/or prescriptions taken care of and meds adjusted as indicated after reviewed history, exam and labs. Health Maintenance reviewed. Updated record and/or ordered tests as recorded. Encouraged on efforts at healthy diet and regular exercise and adequate sleep. Lalo Schultz MD documented in this encounter [facility] 02-13-2023 Miscellaneous Notes Normal indices at rest ankle and toe. documented in this encounter [facility] 01-13-2023 Miscellaneous Notes PVR is not an US. Must have done some sort of screening at home for PAD. I can order PVR. Please schedule. Patient states it is a test to check the severity of the PAD......PVR? What US did she want to have Yes Pt recently had an in home test through her insurance co & was dx'd with PAD. Pt states she was recommended to have an US. Pt asking if pcp would order this for her? 2. Pt is using otc lidocaine 4% patches for her rib injury from a fall. Pt uses 12 hrs at hs then off during the day. Pt started using the patches on her knee as well but uses it the opposite time that she has the patch on her side. Pt asking if this is ok? Please advise. Paulina Lacy LPN documented in this encounter [facility] 01-07-2023 Miscellaneous Notes Informed patient would recommend not to push mow or do activities which would increase risk of falling. Advise limited activities for 4-6 weeks until improved symptoms. Amirah Aguilar APRN.JASWANT Pt was seen in EX 01/03/23 & states she was dx'd with a rib fracture. Pt is asking if she has any limitations on activity? Pt wants to mow the lawn - part push & part riding. Please advise. Paulina Lacy LPN documented in this encounter [facility] 01-03-2023 Miscellaneous Notes Addended by: VIRGIL STARK on: 01/03/2023 01:27 PM Modules accepted: Orders documented in this encounter [facility] 01-03-2023 History of Presen t illness Narrative Images from the original note were not included. Subjective Came in with complaints of right forearm and right rib pain. Patient says she fell on top of a rock. Patient says she had trouble sleeping last night due to the amount of pain. Patient denies any other injuries or pain. The history is provided by the patient. No radiology administrator was used. Fall Review of Systems Constitutional: Negative. Skin: Negative. Objective Physical Exam Constitutional: Appearance: Normal appearance. Pulmonary: Effort: Pulmonary effort is normal. Skin: Comments: Area robison mild amount of swelling and tenderness when palpated. Purple area robison tenderness when palpated. No signs of deformity. Neurological: Mental Status: She is alert. PAST MEDICAL HISTORY Diagnosis Date Achilles bursitis or tendinitis right shoulder Acute peptic ulcer, unspecified site, without mention of hemorrhage, perforation, or obstruction 10/06 Diarrhea Diverticulosis of colon (without mention of hemorrhage) External hemorrhoids without mention of complication Family history of malignant neoplasm of gastrointestinal tract family history of colon cancer Fibrosclerosis of breast fibrocystic breast disease Generalized osteoarthrosis, unspecified site Hemorrhage of gastrointestinal tract, unspecified Internal hemorrhoids without mention of complication Intractable migraine without aura 07/27/[address] 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 Bearden at [facility] Unspecified essential hypertension Unspecified hemorrhoids without mention of complication internal and externaldjd Unspecified tinnitus 11/16/2006 Left ear Urinary calculus, unspecified Renal stones PAST SURGICAL HISTORY Procedure Laterality Date APPENDECTOMY ARTHRP INTERPOS INTERCARPAL/METACARPAL JOINTS Right 08/16/2021 Right thumb CMC arthroplasty with trapeciectomy and 1st dorsal compartment release COLONOS VIA STOMA W/ ABLATION COLONOSCOPY FLX DX W/COLLJ SPEC WHEN PFRMD 10/09/2006 PAST SURGICAL HISTORY OF Ultrasound kidney stones PAST SURGICAL HISTORY OF Right 01/01/2018 total right knee replacement PAST SURGICAL HISTORY OF Left 06/27/2020 inguinal hernai repair SIGMOIDOSCOPY FLX DX W/COLLJ SPEC BR/WA IF PFRMD 10/13/2002 Sigmoidoscopy, flexible TONSILLECTOMY PRIMARY/SECONDARY <AGE 10 As child Tonsillectomy ALLERGIES Aspirin, Atorvastatin, Niacin, and Simvastatin MEDICATIONS FOLIC ACID ORAL Take 1 tablet by mouth once daily. amLODIPine (NORVASC) 5 mg tablet Take 1 tablet by mouth once daily. atenolol (TENORMIN) 50 mg tablet Take 1 tablet by mouth twice daily. inulin (FIBER GUMMIES ORAL) Take 20 mg by mouth once daily. nortriptyline (PAMELOR) 75 mg capsule Take 1 capsule by mouth daily at bedtime. acetaminophen 650 mg CR tablet Take 650 mg by mouth every 8 hours as needed. Two tabs twice daily docusate sodium (COLACE) 100 mg capsule Take 100 mg by mouth twice daily. calcium carbonate/vitamin D3 (CALCIUM 600 + D,3, ORAL) Take 1 capsule by mouth once daily. Melatonin 5 mg cap Take 30 mg by mouth daily at bedtime. biotin 5 mg caspule Take 5 mg by mouth once daily. MULTIVIT WITH CALCIUM,IRON,MIN (WOMEN'S DAILY MULTIVITAMIN ORAL) Take by mouth. calcium carbonate/vitamin D3 (CALCIUM 600 + D ORAL) Take by mouth once daily. (Patient not taking: No sig reported) magnesium, aluminum hydroxide (MAG-AL ORAL) Take by mouth. Magnesium citrate FAMILY HISTORY Problem Relation Age of Onset Colon Cancer Mother of colon cancer Headache Mother Hypertension Father Breast Cancer Sister Headache Son migraine Headache Daughter migraine Headache Daughter migraine Social History Tobacco Use Smoking status: Former Years: 10.00 Types: Cigarettes Quit date: 07/06/1979 Years since quittin.5 Smokeless tobacco: Never Vaping Use Vaping Use: Never used Substance Use Topics Alcohol use: Not Currently Alcohol/week: 7.0 standard drinks Types: 7 Shots of liquor per week Drug use: No ASSESSMENT/PLAN: 1. Pain - ICD9: 780.96, ICD10: R52 - XR FOREARM GENERAL 2V AP/LAT RIGHT - XR RIBS/CHEST 3V AP RIB/OBLS/CXR RIGHT * * *Final Report* * * DATE OF EXAM: Jan 03 2023 10:48AM WOX [id number] - XR FOREARM 2V AP/LAT RT / PROCEDURE REASON: Pain * * * * Physician Interpretation * * * * XR FOREARM 2V AP/LAT RT PROVIDED HISTORY: Pain COMPARISON: No previous similar exams are available for comparison TECHNIQUE: 2 views of right forearm RESULT: Bony mineralization is within normal limits. Osseous alignment appears intact. No acute fracture or radiopaque foreign body is seen. IMPRESSION IMPRESSION: No acute fractures seen Word Processing Specialist: [facility]IT[facility]anwal Transcribe Date/Time: Jan 03 2023 11:33A Dictated by : JUAN PABLO FRENCH MD * * * * Physician Interpretation * * * * Examination: XR RIB/CHST 3V AP RIB/OBL/CHST R History: Pain Technique: XR RIB/CHST 3V AP RIB/OBL/CHST R Comparison: 08/21/[address] abdomen of 06/27/2009 RESULT: Stable elevation of the right hemidiaphragm. No pleural fluid or pneumothorax. Stable atelectasis at the right lung base. Right-sided rib films show no displaced fracture. Possible nondisplaced fracture of the lateral right sided 8 rib. No pneumothorax. Degenerative changes throughout the spine. Scoliosis IMPRESSION IMPRESSION: ELEVATED RIGHT HEMIDIAPHRAGM. ATELECTASIS AT THE RIGHT LUNG BASE. POSSIBLE NONDISPLACED FRACTURE OF THE RIGHT LATERAL EIGHTH RIB. NO DISPLACED FRACTURE OR PNEUMOTHORAX Word Processing Specialist: FERDINAND Transcribe Date/Time: Jan 03 2023 12:28P Dictated by : DIO SILVEIRA MD Was educated about proper use of Voltaren. Patient will follow-up if signs or symptoms seem to be getting worse not better. Patient denies any questions at this time. Virgil Stark APRN.JASWANT documented in this encounter [facility] 09-03-2022 History of Presen t illness Narrative POPULATION HEALTH NAVIGATION OUTREACH Action/FYI: [employer] Care Gaps 09/03/22 Discuss the following due/overdue HM care gaps: ~Mammogram Outcome: ~Left message on voice mail and sent [employer] message. Patient Identified by Name and : NO Outreach Outcome/Action Unable to reach patient: Left message [employer] message sent Did you use a PCP flex slot to schedule this appointment? N/A Reason for Outreach Care Gap or Scheduling/Wellness visits Payer: Payor: [employer] MEDICARE / Plan: AET MEDICARE PPO / Product Type: PPO / Care Gap Reviewed:: Breast Cancer screening Reminder: Reminder note to check Health Maintenance for items below Health Maintenance items due: BP CONTROLLED (<130/80) Never done MAMMOGRAM due on 09/12/2022 Navigation Signature: Gabriella Chen Population Health Navigator September 03, 2022 4:23 PM documented in this encounter [facility] 08-21-2022 History of Presen t illness Narrative Radiology Service Progress Note PATIENT NAME: Eliu Matamoros DATE OF SERVICE: August 21, 2022 TIME: 11:16 AM PATIENT IDENTITY VERIFICATION COMPLETED USING TWO (2) IDENTIFIERS: Name and Date of confirmed by patient verbally. FALL SCREENING: Has the patient had 2 falls in the last year or 1 fall with injury or currently using an Ambulatory Assistive Device (Walker, Cane, Wheelchair, Crutches, etc.)? No PATIENT GENDER DATA: Female. status: : No status: NO. PATIENT RELEVANT IMPLANT DATA REVIEWED: Yes RADIOLOGY DEPARTMENT: General X-ray: Exam(s) Completed: Upper Extremity X-Ray(s): Sternoclavicular Joints PERIPHERAL IV DATA: Not applicable SIGNED BY: RT Vinny(R) August 21, 2022 11:16 AM documented in this encounter [facility] 08-19-2022 Miscellaneous Notes Order for Mammogram screening with vipul faxed to [facility]. Juliette Gray LPN documented in this encounter [facility] 08-18-2022 History of Presen t illness Narrative This note was created using [employer] Mediariter. Subjective Eliu Matamoros is a 72 year old female. Patient presents with: F/U 6 months SUBJECTIVE: Eliu Matamoros is a 72 year old year old lady here today for 6 month follow up appointment for review of medical conditions. Avoids ibuprofen due to history of ulcers. Tylenol down from 4 to6 per day and down to just bedtime dose. Tight neck muscles noted on left side of neck. Hurts when turns to right. Does not have yet. Daughter is her surrogate decision maker Noted prominent SC joint on right. No pain or tenderness. Hammertoes both feet noted. Gets toe pain. Worse when shoes are off and stretches out legs and feet while sitting in recliner. PAST MEDICAL HISTORY Diagnosis Date Achilles bursitis or tendinitis right shoulder Acute peptic ulcer, unspecified site, without mention of hemorrhage, perforation, or obstruction 10/06 Diarrhea Diverticulosis of colon (without mention of hemorrhage) External hemorrhoids without mention of complication Family history of malignant neoplasm of gastrointestinal tract family history of colon cancer Fibrosclerosis of breast fibrocystic breast disease Generalized osteoarthrosis, unspecified site Hemorrhage of gastrointestinal tract, unspecified Internal hemorrhoids without mention of complication Lumbar spondylosis Dr. 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 Bearden at [facility] [place] Unspecified essential hypertension Unspecified hemorrhoids without mention of complication internal and externaldjd Unspecified tinnitus 11/16/2006 Left ear Urinary calculus, unspecified Renal stones Current Outpatient Medications Medication Sig FOLIC ACID ORAL Take 1 tablet by mouth once daily. inulin (FIBER GUMMIES ORAL) Take 20 mg by mouth once daily. nortriptyline (PAMELOR) 75 mg capsule Take 1 capsule by mouth daily at bedtime. amLODIPine (NORVASC) 5 mg tablet Take 1 tablet by mouth once daily. atenolol (TENORMIN) 50 mg tablet Take 1 tablet by mouth twice daily. magnesium, aluminum hydroxide (MAG-AL ORAL) Take by mouth. Magnesium citrate acetaminophen 650 mg CR tablet Take 650 mg by mouth every 8 hours as needed. Two tabs twice daily docusate sodium (COLACE) 100 mg capsule Take 100 mg by mouth twice daily. calcium carbonate/vitamin D3 (CALCIUM 600 + D,3, ORAL) Take 1 capsule by mouth once daily. Melatonin 5 mg cap Take 30 mg by mouth daily at bedtime. biotin 5 mg caspule Take 5 mg by mouth once daily. MULTIVIT WITH CALCIUM,IRON,MIN (WOMEN'S DAILY MULTIVITAMIN ORAL) Take by mouth. calcium carbonate/vitamin D3 (CALCIUM 600 + D ORAL) Take by mouth once daily. (Patient not taking: Reported on 08/18/2022) [id number]-Fish Oil 1,000 mg (120 mg-180 mg) cap Take 2 g by mouth once daily. Takes three daily No current facility-administered medications for this visit. Review of Systems Objective BP 138/78 Pulse 62 Temp 36.7 C (98 F) Resp 18 Wt 75.8 kg (167 lb) LMP 07/11/2003 SpO2 98% BMI 31.04 kg/m Last 5 Encounter Wt Readings: Date: Wt: 08/18/2022 75.8 kg (167 lb) 05/08/2022 73.5 kg (162 lb) 02/24/2022 72.6 kg (160 lb) 10/03/2021 0 kg () 08/14/2021 71.2 kg (157 lb) No waist measurement recorded Estimated body mass index is 31.04 kg/m as calculated from the following: Height as of 05/08/22: 156.2 cm (5' 1.5). Weight as of this encounter: 75.8 kg (167 lb). Last 5 Encounter BP Readings: Date: BP: 08/18/2022 138/78 05/08/2022 118/64 02/24/2022 128/70 10/03/2021 124/80 08/16/2021 137/63 Physical Exam Constitutional: Appearance: Normal appearance. HENT: Head: Normocephalic. Eyes: Conjunctiva/sclera: Conjunctivae normal. Cardiovascular: Rate and Rhythm: Normal rate and regular rhythm. Heart sounds: Normal heart sounds. Pulmonary: Effort: Pulmonary effort is normal. Breath sounds: Normal breath sounds. Musculoskeletal: Comments: Noted second left toe main hammertoe, with slight hammertoes other toes. Skin: General: Skin is warm and dry. Neurological: General: No focal deficit present. Mental Status: She is alert and oriented to person, place, and time. Psychiatric: Mood and Affect: Mood normal. Behavior: Behavior normal. Thought Content: Thought content normal. Judgment: Judgment normal. Component Latest Ref Rng & Units 08/14/2021 02/13/2022 07/01/2022 08/11/2022 Protein, Total 6.3 - 8.0 g/dL 6.9 7.0 7.3 Albumin 3.9 - 4.9 g/dL 4.6 4.8 4.6 Calcium 8.5 - 10.2 mg/dL 9.5 9.9 10.1 Bilirubin, Total 0.2 - 1.3 mg/dL 0.6 0.6 0.5 Alkaline Phosphatase 34 - 123 U/L 53 58 59 AST 13 - 35 U/L 28 24 27 Glucose 74 - 99 mg/dL 76 70 (L) 82 BUN 7 - 21 mg/dL 18 21 16 Creatinine 0.58 - 0.96 mg/dL 0.78 0.81 0.75 Sodium 136 - 144 mmol/L 143 140 140 Potassium 3.7 - 5.1 mmol/L 4.1 4.3 4.3 Chloride 97 - 105 mmol/L 107 (H) 102 103 CO2 22 - 30 mmol/L 24 26 25 Anion Gap 9 - 18 mmol/L 12 12 12 ALT 7 - 38 U/L 28 19 20 eGFR- >60 eGFR-All Other Races . >60 eGFR >=60 mL/min/1.73m 77 84 WBC 3.70 - 11.00 k/uL 4.61 5.50 5.55 RBC 3.90 - 5.20 m/uL 4.17 4.22 4.20 Hemoglobin 11.5 - 15.5 g/dL 14.6 14.5 14.6 Hematocrit 36.0 - 46.0 % 45.6 44.6 44.7 MCV 80.0 - 100.0 fL 109.4 (H) 105.7 (H) 106.4 (H) MCH 26.0 - 34.0 pg 35.0 (H) 34.4 (H) 34.8 (H) MCHC 30.5 - 36.0 g/dL 32.0 32.5 32.7 RDW-CV 11.5 - 15.0 % 12.1 12.5 12.3 Platelet Count 150 - 400 k/uL 185 174 194 MPV 9.0 - 12.7 fL 10.7 10.5 11.1 Absolute nRBC <0.01 k/uL <0.01 <0.01 <0.01 Cholesterol, Total <200 mg/dL 245 (H) 252 (H) 239 (H) Triglyceride <150 mg/dL 106 117 130 HDL Cholesterol >39 mg/dL 66 63 69 LDL Cholesterol <100 mg/dL 158 (H) 166 (H) 144 (H) Non HDL Cholesterol <130 mg/dL 179 (H) 189 (H) 170 (H) Fasting Time hrs 12 12 12 VLDL Cholesterol <30 mg/dL 21 23 26 TC:HDL Ratio <5.10 3.71 4.00 3.46 LDL:HDL Ratio <2.54 2.39 2.63 (H) 2.09 Vitamin D 25 Hydroxy 31.0 - 80.0 ng/mL 42.9 36.7 64.6 FECAL OCCULT BLOOD negative The 10-year ASCVD risk score (Godwin BARROS, et al., 2019) is: 22.2% Values used to calculate the score: Age: 72 years Sex: Female Is Non- : No Diabetic: No Tobacco smoker: No Systolic Blood Pressure: 138 mmHg Is BP treated: Yes HDL Cholesterol: 69 mg/dL Total Cholesterol: 239 mg/dL Assessment and Plan Encounter Diagnosis ICD-10-CM 1. Essential hypertension I10 amLODIPine (NORVASC) 5 mg tablet atenolol (TENORMIN) 50 mg tablet COMP METABOLIC PANEL CBC 2. Macrocytosis without anemia D75.89 VITAMIN B12 BLOOD FOLATE SERUM METHYLMALONIC ACID 3. Vitamin D deficiency E55.9 VITAMIN D 25 HYDROXY 4. Mixed hyperlipidemia E78.2 LIPID PANEL BASIC 5. Hallux hammertoe, left M20.32 6. Enlargement of right sternoclavicular joint M25.811 XR STERNOCLAVICULAR JOINTS 3V AP/BOTH OBLS 7. Breast cancer screening by mammogram Z12.31 MULU SCREENING W VIPUL 8. Strain of neck muscle, sequela S16.1XXS left side neck pain 9. SVT (supraventricular tachycardia) (HCC) I47.1 atenolol (TENORMIN) 50 mg tablet Above issues addressed with patient. Patient involved in shared decision making for management of medical issues. History and medications reviewed. Epic updated as needed Refills and/or prescriptions taken care of and meds adjusted as indicated after reviewed history, exam and labs. Health Maintenance reviewed. Updated record and/or ordered tests as recorded. Encouraged on efforts at healthy diet and regular exercise and adequate sleep. Lalo Schultz MD documented in this encounter [facility] 07-17-2022 Miscellaneous Notes Rec'd from venancio of [facility] results completed 07/01/22. Results are negative. documented in this encounter [facility] 05-08-2022 History of Presen t illness Narrative Images from the original note were not included. [facility] [place] Erica Orozco Department of Cardiovascular Medicine SECTION OF [facility] C[facility]IOLOGY/[facility] OUTPATIENT VISIT DATE May 08, 2022 OUTPATIENT VISIT TYPE ESTABLISHED PATIENT Name: Eliu Matamoros : 1950 Date: May 08, 2022 PRIMARY CARE PHYSICIAN: Lalo Schultz [address] [place] [address] REFERRING PHYSICIAN: Tameka Melgar [address] [facility] [address] CHIEF COMPLAINT: Cardiology Follow Up IMPRESSION / PLAN: 1. Palpitations secondary to PSVT with evidence of mild tachybradycardia syndrome. Patient continues to do very well on atenolol 50 mg twice a day. If she has any significant recurrences I would consider changing her to nadolol. 2. Hypertension. Patient is doing well with adequate blood pressures on current medications and will continue to monitor her blood pressure with the change to atenolol. 3. Insomnia. Patient is using various products including Tylenol PM and melatonin and did discuss maximal dose of melatonin being 10 mg. Follow Up Instructions Return in about 1 year (around 05/08/2023). ORDERS FOR TODAY'S VISIT: Office Visit on 05/08/22 inulin (FIBER GUMMIES ORAL) calcium carbonate/vitamin D3 (CALCIUM 600 + D ORAL) HISTORY OF PRESENT ILLNESS: Ms. Matamoros is a 70 year old female with a past history of hypertension, migraine headaches he states over the last year again developing some brief episodes of palpitations and a feeling of a racing heartbeat but nothing lasting longer than 5 or 10 seconds. Interestingly she notices it mostly at night an laying on her left side. Patient is doing well on atenolol 50 mg twice a day and has had only rare palpitations. She denies any syncope or near syncope, chest pain, shortness of breath, or lower extremity edema. PAST MEDICAL HISTORY Diagnosis Date Achilles bursitis or tendinitis right shoulder Acute peptic ulcer, unspecified site, without mention of hemorrhage, perforation, or obstruction 10/06 Diarrhea Diverticulosis of colon (without mention of hemorrhage) External hemorrhoids without mention of complication Family history of malignant neoplasm of gastrointestinal tract family history of colon cancer Fibrosclerosis of breast fibrocystic breast disease Generalized osteoarthrosis, unspecified site Hemorrhage of gastrointestinal tract, unspecified Internal hemorrhoids without mention of complication Lumbar spondylosis Dr. 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 Bearden at [facility] main campus Unspecified essential hypertension Unspecified hemorrhoids without mention of complication internal and externaldjd Unspecified tinnitus 11/16/2006 Left ear Urinary calculus, unspecified Renal stones PAST SURGICAL HISTORY Procedure Laterality Date APPENDECTOMY ARTHRP INTERPOS INTERCARPAL/METACARPAL JOINTS Right 08/16/2021 Right thumb CMC arthroplasty with trapeciectomy and 1st dorsal compartment release COLONOS VIA STOMA W/ ABLATION COLONOSCOPY FLX DX W/COLLJ SPEC WHEN PFRMD 10/09/2006 PAST SURGICAL HISTORY OF Ultrasound kidney stones PAST SURGICAL HISTORY OF Right 01/01/2018 total right knee replacement PAST SURGICAL HISTORY OF Left 06/27/2020 inguinal hernai repair SIGMOIDOSCOPY FLX DX W/COLLJ SPEC BR/WA IF PFRMD 10/13/2002 Sigmoidoscopy, flexible TONSILLECTOMY PRIMARY/SECONDARY <AGE 10 As child Tonsillectomy SOCIAL HISTORY Social History Tobacco Use Smoking status: Former Years: 10.00 Types: Cigarettes Quit date: 07/06/1979 Years since quittin.8 Smokeless tobacco: Never Vaping Use Vaping Use: Never used Substance Use Topics Alcohol use: Yes Alcohol/week: 7.0 standard drinks Types: 7 Shots of liquor per week Drug use: No FAMILY HISTORY Problem Relation Age of Onset Colon Cancer Mother of colon cancer Headache Mother Hypertension Father Breast Cancer Sister Headache Son migraine Headache Daughter migraine Headache Daughter migraine ALLERGIES: ALLERGIES Allergen Reactions Aspirin Contraindication-Medical Surgical History of ulcer Atorvastatin Myalgia Niacin Intolerance sweats and hot flashes Simvastatin Intolerance myalgias--severe; resolved after stopped but still with leg pain MEDICATIONS: inulin (FIBER GUMMIES ORAL) Take 20 mg by mouth once daily. calcium carbonate/vitamin D3 (CALCIUM 600 + D ORAL) Take by mouth once daily. nortriptyline (PAMELOR) 75 mg capsule Take 1 capsule by mouth daily at bedtime. amLODIPine (NORVASC) 5 mg tablet Take 1 tablet by mouth once daily. atenolol (TENORMIN) 50 mg tablet Take 1 tablet by mouth twice daily. Nsefy-0-PJY-EPA-Fish Oil 1,000 mg (120 mg-180 mg) cap Take 2 g by mouth once daily. Takes three daily magnesium, aluminum hydroxide (MAG-AL ORAL) Take by mouth. Magnesium citrate acetaminophen 650 mg CR tablet Take 650 mg by mouth every 8 hours as needed. Two tabs twice daily docusate sodium (COLACE) 100 mg capsule Take 100 mg by mouth twice daily. calcium carbonate/vitamin D3 (CALCIUM 600 + D,3, ORAL) Take 1 capsule by mouth once daily. Melatonin 5 mg cap Take 30 mg by mouth daily at bedtime. biotin 5 mg caspule Take 5 mg by mouth once daily. MULTIVIT WITH CALCIUM,IRON,MIN (WOMEN'S DAILY MULTIVITAMIN ORAL) Take by mouth. REVIEW OF SYSTEMS: GENERAL: Negative for: Weight loss or gain, Fever or Chills NECK: Negative for: Swelling, Pain, Stiffness RESPIRATORY: Negative for: Cough, Blood in Sputum GASTROINTESTINAL: Negative for: Trouble swallowing, Heartburn, Change in bowel habits, Blood in stool, Dark black stools MUSCULOSKELETAL: Negative for: Severe Muscle or joint pain, Stiffness , Joint swelling NEUROLOGIC/PSYCHIATRIC: Negative for: Paralysis, Numbness, Tingling, Tremor SKIN: Negative for: Rashes, Itching HEMATOLOGICAL/LYMPHATIC: Negative for: Easy bruising , Easy bleeding ENDOCRINE: Negative for: Heat or cold intolerance, Excessive sweating, Frequent urination All other review of systems, per history of present illness. PHYSICAL EXAMINATION: BP 118/64 Pulse 72 Ht 156.2 cm (5' 1.5) Wt 73.5 kg (162 lb) LMP 07/11/2003 SpO2 97% BMI 30.11 kg/m Last 2 Encounter Wt Readings: Date: Wt: 11/15/2020 78.9 kg (174 lb) 08/16/2020 79.4 kg (175 lb) General: Well appearing, in no acute distress. Skin: No clubbing, no cyanosis. Eyes: Extra ocular movements intact Oropharynx: No gross abnormalities Neck: No jugular venous distention, no carotid bruits, carotids have a normal upstroke, no palpable thyromegaly. Lungs: Clear to auscultation bilaterally, no wheezing or rhonchi. Heart: Regular rhythm, PMI not displaced, S1, S2, no S3, no S4, no heaves, no murmur. Abdomen: Soft, nontender, bowel sounds normal, no palpable organomegaly, no bruits. Extremities: No peripheral edema . +2 distal pulses bilaterally. Neuro: Oriented to person, place and time, alert, cooperative, gait coordinated. CARDIOVASCULAR MEDICINE TESTING: None today Tameka Melgar DO, [facility] Staff Community Relations Liaison Tameka and Malena Yao Dept. of Cardiovascular Medicine Heart, Vascular and Thor[facility] [place], [facility] This document was generated using the assistance of voice recognition software. If there are any errors of spelling, grammar, syntax or meaning, please feel free to contact me directly at anytime. documented in this encounter [facility] 10-10-2021 History of Presen t illness Narrative Pepe Carpio MD Department of Orthopaedics Orthopaedics [address] [facility] [id number] Dept: [phone] Dept October 10, 2021 CHIEF COMPLAINT: post op R thumb. HPI She's doing great and not having any concerns. AMB ROOMING INTAKE FLOWSHEET DATA 7 Week 6 days post op. No pain. ASSESSMENT: M18.0 Primary osteoarthritis of both first carpometacarpal joints (primary encounter diagnosis) M79.644, G89.29 Chronic pain of right thumb SUMMARY/PLAN: Continue with her ROM and strengthening. She can follow up as needed. Exam: Looks great. Healed incision. RSN intact. Supporting Information Below: Medications: Current Outpatient Medications Medication Sig amLODIPine (NORVASC) 5 mg tablet Take 1 tablet by mouth once daily. atenolol (TENORMIN) 50 mg tablet Take 1 tablet by mouth twice daily. Reimm-5-VJO-EPA-Fish Oil (FISH OIL) 1,000 mg (120 mg-180 mg) cap Take 2 g by mouth once daily. Takes three daily cyanocobalamin (VITAMIN B-12) 1,000 mcg tab Take 1,000 mcg by mouth once daily. multivit-minerals/folic acid (DAILY GUMMIES ORAL) Take by mouth. magnesium, aluminum hydroxide (MAG-AL ORAL) Take by mouth. Magnesium citrate nortriptyline (PAMELOR) 75 mg capsule Take 1 capsule by mouth daily at bedtime. acetaminophen (TYLENOL ARTHRITIS PAIN) 650 mg CR tablet Take 650 mg by mouth every 8 hours as needed. Two tabs twice daily docusate sodium (COLACE) 100 mg capsule Take 100 mg by mouth twice daily. calcium carbonate/vitamin D3 (CALCIUM 600 + D,3, ORAL) Take 1 capsule by mouth once daily. Melatonin 5 mg cap Take 20 mg by mouth daily at bedtime. biotin 5 mg caspule Take 5 mg by mouth once daily. MULTIVIT WITH CALCIUM,IRON,MIN (WOMEN'S DAILY MULTIVITAMIN ORAL) Take by mouth. No current facility-administered medications for this visit. Allergies: Aspirin, Niacin, and Simvastatin Pepe Carpio MD documented in this encounter [facility] 10-03-2021 History of Presen t illness Narrative Episode Visit Count: 3 Therapist That Will Oversee The Plan Of Care: Cameron Armendariz Start of Care Date: 08/27/21 Onset Date: 08/16/21 Plan of Care Certification Date: 08/27/21 Next Certification Due Date: 11/25/21 RE[facility]AB[facility]ATION AND SPORTS THERAPY OCCUPATIONAL THERAPY DISCONTINUANCE OF CARE PLAN OF CARE UPDATE: Assessment: Eliu Springermaurice is discontinued from Occupational Therapy services due to goal achievement and maximal benefit.. Patient was seen for 3 visits from Start of Care Date: 08/27/21 to 10/03/2021 and treatment included: Therapeutic exercise, Manual therapy, Self-correction management and Custom orthosis fabrication. Goals for Episode of Care created on 08/27/21 through 11/22/21 Patient will report a good understanding of diagnosis and OT recommendations for progression of program.MET Patient will demonstrate independence with ongoing home recommendations/exercise program throughout therapy plan of care.MET Patient will increase AROM of Right wrist to WFL in order to be able to improve function for prior functional tasks.MET Patient will independently demonstrate correct application of CUSTOM orthosis and verbalize understanding of proper wear/care. MET Patient will report a good understanding of edema control, scar / wound management throughout therapy plan of care to promote non-adherent / non-tender soft tissue.MET Patient Goals: to resume function so she can do yardwork this summer PLAN FOR NEXT VISIT: discharged SUBJECTIVE: Pt reports she is able to do just about everything with hand, denies pain Pain: Pain Pain Level: 1 PROMIS Scales Higher is Better 03/03/2021 06/25/2021 08/24/2021 Phys Func - Score - - 45 (within normal limits) Phys Func - Percentile - - 31 % Social Roles - Score - - 48 (within normal limits) Social Role - Percentile - - 42 % GH Physical - Score 50.8 (Very Good) 50.8 (Very Good) - GH Physical - Percentile 53 % 53 % - GH Mental - Score 50.8 (Very Good) 45.8 (Good) - GH Mental - Percentile 53 % 34 % - Self-Eff Symptom - Score - - 48 (Average) Self-Eff Symptom - Percentile - - 42 % T-scores: mean of general population = 50. 5 points is clinically meaningfully difference Percentiles provide an indication of how the patient's score ranks in relation to the general population. Higher percentile rankings indicate better function/quality of life. 50th percentile is the average of the general population and indicates half of respondents had a worse score. Lower is Better 08/24/2021 Fatigue - Score 51 (within normal limits) Fatigue - Percentile 46 % T-scores: mean of general population = 50. 5 points is clinically meaningfully difference Percentiles provide an indication of how the patient's score ranks in relation to the general population. Higher percentile rankings indicate better function/quality of life. 50th percentile is the average of the general population and indicates half of respondents had a worse score. OBJECTIVE MEASURES WITH LEVEL OF FUNCTION: TREATMENT: Therapeutic Exercise: 1: instructed pt is usae of splinting moving forward 2: with soft putty central office supervisor, digit ext abduction digit flexion 3: with soft putty tripod pinch and thumb flex ext 4: with 1# weight wrist flex, wrist ext dev and sup pro 5: adjusted splint for increased comfort Skilled Intervention: Patient was educated in proper exercise technique and purpose for exercises. Skilled judgment was provided in selection of appropriate interventions. Billing Therapeutic Exercise Treatment Minutes: 35 Kala Barnes OT/Cesario documented in this encounter [facility] 10-03-2021 Miscellaneous Notes Noted, agree she should be seen. Patient calling said she has severe right ear ache. Patient said ear is painful every time she swallows. Aware PCP is out of office on . Advised to go to urgent care for evaluation. documented in this encounter [facility] 10-03-2021 Instructions Virgil Stark APRN.ELECTROLYTIC ETCHER - 10/03/2021 10:09 AM EDT 1.) Get more rest than you usually do - this will speed your recovery. If you push hard with your usual busy schedule, you will be sicker longer. 2.) Drink a lot of water - enough to make you urinate every 2-3 hours (your urine should be a light yellow color). This helps thin the phlegm and sooth the airways. Gatorade (G2) is less in sugar and replaces your electrolytes if not eating well. 3.) Run a cool mist humidifier in your bedroom on high with the door closed. This is a natural way to decongest, and it helps lessen scratchy throats, nasal stuffiness and coughs. 4.) For those without blood pressure concerns, take Sudafed as a decongestant (decreases stuffiness-lets drain), but realize that you will need to take it every 4-6 hours for several days. The lower dose is generally better tolerated (30mg)... Some people can make feel fast heart rate/jittery. You also may try anti-allergy pill like Claritin(loratidine) 10mg or joie, benadryl (makes sleepy) over the counter as directed to help with drippy nose. Mucinex 600-1200mg twice daily(plain) may help thin secretions so they are easier to cough up. Those with high blood pressure and not with prostate problems can try [id number] Coricidin HBP for congestion. You may find nasal sprays such as Flonase or Nasacort, saline nasal spray and/or Netti Pot may be beneficial 5.) Take ibuprofen or acetominophen every 4-6 hours for pain/aches as needed if not contraindicated for you. Antibiotic as directed per prescription If you should breakout in a rash, stop the medicine and call the office. Any antibiotic has the potential to cause diarrhea due to alteration in the normal bacterial jack of the gut. This can be reduced by eating yogurt with active cultures or taking probiotics daily while on the medication. If diarrhea becomes severe (watery, large volumes or more than 3-4/day) call the office. Women may experience yeast vaginitis due to alteration in the vaginal jack. Symptoms include vaginal itching, irritation, and often a clumpy white discharge. If this occurs, there are several effective over the counter remedies available, including one-dose treatments. If these are unsuccessful, call the office. Antibiotics may interfer with control. If you are on oral contraceptives, use another form of protection (condoms, foams, jellies, diaphragm) throught the end of whatever pill pack you are on in 10 days. If you are not improving in 3-5 days or are worsening follow up with PCP documented in this encounter [facility] 10-03-2021 History of Presen t illness Narrative CC: Patient presents with: Ear Pain: (RT) ear pain rated 9, onset AM Had the sinus congestion for several days before the ear pain started. HPI: Eliu Matamoros is a 71 year old female who presents to the office with complaint of head congestion, sinus symptoms and ear symptoms for a week. Symptoms are worsening Associated symptoms includes nasal congestion, post nasal drip and ear pain. Denies fever, nausea, vomiting and diarrhea. Treatments tried include nothing so far. with no relief of symptoms. Sick contacts: unknown. History of asthma, frequent episodes of bronchitis, chronic bronchitis, bronchiectasis or COPD: No Smoker: No Seasonal/environmental allergies: No The ROS is otherwise negative. The patient's pmh, medications, allergies, and past visits are reviewed. PHYSICAL EXAM: BP 124/80 Pulse 72 Temp 36.7 C (98 F) Resp 18 LMP 07/11/2003 SpO2 100% General appearance: alert, cooperative, pleasant, in no acute distress Head: Normocephalic Eyes: EOM's intact, conjunctiva pink and moist, no icterus, sclera white, non-injected Ears: Right ear: External ear/canal- Normal, TM - erythematous. Left ear: External ear/canal- Normal, TM - clear with good landmarks Oropharynx:mild erythema, without exudates present} Heart: Negative. RRR without obvious murmur, gallop, or rubs. No ectopy. Lungs: clear to auscultation, without rales or wheeze, good air exchange PAST MEDICAL HISTORY Diagnosis Date Achilles bursitis or tendinitis right shoulder Acute peptic ulcer, unspecified site, without mention of hemorrhage, perforation, or obstruction 10/06 Diarrhea Diverticulosis of colon (without mention of hemorrhage) External hemorrhoids without mention of complication Family history of malignant neoplasm of gastrointestinal tract family history of colon cancer Fibrosclerosis of breast fibrocystic breast disease Generalized osteoarthrosis, unspecified site Hemorrhage of gastrointestinal tract, unspecified Internal hemorrhoids without mention of complication Lumbar spondylosis Dr. 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 Bearden at [facility] Unspecified essential hypertension Unspecified hemorrhoids without mention of complication internal and externaldjd Unspecified tinnitus 11/16/2006 Left ear Urinary calculus, unspecified Renal stones PAST SURGICAL HISTORY Procedure Laterality Date APPENDECTOMY ARTHRP INTERPOS INTERCARPAL/METACARPAL JOINTS Right 08/16/2021 Right thumb CMC arthroplasty with trapeciectomy and 1st dorsal compartment release COLONOS VIA STOMA W/ ABLATION COLONOSCOPY FLX DX W/COLLJ SPEC WHEN PFRMD 10/09/2006 PAST SURGICAL HISTORY OF Ultrasound kidney stones PAST SURGICAL HISTORY OF Right 01/01/2018 total right knee replacement PAST SURGICAL HISTORY OF Left 06/27/2020 inguinal hernai repair SIGMOIDOSCOPY FLX DX W/COLLJ SPEC BR/WA IF PFRMD 10/13/2002 Sigmoidoscopy, flexible TONSILLECTOMY PRIMARY/SECONDARY <AGE 10 As child Tonsillectomy ALLERGIES Aspirin, Niacin, and Simvastatin MEDICATIONS amLODIPine (NORVASC) 5 mg tablet Take 1 tablet by mouth once daily. atenolol (TENORMIN) 50 mg tablet Take 1 tablet by mouth twice daily. multivit-minerals/folic acid (DAILY GUMMIES ORAL) Take by mouth. nortriptyline (PAMELOR) 75 mg capsule Take 1 capsule by mouth daily at bedtime. acetaminophen (TYLENOL ARTHRITIS PAIN) 650 mg CR tablet Take 650 mg by mouth every 8 hours as needed. Two tabs twice daily docusate sodium (COLACE) 100 mg capsule Take 100 mg by mouth twice daily. calcium carbonate/vitamin D3 (CALCIUM 600 + D,3, ORAL) Take 1 capsule by mouth once daily. Melatonin 5 mg cap Take 20 mg by mouth daily at bedtime. biotin 5 mg caspule Take 5 mg by mouth once daily. MULTIVIT WITH CALCIUM,IRON,MIN (WOMEN'S DAILY MULTIVITAMIN ORAL) Take by mouth. amoxicillin-clavulanic acid (AUGMENTIN) 875-125 mg per tablet Take 1 tablet by mouth twice daily for 5 days. Cmfpr-5-AFG-EPA-Fish Oil (FISH OIL) 1,000 mg (120 mg-180 mg) cap Take 2 g by mouth once daily. Takes three daily cyanocobalamin (VITAMIN B-12) 1,000 mcg tab Take 1,000 mcg by mouth once daily. magnesium, aluminum hydroxide (MAG-AL ORAL) Take by mouth. Magnesium citrate FAMILY HISTORY Problem Relation Age of Onset Colon Cancer Mother of colon cancer Headache Mother Hypertension Father Breast Cancer Sister Headache Son migraine Headache Daughter migraine Headache Daughter migraine Social History Tobacco Use Smoking status: Former Smoker Years: 10.00 Quit date: 07/06/1979 Years since quittin.2 Smokeless tobacco: Never Used Vaping Use Vaping Use: Never used Substance Use Topics Alcohol use: Yes Alcohol/week: 7.0 standard drinks Types: 7 Shots of liquor per week Drug use: No ASSESSMENT/PLAN: 1. Sinus congestion - ICD9: 478.19, ICD10: R09.81 Prescription instructions reviewed with patient as applicable. Augmentin bid for 5 days instructed to use over the counter allergy medication as well. Potential red flag symptoms discussed with the patient. Reviewed appropriate action plan to take if red flag symptoms occur. Patient agreeable to treatment plan. Virgil Stark APRN.JASWANT documented in this encounter [facility] 08-14-2021 History of Presen t illness Narrative This note was created using NoteWriter. Subjective Eliu Matamoros is a 71 year old female. Patient presents with: F/U 6 months SUBJECTIVE: Eliu Matamoros is a 71 year old year old lady here today for 6 month follow up appointment for review of medical conditions. Got labs done today Weight is doing great. WW has helped. Wrist surgery Thursday. Dr. Carpio Doing well on current meds. Not too bad with heart racing episodes since on current atenolol dose. Cardiology follow up yearly since stable. Was told to try mag citrate for her bowels. Takes regularly with stool softner. Increased statin in ears lately. Increased stress noted. Ears fine on exam PAST MEDICAL HISTORY Diagnosis Date Achilles bursitis or tendinitis right shoulder Acute peptic ulcer, unspecified site, without mention of hemorrhage, perforation, or obstruction 10/06 Diarrhea Diverticulosis of colon (without mention of hemorrhage) External hemorrhoids without mention of complication Family history of malignant neoplasm of gastrointestinal tract family history of colon cancer Fibrosclerosis of breast fibrocystic breast disease Generalized osteoarthrosis, unspecified site Hemorrhage of gastrointestinal tract, unspecified Internal hemorrhoids without mention of complication Lumbar spondylosis Dr. 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 Bearden at [facility] Unspecified essential hypertension Unspecified hemorrhoids without mention of complication internal and externaldjd Unspecified tinnitus 11/16/2006 Left ear Urinary calculus, unspecified Renal stones Current Outpatient Medications Medication Sig Xeqcq-6-YUM-EPA-Fish Oil (FISH OIL) 1,000 mg (120 mg-180 mg) cap Take 2 g by mouth once daily. Takes three daily cyanocobalamin (VITAMIN B-12) 1,000 mcg tab Take 1,000 mcg by mouth once daily. (Patient not taking: Reported on 07/01/2021 ) multivit-minerals/folic acid (DAILY GUMMIES ORAL) Take by mouth. magnesium, aluminum hydroxide (MAG-AL ORAL) Take by mouth. nortriptyline (PAMELOR) 75 mg capsule Take 1 capsule by mouth daily at bedtime. acetaminophen (TYLENOL ARTHRITIS PAIN) 650 mg CR tablet Take 650 mg by mouth every 8 hours as needed. Two tabs twice daily amLODIPine (NORVASC) 5 mg tablet Take 1 tablet by mouth once daily. atenolol (TENORMIN) 50 mg tablet Take 1 tablet by mouth twice daily. docusate sodium (COLACE) 100 mg capsule Take 100 mg by mouth twice daily. calcium carbonate/vitamin D3 (CALCIUM 600 + D,3, ORAL) Take 1 capsule by mouth once daily. Melatonin 5 mg cap Take 20 mg by mouth daily at bedtime. biotin 5 mg caspule Take 5 mg by mouth once daily. MULTIVIT WITH CALCIUM,IRON,MIN (WOMEN'S DAILY MULTIVITAMIN ORAL) Take by mouth. No current facility-administered medications for this visit. Review of Systems Objective BP 122/72 Pulse 74 Wt 71.2 kg (157 lb) LMP 07/11/2003 BMI 29.18 kg/m Physical Exam Constitutional: Appearance: Normal appearance. HENT: Head: Normocephalic. Eyes: Conjunctiva/sclera: Conjunctivae normal. Cardiovascular: Rate and Rhythm: Normal rate and regular rhythm. Heart sounds: Normal heart sounds. Pulmonary: Effort: Pulmonary effort is normal. Breath sounds: Normal breath sounds. Skin: General: Skin is warm and dry. Neurological: General: No focal deficit present. Mental Status: She is alert and oriented to person, place, and time. Psychiatric: Mood and Affect: Mood normal. Behavior: Behavior normal. Thought Content: Thought content normal. Judgment: Judgment normal. Assessment and Plan ASSESSMENT/PLAN: 1. Essential hypertension - ICD9: 401.9, ICD10: I10 (primary diagnosis) - good control - Continue current medication(s) - Recommended regular aerobic exercise. - Recommend home blood pressure monitoring, to bring results in on next visit - Goal of BP <130/80 - COMP METABOLIC PANEL - CBC 2. Mixed hyperlipidemia - ICD9: 272.2, ICD10: E78.2 - suboptimal control LDL; TG and HDL to goals. The 10-year ASCVD risk score (Madridgill MOREIRA Jr., et al., 2013) is: 16.6% Values used to calculate the score: Age: 71 years Sex: Female Is Non- : No Diabetic: No Tobacco smoker: No Systolic Blood Pressure: 124 mmHg Is BP treated: Yes HDL Cholesterol: 66 mg/dL Total Cholesterol: 245 mg/dL - Encouraged following a low fat, low cholesterol diet. - Discussed the benefits of regular aerobic exercise and weight loss. - Encouraged following a low carbohydrate, healthy oil intake diet. - LIPID PANEL BASIC 3. Vitamin D deficiency - ICD9: 268.9, ICD10: E55.9 Adjust replacement as needed - VITAMIN D 25 HYDROXY 4. Encounter for long-term current use of medication - ICD9: V58.69, ICD10: Z79.899 - COMP METABOLIC PANEL - CBC 5. Breast cancer screening by mammogram - ICD9: V76.12, ICD10: Z12.31 - Set up for mammogram, yearly mammogram recommended - MULU SCREENING W VIPUL Schultz MD Medical Decision Making: Problems: Moderate: 2+ stable chronic illnesses Data: Unique test(s) ordered: 3+ Risk: Moderate: Drug management Medical Decision Making Level: 4 - Moderate documented in this encounter [facility] 04-06-2020 History of Past i llness Narrative Problem Noted Date Diagnosed Date Resolved Date Tachy-florencio syndrome 04/06/2020 024 Intractable migraine without aura 07/27/2007 08/18/2022 Ingrowing nail 09/26/2005 11/16/2006 Diarrhea 11/16/2006 documented as of this encounter (statuses as of 10/09/2023) [facility] History of Past illness Narrative* Problem Noted Date Resolved Date Intractable migraine without aura 07/27/2007 08/18/2022 Ingrowing nail 09/26/2005 11/16/2006 Diarrhea 11/16/2006 documented as of this encounter (statuses as of 08/19/2022) [facility] History of Past illness Narrative* Problem Noted Date Resolved Date Intractable migraine without aura 07/27/2007 08/18/2022 Ingrowing nail 09/26/2005 11/16/2006 Diarrhea 11/16/2006 documented as of this encounter (statuses as of 09/04/2022) [facility] History of Past illness Narrative* Problem Noted Date Resolved Date Intractable migraine without aura 07/27/2007 08/18/2022 Ingrowing nail 09/26/2005 11/16/2006 Diarrhea 11/16/2006 documented as of this encounter (statuses as of 09/15/2022) [address]22-2008 History of Past illness Narrative* Problem Noted Date Resolved Date Intractable migraine without aura 07/27/2007 08/18/2022 Ingrowing nail 09/26/2005 11/16/2006 Diarrhea 11/16/2006 documented as of this encounter (statuses as of 01/03/2023) [address]22-2008 History of Past illness Narrative* Problem Noted Date Resolved Date Intractable migraine without aura 07/27/2007 08/18/2022 Ingrowing nail 09/26/2005 11/16/2006 Diarrhea 11/16/2006 documented as of this encounter (statuses as of 01/08/2023) [address]22-2008 History of Past illness Narrative* Problem Noted Date Diagnosed Date Resolved Date Intractable migraine without aura 07/27/2007 08/18/2022 Ingrowing nail 09/26/2005 11/16/2006 Diarrhea 11/16/2006 documented as of this encounter (statuses as of 01/13/2023) [address]22-2008 History of Past illness Narrative* Problem Noted Date Diagnosed Date Resolved Date Intractable migraine without aura 07/27/2007 08/18/2022 Ingrowing nail 09/26/2005 11/16/2006 Diarrhea 11/16/2006 documented as of this encounter (statuses as of 02/18/2023) [address]22-2008 History of Past illness Narrative* Problem Noted Date Diagnosed Date Resolved Date Intractable migraine without aura 07/27/2007 08/18/2022 Ingrowing nail 09/26/2005 11/16/2006 Diarrhea 11/16/2006 documented as of this encounter (statuses as of 04/06/2023) [address]22-2008 History of Past illness Narrative* Problem Noted Date Diagnosed Date Resolved Date Intractable migraine without aura 07/27/2007 08/18/2022 Ingrowing nail 09/26/2005 11/16/2006 Diarrhea 11/16/2006 documented as of this encounter (statuses as of 05/10/2023) [address]22-2008 History of Past illness Narrative* Problem Noted Date Diagnosed Date Resolved Date Intractable migraine without aura 07/27/2007 08/18/2022 Ingrowing nail 09/26/2005 11/16/2006 Diarrhea 11/16/2006 documented as of this encounter (statuses as of 05/15/2023) [facility] History of Past illness Narrative* Problem Noted Date Diagnosed Date Resolved Date Intractable migraine without aura 07/27/2007 08/18/2022 Ingrowing nail 09/26/2005 11/16/2006 Diarrhea 11/16/2006 documented as of this encounter (statuses as of 05/20/2023) [facility] History of Past illness Narrative* Problem Noted Date Diagnosed Date Resolved Date Intractable migraine without aura 07/27/2007 08/18/2022 Ingrowing nail 09/26/2005 11/16/2006 Diarrhea 11/16/2006 documented as of this encounter (statuses as of 09/03/2023) [facility] History of Past illness Narrative* Problem Noted Date Diagnosed Date Resolved Date Intractable migraine without aura 07/27/2007 08/18/2022 Ingrowing nail 09/26/2005 11/16/2006 Diarrhea 11/16/2006 documented as of this encounter (statuses as of 09/19/2023) [address]24-2006 History of Past illness Narrative* Problem Noted Date Resolved Date Ingrowing nail 09/26/2005 11/16/2006 Diarrhea 11/16/2006 documented as of this encounter (statuses as of 10/03/2021) [address]24-2006 History of Past illness Narrative* Problem Noted Date Resolved Date Ingrowing nail 09/26/2005 11/16/2006 Diarrhea 11/16/2006 documented as of this encounter (statuses as of 10/03/2021) [address]24-2006 History of Past illness Narrative* Problem Noted Date Resolved Date Ingrowing nail 09/26/2005 11/16/2006 Diarrhea 11/16/2006 documented as of this encounter (statuses as of 10/21/2021) [address] History of Past illness Narrative* Problem Noted Date Resolved Date Ingrowing nail 09/26/2005 11/16/2006 Diarrhea 11/16/2006 documented as of this encounter (statuses as of 11/11/2021) [address]24-2006 History of Past illness Narrative* Problem Noted Date Resolved Date Ingrowing nail 09/26/2005 11/16/2006 Diarrhea 11/16/2006 documented as of this encounter (statuses as of 05/08/2022) [facility] History of Past illness Narrative* Problem Noted Date Resolved Date Ingrowing nail 09/26/2005 11/16/2006 Diarrhea 11/16/2006 documented as of this encounter (statuses as of 07/17/2022) [facility] noteNo assessment information availableWVan [facility] Work Phone: Evaluation note* Diagnosis Sinus congestion- Primary Other diseases of nasal cavity and sinuses [facility]* Diagnosis Primary osteoarthritis of both first carpometacarpal joints- Primary Primary localized osteoarthrosis, hand documented in this encounter [facility] note* Diagnosis Primary osteoarthritis of both first carpometacarpal joints- Primary Primary localized osteoarthrosis, hand Chronic pain of right thumb [facility]* Diagnosis Essential hypertension- Primary Unspecified essential hypertension Mixed hyperlipidemia Vitamin D deficiency Unspecified vitamin D deficiency Encounter for long-term current use of medication Breast cancer screening by mammogram [facility] Diagnosis SVT (supraventricular tachycardia) (HCC)- Primary Other specified cardiac dysrhythmias Essential hypertension Unspecified essential hypertension [facility]* Diagnosis Essential hypertension- Primary Unspecified essential hypertension Macrocytosis without anemia Other specified diseases of blood and blood-forming organs Vitamin D deficiency Unspecified vitamin D deficiency Mixed hyperlipidemia Hallux hammertoe, left Enlargement of right sternoclavicular joint Breast cancer screening by mammogram Strain of neck muscle, sequela SVT (supraventricular tachycardia) (HCC) Other specified cardiac dysrhythmias [facility]* Diagnosis Pain- Primary Generalized pain [facility] Diagnosis Decreased pedal pulses- Primary Other symptoms involving cardiovascular system [facility]* Diagnosis Decreased pedal pulses Other symptoms involving cardiovascular system [facility] Diagnosis Mixed hyperlipidemia- Primary Vitamin D deficiency Unspecified vitamin D deficiency Essential hypertension Unspecified essential hypertension SVT (supraventricular tachycardia) Other specified cardiac dysrhythmias Primary osteoarthritis of left knee Primary localized osteoarthrosis, lower leg Screening for colon cancer Special screening for malignant neoplasms, colon [facility] Diagnosis Enlargement of right sternoclavicular joint [facility] Diagnosis SVT (supraventricular tachycardia)- Primary Other specified cardiac dysrhythmias Tachy-florencio syndrome (HCC) Sinoatrial node dysfunction Essential hypertension Unspecified essential hypertension Palpitations [facility] Diagnosis Essential hypertension- Primary Unspecified essential hypertension Vitamin D deficiency Unspecified vitamin D deficiency [facility] Diagnosis Screening mammogram for breast cancer- Primary [facility] Diagnosis Essential hypertension- Primary Unspecified essential hypertension SVT (supraventricular tachycardia) (HCC) Other specified cardiac dysrhythmias Vitamin D deficiency Unspecified vitamin D deficiency Mixed hyperlipidemia Macrocytosis without anemia Other specified diseases of blood and blood-forming organs Encounter for long-term current use of medication [facility] Diagnosis Essential hypertension Unspecified essential hypertension Mixed hyperlipidemia SVT (supraventricular tachycardia) (HCC) Other specified cardiac dysrhythmias Status post total right knee replacement Class 1 obesity due to excess calories with serious comorbidity and body mass index (BMI) of 30.0 to 30.9 in adult Vitamin D deficiency- Primary Unspecified vitamin D deficiency Essential hypertension Unspecified essential hypertension Mixed hyperlipidemia [facility] Diagnosis Essential hypertension Unspecified essential hypertension Mixed hyperlipidemia SVT (supraventricular tachycardia) (HCC) Other specified cardiac dysrhythmias Status post total right knee replacement Class 1 obesity due to excess calories with serious comorbidity and body mass index (BMI) of 30.0 to 30.9 in adult Persistent disorder of initiating or maintaining sleep- Primary Macrocytosis without anemia Other specified diseases of blood and blood-forming organs Essential hypertension Unspecified essential hypertension Vitamin D deficiency Unspecified vitamin D deficiency Mixed hyperlipidemia Nocturia more than twice per night Asymptomatic postmenopausal status Screening for colon cancer Special screening for malignant neoplasms, colon Family history of colon cancer in mother Encounter for long-term current use of medication Screening for depression Encounter for screening examination for other mental health and behavioral disorders Encounter for immunization Need for other specified prophylactic vaccination against single bacterial disease [facility] Diagnosis Essential hypertension Unspecified essential hypertension Mixed hyperlipidemia SVT (supraventricular tachycardia) (HCC) Other specified cardiac dysrhythmias Status post total right knee replacement Class 1 obesity due to excess calories with serious comorbidity and body mass index (BMI) of 30.0 to 30.9 in adult Persistent disorder of initiating or maintaining sleep [facility] Diagnosis Essential hypertension Unspecified essential hypertension Mixed hyperlipidemia SVT (supraventricular tachycardia) (HCC) Other specified cardiac dysrhythmias Status post total right knee replacement Class 1 obesity due to excess calories with serious comorbidity and body mass index (BMI) of 30.0 to 30.9 in adult Pain Generalized pain [facility] Diagnosis Essential hypertension Unspecified essential hypertension Mixed hyperlipidemia SVT (supraventricular tachycardia) (HCC) Other specified cardiac dysrhythmias Status post total right knee replacement Class 1 obesity due to excess calories with serious comorbidity and body mass index (BMI) of 30.0 to 30.9 in adult Asymptomatic postmenopausal status [facility] Diagnosis Essential hypertension Unspecified essential hypertension Mixed hyperlipidemia SVT (supraventricular tachycardia) (HCC) Other specified cardiac dysrhythmias Status post total right knee replacement Class 1 obesity due to excess calories with serious comorbidity and body mass index (BMI) of 30.0 to 30.9 in adult Rectal bleeding- Primary Hemorrhage of rectum and anus [facility] Diagnosis Essential hypertension Unspecified essential hypertension Mixed hyperlipidemia SVT (supraventricular tachycardia) (HCC) Other specified cardiac dysrhythmias Status post total right knee replacement Class 1 obesity due to excess calories with serious comorbidity and body mass index (BMI) of 30.0 to 30.9 in adult Urinary incontinence, unspecified type- Primary Essential hypertension Unspecified essential hypertension SVT (supraventricular tachycardia) (HCC) Other specified cardiac dysrhythmias [facility] Diagnosis Essential hypertension Unspecified essential hypertension Mixed hyperlipidemia SVT (supraventricular tachycardia) (HCC) Other specified cardiac dysrhythmias Status post total right knee replacement Class 1 obesity due to excess calories with serious comorbidity and body mass index (BMI) of 30.0 to 30.9 in adult Rectal bleeding- Primary Hemorrhage of rectum and anus [facility]* Diagnosis Essential hypertension Unspecified essential hypertension Mixed hyperlipidemia SVT (supraventricular tachycardia) (HCC) Other specified cardiac dysrhythmias Status post total right knee replacement Class 1 obesity due to excess calories with serious comorbidity and body mass index (BMI) of 30.0 to 30.9 in adult Urge incontinence- Primary Screening for genitourinary condition Screening for other and unspecified genitourinary condition Cystocele, midline [facility] Diagnosis Essential hypertension Unspecified essential hypertension Mixed hyperlipidemia SVT (supraventricular tachycardia) (HCC) Other specified cardiac dysrhythmias Status post total right knee replacement Class 1 obesity due to excess calories with serious comorbidity and body mass index (BMI) of 30.0 to 30.9 in adult Essential hypertension- Primary Unspecified essential hypertension SVT (supraventricular tachycardia) (HCC) Other specified cardiac dysrhythmias Mixed hyperlipidemia Vitamin D deficiency Unspecified vitamin D deficiency Macrocytosis without anemia Other specified diseases of blood and blood-forming organs Class 1 obesity due to excess calories with serious comorbidity and body mass index (BMI) of 32.0 to 32.9 in adult Persistent disorder of initiating or maintaining sleep [facility] Diagnosis Essential hypertension Unspecified essential hypertension Mixed hyperlipidemia SVT (supraventricular tachycardia) (HCC) Other specified cardiac dysrhythmias Status post total right knee replacement Class 1 obesity due to excess calories with serious comorbidity and body mass index (BMI) of 30.0 to 30.9 in adult Essential hypertension Unspecified essential hypertension [facility] Diagnosis Essential hypertension Unspecified essential hypertension Mixed hyperlipidemia SVT (supraventricular tachycardia) (HCC) Other specified cardiac dysrhythmias Status post total right knee replacement Class 1 obesity due to excess calories with serious comorbidity and body mass index (BMI) of 30.0 to 30.9 in adult Urge incontinence- Primary Screening for genitourinary condition Screening for other and unspecified genitourinary condition [facility] Diagnosis Essential hypertension Unspecified essential hypertension Mixed hyperlipidemia SVT (supraventricular tachycardia) (HCC) Other specified cardiac dysrhythmias Status post total right knee replacement Class 1 obesity due to excess calories with serious comorbidity and body mass index (BMI) of 30.0 to 30.9 in adult Screening mammogram for breast cancer- Primary documented in this encounter [facility] for referral (narrative)* Diagnostic Procedure Only (Routine) - Pending Review Specialty Diagnoses / Procedures Referred By William agee Referred To Contact [facility] Diagnoses Breast cancer screening by mammogram Procedures MULU SCREENING W VIPUL SCREENING DIGITAL BREAST TOMOSYNTHESIS BI SCREENING MAMMOGRAPHY BI 2-VIEW BREAST INC Lalo Davis MD [address] [place] [address] [facility] [address] [place] [address] Referral ID Status Reason Start Date Expiration Date Visits Requested Visits Authorized [id number] Pending Review Auto-Generat ed Referral 08/14/2021 09/13/2022 1 1 [facility] for referral (narrative)* Diagnostic Procedure Only (Routine) - Closed Specialty Diagnoses / Procedures Referred By William agee Referred To Contact [facility] Diagnoses Enlargement of right sternoclavicular joint Procedures XR STERNOCLAVICULAR JOINTS 3V AP/BOTH OBLS RADEX A-C JOINTS BI W/WO WEIGHTED [facility] Lalo Schultz MD [address] [place] [address] X[facility] Referral ID Status Reason Start Date Expiration Date V isits Requested Visits Authorized [id number] Closed Auto-Generate d Referral 08/18/2022 09/17/2023 1 1 * Diagnostic Procedure Only (Routine) - Pending Review Specialty Diagnoses / Procedures Referred By William agee Referred To Contact BR IM[facility] Diagnoses Breast cancer screening by mammogram Procedures MULU SCREENING W VIPUL SCREENING DIGITAL BREAST TOMOSYNTHESIS BI SCREENING MAMMOGRAPHY BI 2-VIEW BREAST INC Lalo Davis MD [address] [place] [address] [facility] [address] [place] [address] Referral ID Status Reason Start Date Expiration Date Visits Requested Visits Authorized [id number] Pending Review Auto-Generat ed Referral 08/18/2022 09/17/2023 1 1 [facility] for referral (narrative)* Outpatient Procedure (Routine) - Authorized Specialty Diagnoses / Procedures Referred By Contac t Referred To Contact [facility] Diagnoses Decreased pedal pulses Procedures PVR LEG JUAN ANTONIO VAS LAB NON-INVASIVE PHYSIOLOGIC STUDY EXTREMITY 3 Jonelle Wen APRN.CNS [address] [place] [address] [facility] [place] [address] [place] [address] Referral ID Status Reason Start Date Expiration Date Visits Requested Visits Authorized [id number] Authorized Auto-Generat ed Referral 01/13/2023 01/13/2024 1 1 [facility] for referral (narrative)* Diagnostic Procedure Only (Routine) - Closed Specialty Diagnoses / Procedures Referred By Contac t Referred To Contact XR IMAGING Diagnoses Enlargement of right sternoclavicular joint Procedures XR STERNOCLAVICULAR JOINTS 3V AP/BOTH OBLS RADEX A-C JOINTS BI W/WO WEIGHTED [facility] Lalo Schultz MD [address] [place] [address] [place] [address] Referral ID Status Reason Start Date Expiration Date V isits Requested Visits Authorized [id number] Closed Auto-Generate d Referral 08/18/2022 09/17/2023 1 1 [facility] for referral (narrative)* Diagnostic Procedure Only (Routine) - Pending Review Specialty Diagnoses / Procedures Referred By William t Referred To Contact [facility] Diagnoses Screening mammogram for breast cancer Procedures MULU SCREENING W VIPUL SCREENING DIGITAL BREAST TOMOSYNTHESIS BI SCREENING MAMMOGRAPHY BI 2-VIEW BREAST INC CAD Lalo Schultz MD [address] [place] [address] [facility] [address] [place] [address] Referral ID Status Reason Start Date Expiration Date Visits Requested Visits Authorized [id number] Pending Review Auto-Generat ed Referral 09/18/2023 10/17/2024 1 1 [facility] for referral (narrative)* Outpatient Procedure (Routine) - New Request Specialty Diagnoses / Procedures Referred By Contac t Referred To Contact [facility] Diagnoses Screening for colon cancer Family history of colon cancer in mother Procedures COLONOSCOPY SCREENING COLONOSCOPY FLX DX W/COLLJ SPEC WHEN PFRMD Lalo Schultz MD [address] [place] [address] [facility] [place] [address] [place] [address] Referral ID Status Reason Start Date Expiration Date Visits Requested Visits Authorized [id number] New Request Auto-Generat ed Referral 03/21/2024 03/21/2025 1 1 * Diagnostic Procedure Only (Routine) - Authorized Specialty Diagnoses / Procedures Referred By Contac t Referred To Contact XR IMAGING Diagnoses Asymptomatic postmenopausal status Procedures DXA-AXIAL SKELETON DXA BONE DENSITY STUDY 1/> SITES AXIAL Lalo Falk MD [address] [place] [address] [place] [address] Referral ID Status Reason Start Date Expiration Date Visits Requested Visits Authorized [id number] Authorized Auto-Generat ed Referral 03/21/2024 04/20/2025 1 1 [facility] for referral (narrative)* Diagnostic Procedure Only (Urgent) - Closed Specialty Diagnoses / Procedures Referred By Contac t Referred To Contact XR IMAGING Diagnoses Pain Procedures XR RIBS/CHEST 3V AP RIB/OBLS/CXR RIGHT RADEX RIBS UNI W/POSTEROANT CH MINIMUM 3 VIEWS Virgil Stark APRN.ELECTROLYTIC ETCHER [address] [place] [address] [place] [address] Referral ID Status Reason Start Date Expiration Date V isits Requested Visits Authorized [id number] Closed Auto-Generate d Referral 01/03/2023 02/02/2024 1 1 * Diagnostic Procedure Only (Urgent) - Closed Specialty Diagnoses / Procedures Referred By Contac t Referred To Contact XR IMAGING Diagnoses Pain Procedures XR FOREARM GENERAL 2V AP/LAT RIGHT RADEX FOREARM 2 VIEWS Virgil Stark APRN.CNP [address] [place] [address] [place] [address] Referral ID Status Reason Start Date Expiration Date V isits Requested Visits Authorized [id number] Closed Auto-Generate d Referral 01/03/2023 02/02/2024 1 1 [facility] for referral (narrative)* Outpatient Procedure (Routine) - Authorized Specialty Diagnoses / Procedures Referred By Contac t Referred To Contact [facility] Diagnoses Rectal bleeding Procedures COLONOSCOPY DIAGNOSTIC COLONOSCOPY FLX DX W/COLLJ SPEC WHEN Fransisca Cotto MD [address] [facility] [address] [facility] [place] [address] [place], [place] [id number] Referral ID Status Reason Start Date Expiration Date Visits Requested Visits Authorized [id number] Authorized Auto-Generat ed Referral 05/09/2024 05/09/2025 1 1 [facility] for referral (narrative)* Outpatient Procedure (Routine) - Closed Specialty Diagnoses / Procedures Referred By Contac t Referred To Contact [facility] [place] Diagnoses Rectal bleeding Procedures COLONOSCOPY DIAGNOSTIC COLONOSCOPY FLX DX W/COLLJ SPEC WHEN Fransisca Cotto MD [address] [facility] [place] [address] [facility] [place] [id number] [place] [address] Referral ID Status Reason Start Date Expiration Date V isits Requested Visits Authorized [id number] Closed Auto-Generate d Referral 05/09/2024 05/09/2025 1 1 [facility] for visit Narrative* Outpatient Procedure (Routine) - Closed Specialty Diagnoses / Procedures Referred By Contac t Referred To Contact [facility] Diagnoses Decreased pedal pulses Procedures PVR LEG JUAN ANTONIO VAS LAB NON-INVASIVE PHYSIOLOGIC STUDY EXTREMITY 3 Jonelle Wen, RESIDENT SERVICES SUPERVISOR.OPTIC FIBRE DRAWER [address] [place] [address] [facility] [place] [address] [place] [address] Referral ID Status Reason Start Date Expiration Date V isits Requested Visits Authorized [id number] Closed Auto-Generate d Referral 01/13/2023 01/13/2024 1 1 [facility] for visit Narrative* Diagnostic Procedure Only (Routine) - Closed Specialty Diagnoses / Procedures Referred By Contac t Referred To Contact XR IMAGING Diagnoses Enlargement of right sternoclavicular joint Procedures XR STERNOCLAVICULAR JOINTS 3V AP/BOTH OBLS RADEX A-C JOINTS BI W/WO WEIGHTED DIST[facility]J Lalo Schultz MD [address] [place] [address] [place] [address] Referral ID Status Reason Start Date Expiration Date V isits Requested Visits Authorized [id number] Closed Auto-Generate d Referral 08/18/2022 09/17/2023 1 1 [facility] for visit Narrative* Diagnostic Procedure Only (Urgent) - Closed Specialty Diagnoses / Procedures Referred By Contac t Referred To Contact XR IMAGING Diagnoses Pain Procedures XR RIBS/CHEST 3V AP RIB/OBLS/CXR RIGHT RADEX RIBS UNI W/POSTEROANT CH MINIMUM 3 VIEWS Virgil Stark, RESIDENT SERVICES SUPERVISOR.ELECTROLYTIC ETCHER [address] [place] [address] [place] [address] Referral ID Status Reason Start Date Expiration Date V isits Requested Visits Authorized [id number] Closed Auto-Generate d Referral 01/03/2023 02/02/2024 1 1 [facility] for visit Narrative* Diagnostic Procedure Only (Routine) - Closed Specialty Diagnoses / Procedures Referred By Contac t Referred To Contact XR IMAGING Diagnoses Asymptomatic postmenopausal status Procedures DXA-AXIAL SKELETON DXA BONE DENSITY STUDY / SITES AXIAL Lalo Falk MD [address] [place] [address] [place] [address] Referral ID Status Reason Start Date Expiration Date V isits Requested Visits Authorized [id number] Closed Auto-Generate d Referral 03/21/2024 04/20/2025 1 [facility] Procedure (Routine) - Closed Specialty Diagnoses / Procedures Referred By Contac t Referred To Contact [facility] Diagnoses Rectal bleeding Procedures COLONOSCOPY DIAGNOSTIC COLONOSCOPY FLX DX W/COLLJ SPEC WHEN PFRMD Fransisca Razo MD [address] [place] [address] [facility] [place] [address] [place] [address] Referral ID Status Reason Start Date Expiration Date V isits Requested Visits Authorized [id number] Closed Auto-Generate d Referral 05/09/2024 05/09/2025 1 1 [facility] Summary Purpose Family History No Family History Records Found Relationship Condition Age at Onset Recorded Date/T vipul Unknown Family History?Cancer Unknown Novemb er 2019 5:40am Family History?No pe rtinent history Unknown August 01, 2014 9:28pm Family History?Stroke Unknown [facility] 2019 5:40am Advance Directives No Advanced Directives Records Found Advance Directive Response Recorded Date/ Time Advance Directives Yes August 01, 2014 7:46pm Living Will Yes June 26 4:19pm Power of Mobile Mechanic Yes June 26, 2020 4:19pm Documents on File Type Date Recorded 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 Loan Manager Expl anation Advance Directive(s) 08/16/2021 7:00 AM Advance Directive(s) 08/01/2021 3:10 PM Documents on File Type Date Recorded Patient Loan Manager Expl anation Advance Directive(s) 08/16/2021 7:00 AM Advance Directive(s) 08/01/2021 3:10 PM Chief Complaint and Reason for Visit Chief Complaint SCREENING Reason for Referral Specialty Diagnoses / Procedures Referred By Contac t Referred To Contact Diagnoses Theodore Matuteque, RESIDENT SERVICES SUPERVISOR.ELECTROLYTIC ETCHER [address] [place] [address] Referral ID Status Reason Start Date Expiration Date V isits Requested Visits Authorized [id number] Pending Review 1 1 Specialty Diagnoses / Procedures Referred By Contac t Referred To Contact XR IMAGING Diagnoses Pain Procedures XR RIBS/CHEST 3V AP RIB/OBLS/CXR RIGHT RADEX RIBS UNI W/POSTEROANT CH MINIMUM 3 VIEWS Virgil Stark, RESIDENT SERVICES SUPERVISOR.ELECTROLYTIC ETCHER [address] [place] [address] X[facility] Imaging Referral ID Status Reason Start Date Expiration Date V isits Requested Visits Authorized [id number] Closed Auto-Generate d Referral 01/03/2023 02/02/2024 1 1 Specialty Diagnoses / Procedures Referred By Contac t Referred To Contact XR IMAGING Diagnoses Pain Procedures XR FOREARM GENERAL 2V AP/LAT RIGHT RADEX FOREARM 2 VIEWS Virgil Stark, RESIDENT SERVICES SUPERVISOR.ELECTROLYTIC ETCHER [address] [place] [address] Xr Imaging Referral ID Status Reason Start Date Expiration Date V isits Requested Visits Authorized [id number] Closed Auto-Generate d Referral 01/03/2023 02/02/2024 1 1 Specialty Diagnoses / Procedures Referred By Contac t Referred To Contact Urology Diagnoses Urinary incontinence, unspecified type Procedures CONSULT TO UROLOGY OFFICE/OUTPATIENT [facility] 60 MINUTES Tameka Melgar DO [address] [place] [address] Referral ID Status Reason Start Date Expiration Date Visits Requested Visits Authorized [id number] Authorized PCP Requested Referral 05/25/2025 1 1 Additional Source Comments INFORMATION SOURCE (unrecogn ized section and content) DATE CREATED AUTHOR 08/24/2018 [facility] DATE CREATED AUTHOR AUTHOR'S ORGANIZ ATION 10/06/[address] [facility] DATE CREATED AUTHOR AUTHOR'S ORGANIZ ATION 07/18/2024 [facility] DATE CREATED AUTHOR AUTHOR'S ORGANIZ ATION 03/19/[address] [facility] DATE CREATED AUTHOR AUTHOR'S GALINDO ROBERTS 03/21/2025 [facility] Goals (unrecognized section and content) Goals may be documented in a n alternate sectionGoals may be documented in an alternate sectionGoals may be documented in an alternate section Source Comments (unrecognize d section and content) In the event this informatio n is protected by the Federal Confidentiality of Alcohol and Drug Abuse Patient Records regulations: The Federal rules restrict any use of the information to criminally investigate or prosecute any alcohol or drug abuse patient.[facility] the event this information is protected by the Federal Confidentiality of Alcohol and Drug Abuse Patient Records regulations: The Federal rules restrict any use of the information to criminally investigate or prosecute any alcohol or drug abuse patient.[facility] the event this information is protected by the Federal Confidentiality of Alcohol and Drug Abuse Patient Records regulations: The Federal rules restrict any use of the information to criminally investigate or prosecute any alcohol or drug abuse patient.[facility] the event this information is protected by the Federal Confidentiality of Alcohol and Drug Abuse Patient Records regulations: The Federal rules restrict any use of the information to criminally investigate or prosecute any alcohol or drug abuse patient.[facility] the event this information is protected by the Federal Confidentiality of Alcohol and Drug Abuse Patient Records regulations: The Federal rules restrict any use of the information to criminally investigate or prosecute any alcohol or drug abuse patient.[facility] the event this information is protected by the Federal Confidentiality of Alcohol and Drug Abuse Patient Records regulations: The Federal rules restrict any use of the information to criminally investigate or prosecute any alcohol or drug abuse patient.[facility] the event this information is protected by the Federal Confidentiality of Alcohol and Drug Abuse Patient Records regulations: The Federal rules restrict any use of the information to criminally investigate or prosecute any alcohol or drug abuse patient.[facility] the event this information is protected by the Federal Confidentiality of Alcohol and Drug Abuse Patient Records regulations: The Federal rules restrict any use of the information to criminally investigate or prosecute any alcohol or drug abuse patient.[facility] the event this information is protected by the Federal Confidentiality of Alcohol and Drug Abuse Patient Records regulations: The Federal rules restrict any use of the information to criminally investigate or prosecute any alcohol or drug abuse patient.[facility] the event this information is protected by the Federal Confidentiality of Alcohol and Drug Abuse Patient Records regulations: The Federal rules restrict any use of the information to criminally investigate or prosecute any alcohol or drug abuse patient.[facility] HospitalIn the event this information is protected by the Federal Confidentiality of Alcohol and Drug Abuse Patient Records regulations: The Federal rules restrict any use of the information to criminally investigate or prosecute any alcohol or drug abuse patient.[facility] HospitalIn the event this information is protected by the Federal Confidentiality of Alcohol and Drug Abuse Patient Records regulations: The Federal rules restrict any use of the information to criminally investigate or prosecute any alcohol or drug abuse patient.[facility] Hospital[facility] the event this information is protected by the Federal Confidentiality of Alcohol and Drug Abuse Patient Records regulations: The Federal rules restrict any use of the information to criminally investigate or prosecute any alcohol or drug abuse patient.[facility] the event this information is protected by the Federal Confidentiality of Alcohol and Drug Abuse Patient Records regulations: The Federal rules restrict any use of the information to criminally investigate or prosecute any alcohol or drug abuse patient.[facility] the event this information is protected by the Federal Confidentiality of Alcohol and Drug Abuse Patient Records regulations: The Federal rules restrict any use of the information to criminally investigate or prosecute any alcohol or drug abuse patient.[facility] Hospital[facility] the event this information is protected by the Federal Confidentiality of Alcohol and Drug Abuse Patient Records regulations: The Federal rules restrict any use of the information to criminally investigate or prosecute any alcohol or drug abuse patient.[facility]In the event this information is protected by the Federal Confidentiality of Alcohol and Drug Abuse Patient Records regulations: The Federal rules restrict any use of the information to criminally investigate or prosecute any alcohol or drug abuse patient.[facility]In the event this information is protected by the Federal Confidentiality of Alcohol and Drug Abuse Patient Records regulations: The Federal rules restrict any use of the information to criminally investigate or prosecute any alcohol or drug abuse patient.[facility] HospitalIn the event this information is protected by the Federal Confidentiality of Alcohol and Drug Abuse Patient Records regulations: The Federal rules restrict any use of the information to criminally investigate or prosecute any alcohol or drug abuse patient.[facility] HospitalIn the event this information is protected by the Federal Confidentiality of Alcohol and Drug Abuse Patient Records regulations: The Federal rules restrict any use of the information to criminally investigate or prosecute any alcohol or drug abuse patient.[facility] HospitalIn the event this information is protected by the Federal Confidentiality of Alcohol and Drug Abuse Patient Records regulations: The Federal rules restrict any use of the information to criminally investigate or prosecute any alcohol or drug abuse patient.[facility] HospitalIn the event this information is protected by the Federal Confidentiality of Alcohol and Drug Abuse Patient Records regulations: The Federal rules restrict any use of the information to criminally investigate or prosecute any alcohol or drug abuse patient.[facility] HospitalIn the event this information is protected by the Federal Confidentiality of Alcohol and Drug Abuse Patient Records regulations: The Federal rules restrict any use of the information to criminally investigate or prosecute any alcohol or drug abuse patient.[facility] HospitalIn the event this information is protected by the Federal Confidentiality of Alcohol and Drug Abuse Patient Records regulations: The Federal rules restrict any use of the information to criminally investigate or prosecute any alcohol or drug abuse patient.[facility] HospitalIn the event this information is protected by the Federal Confidentiality of Alcohol and Drug Abuse Patient Records regulations: The Federal rules restrict any use of the information to criminally investigate or prosecute any alcohol or drug abuse patient.[facility] HospitalIn the event this information is protected by the Federal Confidentiality of Alcohol and Drug Abuse Patient Records regulations: The Federal rules restrict any use of the information to criminally investigate or prosecute any alcohol or drug abuse patient.[facility] HospitalIn the event this information is protected by the Federal Confidentiality of Alcohol and Drug Abuse Patient Records regulations: The Federal rules restrict any use of the information to criminally investigate or prosecute any alcohol or drug abuse patient.[facility] HospitalIn the event this information is protected by the Federal Confidentiality of Alcohol and Drug Abuse Patient Records regulations: The Federal rules restrict any use of the information to criminally investigate or prosecute any alcohol or drug abuse patient.[facility] HospitalIn the event this information is protected by the Federal Confidentiality of Alcohol and Drug Abuse Patient Records regulations: The Federal rules restrict any use of the information to criminally investigate or prosecute any alcohol or drug abuse patient.[facility] HospitalIn the event this information is protected by the Federal Confidentiality of Alcohol and Drug Abuse Patient Records regulations: The Federal rules restrict any use of the information to criminally investigate or prosecute any alcohol or drug abuse patient.[facility] HospitalIn the event this information is protected by the Federal Confidentiality of Alcohol and Drug Abuse Patient Records regulations: The Federal rules restrict any use of the information to criminally investigate or prosecute any alcohol or drug abuse patient.[facility] HospitalIn the event this information is protected by the Federal Confidentiality of Alcohol and Drug Abuse Patient Records regulations: The Federal rules restrict any use of the information to criminally investigate or prosecute any alcohol or drug abuse patient.[facility] HospitalIn the event this information is protected by the Federal Confidentiality of Alcohol and Drug Abuse Patient Records regulations: The Federal rules restrict any use of the information to criminally investigate or prosecute any alcohol or drug abuse patient.[facility] HospitalIn the event this information is protected by the Federal Confidentiality of Alcohol and Drug Abuse Patient Records regulations: The Federal rules restrict any use of the information to criminally investigate or prosecute any alcohol or drug abuse patient.[facility] HospitalIn the event this information is protected by the Federal Confidentiality of Alcohol and Drug Abuse Patient Records regulations: The Federal rules restrict any use of the information to criminally investigate or prosecute any alcohol or drug abuse patient.[facility] HospitalIn the event this information is protected by the Federal Confidentiality of Alcohol and Drug Abuse Patient Records regulations: The Federal rules restrict any use of the information to criminally investigate or prosecute any alcohol or drug abuse patient.[facility] HospitalIn the event this information is protected by the Federal Confidentiality of Alcohol and Drug Abuse Patient Records regulations: The Federal rules restrict any use of the information to criminally investigate or prosecute any alcohol or drug abuse patient.[facility] HospitalIn the event this information is protected by the Federal Confidentiality of Alcohol and Drug Abuse Patient Records regulations: The Federal rules restrict any use of the information to criminally investigate or prosecute any alcohol or drug abuse patient.[facility] HospitalIn the event this information is protected by the Federal Confidentiality of Alcohol and Drug Abuse Patient Records regulations: The Federal rules restrict any use of the information to criminally investigate or prosecute any alcohol or drug abuse patient.[facility] HospitalIn the event this information is protected by the Federal Confidentiality of Alcohol and Drug Abuse Patient Records regulations: The Federal rules restrict any use of the information to criminally investigate or prosecute any alcohol or drug abuse patient.[facility] Reason for Visit (unrecogniz ed section and content) Reason Comments Ear Pain (RT) ear pain rated 9, onset AM Reason Comments Patient Update Reason Comments OT Discharge Specialty Diagnoses / Procedures Referred By William t Referred To Contact Occupational Therapy / OCCUPATIONAL THERAPY Diagnoses Primary osteoarthritis of both first carpometacarpal joints Procedures CONSULT TO KST OPERATOR OCCUPATIONAL THERAPY EVAL HIGH COMPLEX 60 MINS Kristie Lancaster PA-C [address] [place] [address] Kala Barnes OT/L [address] [place] [address] Referral ID Status Reason Start Date Expiration Date Visits Requested Visits Authorized [id number] Authorized Auto-Generat ed Referral 07/06/2021 07/05/2022 99 99 Reason Comments post op R thumb Reason Onset Date Comments F/U 6 months Radiology Mammogram 08/14/2021 at [facility] Reason Comments CARD Follow Up Annual No new cardiac con cerns Reason Comments Results Reason Comments Mammo order Reason Onset Date Comments Population Health Navigation Outreach 09/03/2022 [employer] Care Gaps Reason Onset Date Comments F/U 6 months Radiology Mammogram 08/18/2022 at [facility] Reason Comments Fall Pt reported fall at home (RT) rib, (RT) arm pain rated 9, x1 day. Reason Comments Patient Question Reason Comments Patient Question Reason Comments F/U 6 months Labs prior Reason Comments CARD Follow Up Annual Pt schedule for le ft knee, unsure if she's going to have it done Reason Comments Lab Orders Reason Comments Order Request Reason Comments Recheck 6 month follow up wi th labs Reason Comments F/U 6 months Labs prior Reason Onset Date Comments Refill Request 03/22/2024 Reason Comments Consult Colonoscopy consulta tion. Reason Comments CARD Follow Up Annual No new cardiac con cerns Reason Comments New Patient Consult/urinary inco ntinence Specialty Diagnoses / Procedures Referred By William agee Referred To Contact Urology Diagnoses Urinary incontinence, unspecified type Procedures CONSULT TO UROLOGY OFFICE/OUTPATIENT NEW HIGH MDM 60 MINUTES Tameka Melgar Phone: tel: fax: Referral ID Status Reason Start Date Expiration Date V isits Requested Visits Authorized [id number] Closed PCP Requested Referral 05/25/2024 05/25/2025 1 1 Reason Comments Returning Patient's Call Reason Comments F/U 6 Month Reason Onset Date Comments Refill Request 09/20/2024 Reason Comments Follow Up Urge incontinence Reason Comments Orders Reason Onset Date Comments Refill Request 03/13/2025 Care Teams (unrecognized sec tion and content) Rivet Thrower Relationship Specialty Start Date End Date Lalo Schultz MD [address] [place], [place] [id number] PCP - General 08/03/06 Rivet Thrower Relationship Specialty Start Date End Date Lalo Schultz MD [address] [place] [address] [id number] PCP - General 08/03/06 Rivet Thrower Relationship Specialty Start Date End Date Lalo Schultz MD [address] [place] [id number] PCP - General 08/03/06 Rivet Thrower Relationship Specialty Start Date End Date Lalo Schultz MD [facility] [place] [address] PCP - General 08/03/06 Rivet Thrower Relationship Specialty Start Date End Date Lalo Schultz MD [address] [place] [address], [place] [address] PCP - General 08/03/06 Rivet Thrower Relationship Specialty Start Date End Date Lalo Schultz MD [address] [place] [address], [place] [address] PCP - General 08/03/06 Rivet Thrower Relationship Specialty Start Date End Date Lalo Schultz MD [address] [place] [address], [place] [address] PCP - General 08/03/06 Rivet Thrower Relationship Specialty Start Date End Date Lalo Schultz MD [address] [place] [address], [place] [address] PCP - General 08/03/06 Rivet Thrower Relationship Specialty Start Date End Date Lalo Schultz MD [address] [place] [address], [place] [address] PCP - General 08/03/06 Rivet Thrower Relationship Specialty Start Date End Date Lalo Schultz MD [address] [place] [address], [place] [address] PCP - General 08/03/06 Rivet Thrower Relationship Specialty Start Date End Date Lalo Schultz MD [address] [place] [address], [place] [address] PCP - General 08/03/06 Rivet Thrower Relationship Specialty Start Date End Date Lalo Schultz MD [address] [place] [address], [place] [address] PCP - General 08/03/06 Rivet Thrower Relationship Specialty Start Date End Date Lalo Schultz MD [address] [place] [address] PCP - General 08/03/06 Rivet Thrower Relationship Specialty Start Date End Date Lalo Schultz MD [address] [place] [address] PCP - General 08/03/06 Rivet Thrower Relationship Specialty Start Date End Date Lalo Schultz MD [address] [place] [address] PCP - General 08/03/06 Rivet Thrower Relationship Specialty Start Date End Date Lalo Schultz MD [address] [place] [address] PCP - General 08/03/06 Rivet Thrower Relationship Specialty Start Date End Date Lalo Schultz MD [address] [place] [address] PCP - General 08/03/06 Rivet Thrower Relationship Specialty Start Date End Date Lalo Schultz MD [address] [place] [address] PCP - General 08/03/06 Rivet Thrower Relationship Specialty Start Date End Date Lalo Schultz MD [address] [place] [address] PCP - General 08/03/06 Team Status: Active Member Role Status Dates Dr. Lalo Schultz MD Family Provider Active Dr. Lalo Schultz MD Primary Care Provider Active Team Status: Inactive Member Role Status Dates Dr. Lalo Schultz MD Primary Care Pr ovider, Attending Provider, Referring Provider Active Rivet Thrower Relationship Specialty Start Date End Date Lalo Schultz MD [address] [facility] [place] [address] PCP - General 08/03/06 Rivet Thrower Relationship Specialty Start Date End Date Lalo Schultz MD [address] [facility] [place] [address] PCP - General 08/03/06 Rivet Thrower Relationship Specialty Start Date End Date Lalo Schultz MD [address] [facility] [place] [address] PCP - General 08/03/06 Rivet Thrower Relationship Specialty Start Date End Date Lalo Schultz MD [address] [facility] [place] [address] PCP - General 08/03/06 Rivet Thrower Relationship Specialty Start Date End Date Lalo Schultz MD [address] [facility] [place] [address] PCP - General 08/03/06 Rivet Thrower Relationship Specialty Start Date End Date Lalo Schultz MD [address] [facility] [place] [address] PCP - General 08/03/06 Rivet Thrower Relationship Specialty Start Date End Date Lalo Schultz MD [address] [facility] [place] [address] PCP - General 08/03/06 Jonelle Mahmood, RESIDENT SERVICES SUPERVISOR.OPTIC FIBRE DRAWER [address] [facility] [place] [address] [facility] Internal Medicine 06/13/24 Kayla Pruett APRN.ELECTROLYTIC ETCHER [address] [facility] [address] [facility] Ruffer Internal Medicine 06/13/24 Rivet Thrower Relationship Specialty Start Date End Date Lalo Schultz MD [address] [facility] [place] [address] PCP - General 08/03/06 Jonelle Mahmood, GLENYS.OPTIC FIBRE DRAWER [address] [facility] [place] [address] [facility] Internal Medicine 06/13/24 Kayla Pruett APRN.ELECTROLYTIC ETCHER [address] [facility] [address] S[facility] Ruffer Internal Medicine 06/13/24 Rivet Thrower Relationship Specialty Start Date End Date Lalo Schultz MD [address] [facility] [place] [address] PCP - General 08/03/06 Jonelle Mahmood, RESIDENT SERVICES SUPERVISOR.OPTIC FIBRE DRAWER [address] [facility] [place] [address] S[facility] Ruffer Internal Medicine 06/13/24 Kayla Pruett APRN.ELECTROLYTIC ETCHER [address] [facility] [address] [facility] Ruffer Internal Medicine 06/13/24 Rivet Thrower Relationship Specialty Start Date End Date Lalo Schultz MD [address] [facility] [place] [address] PCP - General 08/03/06 Jonelle Mahmood, RESIDENT SERVICES SUPERVISOR.OPTIC FIBRE DRAWER [address] [place] [address] [facility] Internal Medicine 06/13/24 Kayla Pruett RESIDENT SERVICES SUPERVISOR.ELECTROLYTIC ETCHER [address] [place] [address] [facility] Internal Medicine 06/13/24 Rivet Thrower Relationship Specialty Start Date End Date Lalo Schultz MD [address] [place] [address] PCP - General 08/03/06 Jonelle Mahmood, RESIDENT SERVICES SUPERVISOR.OPTIC FIBRE DRAWER [address] [place] [address] [facility] Internal Medicine 06/13/24 Kayla Pruett RESIDENT SERVICES SUPERVISOR.ELECTROLYTIC ETCHER [address] [place] [address] [facility] Internal Medicine 06/13/24 Rivet Thrower Relationship Specialty Start Date End Date Lalo Schultz MD [address] [place] [address] PCP - General 08/03/06 Jonelle Mahmood, RESIDENT SERVICES SUPERVISOR.OPTIC FIBRE DRAWER [address] [place] [address] [facility] Internal Medicine 06/13/24 Kayla Pruett RESIDENT SERVICES SUPERVISOR.ELECTROLYTIC ETCHER [address] [place] [address] [facility] Internal Medicine 06/13/24 Rivet Thrower Relationship Specialty Start Date End Date Lalo Schultz MD [address] [place] [address] PCP - General 08/03/06 Jonelle Mahmood, RESIDENT SERVICES SUPERVISOR.OPTIC FIBRE DRAWER [address] [place] [address] [facility] Internal Medicine 06/13/24 Kayla Pruett RESIDENT SERVICES SUPERVISOR.ELECTROLYTIC ETCHER [address] [place] [address] [facility] Internal Medicine 06/13/24 Rivet Thrower Relationship Specialty Start Date End Date Lalo Schultz MD [address] [place] [address] PCP - General 08/03/06 Jonelle Mahmood, RESIDENT SERVICES SUPERVISOR.OPTIC FIBRE DRAWER [address] [place] [address] [facility] Internal Medicine 06/13/24 Kayla Pruett APRN.ELECTROLYTIC ETCHER [address] [place] [address] [facility] Internal Medicine 09/27/24 Rivet Thrower Relationship Specialty Start Date End Date Lalo Schultz MD [address] [place] [address] PCP - General 08/03/06 Jonelle Mahmood, RESIDENT SERVICES SUPERVISOR.OPTIC FIBRE DRAWER [address] [place] [address] [facility] Internal [facility] 06/13/24 Kayla Pruett APRN.ELECTROLYTIC ETCHER [address] [facility] [place] [address] [facility] Internal [facility] 06/13/24 09/23/24 Kayla Pruett APRN.ELECTROLYTIC ETCHER [address] [place] [address] [facility] Internal [facility] 09/27/24 Rivet Thrower Relationship Specialty Start Date End Date Lalo Schultz MD [address] [place] [address] PCP - General 08/03/06 Jonelle Mahmood APRN.OPTIC FIBRE DRAWER [address] [place] [address] [facility] 06/13/24 Kayla Pruett APRN.ELECTROLYTIC ETCHER [address] [place] [address] [facility] 06/13/24 09/23/24 Kayla Pruett APRN.ELECTROLYTIC ETCHER [address] [place] [address] [facility] 09/27/24 Rivet Thrower Relationship Specialty Start Date End Date Lalo Schultz MD [address] [place] [address] PCP - General 08/03/06 Kayla Pruett APRN.ELECTROLYTIC ETCHER [address] [place] [address] [facility] 09/27/24 Jonelle Mahmood APRN.OPTIC FIBRE DRAWER [address] [place] [address] [facility] Internal Medicine 11/23/24 Rivet Thrower Relationship Specialty Start Date End Date Lalo Schultz MD [address] [place], [place] [address] PCP - General 08/03/06 Kayla Pruett APRN.ELECTROLYTIC ETCHER [address] [place], [place] [id number] [facility] Internal Medicine 09/27/24 Jonelle Mahmood APRN.OPTIC FIBRE DRAWER [address] [place], [place] [id number] [facility] Internal [facility] 11/23/24 FOR RECORDS PERTAINING TO PATIENTS WHO ARE OR HAVE BEEN ENROLLED IN A CHEMICAL DEPENDENCY/SUBSTANCEABUSE PROGRAM, SOME INFORMATION MAY BE OMITTED. This clinical summary was aggregated from multiple sources. Caution should be exercised in using it in the provision of clinical care. This summary normalizes information from multiple sources, and as a consequence, information in this document may materially change the coding, format and clinical context of patient data. In addition, data may be omitted in some cases. CLINICAL DECISIONS SHOULD BE BASED ON THE PRIMARY CLINICAL RECORDS. [employer] [facility]. provides no warranty or guarantee of the accuracy or completeness of information in this document.
== END | disposition home or self-care (01) ==
LOC: OPBI 14:32
PROVIDERS: PCP Internal Medicine; Referring Provider Internal Medicine; Visit Provider Internal Medicine
DX: Z12.31 Encounter for screening mammogram for malignant neoplasm of breast (principal)
CPT/HCPCS: 77063; 77067

== ENCOUNTER → 2025-03-31 | Outpatient (CLI) | payer MEDICARE, SELFPAY ==
--- NOTE | 2025-03-31 13:00 | BI_ITS ---
EXAM: DIAG MAMM W/CAD, UNILAT; BREAST LIMITED UNILATERAL; LT BRST UNILAT CHRISTIAN ADD ON 03/31/2025 CLINICAL HISTORY: F, Age 74 y/o , ABN MAMMOGRAM OF LEFT BREAST; ABNORMAL MAMMOGRAM OF LEFT BREAST TECHNIQUE: Procedure Code: [id number]; USBRSTLIMIT; BILTUNITOMO Modality: MG; US Procedure: DIAG MAMM W/CAD, UNILAT; BREAST LIMITED UNILATERAL; LT BRST UNILAT CHRISTIAN ADD ON. COMPARISON: Prior exam(s) dated 03/23/2025, 09/30/2023, 09/16/2022, 09/12/2021. FINDINGS: MAMMOGRAM: TISSUE DENSITY: There are scattered areas of fibroglandular density. Unilateral Left Breast Mammographic Findings: Follow-up examination performed for the left breast findings seen on examination of 03/23/2025. On the present examination, there is architectural distortion in the superior left breast at middle depth persist, which has not significantly changed when compared to multiple priors dating back to 2021. ULTRASOUND: Ultrasound performed of the superior left breast demonstrates no sonographic correlate for the mammographic finding. BI/DIAG MAMM W/CAD, UNILAT IMPRESSION: Stable architectural distortion in the superior left breast when compared to mu ltiple priors dating back to 2021. Therefore, this is considered benign. OVERALL FINAL ASSESSMENT BI-RADS 2: BENIGN RECOMMENDATION: Routine annual follow-up in 1 Year Additional Recommendation none A letter with findings and recommendations will be mailed to the patient. Reading Location: [id number]
--- NOTE | 2025-03-31 13:00 | BI_ITS ---
EXAM: DIAG MAMM W/CAD, UNILAT; BREAST LIMITED UNILATERAL; LT BRST UNILAT CHRISTIAN ADD ON 03/31/2025 CLINICAL HISTORY: F, Age 74 y/o , ABN MAMMOGRAM OF LEFT BREAST; ABNORMAL MAMMOGRAM OF LEFT BREAST TECHNIQUE: Procedure Code: [id number]; USBRSTLIMIT; BILTUNITOMO Modality: MG; US Procedure: DIAG MAMM W/CAD, UNILAT; BREAST LIMITED UNILATERAL; LT BRST UNILAT CHRISTIAN ADD ON. COMPARISON: Prior exam(s) dated 03/23/2025, 09/30/2023, 09/16/2022, 09/12/2021. FINDINGS: MAMMOGRAM: TISSUE DENSITY: There are scattered areas of fibroglandular density. Unilateral Left Breast Mammographic Findings: Follow-up examination performed for the left breast findings seen on examination of 03/23/2025. On the present examination, there is architectural distortion in the superior left breast at middle depth persist, which has not significantly changed when compared to multiple priors dating back to 2021. ULTRASOUND: Ultrasound performed of the superior left breast demonstrates no sonographic correlate for the mammographic finding. BI/Lt Brst Unilat Christian Add On IMPRESSION: Stable architectural distortion in the superior left breast when compared to mu ltiple priors dating back to 2021. Therefore, this is considered benign. OVERALL FINAL ASSESSMENT BI-RADS 2: BENIGN RECOMMENDATION: Routine annual follow-up in 1 Year Additional Recommendation none A letter with findings and recommendations will be mailed to the patient. Reading Location: [id number]
== END | disposition home or self-care (01) ==
LOC: OPBI 12:57
PROVIDERS: PCP Internal Medicine; Referring Provider Internal Medicine; Visit Provider Internal Medicine
DX: R92.8 Other abnormal and inconclusive findings on diagnostic imaging of breast (principal)
CPT/HCPCS: 76642; 77061; 77065; G0279